=== PATIENT | female | born 1950 | race Caucasian/White ===

== ENCOUNTER 2024-04-21 16:32 | Emergency (ER) | payer MEDICARE, BC, SELFPAY ==
[2024-04-21 16:37] VITALS: BP 122/68; PULSE 78; RESP 16; TEMP 36.8; O2SAT 98
--- NOTE | 2024-04-21 16:50 | W.ED.GENAD ---
Discharge Plan Disposition Patient Disposition: Home Condition: Stable Discharge Details Clinical Impression: Laceration of left lower leg Primary Care Provider: Estrellita,Local ED Provider: Marino Salcido Home Meds and New Rx's Prescriptions: No Action levothyroxine [Euthyrox] 100 mcg tablet 100 mcg PO DAILY losartan 100 mg tablet 100 mg PO DAILY amlodipine 5 mg tablet 5 mg PO DAILY Discharge Instructions Instructions: Laceration Repair With Stitches ED Additional Instructions: You were seen in the emergency department for your significant skin tear of your left lateral calf, this was repaired by sutures after extensive wound cleaning. The sutures will need to be removed in 7 to 10 days, you can have this done at this ER or if you return home you can have it done at any medical facility, keep the wound covered and dressed with a clean dressing, watch for signs of infection. Please return to emergency department for any severe signs of infection including increasing redness, swelling, red streaking up the leg, drainage of pus from the area. Due to the fragile nature of skin tears you may need to follow-up with general surgery in office if this does not heal properly. We did update your tetanus today as you are unsure of when your last tetanus shot was. Discharge Data Discharge Date/Time-TO BE ENTERED AT DEPARTURE: 04/21/24 18:01 HPI General Date/Time Provider Initiated Documentation: 04/21/24 16:44. HPI Narrative: 73 year-old female presents to ED today by POV/ambulating with her with a chief complaint of L lopez skin tear from her bike pedal hitting her leg with onset about an hour prior to arrival. Quality described as a deep gash in the lateral lopez/calf, no radiation to active spurting of blood, numbness/tingling, gross contamination, inability to ambulate. Severity is described as mild. Palliating factors include simple bandage with relief of active bleeding. Provoking factors include nothing specific. Events leading up to the incident/Associated Symptoms: Patient is unsure of exact Tdap date, but prefers to check with PCP. Patient not anticoagulated. Related Data Home Medications ?Medication ?Instructions ?Recorded ?Confirmed amlodipine 5 mg tablet 5 mg PO DAILY 04/21/24 04/21/24 levothyroxine 100 mcg tablet 100 mcg PO DAILY 04/21/24 04/21/24 (Euthyrox) losartan 100 mg tablet 100 mg PO DAILY 04/21/24 04/21/24 Allergies Allergy/AdvReac Type Severity Reaction Status Date / Time No Known Allergies Allergy Unverified 04/21/24 16:41 General Stated Complaint: Laceration CHRISTA: 4 Review of Systems All systems reviewed & are unremarkable except as noted in HPI and below Exam Narrative Exam Narrative: GENERAL APPEARANCE: Well-nourished, non-toxic, awake and alert, atraumatic, no acute distress. SKIN: Warm, pink, dry, intact, without rashes/lesions/ulcerations, large V-shaped laceration/skin tear about 8cm on L lateral lopez/calf, into subcutaneous tissue, visualized fascia without defect to anterior tib compartment, no active bleeding, NV intact distally HEAD: Normocephalic, atraumatic, normal hair distribution for gender/age. EYES: Normal conjunctiva, no exudates on lids/lashes. ENT: Nares patent, no circumoral cyanosis, no facial swelling NECK: Supple, trachea midline, painless cervical ROM. LUNGS/CHEST: Non-labored respirations, normal A/P diameter, symmetrical expansion, no chest wall deformity HEART (CV/PV): No peripheral edema, no JVD. ABDOMEN: Soft, non-distended, no guarding. MSK: Normal ROM, no swelling/deformity to bilateral UEs or LEs, moving all extremities without weakness, no cyanosis, spine midline without tenderness, normal curvature. NEURO: Mental Status AAOx4 - alert to person, place, time, events No facial droop, no forehead involvement. Motor: No focal weakness - strength 5/5 in bilateral UEs and LEs, proximal and distal, symmetric. Sensory: sensation intact to light touch globally. Gait normal: patient ambulated without ataxia into ED room. PSYCH: euthymic, cooperative, pleasant, appropriate speech Course Vital Signs Vital signs: Vital Signs Temperature 36.8 C 04/21/24 16:37 Pulse 78 04/21/24 16:37 Respiratory Rate 16 04/21/24 16:37 Blood Pressure 122/68 04/21/24 16:37 Pulse Oximetry 98 04/21/24 16:37 Temperature 36.8 C 04/21/24 16:37 Pulse 78 04/21/24 16:37 Respiratory Rate 16 04/21/24 16:37 Respiratory Effort Normal 09/23/24 16:41 Blood Pressure 122/68 04/21/24 16:37 Pulse Oximetry 98 04/21/24 16:37 Pain Level 2 04/21/24 16:37 Procedures Laceration Laceration 1: Site: lower extremity Side (If applicable): left Size (cm): 8 Description: flap and clean Depth: simple, single layer Local anesthetic: Lidocaine 1% Amount of anesthesia used (mL): 10 Pre-repair: wound explored, irrigated extensively and deep structures intact Skin layer closed with: nylon Size (cm): 4-0 Number of sutures: 13 Technique: simple, interrupted Medical Decision Making This dictation utilizes [id number] dictation software and may contain unedited grammatical errors. 73 year-old female presents to ED today by POV/ambulating with her with a chief complaint of L lopez skin tear from her bike pedal hitting her leg with onset about an hour prior to arrival. Quality described as a deep gash in the lateral lopez/calf, no radiation to active spurting of blood, numbness/tingling, gross contamination, inability to ambulate. Severity is described as mild. Palliating factors include simple bandage with relief of active bleeding. Provoking factors include nothing specific. Events leading up to the incident/Associated Symptoms: Patient is unsure of exact Tdap date, but prefers to check with PCP. Patients' medical history: noncontributory. Family and social history: noncontributory, patient and visiting from [place]. Pertinent exam findings / vital signs include large V-shaped laceration/skin tear about 8cm on L lateral lopez/calf, into subcutaneous tissue, visualized fascia without defect to anterior tib compartment, no active bleeding, NV intact distally. Differential / pathologies of concern include laceration, avulsion. Diagnostic studies of: -none. Interventions of: -#13 sutures of 4-0 ethilon and two small steri-strips. ED Course/Assessment/Plan: 73-year-old female suffered an avulsion skin tear that is quite deep to her left lateral calf about 8 cm in length total, I repaired this with combination of Steri-Strips and sutures, the patient's will be in [place] in 7 to 10 days when this needs to come out I counseled them extensively on suture removal and generalized wound care. 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 I stressed strict return to any ED for increasing signs of infection. Findings not consistent with fascial defect, muscle rupture, aterial bleeding, gross contamination. Disposition of Laceration of Left Lower Leg. Patient verbalized understanding of the plan and return to ED criteria and engaged in shared decision making. Medical Records Medical records reviewed: Yes I reviewed the patient's medical records. Quality:[facility] Health Related Social Needs: No Data to Display [facility] All Active Problems (Updated 04/21/24 @ 16:56 by AMANDO Denise) Laceration of left lower leg (Acute) Social History Smoking/Tobacco Use Status: Never Smoking risk assessment performed?: Yes Alcohol Intake: never Drug use: Never Housing: house Do you feel safe at home: Yes Do you feel safe in your relationship?: Yes
--- OUTSIDE RECORDS SUMMARY | 2024-04-21 18:20 | XMS_ITS | Encounter Summary ---
Author Organization [facility] Address [address] [place] [address], [address] [place] [address] Care Team Providers Care Machine Setter Automatic Name Role Phone Assigned, Pcp Not Primary Care Provider [phone] Encounter Details Date Type Department Care Team (Late st Contact Info) Description 02/11/2019 [facility] Conversion [facility] [address] [place] [address] [place] [id number] [address] Social History Tobacco Use Types Packs/Day Years Used Date Smoking Tobacco: Never Assessed Sex and Gender Information Value Date Recorded Sex Assigned at Not on file Gender Identity Not on file Sexual Orientation Not on file documented as of this encounter Plan of Treatment Not on file documented as of this encounter Visit Diagnoses Diagnosis Unilateral primary osteoarthritis, right hip Abnormal coagulation profile documented in this encounter Additional Health Concerns Infection Onset Date Last Indicated Resolved Time 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
--- OUTSIDE RECORDS SUMMARY | 2024-04-21 18:20 | XMS_ITS | Encounter Summary ---
Author Organization [facility] Address [address] [place] [address], [address] [place] [address] Care Team Providers Care Assembler Type Bar And Segment Name Role Phone Assigned, Pcp Not Primary Care Provider [phone] Encounter Details Date Type Department Care Team (Late st Contact Info) Description 10/14/2018 [facility] Conversion [facility] [place] [address] [place] [phone] Miranda Herrera, RN Social History Tobacco Use Types Packs/Day Years Used Date Smoking Tobacco: Never Assessed Sex and Gender Information Value Date Recorded Sex Assigned at Not on file Gender Identity Not on file Sexual Orientation Not on file documented as of this encounter Plan of Treatment Not on file documented as of this encounter Visit Diagnoses Not on filedocumented in this encounter Additional Health Concerns Infection Onset Date Last Indicated Resolved Time MRSA Comment:+ 09/30/18 Clau 10/02/2018 10/02/2018 documented as of this encounter Care Teams Assembler Type Bar And Segment Relationship Specialty Start Date End Date Assigned, [place] [address] PCP - General 08/04/20 03/02/23 documented as of this encounter
--- OUTSIDE RECORDS SUMMARY | 2024-04-21 18:20 | XMS_ITS | Encounter Summary ---
Author Organization [facility] Address [address] [place] [address], [address] [place] [address] Care Team Providers Care Correctional Therapy Director Name Role Phone Assigned, Pcp Not Primary Care Provider [phone] Encounter Details Date Type Department Care Team (Late st Contact Info) Description 11/20/2018 [facility] Conversion [facility] [address] [facility] [address] [place] [id number] Eula Alcantar MD [address] [facility] [address] [place] [address] Social History Tobacco Use Types Packs/Day Years Used Date Smoking Tobacco: Never Assessed Sex and Gender Information Value Date Recorded Sex Assigned at Not on file Gender Identity Not on file Sexual Orientation Not on file documented as of this encounter Plan of Treatment Not on file documented as of this encounter Visit Diagnoses Diagnosis No diagnosis documented in this encounter Additional Health Concerns Infection Onset Date Last Indicated Resolved Time MRSA Comment:+ 09/30/18 Clau 10/02/2018 10/02/2018 documented as of this encounter Care Teams Correctional Therapy Director Relationship Specialty Start Date End Date Assigned, Pcp Not One [facility] [place] [address] PCP - General 08/04/20 03/02/23 documented as of this encounter
--- OUTSIDE RECORDS SUMMARY | 2024-04-21 18:20 | XMS_ITS | Encounter Summary ---
Author Organization [facility] Address [address] [place] [address], [address] [place] [address] Care Team Providers Care Chief Of Production Name Role Phone Assigned, Pcp Not Primary Care Provider [phone] Encounter Details Date Type Department Care Team (Late st Contact Info) Description 03/13/2019 [facility] Conversion [facility] [place] [facility] [address] [place] [phone] [place] [address] [facility] [address] [place] [address] Social History Tobacco Use Types Packs/Day [...] documented as of this encounter Care Teams Chief Of Production Relationship Specialty Start Date End Date Assigned, Pcp [place] [address] PCP - General 08/04/20 03/02/23 documented as of this encounter
--- OUTSIDE RECORDS SUMMARY | 2024-04-21 18:20 | XMS_ITS | Encounter Summary ---
Author Organization [facility] Address [address] [place] [address], [address] [place] [address] Care Team Providers Care Speech Professor Name Role Phone Unavailable Primary Care Provider Unavailabl e Encounter Details Date Type Department Care Team (Latest Contact Info) Description 11/20/2018 1:53 PM PDT - 11/20/2018 11:59 PM PDT Hospital Encounter [facility] [address] [facility] [address] [place] [address] No diagnosis Discharge Disposition: Home or Self Care Social History Tobacco Use Types Packs/Day Years Used Date Smoking Tobacco: Never Assessed Sex and Gender Information Value Date Recorded Sex Assigned at Not on file Gender Identity Not on file Sexual Orientation Not on file documented as of this encounter Plan of Treatment Not on file documented as of this encounter Procedures Procedure Name Priority Date/Time Associated Diagnosis Comments CT CHEST ABDOMEN PELVIS W CONTRAST Routine 11/20/2018 2:21 PM PDT No diagnosis documented in this encounter Results * CT CHEST ABDOMEN PELVIS W CONTRAST (11/20/2018 2:21 PM PDT) Anatomical Region Laterality Modality Body, Chest Computed Tomogra phy Impressions 11/20/2018 2:38 PM PDT 1. Unremarkable CT of the chest. 2. Mild heterogeneous enhancement of the left kidney may represent foci of scarring. ??However, acute or chronic pyelonephritis cannot be excluded. ??Please correlate clinically. 3. ??Constipation. 4. ??Mild age indeterminant compression deformities at T9 and T12. LANA REDD was notified of the results via secure [employer] on 11/20/2018 2:[address] Roberto Arnett. Electronically signed by Roberto Arnett 11/20/2018 2:38 PM Narrative 11/20/2018 2:[address] CHEST, ABDOMEN, AND PELVIS WITH CONTRAST CLINICAL HISTORY: History of anemia. COMPARISON: None. TECHNIQUE: Using a multidetector helical CT scanner, thin slice acquisition was performed through the chest, abdomen, and pelvis following the uncomplicated administration of intravenous contrast. Multiplanar reformations were obtained. The supervising radiologist approved the post-processing of 3D MIP reformatted images to improve anatomic detail and detection of pulmonary nodules. CT scan done according to ALARA. CONTRAST ADMINISTERED: IOVERSOL 74 % IJ SOLN ?? 95 mL DOSE INFORMATION: CTDIvol (mGy) Series 2 - Spiral - 7.96 (mGy) ? Total DLP (mGy-cm): 517.53 mGy.cm. (Note: The above reported CTDIvol and DLP values are CT scanner radiation output related dose indices, and, as such, they do NOT represent actual patient dose estimates. A medical logistics specialist should be consulted for specific questions regarding the radiation dose for this exam). CHEST FINDINGS: Lungs and Airways: Very mild bibasilar atelectasis is present. ??No pulmonary mass or suspicious nodule. Pleura: No pleural effusion or thickening. Heart and Pericardium: Heart size is normal. No pericardial effusion. Coronary Artery Calcification: Absent. Vessels: Unremarkable. Mediastinum and Celina: No enlarged mediastinal, hilar, or axillary lymph nodes. Chest Wall and Lower Neck: Unremarkable. Bones: Mild age indeterminate compression deformities are present at T9 and T12. ABDOMEN AND PELVIS FINDINGS: Liver: Unremarkable. Gallbladder and Biliary Tree: Gallbladder is not well seen. No intra or extrahepatic biliary ductal dilatation. Pancreas: Unremarkable. Spleen: Unremarkable. Adrenals: Unremarkable. Kidneys and Ureters: Right kidney is unremarkable. ??Mild heterogeneous enhancement of the left kidney is seen. Bladder: Unremarkable. Reproductive Organs: Unremarkable. Bowel: There is stool retention in the colon. Lymph Nodes: No enlarged lymph nodes. Peritoneum: No ascites or free air. No focal fluid collection. Vessels: Unremarkable. Abdominal Wall: Unremarkable. Bones: Unremarkable. Procedure Note Roberto Arnett MD - 01/29/2023 CT CHEST, ABDOMEN, AND PELVIS WITH CONTRAST CLINICAL HISTORY: History of anemia. COMPARISON: None. TECHNIQUE: Using a multidetector helical CT scanner, thin sliceacquisition was performed through the chest, abdomen, and pelvis followingthe uncomplicated administration of intravenous contrast. Multiplanarreformations were obtained. The supervising radiologist approved the post-processing of 3D MIP reformatted images toimprove anatomic detail and detection of pulmonary nodules. CT scan doneaccording to JONNY. CONTRAST ADMINISTERED: IOVERSOL 74 % IJ SOLN 95 mL DOSE INFORMATION: CTDIvol (mGy) Series 2 - Spiral - 7.96 (mGy) Total DLP (mGy-cm): 517.53 mGy.cm. (Note: The above reported CTDIvol and DLP values are CT scanner radiationoutput related dose indices, and, as such, they do NOT represent actualpatient dose estimates. A medical logistics specialist should be consulted forspecific questions regarding the radiation dose for this exam). CHEST FINDINGS: Lungs and Airways: Very mild bibasilar atelectasis is present. Nopulmonary mass or suspicious nodule. Pleura: No pleural effusion or thickening. Heart and Pericardium: Heart size is normal. No pericardial effusion. Coronary Artery Calcification: Absent. Vessels: Unremarkable. Mediastinum and Celina: No enlarged mediastinal, hilar, or axillary lymphnodes. Chest Wall and Lower Neck: Unremarkable. Bones: Mild age indeterminate compression deformities are present at T9and T12. ABDOMEN AND PELVIS FINDINGS: Liver: Unremarkable. Gallbladder and Biliary Tree: Gallbladder is not well seen. No intra orextrahepatic biliary ductal dilatation. Pancreas: Unremarkable. Spleen: Unremarkable. Adrenals: Unremarkable. Kidneys and Ureters: Right kidney is unremarkable. Mild heterogeneousenhancement of the left kidney is seen. Bladder: Unremarkable. Reproductive Organs: Unremarkable. Bowel: There is stool retention in the colon. Lymph Nodes: No enlarged lymph nodes. Peritoneum: No ascites or free air. No focal fluid collection. Vessels: Unremarkable. Abdominal Wall: Unremarkable. Bones: Unremarkable. IMPRESSION: 1. Unremarkable CT of the chest. 2. Mild heterogeneous enhancement of the left kidney may represent foci ofscarring. However, acute or chronic pyelonephritis cannot be excluded.Please correlate clinically. 3. Constipation. 4. Mild age indeterminant compression deformities at T9 and T12. LANA REDD was notified of the results via [employer] 11/20/2018 2:[address] Roberto Arnett. Electronically signed by Roberto Arnett 11/20/2018 2:[address] PROCEDURES documented in this encounter Visit Diagnoses Diagnosis No diagnosis documented in this encounter Additional Health Concerns Infection Onset Date Last Indicated Resolved Time MRSA Comment:+ 09/30/18 Nares 10/02/2018 10/02/2018 documented as of this encounter
--- OUTSIDE RECORDS SUMMARY | 2024-04-21 18:20 | XMS_ITS | Encounter Summary ---
Author Organization [facility] Address [address] [place] [address], [address] [place] [address] Care Team Providers Care Pharmacist In Charge Name Role Phone Assigned, Pcp Not Primary Care Provider [phone] Jes Arriaga MD Primary Care Provider + Encounter Details Date Type Department Care Team (Late st Contact Info) Description 02/24/2021 [facility] Conversion [facility] CONVERSION DEPARTMENT Provider, [facility] Conversion Social History Tobacco Use Types Packs/Day Years [...] documented as of this encounter Care Teams Pharmacist In Charge Relationship Specialty Start Date End Date Assigned, [place] [address] PCP - General 08/04/20 03/02/23 [place] [address] [facility], [address] [place] [address] PCP - General Internal Medicine 03/03/23 documented as of this encounter
--- OUTSIDE RECORDS SUMMARY | 2024-04-21 18:20 | XMS_ITS | Encounter Summary ---
Author Organization [facility] Address [address] [place] [address], [address] [place] [address] Care Team Providers Care Mri Specialist Name Role Phone Assigned, Pcp Not Primary Care Provider [phone] Encounter Details Date Type Department Care Team (Late st Contact Info) Description 10/10/2018 [facility] Conversion [facility] [address] [address] Provider, [facility] Ip Conversion Social History Tobacco Use Types Packs/Day [...] documented as of this encounter Care Teams Mri Specialist Relationship Specialty Start Date End Date Assigned, Pcp Not One [facility] [place] [address] PCP - General 08/04/20 03/02/23 documented as of this encounter
--- OUTSIDE RECORDS SUMMARY | 2024-04-21 18:20 | XMS_ITS | Encounter Summary ---
Author Organization [facility] Address [address] [place] [address], [address] [place] [address] Care Team Providers Care Gear Tester Name Role Phone Assigned, Pcp Not Primary Care Provider [phone] Encounter Details Date Type Department Care Team ([facility] st Contact Info) Description 09/30/2018 [facility] Conversion [facility] [address] [place] [address] [place] [address] [place], [place] [id number] Social History Tobacco Use Types Packs/Day Years Used Date Smoking Tobacco: Never Assessed Sex and Gender Information Value Date Recorded Sex Assigned at Not on file Gender Identity Not on file Sexual Orientation Not on file documented as of this encounter Miscellaneous Notes * Miscellaneous - [facility] I[facility] Conversion - 09/30/2018 2:31 PM PST Other by Shayy Cloud at 09/30/181430 Author: Shayy Cloud Service: -- Author Type: -- Filed: 09/30/181430 Encounter Date: 09/30/2018 Status: Signed Principal System Software Engineer: Shayy Cloud Electronically signed by Onel [facility] Manager [employer] Conversion 30 at 01/29/2023 6:50 AM PDT documented in this encounter Plan of Treatment Not on file documented as of this encounter Visit Diagnoses Diagnosis Unilateral primary osteoarthritis, right hip documented in this encounter Additional Health Concerns Infection Onset Date Last Indicated Resolved Time MRSA Comment:+ 09/30/18 Clau 10/02/2018 10/02/2018 documented as of this encounter Care Teams Gear Tester Relationship Specialty Start Date End Date Assigned, [place] [address] PCP - General 08/04/20 03/02/23 documented as of this encounter
--- OUTSIDE RECORDS SUMMARY | 2024-04-21 18:20 | XMS_ITS | Encounter Summary ---
Author Organization [facility] Address [address] [place] [address], [address] [place] [address] Care Team Providers Care Nutrition Manager Name Role Phone Assigned, Pcp Not Primary Care Provider [phone] Encounter Details Date Type Department Care Team (Late st Contact Info) Description 02/11/2019 [facility] Conversion [facility] [address] [place] [address] [place] [address] [address] Social History Tobacco Use Types [...] documented as of this encounter Care Teams Nutrition Manager Relationship Specialty Start Date End Date Assigned, [place] [address] PCP - General 08/04/20 03/02/23 documented as of this encounter
--- OUTSIDE RECORDS SUMMARY | 2024-04-21 18:20 | XMS_ITS | Encounter Summary ---
Author Organization [facility] Address [address] [place] [address], [address] [place] [address] Care Team Providers Care Baseball Club Manager Name Role Phone Assigned, Pcp Not Primary Care Provider [phone] Encounter Details Date Type Department Care Team (Late st Contact Info) Description 09/25/[address] [facility] [address] [place] [address] [place] [address] [address] Social History Tobacco Use Types [...] documented as of this encounter Care Teams Baseball Club Manager Relationship Specialty Start Date End Date Assigned, [place] [address] PCP - General 08/04/20 03/02/23 documented as of this encounter
--- OUTSIDE RECORDS SUMMARY | 2024-04-21 18:20 | XMS_ITS | Encounter Summary ---
Author Organization [facility] Address [address] [place] [address], [address] [place] [address] Care Team Providers Care Linux Admin Name Role Phone Assigned, Pcp Not Primary Care Provider [phone] Encounter Details Date Type Department Care Team (Late st Contact Info) Description 02/11/2019 [facility] Conversion [facility] Laboratory 1 [place] [address] [place] [address] [address] Social History Tobacco Use Types [...] documented as of this encounter Care Teams Linux Admin Relationship Specialty Start Date End Date Assigned, [place] [address] PCP - General 08/04/20 03/02/23 documented as of this encounter
--- OUTSIDE RECORDS SUMMARY | 2024-04-21 18:20 | XMS_ITS | Encounter Summary ---
Author Organization [facility] Address [address] [place] [address], [address] [place] [address] Care Team Providers Care Communications Professor Name Role Phone Assigned, Pcp Not Primary Care Provider [phone] Encounter Details Date Type Department Care Team ([facility] st Contact Info) Description 02/14/2019 [facility] Conversion [facility] [address] [address] [facility] [address] [place] [address] Provider, [facility] Ip Conversion Social History Tobacco Use Types Packs/Day Years Used Date Smoking Tobacco: Never Assessed Sex and Gender Information Value Date Recorded Sex Assigned at Not on file Gender Identity Not on file Sexual Orientation Not on file documented as of this encounter Plan of Treatment Not on file documented as of this encounter Procedures Procedure Name Priority Date/Time Associated Diagnosis Comments URINALYSIS, REFLEX MICROSCOPIC AND/OR CULTURE Routine 02/14/2019 12:10 PM PDT TYPE AND SCREEN STAT 02/14/2019 12:10 PM PDT CULTURE, MRSA Routine 02/14/2019 12:10 PM PDT CULTURE, MRSA Routine 02/14/2019 12:10 PM PDT CULTURE, MRSA Routine 02/14/2019 12:10 PM PDT APTT Routine 02/14/2019 12:10 PM PDT PROTIME-INR Routine 02/14/2019 12:10 PM PDT CBC AND DIFFERENTIAL - WAM AND NON-WAM Routine 02/14/2019 12:10 PM PDT COMPREHENSIVE METABOLIC PANEL Routine 02/14/2019 12:10 PM PDT documented in this encounter Results * (ABNORMAL) Culture, MRSA (02/14/2019 12:10 PM PDT) Culture STAPHYLOCOCCUS AUREUS, METHICILLIN RESISTANT (MRSA)(A) 02/15/2019 4:41 PM PDT [facility] (CLIA [id number]) Comment:Heavy Staphylococcus aureus,Methicillin resistant (MRSA) Tissue Both anterior nares / Unknown 02/14/2019 12:10 PM PDT 02/14/2019 2:17 PM PDT Ammon Reyes MD LAB MICROBIOLOGY - G ENERAL ORDERABLES [facility] (CLIA [id number]) [place] [address], [facility] (CLIA [id number]) [place] [address] * Culture, MRSA (02/14/2019 12:10 PM PDT) Culture No Methicillin-Resist ant Staphylococcus aureus isolated. 02/15/2019 4:38 PM PDT [facility] (CLIA [id number]) Tissue Axillary region structure / Unknown 02/14/2019 12:10 PM PDT 02/14/2019 2:17 PM PDT Ammon Reyes MD LAB MICROBIOLOGY - G ENERAL ORDERABLES [facility] (CLIA [id number]) [place] [address], [facility] (CLIA [id number]) [place] [address] * (ABNORMAL) Culture, MRSA (02/14/2019 12:10 PM PDT) Culture STAPHYLOCOCCUS AUREUS, METHICILLIN RESISTANT (MRSA)(A) 02/15/2019 4:40 PM PDT [facility] (CLIA [id number]) Comment:Light Staphylococcus aureus,Methicillin resistant (MRSA) Tissue Bilateral inguinal canals / Unknown 02/14/2019 12:10 PM PDT 02/14/2019 2:17 PM PDT Ammon Reyes MD LAB MICROBIOLOGY - G ENERAL ORDERABLES [facility] (CLIA [id number]) [place] [address], [facility] (CLIA [id number]) [place] [address] * (ABNORMAL) Urinalysis, Reflex Microscopic and/or Culture (02/14/2019 12:10 PM PDT) Color, Urine Colorless(A) Yellow 02/14/2019 2:34 PM PDT [facility] (CLIA [id number]) Clarity, UA Clear Clear 02/14/2019 2:34 PM PDT [facility] (CLIA [id number]) pH, Urine 7.0 5.0 - 8.0 02/14/2019 2:34 PM PDT [facility] (CLIA [id number]) Specific [place], UA 1.003(L) 1.005 - 1.030 02/14/2019 2:34 PM PDT [facility] (CLIA [id number]) Protein, Urine Negative Negative 02/14/2019 2:34 PM PDT [facility] (CLIA [id number]) Blood, Urine Negative Negative 02/14/2019 2:34 PM PDT [facility] (CLIA [id number]) Glucose, Urine Negative Negative 02/14/2019 2:34 PM PDT [facility] (CLIA [id number]) Ketones, Urine Negative Negative 02/14/2019 2:34 PM PDT [facility] (CLIA [id number]) Bilirubin, Urine Negative Negative 02/14/2019 2:34 PM PDT [facility] (CLIA [id number]) Nitrite, Urine Negative Negative 02/14/2019 2:34 PM PDT [facility] (CLIA [id number]) Leukocyte Esterase, UA Negative Negative 02/14/2019 2:34 PM PDT [facility] (CLIA [id number]) Urobilinogen, UA <2.0 mg/dL <2.0 mg/dL 02/14/2019 2:34 PM PDT [facility] (CLIA [id number]) Ascorbic acid, Urine Negative Negative 02/14/2019 2:34 PM PDT [facility] (CLIA [id number]) Urine 02/14/2019 12:1 0 PM PDT 02/14/2019 2:24 PM PDT Narrative [facility] (CLIA [id number]) - 02/14/2019 2:34 PM PDT Outreach Order ID: [id number] Ammon Reyes MD LAB URINE ORDERABLES [facility] (CLIA [id number]) [place] [address], [facility] (CLIA [id number]) [place] [address] * (ABNORMAL) Comprehensive metabolic panel (02/14/2019 12:10 PM PDT) Sodium (Na) 136 135 - 145 mmol/L 02/14/2019 6:32 PM PDT [facility] (CLIA [id number]) Potassium (K) 5.1 3.5 - 5.2 mmol/L 02/14/2019 6:32 PM PDT [facility] (CLIA [id number]) Chloride (Cl) 98(L) 100 - 110 mmol/L 02/14/2019 6:32 PM PDT [facility] (CLIA [id number]) Carbon dioxide (CO2) 26 24 - 32 mmol/L 02/14/2019 6:32 PM PDT [facility] (CLIA [id number]) Anion Gap 12 6 - 14 mmol/L 02/14/2019 6:32 PM PDT [facility] (CLIA [id number]) Glucose 92 65 - 99 mg/dL 02/14/2019 6:32 PM [facility] (CLIA [id number]) BUN (Blood Urea Nitrogen) 10 7 - 17 mg/dL 02/14/2019 6:32 PM [facility] (CLIA [id number]) Creatinine 0.80 0.40 - 1.50 mg/dL 02/14/2019 6:32 PM [facility] (CLIA [id number]) eGFR Non-Afr. Congolese >60 >=60 mL/min/1. 73m2 02/14/2019 6:32 PM [facility] (CLIA [id number]) Comment: The estimated GFR is calculated by the MDRD equation. The result is normalized to average adult surface area (SA) of 1.73m2, and should be multiplied by (SA/1.73) for patients at extremes of body size. For Americans, multiply the calculated GFR by 1.21. The eGFR has not been validated in other non- races, women, or less than 18 years of age. An eGFR <60 suggests possible chronic kidney disease. ??An eGFR <15 indicates renal failure. Calcium (Ca) 9.6 8.4 - 10.2 mg/dL 02/14/2019 6:32 PM [facility] (CLIA [id number]) Albumin 4.0 3.9 - 5.0 g/dL 02/14/2019 6:32 PM [facility] (CLIA [id number]) Bilirubin Total 0.4 0.2 - 1.3 mg/dL 02/14/2019 6:32 PM PDT [facility] (CLIA [id number]) Total Protein (TP) 6.7 6.3 - 8.2 g/dL 02/14/2019 6:32 PM PDT [facility] (CLIA [id number]) Aspartate aminotransferase (AST) (SGOT) 26 14 - 36 U/L 02/14/2019 6:32 PM PDT [facility] (CLIA [id number]) Alanine Aminotransferase (ALT) (SGPT) 25 9 - 52 U/L 02/14/2019 6:32 PM PDT [facility] (CLIA [id number]) Alkaline phosphatase (ALP) 92 38 - 126 U/L 02/14/2019 6:32 PM PDT [facility] (CLIA [id number]) Globulin 2.7 2.0 - 4.0 g/dL 02/14/2019 6:32 PM PDT [facility] (CLIA [id number]) Albumin/Globulin Ratio 1.5 1.2 - 2.0 02/14/2019 6:32 PM PDT [facility] (CLIA [id number]) Urea nitrogen/Creatinine Ratio 12.5 02/14/2019 6:32 PM PDT [facility] (CLIA [id number]) Blood 02/14/2019 12:1 0 PM PDT 02/14/2019 6:13 PM PDT Narrative [facility] (CLIA [id number]) - 02/14/2019 6:32 PM PDT Outreach Order ID: [id number] Ammon Reyes MD LAB BLOOD ORDERABLES [facility] (CLIA [id number]) [place] [address], [facility] (CLIA [id number]) [place] [address] * Protime-INR (02/14/2019 12:10 PM PDT) Prothrombin Time (PT), QN 11.2 9.4 - 12.5 seconds 02/14/2019 1:19 PM PDT [facility] (CLIA [id number]) International Normalized Ratio??(Inr) 1.0 0.8 - 1.1 02/14/2019 1:19 PM PDT [facility] (CLIA [id number]) Blood 02/14/2019 12:1 0 PM PDT 02/14/2019 1:02 PM PDT [facility] - 02/14/2019 1:19 PM PDT Outreach Order ID: [id number] Ammon Reyes MD LAB BLOOD ORDERABLES Performing Organization Address [facility] Co de Phone Number [facility] [address] [place] [address], [facility] (CLIA [id number]) [address] [place] [address] * APTT (02/14/2019 12:10 PM PDT) activated partial thromboplastin time (aPTT) 34 25 - 37 seconds 02/14/2019 1:19 PM PDT [facility] (CLIA [id number]) Blood 02/14/2019 12:1 0 PM PDT 02/14/2019 1:02 PM PDT [facility] - 02/14/2019 1:19 PM PDT Outreach Order ID: [id number] Ammon Reyes MD LAB BLOOD ORDERABLES Performing Organization Address City/[facility]/ZIP Co de Phone Number [facility] [address] [place] [address], [facility] (CLIA [id number]) [address] [place] [address] * (ABNORMAL) CBC with Differential (02/14/2019 12:10 PM PDT) White Blood Cell Count (WBC) 7.7 4.8 - 11.0 K/uL 02/14/2019 2:32 PM PDT [facility] (CLIA [id number]) Red Blood Cell Count (RBC) 3.64(L) 4.20 - 6.20 M/uL 02/14/2019 2:32 PM PDT [facility] (CLIA [id number]) Hemoglobin (Hgb) 10.6(L) 12.0 - 18.0 g/dL 02/14/2019 2:32 PM PDT [facility] (CLIA [id number]) Hematocrit (HCT) 32.4(L) 37.0 - 52.0 % 02/14/2019 2:32 PM PDT [facility] (CLIA [id number]) Mean corpuscular volume (MCV) 89.0 80.0 - 100.0 fL 02/14/2019 2:32 PM PDT [facility] (CLIA [id number]) Mean Corpuscular Hemoglobin (MCH) 29.1 27.0 - 31.0 pg 02/14/2019 2:32 PM PDT [facility] (CLIA [id number]) Mean Corpuscular Hemoglobin Concentration (MCHC) 32.7 32.0 - 37.0 g/dL 02/14/2019 2:32 PM PDT [facility] (CLIA [id number]) Red Cell Distribution Width (RDW) 14.3 11.5 - 14.5 % 02/14/2019 2:32 PM PDT [facility] (CLIA [id number]) RDW-SD 46.5 36.0 - 55.0 fL 02/14/2019 2:32 PM PDT [facility] (CLIA [id number]) Platelet Count (PLT) 419(H) 150 - 400 K/uL 02/14/2019 2:32 PM PDT [facility] (CLIA [id number]) Mean Platelet Volume (MPV) 9.2 9.0 - 13.0 fL 02/14/2019 2:32 PM PDT [facility] (CLIA [id number]) % Neutrophils 61.6 36.0 - 75.0 % 02/14/2019 2:32 PM PDT [facility] (CLIA [id number]) Lymphocytes 21.1 13.0 - 50.0 % 02/14/2019 2:32 PM PDT [facility] (CLIA [id number]) Monocytes 10.1(H) 2.0 - 10.0 % 02/14/2019 2:32 PM PDT [facility] (CLIA [id number]) EOSINOPHILS 5.6 0.1-6.0 % % 02/14/2019 2:32 PM PDT [facility] (CLIA [id number]) Basophils 1.3 0.0 - 2.0 % 02/14/2019 2:32 PM PDT [facility] (CLIA [id number]) % Immature Granulocytes 0.3 0.0 - 0.8 % 02/14/2019 2:32 PM PDT [facility] (CLIA [id number]) Absolute Neutrophils 4.75 1.00 - 7.00 K/uL 02/14/2019 2:32 PM PDT [facility] (CLIA [id number]) Absolute Lymphocytes 1.63 1.50 - 4.00 K/uL 02/14/2019 2:32 PM PDT [facility] (CLIA [id number]) Absolute Monocytes 0.78 0.20 - 0.90 K/uL 02/14/2019 2:32 PM PDT [facility] (CLIA [id number]) Absolute Eosinophils 0.43 0.00 - 0.70 K/uL 02/14/2019 2:32 PM PDT [facility] (CLIA [id number]) Absolute Basophils 0.10 0.00 - 0.20 K/uL 02/14/2019 2:32 PM PDT [facility] (CLIA [id number]) Absolute Immature Granulocytes 0.02 0.00 - 0.10 K/uL 02/14/2019 2:32 PM PDT [facility] (CLIA [id number]) Nucleated RBC (NRBC) 0 <1 per 100 WBCs 02/14/2019 2:32 PM PDT [facility] (CLIA [id number]) Blood 02/14/2019 12:1 0 PM PDT 02/14/2019 2:23 PM PDT Narrative [facility] (CLIA [id number]) - 02/14/2019 2:32 PM PDT Outreach Order ID: [id number] Ammon Reyes MD LAB BLOOD ORDERABLES [facility] (CLIA [id number]) [place] [address], [facility] (CLIA [id number]) [place] [address] * TYPE AND SCREEN (02/14/2019 12:10 PM PDT) ABO Grouping O 02/14/2019 12:10 PM PDT [facility] Rh Type Positive 02/14/2019 12:10 PM PDT [facility] Antibody Screen Negative 02/14/2019 12:10 PM PDT [facility] Blood 02/14/2019 12:1 0 PM PDT 02/14/2019 1:02 PM PDT Narrative [facility] CONVERSION LAB - 02/14/2019 12:10 PM PDT Pre op: yes Surgery Location: [facility] Has the patient been transfused in the last 3 months?->No Has the patient been in the last 3 months?->No Has the patient received RhoGAM or WinRho?->No Anticipated date of surgery/procedure->03/13/19 Ammon Reyes MD LAB BLOOD BANK TEST ORDERABLES [facility] CONVERSION LAB [facility] [address] [place] [address] documented in this encounter Visit Diagnoses Diagnosis Unilateral primary osteoarthritis, right hip Abnormal coagulation profile documented in this encounter Additional Health Concerns Infection Onset Date Last Indicated Resolved Time MRSA Comment:+ 09/30/18 [place] 10/02/2018 10/02/2018 documented as of this encounter Care Teams Communications Professor Relationship Specialty Start Date End Date Assigned, [place] [address] PCP - General 08/04/20 03/02/23 documented as of this encounter
--- OUTSIDE RECORDS SUMMARY | 2024-04-21 18:20 | XMS_ITS | Encounter Summary ---
Author Organization [facility] Address [address] [place] [address], [address] [place] [address] Care Team Providers Care Senior Nurse Manager Name Role Phone Assigned, Pcp Not Primary Care Provider [phone] Encounter Details Date Type Department Care Team (Late st Contact Info) Description 09/25/2018 [facility] Conversion [facility] [address] [place] [address] [place] [address] [address] Social History Tobacco Use Types [...] documented as of this encounter Care Teams Senior Nurse Manager Relationship Specialty Start Date End Date Assigned, [place] [address] PCP - General 08/04/20 03/02/23 documented as of this encounter
--- OUTSIDE RECORDS SUMMARY | 2024-04-21 18:20 | XMS_ITS | Encounter Summary ---
Author Organization [facility] Address [address] [place] [address], [address] [place] [address] Care Team Providers Care Line Installer Name Role Phone Assigned, Pcp Not Primary Care Provider [phone] Encounter Details Date Type Department Care Team (Late st Contact Info) Description 03/14/2019 [facility] Conversion [facility] [place] [place] [address] [address] [facility] [place] [address] [place] [address] [address] [place] [address] Social History Tobacco Use Types Packs/Day [...] documented as of this encounter Care Teams Line Installer Relationship Specialty Start Date End Date Assigned, Pcp Not One [facility] [place] [address] PCP - General 08/04/20 03/02/23 documented as of this encounter
--- OUTSIDE RECORDS SUMMARY | 2024-04-21 18:20 | XMS_ITS | Encounter Summary ---
Author Organization [facility] Address [address] [place] [address], [address] [place] [address] Care Team Providers Care Floodplain Manager Name Role Phone Assigned, Pcp Not Primary Care Provider [phone] Encounter Details Date Type Department Care Team (Late st Contact Info) Description 11/13/2018 [facility] Conversion [facility] [address] [place] [address] [address] [place] [id number] Yrn Alcantar MD [address] [facility] [address] [address] Social History Tobacco Use Types Packs/Day Years [...] documented as of this encounter Care Teams Floodplain Manager Relationship Specialty Start Date End Date Assigned, Pcp Not One [facility] [place] [address] PCP - General 08/04/20 03/02/23 documented as of this encounter
--- OUTSIDE RECORDS SUMMARY | 2024-04-21 18:20 | XMS_ITS | Encounter Summary ---
Author Organization [facility] Address [address] [place] [address], [address] [place] [address] Care Team Providers Care Staff Therapist Name Role Phone Assigned, Pcp Not Primary Care Provider [phone] Encounter Details Date Type Department Care Team ([facility] st Contact Info) Description 10/10/2018 [facility] Conversion [facility] [address] [place] [address] [place] [address] [place] [address] Social History Tobacco Use Types Packs/Day Years Used Date Smoking Tobacco: Never Assessed Sex and Gender Information Value Date Recorded Sex Assigned at Not on file Gender Identity Not on file Sexual Orientation Not on file documented as of this encounter Miscellaneous Notes * Miscellaneous - Provider[facility]oses[facility] Ip Conversion - 10/10/2018 12:36 PM PDT Other by Rosa Vogel at 10/10/18 1236 Author: Rosa Vogel Service: -- Author Type: -- Filed: 10/10/18 1236 Encounter Date: 10/10/2018 Status: Signed Mold Mover: Rosa Vogel Electronically signed by [facility], [facility] Net Web Developer Conversion 30 at 01/29/2023 8:54 AM PDT documented in this encounter Plan of Treatment Not on file documented as of this encounter Visit Diagnoses Diagnosis Unilateral primary osteoarthritis, right hip documented in this encounter Additional Health Concerns Infection Onset Date Last Indicated Resolved Time MRSA Comment:+ 09/30/18 Clau 10/02/2018 10/02/2018 documented as of this encounter Care Teams Staff Therapist Relationship Specialty Start Date End Date Assigned, [place] [address] PCP - General 08/04/20 03/02/23 documented as of this encounter
--- OUTSIDE RECORDS SUMMARY | 2024-04-21 18:20 | XMS_ITS | Encounter Summary ---
Author Organization [facility] Address [address] [place] [address], [address] [place] [address] Care Team Providers Care Molding Supervisor Name Role Phone Assigned, Pcp Not Primary Care Provider [phone] Encounter Details Date Type Department Care Team ([facility] st Contact Info) Description 11/25/2018 [facility] Conversion [facility] [id number] [facility] [address] [id number] Provider, [facility] Ip Conversion Social History Tobacco Use Types Packs/Day Years Used Date Smoking Tobacco: Never Assessed Sex and Gender Information Value Date Recorded Sex Assigned at Not on file Gender Identity Not on file Sexual Orientation Not on file documented as of this encounter Plan of Treatment Not on file documented as of this encounter Procedures Procedure Name Priority Date/Time Associated Diagnosis Comments URINALYSIS WITH REFLEX MICROSCOPIC Routine 11/25/2018 12:56 PM PDT URINE CULTURE Routine 11/25/2018 12:56 PM PDT documented in this encounter Results * Urine culture (11/25/2018 12:56 PM PDT) Culture MIXED ORTIZ (MULTIPLE MORPHOLOGIES PRESENT) 11/27/2018 9:37 AM PDT [facility] (CLIA [id number]) Comment:<10,000 CFU/ml Mixed ortiz (multiple morphologies present) Urine Urine specimen obtained by clean catch procedure / Unknown 11/25/2018 12:56 PM PDT 11/25/2018 6:43 PM PDT Eula Alcantar MD LAB MICROBIOLOGY - GENERAL ORDERABLES [facility] (CLIA [id number]) [facility] [place] [address], [facility] (CLIA [id number]) [facility] [address] * (ABNORMAL) Urinalysis With Reflex Microscopic (11/25/2018 12:56 PM PDT) Color, Urine Straw(A) Yellow 11/25/2018 7:11 PM PDT [facility] (CLIA [id number]) Clarity, UA Clear Clear 11/25/2018 7:11 PM PDT [facility] (CLIA [id number]) pH, Urine 7.0 5.0 - 8.0 11/25/2018 7:11 PM PDT [facility] (CLIA [id number]) Specific [place], UA 1.009 1.005 - 1.030 11/25/2018 7:11 PM PDT [facility] (CLIA [id number]) Protein, Urine Negative Negative 11/25/2018 7:11 PM PDT [facility] (CLIA [id number]) Blood, Urine Negative Negative 11/25/2018 7:11 PM PDT [facility] (CLIA [id number]) Glucose, Urine Negative Negative 11/25/2018 7:11 PM PDT [facility] (CLIA [id number]) Ketones, Urine Negative Negative 11/25/2018 7:11 PM PDT [facility] (CLIA [id number]) Bilirubin, Urine Negative Negative 11/25/2018 7:11 PM PDT [facility] (CLIA [id number]) Nitrite, Urine Negative Negative 11/25/2018 7:11 PM PDT [facility] (CLIA [id number]) Leukocyte Esterase, UA Negative Negative 11/25/2018 7:11 PM PDT [facility] (CLIA [id number]) Urobilinogen, UA <2.0 mg/dL <2.0 mg/dL 11/25/2018 7:11 PM PDT [facility] (CLIA [id number]) Ascorbic acid, Urine Negative Negative 11/25/2018 7:11 PM PDT [facility] (CLIA [id number]) White Blood Cell Count (WBC), UA None Seen <3 /HPF 11/25/2018 7:11 PM PDT [facility] (CLIA [id number]) Red Blood Cell Count (RBC), UA None Seen <3 /HPF 11/25/2018 7:11 PM PDT [facility] (CLIA [id number]) Squamous Epithelial Cells, UA 11-20(A) <11 /LPF 11/25/2018 7:11 PM PDT [facility] (CLIA [id number]) Bacteria UA Negative Negative, Few /HPF 11/25/2018 7:11 PM PDT [facility] (CLIA [id number]) Mucus UA Few Few /LPF 11/25/2018 7:11 PM PDT [facility] (CLIA [id number]) Urine 11/25/2018 12:5 6 PM PDT 11/25/2018 6:43 PM PDT Eula Alcantar MD LAB URINE ORDERAB LES [facility] (CLIA [id number]) [place] [address], [facility] (CLIA [id number]) [place] [address] documented in this encounter Visit Diagnoses Diagnosis Other disorders of kidney 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
--- OUTSIDE RECORDS SUMMARY | 2024-04-21 18:20 | XMS_ITS | Encounter Summary ---
Author Organization [facility] Address [address] [place] [address], [address] [place] [address] Care Team Providers Care Food And Nutrition Services Supervisor Name Role Phone Unavailable Primary Care Provider Unavailabl e Encounter Details Date Type Department Care Team (Latest Contact Info) Description 03/13/2019 7:10 AM PDT - 03/14/2019 5:20 PM PDT Hospital Encounter [facility] [address] [place] [phone] [place] [address] [facility] [address] [place] [address] Unilateral primary osteoarthritis, right hip; Presence of right artificial hip joint Discharge Disposition: DISCHARGED/TRANSFERR ED TO HOME UNDER CARE OF AN ORGANIZED HOME HEALTH SERVICE ORGANIZATION IN ANTICIPATION OF COVERED SKILLED CARE Social History Tobacco Use Types Packs/Day Years Used Date Smoking Tobacco: Never Assessed Sex and Gender Information Value Date Recorded Sex Assigned at Not on file Gender Identity Not on file Sexual Orientation Not on file documented as of this encounter Last Filed Vital Signs Vital Sign Reading Time Taken Comments Blood Pressure - - Pulse 60 03/13/2019 12:45 PM PDT Temperature - - Respiratory Rate - - Oxygen Saturation - - Inhaled Oxygen Concentration - - Weight - - Height - - Body Mass Index - - documented in this encounter Discharge Summaries * Prieto Watters NP - 03/14/2019 4:23 PM PDT DISCHARGE SUMMARY [facility] Pt. Name/Age/: Quinkrysten Dias 68 y.o. 1950 Med. Record Number: [id number] PCP: DUC ESPINOSA Date of Admission: 03/13/2019 Date of Discharge: 03/14/2019 Primary Discharge Dx: Primary osteoarthritis of right hip Secondary Discharge Dx(s): Active Hospital Problems Diagnosis ??? Primary osteoarthritis of right hip ??? Anemia ??? Depression ??? HTN (hypertension) ??? Hypothyroid ??? Osteoarthritis ??? Osteopenia Resolved Hospital Problems No resolved problems to display. Procedure(s): RIGHT TOTAL HIP ARTHROPLASTY Reason for Admission (Brief): Hip surgery Hospital Course, including Complications: The patient was admitted for the above-noted procedure asplanned on the day of the procedure. Postoperative course was uneventful. Drains were removed on postoperative day 1. Anticoagulation, pain management, and antibiotic prophylaxis was initiated as perprotocol. Surgical dressing remained clean and intact during hospitalization. Mobilization with physical therapy began on the operative day. Laboratory values were as noted in the chart. Bowel program was initiated on postoperative day 1. As per preoperative planning, discharge orders were coordinated through the operations manager/coordinator for discharge planning. Condition on Discharge: Stable Discharge Medications: Discharge Medications New Medications Details acetaminophen 500 mg tablet Take 2 tablets by mouth every 8 hours. Do not exceed more than 3000 mg of Tylenol per day from all sources aka: TYLENOL aspirin 325 MG EC tablet Take 1 tablet by mouth Daily. For 6 weeks, take with food for blood clot prevention. Start: 03/15/2019 docusate-senna 50-8.6 mg per tablet Take 2 tablets by mouth 2 times daily. While taking narcotic pain meds, hold for loose stools aka: SENOKOT-S famotidine 20 mg tablet Take 1 tablet by mouth 2 times daily. aka: PEPCID meloxicam 15 mg tablet Take 1 tablet by mouth Daily. Take with food and avoid taking other over the counter NSAIDs like Ibuprofen or Aleve. aka: MOBIC Start: 03/15/2019 methocarbamol 500 mg tablet Take 1 tablet by mouth every 8 hours as needed for Muscle spasms. aka: ROBAXIN traMADol 50 mg tablet Take 1-2 tablets by mouth EVERY 4 TO 6 HOURS NEEDED for Pain. aka: ULTRAM Unchanged Medications Details amLODIPine 5 mg tablet Take 5 mg by mouth Daily. aka: NORVASC FLUoxetine 20 mg capsule Take 20 mg by mouth Daily. aka: PROzac levothyroxine 88 mcg tablet Take 88 mcg by mouth every morning (before breakfast). aka: SYNTHROID losartan 100 MG tablet Take 100 mg by mouth Daily. aka: TANG Disposition: Home with Home Health Follow-Up Plans: Follow-up with: As per D/C instructions Diet: Return to preop Diet Activity: As per D/C Instruction If a brace has been ordered for this patient: The brace is needed to reduce pain and improve mobility. This product will compliment Physical Therapy and help the patient return to work/activities of daily living. Prieto Watters NP, 03/14/2019, 16:24 documented in this encounter Discharge Instructions * Discharge Instructions* Prieto Watters NP - 03/14/2019 12:03 PM PDT Please hold all blood pressure meds for SBP (top number) less than 130 or if feeling dizzy or lightheaded Discharge Instructions: Discharge To: Home with Home Health Diet: Resume Previous Diet Discharge Wound / Skin Care: Removal Surgical Dressing: call surgeon if dressing becomes saturated, remove dressing in 1 week and leave open to air Shower Instructions: May Shower with dressing Discharge Weight Bearing Status: weight bearing as tolerate Discharge Restrictions/Precautions: anterior hip precautions:no hyperextension with external rotation Apply ice packs as tolerated to surgical site Elevate lower extremity: surgical leg Discharge Pain Medication: For pain medication refills please call your surgeon's office DIRECT ANTERIOR HIP REPLACEMENT DISCHARGE INSTRUCTIONS MD Damian Hurtado MD Jay Patel, MD Travis Scudday, MD 1. When you go home you should get plenty of REST and elevate your legs. There is a tendency for patients to overdo it and over tire themselves once at home. Try to balance your activity and rest periods. The home health physical therapist will help you with this. 2. Your waterproof dressing will stay on for 1 week. After 1 week, you can remove the dressing and leave the incision open to air and you can shower with nothing covering the incision. In general, keep the incision clean and dry. DO NOT TAKE A BATH OR SIT IN A JACUZZI UNTIL THE INCISION IS HEALED AND THERE ARE NO SCABS, OPEN AREAS, OR DRAINAGE. 3. Re-read the hip replacement manual you received from the office and the book you received from the hospital. 4. Maintain all of your hip precautions as instructed by the physical therapists. These precautionsare to help you prevent dislocating your new hip. The hip precautions for direct anterior approach include no excessive hyperextension of the hip WITH no excessive external rotation of the leg. The ysical therapists will instruct you on this. If your physical therapist is unclear of these precautions please have them call our office. 5. Use a regular bed pillow between your legs while sleeping on your side. It is ok to sleep on either side with this approach; however, the operative side may be too uncomfortable for several weeks. 6. Do your exercise program daily for 3 months. This will be set up by your physical therapist at home. They will come to your house 3 times a week for 2-3 weeks only. There is not a lot of physical therapy in the first 6 weeks after a hip replacement. 7. Avoid sitting in low, deep, or soft chairs or sofas. Use a firm chair or firm pillow if needed. 8. You should continue the weight bearing status as instructed by your physical therapist in the hospital. This is given on an individual basis. Please make sure you know your weight bearing status before you leave the hospital. This status will be continued until your first post-operative visit tothe office. 9. You should already have an appointment for your first post-operative visit at the office. If not, please call the doctor???s Lofter for an appointment. 10. For adequate wound healing it is important to eat well, take a multi- vitamin, Vitamin C, and aniron tablet every day for 2 weeks. A list was provided to you on your pre-operative appointment. Please do not try to diet for 6 weeks and eat well-balanced meals. 11. Do not drive for approximately 2 weeks. When driving, maintain all hip precautions. Do not drive while using narcotic pain medication. 12. Start taking your blood thinning medication for 4 weeks to help with the prevention of blood clots forming in your legs or lungs. You will be instructed on the drug, the strength and how often you should take it prior to your discharge home. 13. It is best to wait until 3 months after your surgery to have any dental appointments or cleanings except for emergencies. If you have any dental work done, please call your dentist or our office and get a prescription for prophylactic antibiotics to take prior to your dental appointment. 14. If you have any questions or problems regarding equipment or home health physical therapy when discharged from the hospital, please call the neighborhood planner or correctional counselor/case manager at the hospital. 15. If you have any questions, call the office at: Dr. Giron: ??? Janeen Borjas, Lofter [phone] ??? Hilario Duque, Sign Artist [phone] ??? Rosa Isela Muse, Nurse Practitioner [phone] ??? Dr. Fiore: ??? Ivette Cedeno, Lofter [phone] ??? Gail Pelletier, Sign Artist [phone] ??? Paul Fernando, Physician Asbestos Textile Supervisor [phone] ??? Dr. James: ??? Lisa Palacios, Lofter [phone] ??? yanira Villagomez, Sign Artist [phone] Dr. Morrison: Administr[employer] Asbestos Textile Supervisor [phone] documented in this encounter Progress Notes * Carina Vicente RN - 03/14/2019 5:20 PM PDT [facility] Nursing Discharge Note Vital Signs: Vitals are within normal range for patient, taken within 2h Vitals: 03/14/19 1612 BP: 116/62 Pulse: 71 Resp: 14 Temp: 36.3 ??C (97.3 ??F) Instructions: The patient/patient's treasury representative received verbal and written discharge instructions and verbalized understanding of the information. If applicable, prescriptions were provided at the time of discharge. Patient's Actual Discharge Time: ___1720 Level of Consciousness [] Alert [] confused [] Delirious [] Lethargic/ Somnolent [] Obtunded [] Sedated [] Semi-comatose [] Unresponsive [] Other Status [] Home [x] Home with home health [] Home with home health and iv therapy [] board and care [] SNF [] Intermediate care [] Acute rehab [] Left AMA [] Home with Hospice [] Post mortem care done [] [] Other Method of Discharge [] Ambulatory [x] Wheelchair [] Gurney [] Stretcher [] Cart (to joseph) [] Other Accompanied by: [x] Family [] Self [] Transport team [] Other Minor Patients: See Discharge Instructions form for authorized signature [] Released to parents [] Released to legal guardian(s) [] Other Electronically signed by: Carina Vicente, 03/14/2019, 17:22 * Prieto Watters NP - 03/14/2019 4:19 PM PDT Pt. Name/Age/: Quin Dais 68 y.o. 1950 Med. Record Number: [id number] Subjective: Post-Operative Day: 1 Day Post-Op Procedure: Procedure(s): RIGHT TOTAL HIP ARTHROPLASTY Systemic or Specific Complaints: seen earlier this morning. Pt is in contact isolation for MRSA colonization. No prophylactic antibiotic needed per surgeon. Pt was up in chair and was anxious to go home. Drain was popped out while she was trying to get dressed her self. at bedside. Revieweddischarge home pain meds and anticoagulation therapy. Educated on incisional care as well. No othercomplaints. Denies F/C/N/V/CP/SOB. Objective: Temp: 36.4 ??C (97.5 ??F) BP: 100/59 Pulse: 60 Resp: 16 SpO2: 94 % on room air Min/Max Temp past 24 hours:Temp Av.6 ??C (97.8 ??F) Min: 36.4 ??C (97.5 ??F) Max: 36.9 ??C (98.4 ??F) Intake/Output Summary (Last 24 hours) at 03/14/2019 1619 Last data filed at 03/14/2019 1512 Gross per 24 hour Intake 4920 ml Output 1590 ml Net 3330 ml Wt. Admission: Weight: 48.4 kg (106 lb 11.2 oz) Wt. Current: Weight: 48.4 kg (106 lb 11.2 oz) General: alert, appears stated age and cooperative Pain: 2 = Mild DVT Exam: No evidence of DVT seen on physical exam. Negative Abelardo's sign. No cords or calf tenderness. Dressing: clean, dry, no drainage, drain was disconnected by the pt, tip intact, quad intact NVS: Neuro : intact. Circulation: warm, well perfused Strength: normal strength, tone, and muscle mass Data Review Recent Results (from the past 24 hour(s)) Basic Metabolic Panel Result Value Ref Range Na 132 (L) 135 - 145 mmol/L K 4.0 3.5 - 5.2 mmol/L Cl 104 100 - 110 mmol/L CO2 23 (L) 24 - 32 mmol/L Anion Gap 5 (L) 6 - 14 mmol/L Glucose 86 65 - 99 mg/dL BUN 8 7 - 17 mg/dL Creatinine 0.70 0.40 - 1.50 mg/dL eGFR if not >60 >=60 mL/min/1.73m2 Ca 8.3 (L) 8.4 - 10.2 mg/dL BUN/Creatinine Ratio 11.4 CBC no Differential Result Value Ref Range WBC 10.6 4.8 - 11.0 K/uL RBC 2.78 (L) 4.20 - 6.20 M/uL Hemoglobin 7.9 (L) 12.0 - 18.0 g/dL Hematocrit 25.2 (L) 37.0 - 52.0 % MCV 90.6 80.0 - 100.0 fL MCH 28.4 27.0 - 31.0 pg MCHC 31.3 (L) 32.0 - 37.0 g/dL RDW-CV 16.2 (H) 11.5 - 14.5 % Platelet Count 238 150 - 400 K/uL MPV 10.0 9.0 - 13.0 fL % nRBC 0 <1 per 100 WBCs Retic Count Result Value Ref Range % Reticulocyte Count 1.4 0.9 - 1.9 % Absolute Reticulocyte Count 0.0395 M/uL Immature Reticulocyte Fraction 11.8 3.0 - 15.9 % Reticulocyte Hemoglobin Content 32.5 29.0 - 37.0 pg Assessment: Status Post Procedure(s): RIGHT TOTAL HIP ARTHROPLASTY Acute blood loss anemia Plan: 1. Cont PT per protocol with anterior hip precaution and WBAT. Encourage IS & cough/deep breathing. 2. DVT PPX: ASA daily per surgeon's VTE PPX protocol, SCDs, mechanical exercises, mobilize w/ PT and nsg. 3. Pain mgmt, continue current multimodal pain mgmt regimen, has RX for pain at home, cold therapy ATC 4. Bowel Regimen, Senokot-S BID, miralax, dulcolax supp prn 5. Acute Post Op Anemia, clinically stable, no indications for transfusion, monitor for symptoms 6. Discharge plan: Discharge home w/ HHPT today if pain controlled and if cleared by PT and medically stable, continue outpt dvt ppx with ASA 325 daily for 6 wks with GI ppx, follow up w/ Dr. James in 6 wks. 7. Plan of care discussed w/ patient and surgeon, both agree. Prieto Watters NP * Aydee Agosto - 03/14/2019 12:30 PM PDT [facility] DCP: Sunday home with . [facility] [[phone]; f [phone]] to follow. Fww from [facility] [phone], fax [phone] (Contact Vitaly [phone]) Pt requesting to speak to ARLENE. SW met with patient at bedside; patient does not remember meeting with correctional counselor/case manager yesterday. SW confirmed discharge plan; patient to discharge with home health, fww has not yet been delivered.Pt reports no preference, list offered. Referral sent to Lissy with [employer] [phone], fax [phone] who will arrange for home health services and order fww through [facility]; [facility] to deliver to bedside. CELIA Parr - [employer]contractor DYLON * Kenny Trinh MD - 03/14/2019 7:21 AM PDT Hospitalist Progress Note Patient Name: Quin Dias Age:68 y.o. :1950 Admitting Physician: Ammon James MD Hospital Day: 2 Assessment/Plan: Quin Dias is a 68 y.o. year old female admitted with Primary osteoarthritis of right hip ??Active Hospital Problems Primary osteoarthritis of right hip POD#1 s/p right total hip arthroplasty postop surgical care including pain control, per ortho MD/ortho team SCDs for dvt-p, defer pharmacologic DVT-p to ortho MD/ortho team IS q1 hour while awake to prevent post-op pulmonary complications trend Hgb daily to ensure stability stool softeners/laxatives as needed ?? Acute Blood Loss Anemia Monitor CBC post-op blood pressure low Continue to monitor ?? HTN (hypertension) Resume BP meds with holding parameters. ?? Hypothyroid Continue synthroid ?? Endogenous Depression Continue prozac ?? MRSA colonization Contact isolation Plan of care as outlined above was reviewed with and agreed upon by the patient. Anticipated discharge date: cleared for discharge from my perspective as a clinical operations consultant CODE: Full Code Subjective: Pain controlled no complaints Vital Signs: Vitals Current 24 Hour Min / Max Temp 36.9 ??C (98.4 ??F) Temp Min: 36 ??C (96.8 ??F) Max: 36.9 ??C (98.4 ??F) BP 92/58 BP Min: 92/58 Max: 147/82 HR 63 Pulse Min: 52 Max: 63 RR 16 Resp Min: 9 Max: 17 Sats 98 % SpO2 Min: 78 % Max: 100 % Weight 48.4 kg (106 lb 11.2 oz) Body mass index is 17.76 kg/m??. Admit: 48.4 kg (106 lb 11.2 oz) Intake/Output Summary (Last 24 hours) at 03/14/2019 0721 Last data filed at 03/14/2019 0600 Gross per 24 hour Intake 4670 ml Output 1750 ml Net 2920 ml Physical Exam: Gen: NAD. HEENT: NC/AT, PERRL, anicteric sclerae. Neck: supple, No JVD. Lungs: CTA b/l. No wheezes, rales, rhonchi. CV: RRR, S1S2. Abdomen: +normoactive BS, soft, NT/ND. Extremities: No edema b/l. No palpable calf TTP. Neuro: CN II-XII grossly intact. Motor 5/5 b/l UE and b/l LE. Skin: no rashes. Psych: A+O x 3. Lab results: Recent Results (from the past 24 hour(s)) CBC no Differential Result Value Ref Range WBC 5.7 4.8 - 11.0 K/uL RBC 3.49 (L) 4.20 - 6.20 M/uL Hemoglobin 10.0 (L) 12.0 - 18.0 g/dL Hematocrit 30.8 (L) 37.0 - 52.0 % MCV 88.3 80.0 - 100.0 fL MCH 28.7 27.0 - 31.0 pg MCHC 32.5 32.0 - 37.0 g/dL RDW-CV 16.1 (H) 11.5 - 14.5 % Platelet Count 360 150 - 400 K/uL MPV 8.8 (L) 9.0 - 13.0 fL % nRBC 0 <1 per 100 WBCs Protime INR Result Value Ref Range Prothrombin Time 10.8 9.4 - 12.5 seconds INR 0.9 0.8 - 1.1 PTT Result Value Ref Range aPTT 35 25 - 37 seconds Basic Metabolic Panel Result Value Ref Range Na 132 (L) 135 - 145 mmol/L K 4.0 3.5 - 5.2 mmol/L Cl 104 100 - 110 mmol/L CO2 23 (L) 24 - 32 mmol/L Anion Gap 5 (L) 6 - 14 mmol/L Glucose 86 65 - 99 mg/dL BUN 8 7 - 17 mg/dL Creatinine 0.70 0.40 - 1.50 mg/dL eGFR if not >60 >=60 mL/min/1.73m2 Ca 8.3 (L) 8.4 - 10.2 mg/dL BUN/Creatinine Ratio 11.4 CBC no Differential Result Value Ref Range WBC 10.6 4.8 - 11.0 K/uL RBC 2.78 (L) 4.20 - 6.20 M/uL Hemoglobin 7.9 (L) 12.0 - 18.0 g/dL Hematocrit 25.2 (L) 37.0 - 52.0 % MCV 90.6 80.0 - 100.0 fL MCH 28.4 27.0 - 31.0 pg MCHC 31.3 (L) 32.0 - 37.0 g/dL RDW-CV 16.2 (H) 11.5 - 14.5 % Platelet Count 238 150 - 400 K/uL MPV 10.0 9.0 - 13.0 fL % nRBC 0 <1 per 100 WBCs Retic Count Result Value Ref Range % Reticulocyte Count 1.4 0.9 - 1.9 % Absolute Reticulocyte Count 0.0395 M/uL Immature Reticulocyte Fraction 11.8 3.0 - 15.9 % Reticulocyte Hemoglobin Content 32.5 29.0 - 37.0 pg Recent Labs 03/13/19 0755 INR 0.9 PROTIME 10.8 PTT 35 Microbiology Results (72 hrs) No results found for the last 72 hours. Imaging studies: Available data and images were reviewed personally. Significant results and findings are addressed here or in the Assessment and Plan. Medications: Scheduled Meds: ??? acetaminophen 1,000 mg Oral 3 times per day ??? amLODIPine 5 mg Oral Daily ??? aspirin 325 mg Oral Daily ??? docusate-senna 2 tablet Oral BID ??? famotidine 20 mg Oral BID ??? FLUoxetine 20 mg Oral Daily ??? levothyroxine 88 mcg Oral QAM AC ??? losartan 100 mg Oral Daily ??? meloxicam 15 mg Oral Daily ??? polyethylene glycol 17 g Oral Daily Continuous Infusions: ??? lactated ringers 30 mL/hr at 03/13/19 0909 ??? sodium chloride 0.9% 125 mL/hr at 03/14/19 0524 PRN Meds:.aluminum & magnesium hydroxide-simethicone, bisacodyl, diphenhydrAMINE OR diphenhydrAMINE OR diphenhydrAMINE, HYDROmorphone, magnesium hydroxide, menthol throat lozenges, methocarbamol, naloxone, ondansetron, prochlorperazine, sodium chloride 0.9%, traMADol Greater than 35 Minutes spent seeing and examining this patient, medical charting, completion of orders, discussion with RN, CM, Assistant Media Planner regarding this patient's plan of care and dc plan when indicated, and updating the patient's designated family member of choice. Electronically signed by: Kenny Trinh MD, 03/14/2019 at 7:21 * Sharon Tong - 03/13/2019 8:08 AM PDT PHQ and home medications list reviewed with patient , information updated in patients EHR. * Kaitlin Moses - 03/05/2019 10:14 AM PDT PHQ and home medications list reviewed with patient over phone , information updated in patients EHR, Hx MRSA-positive cultures-Vanco during surgery-place in Isolation,Hx anemia-stable now, No previous surgical history, No allergies. documented in this encounter H&P Notes * Ammon James - 03/13/2019 10:37 AM PDT SURGICAL INTERIM HISTORY AND PHYSICAL UPDATE Pt. Name/Age/: Quin Dias 68 y.o. 1950 Date of procedure: 03/13/2019 The current H&P was reviewed. The patient was reexamined. Re-evaluation of the patient confirmsthe necessity for the scheduled procedure. No change has occurred in the patient's condition since the H&P was completed less than 30 days ago. PHYSICIAN'S VERIFICATION OF INFORMED CONSENT The patient was counseled regarding the procedure, its indications, risks, potential complications and alternatives and any questions were answered. Consent was obtained. PLANNED PROCEDURE(S) Procedure(s): RIGHT TOTAL HIP ARTHROPLASTY (Right) PHYSICIAN'S VERIFICATION OF INFORMED CONSENT FOR BLOOD TRANSFUSION There is not a reasonable possibility that blood transfusion will be necessary as a result of the patient's procedure. Ammon James 03/13/2019 10:37 * Ammon James - 03/07/2019 9:17 AM PDT H&P by Ammon James MD at 03/07/19916 Author: Ammon James MD Service: Orthopedics Author Type: Physician Filed: 03/07/19916 Date of Service: 03/07/19916 Creation Time: 03/07/19916 Status: Signed Supervisor Pumping: Teresita Hameed documented in this encounter Consult Notes * Kenny Trinh MD - 03/13/2019 12:52 PM PDT Images from the original note were not included. Consults by Kenny Trinh MD at 03/13/191251 Author: Kenny Trinh MD Service: Internal Medicine Author Type: Physician Filed: 03/13/19 1354 Date of Service: 03/13/191251 Creation Time: 03/13/191251 Status: Signed Supervisor Pumping: Kenny Trinh MD (Physician) Hospitalist Consultation Patient Name: Quin Dias Age:68 y.o. :1950 Date of Admission: 03/13/2019 Referring Physician: Ammon James MD Chief Complaint/Reason for Consultation: medication reconciliation History of Present Illness: This is a very pleasant 68 y/o patient presenting to [facility] [place] for elective surgerywith Dr. James consisting of right total hip arthroplasty. The patient is now POD#0 and presently being monitored in the PACU. This surgery is indicated for the patient having end stage degenerative joint disease causing severe symptoms unresponsive to conservative treatments and or interventions. M edical clearance was obtained through the patient's ppap coordinator. I was kindly asked to see the the patient by the attending orthopedic surgeon for medication reconciliation and for co-management of the patient's chronic medical problems. No complaints in PACU. Denies pain, nausea. Past Medical History: Past Medical History: Diagnosis Date ? Anemia ? Depression ? HTN (hypertension) ? Hypothyroid ? Iron deficiency anemia ? MRSA (methicillin resistant staph aureus) culture positive 2019 [facility]rier ? Osteoarthritis ? Osteopenia Past Surgical History: Past Surgical History: Procedure Laterality Date ? ELECTROCARDIOGRAM 01/2019 [place] Allergies: No Known Allergies Medications: Scheduled Meds: Continuous Infusions: ? lactated ringers 30 mL/hr at 03/13/19 0909 PRN Meds:.bupivacaine 0.25% 50 mL + ketorolac 30 mg injection MIXTURE, fentaNYL (PF), HYDROmorphone, meperidine, metoclopramide, ondansetron, povidone-iodine (BETADINE) 10 % 60 mL in NS 500 mL topical MIXTURE, sodium chloride for irrigation Medications Prior to Admission Medication Sig Dispense Refill ? amLODIPine (NORVASC) 5 mg tablet Take 5 mg by mouth Daily. ? FLUoxetine (PROZAC) 20 mg capsule Take 20 mg by mouth Daily. ? levothyroxine (SYNTHROID) 88 mcg tablet Take 88 mcg by mouth every morning (before breakfast). ? losartan (COZAAR) 100 MG tablet Take 100 mg by mouth Daily. Family History: Family History Problem Relation Age of Onset ? Heart disease Father Social History: The patient reports that she has never smoked. She has never used smokeless tobacco. She reports that she does not drink alcohol or use drugs. Review of Systems: A complete 14 organ review of systems was performed and is negative unless otherwise stated above under HPI. OBJECTIVE: BP 132/75 Pulse 59 Temp 36.1 ??C (97 ??F) Resp 16 Wt 48.4 kg (106 lb 11.2 oz) SpO2 97% BMI 17.76 kg/m?? Physical Examination: General: alert, cooperative, no distress Head: normocephalic, without obvious abnormality, atraumatic Eyes: conjunctivae/corneas clear, EOM's intact Neck: supple, symmetrical, trachea midline, and no JVD Lungs: clear to auscultation bilaterally Heart: normal rate and regular rhythm Abdomen: soft, non-tender, non-distended, bowel sounds normal Extremities: no cyanosis or edema Pulses: 2+ and symmetric Skin: no rashes or lesions Neurologic: motor grossly normal, sensation intact, no focal deficits Labs: Recent Results (from the past 24 hour(s)) CBC no Differential Result Value Ref Range WBC 5.7 4.8 - 11.0 K/uL RBC 3.49 (L) 4.20 - 6.20 M/uL Hemoglobin 10.0 (L) 12.0 - 18.0 g/dL Hematocrit 30.8 (L) 37.0 - 52.0 % MCV 88.3 80.0 - 100.0 fL MCH 28.7 27.0 - 31.0 pg MCHC 32.5 32.0 - 37.0 g/dL RDW-CV 16.1 (H) 11.5 - 14.5 % Platelet Count 360 150 - 400 K/uL MPV 8.8 (L) 9.0 - 13.0 fL % nRBC 0 <1 per 100 WBCs Protime INR Result Value Ref Range Prothrombin Time 10.8 9.4 - 12.5 seconds INR 0.9 0.8 - 1.1 PTT Result Value Ref Range aPTT 35 25 - 37 seconds Recent Labs 03/13/19 0755 INR 0.9 PROTIME 10.8 PTT 35 Microbiology Results (Last 14 Days by Collected Date with Culture/Sensitivity) Procedure Component Value Units Date/Time Culture, MRSA [[id number]] (Abnormal) Collected: 03/03/191406 Order Status: Completed Lab Status: Final result Updated: 03/04/192006 Specimen: Tissue from Nares Culture Light Staphylococcus aureus,Methicillin resistant (MRSA) Culture, MRSA [[id number]] (Normal) Collected: 03/03/191406 Order Status: Completed Lab Status: Final result Updated: 03/04/192005 Specimen: Tissue from Inguinal, Bilateral Culture No Methicillin-Resistant Staphylococcus aureus isolated. Culture, MRSA [[id number]] (Normal) Collected: 03/03/191406 Order Status: Completed Lab Status: Final result Updated: 03/04/192005 Specimen: Tissue from Axilla, Bilateral Culture No Methicillin-Resistant Staphylococcus aureus isolated. Diagnostic Studies: All available labs, EKGs, and images were personally reviewed. ASSESSMENT AND PLAN: Quin Dias is a 68 y.o. year old female admitted with Primary osteoarthritis of right hip Active Hospital Problems Primary osteoarthritis of right hip POD#0 s/p right total hip arthroplasty postop surgical care including pain control, per ortho MD/ortho team SCDs for dvt-p, defer pharmacologic DVT-p to ortho MD/ortho team IS q1 hour while awake to prevent post-op pulmonary complications trend Hgb daily to ensure stability stool softeners/laxatives as needed Anemia Monitor CBC post-op HTN (hypertension) Resume BP meds with holding parameters. Hypothyroid Continue synthroid Endogenous Depression Continue prozac MRSA colonization Contact isolation Thank you very much for this consultation. I will be happy to follow as clinically indicated while your patient is in the hospital. Plan of care including medications, labs, diagnostic imaging studies were discussed with the patient/patient's family and attending MD, who were all in agreement. All questions were answered to theirsatisfaction. Electronically signed by: Kenny Trinh MD, 03/13/2019 at 12:52 Portions of this chart may have been created with [facility] voice recognition software. Occasional wrong-word or sound-alike substitutions may have occurred due to the inherent limitations of voice recognition software. Please read the chart carefully and recognize, using context, where these substitutions have occurred. documented in this encounter Nursing Notes * Radha Yao RN - 03/13/2019 1:34 PM PDT PACU Nursing Note: -- PHQ and sleep apnea screening reviewed in Epic * Ja Ornelas RN - 03/13/2019 10:38 AM PDT PHQ and home medications list reviewed with patient documented in this encounter OR Notes * Anesthesia Postprocedure Evaluation - Kayode Esquivel MD - 03/13/2019 1:04 PM PDT ANESTHESIA POSTANESTHESIA EVALUATION Quin Qureshi Tiffanymonie 68 y.o. female 1950 [id number] Procedure(s) RIGHT TOTAL HIP ARTHROPLASTY (Right Hip) Cooperates? Yes Mental Status Performs simple tasks. Respiratory Satisfactory - Airway patent (self maintained). Cardiovascular Satisfactory - Blood pressure and heart rate acceptable Temperature Satisfactory Pain Satisfactory N/V Control Satisfactory Hydration Satisfactory - No signs of dehydration Vitals Value Taken Time Temp 36 ??C (96.8 ??F) 03/13/2019 12:51 Pulse 64 03/13/2019 13:04 Resp 13 03/13/2019 13:04 BP 103/77 03/13/2019 13:02 Arterial Line BP Arterial Line BP 2 SpO2 100 % 03/13/2019 13:04 Vitals shown include unvalidated device data. Electronically signed by Kayode Esquivel MD 03/13/2019 13:04 [facility] * Anesthesia Procedure Notes - Kayode Esquivel MD - 03/13/2019 11:27 AM PDT Anesthesia Airway Placement 03/13/2019 11:01 Preprocedure check: patient identified, oxygen, airway assessed, patient reassessment prior to induction, airway equipment checked and suction Mask ventilation: easy Attempts: 1 Airway type: laryngeal mask Size: 4 LDA Airway Cuffed: minimum pressure required to achieve seal. Tube secured with: adhesive tape Trauma: none Tube placement verification: bilateral chest rise, equal bilateral breath sounds and carbon dioxidedetection Please see intraoperative grid for any additional medication documentation. * Anesthesia Procedure Notes - Kayode Esquivel MD - 03/13/2019 11:21 AM PDT Neuraxial Procedure Note 03/13/2019 10:52 Procedure: single-shot spinal anesthesia Indication: postoperative analgesia Preprocedure check: patient identified, procedure and rescue equipment checked, preevaluation including airway assessment complete, risks/benefits discussed, consent obtained, timeout performed, reassessment prior to procedure and monitors applied Patient position: sitting Preparation: chlorhexidine/isopropyl alcohol, 1% lidocaine infiltration, Procedure level: L3-4 Approach: midline Needle: pencil-point Needle size: 25 g (24) Needle length: 4 in Medication administered through: needle Negative findings: no blood aspirated, no air aspirated and no paresthesia Positive findings: CSF aspirated Attempts: 1 Ease of procedure: easy Dressing: band-aid Comments: PARQ: including benefits of reduced pain, reduced pain medication usage and associated side effects; risks of incomplete block, nerve injury, bleeding, nausea, post dural puncture headache,and infection; and alternatives of using opiates and adjunct pain medications all discussed. The patient fully understands and would like to proceed with the spinal. Please see anesthesia record or flowsheet for vital sign documentation and see anesthesia record orMAR for additional medication documentation. * Anesthesia Preprocedure Evaluation - Kayode Esquivel MD - 03/13/2019 9:43 AM PDT ANESTHESIA PREANESTHESIA EVALUATION Quin Dias 68 y.o. female 1950 [id number] Procedure(s): RIGHT TOTAL HIP ARTHROPLASTY (Right ) Medical,anesthesia, drug, allergy histories reviewed, NPO status verified. ECG reviewed. Labs reviewed. . Review of Systems / Med History Cardiovascular , Exercise tolerance >4 METS(+) hypertension, . Endocrine (+) hypothyroidism. Psychology (+) psychiatric history of depression. Physical Exam Airway MP I, Anesthesia Plan ASA 3 Type: General, spinal. Induction: Inhalational and intravenous. Potential problems: None anticipated. Monitors: Standard ASA monitors. Consent statement:Anesthetic plan, alternatives, risks and benefits discussed with patient. . Consenting person understands and agrees to proceed . Electronically Signed by: Kayode Esquivel MD ESig date/time: 03/13/2019 9:43 documented in this encounter Miscellaneous Notes * Care Plan - Carina Vicente RN - 03/14/2019 4:44 PM PDT s/p R total hip; POD# 1. A/Ox4. CSM intact. Denies N/T. VSS. Tramadol effective for pain. Hip dressing CDI. Denies N/V. Pt voiding independently. No BM. Tolerating regular diet. Up with PT/assist. Ice to hip in place. No acute signs of distress. No further changes from previous assessment, pt dc'd home with . Iv dc'd catheter intact. All belongings sent with pt. Instructed to follow up with dr james in 6 weeks. Also instructed to follow up with dr james ID for MRSA treatment. Pt has fww.dc'd via wheelchair. Carina Vicente * Care Plan - Nati Street, PT - 03/14/2019 4:13 PM PDT Physical Therapy Plan of Care Treatment, Discharge Note Patient Name: Quin Dias Date of Onset Illness/Injury/Surgery: 03/13/19 Rehab Diagnosis: Pt. presents with pain, gait, strength, ROM, and functional mobility deficits Medical Diagnosis: The primary encounter diagnosis was Status post total hip replacement, right. A diagnosis of Primary osteoarthritis of right hip was also pertinent to this visit. Past Medical History and Personal Factors that Impact Plan of Care: Pt is 68 y/o female with R anterior HARLEY WBAT POD#0. PMH: HTN, depression, osteopenia, iron deficiency, MRSA (current) and OA. PSH: Electrocardiogram Visit Summary: Pt is low complexity evaluation treatment and discharge and pt. presents with pain, gait, strength, ROM, and functional mobility deficits secondary to R anterior HARLEY WBAT 03/13/2019. Ptcleared by RN for PT. Treatment consisted of education on anterior hip precs, fall precautions, safety, review of bed thera ex, transfer, and gait training. With bed mobility and functional transferspt requires VCs for proper sequencing. During gait X 150 ft with FWW WBAT pt demonstrated good 2-point contact. Vitals were measured and WNL.With stair training pt demonstrated proper sequence and technique and vitals WNL after stair training. Pt has met all functional requirements and is discharged to [facility] with [facility] score 23/24. RN notified. Planned Interventions: bed mobility training, gait training, home exercise program, patient/family education, stair training, transfer training Recommended Frequency: 2 times/day Rehab potential: good, to achieve stated therapy goals Prior Functional Level: IND Lives With: spouse Living Arrangement: independent living facility Stairs to Enter Home: 12 Stairs in home: 0 Additional home comments: Physical Therapy Discharge Recommendations: Recommended discharge disposition: home, home with assist Post discharge physical therapy recommendation: home health Equipment Recommendations: none Patient Status/Goals: Reflects last filed data of patient status; may be from multiple contributors Precautions: WBAT- anterior hip precautions falls, right anterior hip precautions Weight Bearing Status: Left Lower Extremity Weight-Bearing: weight-bearing as tolerated Right Lower Extremity Weight-Bearing: weight-bearing as tolerated Cognition Coordination: Visual Assessment Balance Standing in FWW Sitting Balance: Static: good balance Sitting Balance: Dynamic: good balance Standing Balance: Static: good balance Standing Balance: Dynamic: good balance Vestibular Assessment ROM Strength Sensation Bed Mobility (.) Supine to Sit, Level of [place]: independent Sit to Supine, Level of [place]: independent Transfers Sit-Stand, Level of [place]: modified independent Stand-Sit, Level of [place]: modified independent [id number], Assistive Device: 2 wheeled walker (FWW) Toilet, Level of [place]: not tested Toilet, Assistive Device: none Car, Level of [place]: modified independent(reviewed) Car, Assistive Device: 2 wheeled walker (FWW) Gait asymptomatic with gait Level of [place]: modified independent Assistive Device: 2 wheeled walker (FWW) Distance (feet): X150 Gait Pattern Analysis: 2-point gait Gait Deviations: weight-shifting ability decreased Stairs Asymptomatic with stairs Number of Stairs: X5 Handrail Location: left side (ascending) Level of [place]: contact guard assist Assistive Device: 1 rail, cane (straight, single point) Technique Used: step to step (descending), step to step (ascending) Functional Endurance Therapeutic Exercise Bed exercises: bilateral, ankle pumps Repetitions: 10 Seated exercises: bilateral, ankle pumps Repetitions: 10 [id number] Goal Most Recent Value STG Status met at 03/14/2019 1613 STG [place] Level independent at 03/13/2019 1618 STG Assistive Device HOB elevated at 03/13/2019 1618 [id number] Goal Most Recent Value STG Status met at 03/14/2019 1613 STG [place] Level modified independent at 03/13/2019 1618 STG Assistive Device 2 wheeled walker (FWW) at 03/13/2019 1618 Gait Goal Most Recent Value STG Status met at 03/14/2019 1613 STG [place] Level modified independent at 03/13/2019 1618 STG Assistive Device 2 wheeled walker (FWW) at 03/13/2019 1618 STG Distance (feet) 2 X150 at 03/13/2019 1618 Stair Goal Most Recent Value STG Status met at 03/14/2019 161 STG [place] Level supervised at 03/13/20191617 STG Assistive Device 1 rail, cane (straight, single point) at 03/13/2019 161 STG Number of Stairs X10 at 03/13/2019 1618 Ther Exercise Goal Most Recent Value STG Status met at 03/14/2019 161 STG VCs with HEP at 03/13/2019 1618 Additional Goal #1 PT Most Recent Value STG Status continued at 03/14/2019 161 STG AMPAC= 24 at 03/13/2019 161 PT G-Codes Functional Assessment Tool Used: AMPAC Score: 22 Electronically signed by: Nati Taveras, PT, 03/14/2019 17:18 * Care Plan - Nati Street, PT - 03/14/2019 1:12 PM PDT Physical Therapy Plan of Care (P) Treatment Note Patient Name: Quin Dias Date of Onset Illness/Injury/Surgery: 03/13/19 Rehab Diagnosis: Pt. presents with pain, gait, strength, ROM, and functional mobility deficits Medical Diagnosis: The primary encounter diagnosis was Status post total hip replacement, right. A diagnosis of Primary osteoarthritis of right hip was also pertinent to this visit. Past Medical History and Personal Factors that Impact Plan of Care: Pt is 68 y/o female with R anterior HARLEY WBAT POD#0. PMH: HTN, depression, osteopenia, iron deficiency, MRSA (current) and OA. PSH: Electrocardiogram Visit Summary: (P) Pt is low complexity evaluation treatment and pt. presents with pain, gait, strength, ROM, and functional mobility deficits secondary to R anterior HARLEY WBAT 03/13/2019. Pt cleared by RN for PT. Treatment consisted of education on anterior hip precs, fall precautions, safety, review of bed thera ex, transfer, and gait training. With bed mobility and functional transfers pt requires VCs for proper sequencing. During gait X 150 ft with FWW WBAT pt reported feeling light headed and BP was measured at 82/51 and 68bpm. Once light headedness resolved pt completed stair training butpresented as confused and Bp was taken and measured at 65/43 and 62bpm. Pt was placed supine and recovered to 105/62 and 61bpm. Pt has X9 stairs to ambulate to enter her home. Recommend additional skilled therapy for stair training prior to discharge home. RN notified. Planned Interventions: bed mobility training, gait training, home exercise program, patient/family education, stair training, transfer training Recommended Frequency: 2 times/day Rehab potential: good, to achieve stated therapy goals Prior Functional Level: IND Lives With: spouse Living Arrangement: independent living facility Stairs to Enter Home: 12 Stairs in home: 0 Additional home comments: Physical Therapy Discharge Recommendations: Recommended discharge disposition: (P) home, home with assist Post discharge physical therapy recommendation: (P) home health Equipment Recommendations: (P) none Patient Status/Goals: Reflects last filed data of patient status; may be from multiple contributors Precautions: WBAT- anterior hip precautions falls, right anterior hip precautions Weight Bearing Status: Left Lower Extremity Weight-Bearing: weight-bearing as tolerated Right Lower Extremity Weight-Bearing: weight-bearing as tolerated Cognition Coordination: Visual Assessment Balance (P) Standing in FWW Sitting Balance: Static: good balance Sitting Balance: Dynamic: good balance Standing Balance: Static: good balance Standing Balance: Dynamic: good balance Vestibular Assessment ROM Limited by anterior hip precautions L LE ROM: WFL R LE ROM: limited Strength L LE Strength: WFL R LE Strength: WFL Sensation Sensation Comments: L3-S1 Additional Documentation: light touch LLE Light Touch: WNL RLE Light Touch: WNL Bed Mobility (.) Assistive Device: HOB elevated Supine to Sit, Level of [place]: (P) not tested Sit to Supine, Level of [place]: (P) stand by assist, verbal cues required Transfers Sit-Stand, Level of [place]: (P) modified independent Stand-Sit, Level of [place]: (P) modified independent [id number], Assistive Device: (P) 2 wheeled walker (FWW) Toilet, Level of [place]: (P) not tested Toilet, Assistive Device: (P) none Car, Level of [place]: (P) modified independent(reviewed) Car, Assistive Device: (P) 2 wheeled walker (FWW) Gait (P) X150 had to be wheeled back to room due to low BP Level of [place]: (P) supervised Assistive Device: (P) 2 wheeled walker (FWW) Distance (feet): (P) X150 Gait Pattern Analysis: (P) 2-point gait Gait Deviations: (P) weight-shifting ability decreased Stairs (P) X5 stairs BP low after Number of Stairs: (P) X5 Handrail Location: (P) left side (ascending) Level of [place]: (P) contact guard assist Assistive Device: (P) 1 rail, cane (straight, single point) Technique Used: (P) step to step (descending), step to step (ascending) Functional Endurance Therapeutic Exercise Bed exercises: (P) bilateral, ankle pumps Repetitions: 10 Seated exercises: bilateral, ankle pumps Repetitions: 10 [id number] Goal Most Recent Value STG Status progressing (Pended) at 03/14/2019 1312 STG [place] Level independent at 03/13/2019 1618 STG Assistive Device HOB elevated at 03/13/2019 1618 [id number] Goal Most Recent Value STG Status met (Pended) at 03/14/2019 1312 STG [place] Level modified independent at 03/13/2019 1618 STG Assistive Device 2 wheeled walker (FWW) at 03/13/2019 1618 Gait Goal Most Recent Value STG Status progressing (Pended) at 03/14/2019 1312 STG [place] Level modified independent at 03/13/2019 1618 STG Assistive Device 2 wheeled walker (FWW) at 03/13/2019 1618 STG Distance (feet) 2 X150 at 03/13/2019 1618 Stair Goal Most Recent Value STG Status progressing (Pended) at 03/14/2019 1312 STG [place] Level supervised at 03/13/2019 1618 STG Assistive Device 1 rail, cane (straight, single point) at 03/13/2019 1618 STG Number of Stairs X10 at 03/13/2019 1618 Ther Exercise Goal Most Recent Value STG Status progressing (Pended) at 03/14/2019 1312 STG VCs with HEP at 03/13/2019 1618 Additional Goal #1 PT Most Recent Value STG Status progressing (Pended) at 03/14/2019 1312 STG AMPAC= 24 at 03/13/2019 1618 PT G-Codes Functional Assessment Tool Used: [facility] Score: 22 Electronically signed by: Nati Taveras, PT, 03/14/2019 15:40 * Care Plan - Kelli Bowser, RD - 03/14/2019 10:57 AM PDT Acuity: Moderate Nutrition Initial assessment Nutrition Recommendations: Continue diet. Discussed adequate intake for healing (calories, protein,micronutrients). Declined oral nutritional supplements/snacks. Nutrition Diagnosis: Increased nutrient needs (calories, protein) related to increased demand for healing as evidence by s/p surgery Nutrition Goals/Outcome: will meet at least 75% of estimated calorie/protein needs by next RD follow up Education: Discussed Healthy Eating for Your Bones, handout provided. Discussed evidenced based research regarding consumption of Prunes for bone health and research summary handout provided. Verbalized understanding. Nutrition Assessment: - Current information: 68 y.o. female s/p R HARLEY POD #1 (03/13) - PMH: HTN, hypothyroid, depression, iron deficiency anemia, osteopenia, MRSA colonization - Nutrition history (03/14 ): NKFA, no food intolerances, lactovegetarian, takes MVI, Calcium and Vitamin D supplements. States she refuses to take the medication Fosomax. Practices Yoga and participates in resistance exercise daily. Stable weight my entire life and reports being small framed. - Meds: pepcid, decadron, synthroid, bowel regimen, pain medications - Labs: Na 132, low h/h - GI: last BM (03/12), ( -) nausea/vomiting - Skin:Melvin/Nutrition (16/10) not at risk for skin breakdown, surgical incision - Edema:not documented - I&Os: +2920 mL/LOS drain output: -150 ml /24 hours - Nutrition-Focused Physical Exam (): Subcutaneous Fat Loss: Orbital (TING), Upper Arm (TING), Thoracic/Lumbar (TING) Muscle Loss: Temporal (TING), Clavicle Region (TING), Deltoid (TING), Scapula Region (TING), Interosseous (TING ), Patellar Region (TING ), Anterior Thigh Muscle (TING), Calf Muscles (TING) Anthropometrics: Ht: 5'5 confirmed Admit Wt (lbs): 106 (standing scale) BMI: 17.76 Current Wt (lbs): no current weights UBW (lbs): s06 stated (100 %) IBW (lbs): 125 (85 %) Comments: stable weight prior to admission Estimated Needs: using 48 kg admit ; Geriatric/Total Joint MNT 4148-9322 Kcals (30-35 kcal/kg) low BMI 48-58 gm Protein (1.0-1.2 gm/kg) Fluids (mL): 1440 (30 ml/kg) age Current Nutrition Orders: Diet general; Effective Now - Intake: Insufficient data available at this time to determine adequacy. Reports good appetite. * Care Plan - Nati Street, PT - 03/14/2019 9:02 AM PDT Physical Therapy Plan of Care Treatment Note Patient Name: Quin Dias Date of Onset Illness/Injury/Surgery: 03/13/19 Rehab Diagnosis: Pt. presents with pain, gait, strength, ROM, and functional mobility deficits Medical Diagnosis: The primary encounter diagnosis was Status post total hip replacement, right. A diagnosis of Primary osteoarthritis of right hip was also pertinent to this visit. Past Medical History and Personal Factors that Impact Plan of Care: Pt is 68 y/o female with R anterior HARLEY WBAT POD#0. PMH: HTN, depression, osteopenia, iron deficiency, MRSA (current) and OA. PSH: Electrocardiogram Visit Summary: Pt is low complexity evaluation treatment and pt. presents with pain, gait, strength, ROM, and functional mobility deficits secondary to R anterior HARLEY WBAT 03/13/2019. Pt cleared by RNfor PT. Treatment consisted of education on anterior hip precs, fall precautions, safety, review ofbed thera ex, transfer, and gait training. With bed mobility and functional transfers pt requires VCs for proper sequencing. During gait 2 X 150 ft with FWW WBAT pt able to progress to 2-point due toVCs demonstrating good management of FWW. Patient vitals were measured throughout the session but patient was asymptomatic. Recommend additional skilled therapy for stair training prior to discharge home. RN notified. Planned Interventions: bed mobility training, gait training, home exercise program, patient/family education, stair training, transfer training Recommended Frequency: 2 times/day Rehab potential: good, to achieve stated therapy goals Prior Functional Level: IND Lives With: spouse Living Arrangement: independent living facility Stairs to Enter Home: 12 Stairs in home: 0 Additional home comments: Physical Therapy Discharge Recommendations: Recommended discharge disposition: home, home with assist Post discharge physical therapy recommendation: home health Equipment Recommendations: cane (straight, single point) Patient Status/Goals: Reflects last filed data of patient status; may be from multiple contributors Precautions: WBAT- anterior hip precautions falls, right anterior hip precautions Weight Bearing Status: Left Lower Extremity Weight-Bearing: weight-bearing as tolerated Right Lower Extremity Weight-Bearing: weight-bearing as tolerated Cognition Coordination: Visual Assessment Balance Standing in FWW Sitting Balance: Static: good balance Sitting Balance: Dynamic: good balance Standing Balance: Static: good balance Standing Balance: Dynamic: good balance Vestibular Assessment ROM Limited by anterior hip precautions L LE ROM: WFL R LE ROM: limited Strength L LE Strength: WFL R LE Strength: WFL Sensation Sensation Comments: L3-S1 Additional Documentation: light touch LLE Light Touch: WNL RLE Light Touch: WNL Bed Mobility (.) Assistive Device: HOB elevated Supine to Sit, Level of [place]: not tested Sit to Supine, Level of [place]: not tested Transfers Sit-Stand, Level of [place]: modified independent Stand-Sit, Level of [place]: modified independent Eht-Kyfab-Zrc, Assistive Device: 2 wheeled walker (FWW) Toilet, Level of [place]: modified independent Toilet, Assistive Device: 2 wheeled walker (FWW) Car, Level of [place]: stand by assist, verbal cues required Car, Assistive Device: 2 wheeled walker (FWW) Gait Level of [place]: supervised Assistive Device: 2 wheeled walker (FWW) Distance (feet): 2 X150 Gait Pattern Analysis: 2-point gait Gait Deviations: weight-shifting ability decreased Stairs Curb X1 and stair training with HR Number of Stairs: X5 Handrail Location: right side (ascending) Level of [place]: contact guard assist, verbal cues required Assistive Device: 1 rail, cane (straight, single point) Technique Used: step to step (descending), step to step (ascending) Functional Endurance Therapeutic Exercise Bed exercises: bilateral, ankle pumps Repetitions: 10 Seated exercises: bilateral, ankle pumps Repetitions: 10 Budmtc-Lzh-Wsbhaf Goal Most Recent Value STG Status progressing at 03/14/2019 0902 STG [place] Level independent at 03/13/2019 1618 STG Assistive Device HOB elevated at 03/13/2019 1618 Dym-Bplzy-Zzp Goal Most Recent Value STG Status met at 03/14/2019 0902 STG [place] Level modified independent at 03/13/2019 1618 STG Assistive Device 2 wheeled walker (FWW) at 03/13/2019 1618 Gait Goal Most Recent Value STG Status progressing at 03/14/2019 0902 STG [place] Level modified independent at 03/13/2019 1618 STG Assistive Device 2 wheeled walker (FWW) at 03/13/2019 1618 STG Distance (feet) 2 X150 at 03/13/2019 1618 Stair Goal Most Recent Value STG Status progressing at 03/14/2019 0902 STG [place] Level supervised at 03/13/2019 1618 STG Assistive Device 1 rail, cane (straight, single point) at 03/13/2019 1618 STG Number of Stairs X10 at 03/13/2019 1618 Ther Exercise Goal Most Recent Value STG Status progressing at 03/14/2019 0902 STG VCs with HEP at 03/13/2019 1618 Additional Goal #1 PT Most Recent Value STG Status progressing at 03/14/2019 0902 STG AMPAC= 24 at 03/13/2019 1618 PT G-Codes Functional Assessment Tool Used: AMPAC Score: 22 Electronically signed by: Nati Taveras, PT, 03/14/2019 12:26 * Care Plan - Nikki Cheema RN - 03/14/2019 4:19 AM PDT Pt. Nikki Live HARLEY, anterior, POD 1. Alert and oriented x4. +CSM. Tolerates Regulardiet, denies nausea or vomiting. Assisted to commode tonight, tolerates well, denies dizziness or lightheadedness. Pain controlled w/ scheduled Tylenol and Tramadol PRN. Voids adequate amounts of urine. Original post-op dressing C/D/I. Observed Contact precautions. Afebrile. VSS. Anticipates discharge to home today. * Care Plan - Pau Sanders RN - 03/13/2019 7:40 PM PDT S/P Rt HARLEY. A/O x 4, CSM intact, Dressing CDI with cold therapy on. HV suction draining. Pain control with Tramadol and Tylenol PO . Pt passed out in the bathroom after ambulate 300 ft with PT . BP WNL after back to bed. Tolerate regular diet. Bladder scan 482 ml @ 1740. Due to void. Encourage ankle pumps and IS . Call light within reach and bed alarm on. Contact isolation maintained. * Care Plan - Nati Street, PT - 03/13/2019 4:18 PM PDT Physical Therapy Plan of Care Initial Evaluation, Treatment Note Patient Name: Quin Dias Date of Onset Illness/Injury/Surgery: 03/13/19 Rehab Diagnosis: Pt. presents with pain, gait, strength, ROM, and functional mobility deficits Medical Diagnosis: The encounter diagnosis was Primary osteoarthritis of right hip. Past Medical History and Personal Factors that Impact Plan of Care: Pt is 68 y/o female with R anterior HARLEY WBAT POD#0. PMH: HTN, depression, osteopenia, iron deficiency, MRSA (current) and OA. PSH: Electrocardiogram Visit Summary: Pt is low complexity evaluation and treatment and pt. presents with pain, gait, strength, ROM, and functional mobility deficits secondary to R anterior HARLEY WBAT 03/13/2019. Pt cleared by RN for PT. Treatment consisted of education on anterior hip precs, fall precautions, safety, review of bed thera ex, transfer, and gait training. With bed mobility and functional transfers pt requires VCs for proper sequencing. During gait 2 X 150 ft with FWW WBAT pt able to progress to 2-point due to VCs demonstrating good management of FWW. After gait training, pt needed to use the bathroom. After trying to go to the bathroom, pt was unable to void and was ready to stand. Pt stood up and fell into PT and was unresponsive. PT caught pt and lowered her to the commode in which pt was still unresponsive. Help was called and pt arose to smelling salts from [employer]SULT[employer], pt was able to stand, but when trying to walk to the bed pt became unresponsive. X3 RN and X2 [employer] in room to help get pt BTB. PT MAX A pt to bed and pt. was placed in trendelenburg and became responsive. Anticipate pt. will DC homewith HHPT. Recommend additional skilled therapy prior to discharge. Pt care was left with RN. Planned Interventions: bed mobility training, gait training, home exercise program, patient/family education, stair training, transfer training Recommended Frequency: 2 times/day Rehab potential: good, to achieve stated therapy goals Prior Functional Level: IND Lives With: spouse Living Arrangement: independent living facility Stairs to Enter Home: 12 Stairs in home: 0 Additional home comments: Physical Therapy Discharge Recommendations: Recommended discharge disposition: home, home with assist Post discharge physical therapy recommendation: home health Equipment Recommendations: 2 wheeled walker (FWW), cane (straight, single point) Patient Status/Goals: Reflects last filed data of patient status; may be from multiple contributors Precautions: WBAT- anterior hip precautions falls, right anterior hip precautions Weight Bearing Status: Left Lower Extremity Weight-Bearing: weight-bearing as tolerated Right Lower Extremity Weight-Bearing: weight-bearing as tolerated Cognition Mood/Behavior: behavior appropriate to situation Orientation: oriented x 4 Coordination: Visual Assessment Balance Standing in FWW Sitting Balance: Static: good balance Sitting Balance: Dynamic: good balance Standing Balance: Static: good balance Standing Balance: Dynamic: good balance Vestibular Assessment ROM Limited by anterior hip precautions L LE ROM: WFL R LE ROM: limited Strength L LE Strength: WFL R LE Strength: WFL Sensation Sensation Comments: L3-S1 Additional Documentation: light touch LLE Light Touch: WNL RLE Light Touch: WNL Bed Mobility HOB elevated to 30 OOB Assistive Device: HOB elevated Supine to Sit, Level of [place]: supervised Sit to Supine, Level of [place]: maximal assist (25% patient effort)(Pt unreposonvie and returned to bed.) Transfers Sit-Stand, Level of [place]: supervised Stand-Sit, Level of [place]: supervised Rmk-Dqxaa-Rgv, Assistive Device: 2 wheeled walker (FWW) Toilet, Level of [place]: supervised, verbal cues required(Pt became unreponsive after sittingon the toilet attempting) Toilet, Assistive Device: 2 wheeled walker (FWW), commode (3 in 1) Gait Level of [place]: supervised Assistive Device: 2 wheeled walker (FWW) Distance (feet): 2 X150 Gait Pattern Analysis: 2-point gait Gait Deviations: weight-shifting ability decreased Stairs Curb training X2 Number of Stairs: X2 Handrail Location: none Level of [place]: contact guard assist Assistive Device: 2 wheeled walker (FWW) Technique Used: step to step (descending), step to step (ascending) Functional Endurance Therapeutic Exercise Bed exercises: bilateral, ankle pumps Repetitions: 10 Seated exercises: bilateral, long arc quads Repetitions: 10 Gdphbn-Dee-Oulbkj Goal Most Recent Value STG Status new at 03/13/2019 1618 STG [place] Level independent at 03/13/2019 1618 STG Assistive Device HOB elevated at 03/13/2019 1618 Wcm-Xfipf-Ofw Goal Most Recent Value STG Status new at 03/13/2019 1618 STG [place] Level modified independent at 03/13/2019 1618 STG Assistive Device 2 wheeled walker (FWW) at 03/13/2019 1618 Gait Goal Most Recent Value STG Status new at 03/13/2019 1618 STG [place] Level modified independent at 03/13/2019 1618 STG Assistive Device 2 wheeled walker (FWW) at 03/13/2019 1618 STG Distance (feet) 2 X150 at 03/13/2019 1618 Stair Goal Most Recent Value STG Status new at 03/13/2019 1618 STG [place] Level supervised at 03/13/2019 1618 STG Assistive Device 1 rail, cane (straight, single point) at 03/13/2019 1618 STG Number of Stairs X10 at 03/13/2019 1618 Ther Exercise Goal Most Recent Value STG Status new at 03/13/2019 1618 STG VCs with HEP at 03/13/2019 1618 Additional Goal #1 PT Most Recent Value STG Status new at 03/13/2019 1618 STG AMPAC= 24 at 03/13/2019 1618 PT G-Codes Functional Assessment Tool Used: AMPAC Score: 22 Electronically signed by: Nati Taveras PT, 03/13/2019 18:23 * Care Plan - Stefanie Soto - 03/13/2019 4:09 PM PDT [facility] DCP: FRI home with + FWW from [employer]([facility])BRAIN Chart reviewed; patient is a 68 y.o. female presents with RIGHT HIP DEGENERATIVE JOINT DISEASE M16.11 status post Procedure(s): RIGHT TOTAL HIP ARTHROPLASTY by Ammon James MD, Day of Surgery. RN VINAY met with patient at bedside to introduce self and role. Patient confirms address/phone/emergency contact. Patient currently living with spouse Murray ([phone]) in [address] [place] [address]. Patient is independent with ADL's; denies recen t use of DME/HH/SNF. Patient states that she does not have a walker; order placed via [employer] with [employer]: [employer] [phone] / direct fax [phone]; company fax [phone]. Patient denies preference for [employer] if needed. Anticipated discharge Sunday and patient confirms that spouse is able and willing to assist with needs and transport upon discharge. Reviewed [facility] potential financial responsibility form with patient; patient signed and completed form. Patient did not indicate any other needs at this time. Patient is aware of MSN availability and ongoing support. RN VINAY will remain available as needed. Stefanie Soto MSN, RN Clinical Nurse Valve Assembler [phone] * Care Plan - Radha Yao RN - 03/13/2019 1:33 PM PDT Sleepy easily arousable to voice, no acute distress noted. * Anesthesia Post-op Handoff - Kayode Esquivel MD - 03/13/2019 1:04 PM PDT ANESTHESIA HANDOFF NOTE Quin Dias 68 y.o. female 1950 [id number] The following were completed during the transfer of care: 1. Identification of patient 2. Identification of responsible practitioner (primary service) 3. Discussion of pertinent medical history 4. Discussion of the surgical/procedure course (procedure, reason for surgery, procedure performed) 5. Intraoperative anesthetic management and issues/concerns 6. Expectations/plans for the early post-procedure period 7. Opportunity for questions and acknowledgement of understanding of report from receiving team RIGHT TOTAL HIP ARTHROPLASTY (Right Hip) The significant anesthesia concerns and VS in Epic were reviewed with the receiving team. Kayode Esquivel MD 03/13/2019 13:04 [facility] * Op Note - Ammon James - 03/13/2019 12:26 PM PDT OPERATIVE NOTE Pt. Name/Age/: Quin Dias 68 y.o. 1950 Med. Record Number: [id number] Date of admission: 03/13/2019 Date of Operation/Procedure: 03/13/2019 Preoperative Diagnosis: RIGHT HIP DEGENERATIVE JOINT DISEASE M16.11 Postoperative Diagnosis: Same Surgeon: Ammon James MD Medical Device Assembler: Richard Aranda NP Anesthesia Provider(s): Anesthesiologist: Kayode Esquivel MD Anesthesia Type: General, Spinal Block Procedure: Procedure(s): RIGHT TOTAL HIP ARTHROPLASTY Procedure(s) start time: Event Time Time Out First Incision/Proc Start 1128 Operative Indications: Quin Dias is a 68 y.o. year old female who presents with severe degenerative changes secondary to RIGHT HIP DEGENERATIVE JOINT DISEASE M16.11 after failing conservative measures. Risks and benefits of surgery were discussed to include, but not be limited to infection, bleeding, damage to neurovascular structures, fracture, dislocation, limb length discrepancy, sciatic nerve injury, need for further surgeries, continued pain, and the risk of cardiac or pulmonary complications. The patient and/or guardian was counseled and consented to proceed. Operative Findings: Severe osteoarthritis hip Operation: This procedure was done using the direct anterior technique and the [place] table. The patient was brought to the Operating Room and placed supine on the Dundas table, and anesthesia was administered. A Barnard catheter was placed, and both feet were well padded and placed in traction boots. A sequential compression stocking was placed on each leg and activated throughout the procedure. A perineal post was placed, and then the operative hip was prepped and draped in the usual sterile fashion. The patient received IV antibiotics in a timely fashion prior to beginning the procedure, and surgical pause did verify the correct surgical sit, antibiotic dosing and equipment needs. AP fluoroscop ic views were obtained of both hips for later comparison after implantation. An incision was made anteriorly, approximately 1-2 fingerbreadths lateral to the anterior superior iliac spine coursing distally and laterally parallel to the tensor muscle, and dissection was carried down sharply through skin and sub- cutaneous tissue. Coagulation was carefully completed throughoutthe exposure. The tensor fascia muscle was identified and the fascia was split overlying the mid-portion of the muscle belly. Attempts were made, as best as possible, to minimize damage to branches of the lateral femoral cutaneous nerve by keeping the fascial incision as lateral as feasible for exposure. Blunt dissection was utilized to dissect the tensor muscle off the undersurface of its fascia anteriorly, and a bent Hohmann retractor was placed on the superior aspect of the femoral neck for exposure of the anterior hip capsule. Perforators from the lateral circumflex artery were electrocauterized thoroughly at this point. The rectus femoris was bluntly dissected off the anterior hip capsule, and then a capsular incisionwas made longitudinally from the superior dome extending down the neck and then coursing distally to create a large anterior capsular flap. A narrow bent Hohmann retractor was placed over the anterior rim of the acetabulum. Hemostasis was achieved with electrocautery. Two cobra retractors were placed inside the hip capsule to visualize the femoral neck. A suture was placed in the inferior leaf ofthe capsule for traction. Mild traction was placed across the hip joint. The capsule and surrounding soft tissues were protected and a femoral neck resection was made based on preoperative templating. The corkscrew was used to withdrawal the femoral head from the acetabulum. The inferior capsule was then released on the femoral neck down to the lesser trochanter. The leg was externally rotated to about 70 degrees and light traction was placed on the extremity. The acetabulum was exposed with three bent Hohmann retractors, one over the anterior rim being careful to stay within the extent of the capsule, one over the posterior rim, and one in the region of the obturator foramen around the teardrop. The labrum was excised, as well as the ligamentum remnant, and then sequential reaming of the socket was undertaken until a hemisphere was created with adequate bleeding bone. Care was taken to preserve the anterior and posterior wall of the acetabulum by notover-reaming. The acetabular shell was inserted after trialing for press fixation. Anteversion and lateral opening were gauged from anatomic landmarks as well as fluoroscopically. Full implant seating was confirmed fluoroscopically. Attention was then directed to the femur. The trochanteric hook was placed deep to the tensor, superficial to the vastus lateralis, and proximal to the lesser trochanter. Traction was released from the extremity and the limb was extended, externally rotated carefully, and adducted. The femoral hookwas placed in the elevating span to assist in exposure, and a greater trochanteric retractor was placed over the greater trochanter deep to the abductors. The femoral hook was only elevated to the degree that manual traction could be applied to avoid trochanteric fracture. A bent Hohmann was placedaround the lesser trochanter for exposure of the calcar. Further soft tissue release of the postero-superior capsule, conjoint tendon, and piriformis tendon was undertaken only as needed to mobilize the proximal femur. Once exposure was adequate, a box osteotome was used to enter the femoral canal.A curette was used to sound the femur and find the proximal femoral canal, and then sequential broaching was undertaken with the offset broach handles. Once adequate press fit fixation of the broach was accomplished for stability, trial reduction was performed. The traction hook was removed, the hip was reduced with flexion to neutral, and gradual gross traction was applied with internal rotation. A repeat fluoroscopic view was obtained of the operative hip to compare to the preoperative film. Fluoroscopic images were also taken of the opposite hip for comparison purposes. Once leg lengths and femoral offset were deemed acceptable, the hip was taken through range of motion and found to be stable. The hip was dislocated anteriorly with traction, extension, external rotation, and adduction. The trial broach was extracted. Irrigation of the femoral canal was performed and a second dose of IV antibiotics was given. The final femoral component was placed, followed by the appropriate femoral head. The hip was again reduced, and a final fluoroscopic image confirmed thatno intra-operative fracture occurred. The wound was copiously irrigated with dilute Betadine solution for 3-5 minutes followed by 2 liters of high pressure pulsatile lavage. The anterior capsule was repaired where feasible. Local anesthetic was injected and a drain was placed. Closure was completed using #1 Vicryl interrupted and running #0 Quill suture for the thin fascia over the tensor muscle. The subcutaneous tissue was closed with 3-0 Vicryl. The skin was re-approximated with 3- 0 Monocryl suture, cleaned with alcohol, and Dermabond was applied. A sterile dressing was applied. The patient was taken to the Recovery Room in stable condition. Estimated Blood Loss: 250 mL Transfused: no Drains: hemovac Specimen (s): * No specimens in log * Implant: Implant Name Type Inv. Item Serial No. Dockworker Lot No. LRB No. Used SHELL ACTB 52MM HIP SECT PRCT - [id number] SHELL ACTB 52MM HIP SECT PRCT HMHP JJ DEPUY JOINTS - JJ - DEPJ [id number] Right 1 LINER ACTB PNCL NTRL 52MM 32MM - [id number] LINER ACTB PNCL NTRL 52MM 32MM HMHP JJ DEPUY JOINTS - JJ - DEPJ [id number] Right 1 STEM FEM 105MM COLR ACTIS 5 HI - [id number] STEM FEM 105MM COLR ACTIS 5 HI HMHP JJ DEPUY JOINTS - JJ - DEPJ [id number] Right 1 HEAD FEM +1MM 12/14 STD 32MM - [id number] HEAD FEM +1MM 12/14 STD 32MM HMHP JJ DEPUY JOINTS - JJ - DEPJ [id number] Right 1 Complications: none Disposition/condition: PACU, hemodynamically stable Ammon James MD 03/13/2019 12:26 * Miscellaneous - Ammon James - 02/21/2019 11:54 AM PDT Other by Ammon James MD at 02/21/19 1154 Author: Ammon James MD Service: Orthopedics Author Type: Physician Filed: 02/21/19 1154 Date of Service: 02/21/19 1154 Creation Time: 02/21/191153 Status: Signed Supervisor Pumping: Teresita Hameed * Miscellaneous - Ammon James - 02/13/2019 3:42 PM PDT Other by Ammon James MD at 02/13/191541 Author: Ammon James MD Service: Orthopedics Author Type: Physician Filed: 02/13/191541 Date of Service: 02/13/191541 Creation Time: 02/13/191541 Status: Signed Supervisor Pumping: Teresita Hameed documented in this encounter Plan of Treatment Not on file documented as of this encounter Procedures Procedure Name Priority Date/Time Associated Diagnosis Comments RETICULOCYTES Routine 03/14/2019 4:30 AM PDT CBC WITHOUT DIFFERENTIAL Routine 03/14/2019 4:30 AM PDT BASIC METABOLIC PANEL Routine 03/14/2019 4:30 AM PDT XR PELVIS 1-2 VIEWS Routine 03/13/2019 3 :59 PM PDT FL C ARM Routine 03/13/2019 1:16 PM PDT XR HIP 1 VW RIGHT Routine 03/13/2019 1:1 5 PM PDT APTT STAT 03/13/2019 7:55 AM PDT PROTIME-INR STAT 03/13/2019 7:55 AM PDT CBC WITHOUT DIFFERENTIAL STAT 03/13/2019 7:55 AM PDT documented in this encounter Results * (ABNORMAL) Basic Metabolic Panel (03/14/2019 4:30 AM PDT) Sodium (Na) 132(L) 135 - 145 mmol/L 03/14/2019 6:21 AM PDT [facility] (CLIA [id number]) Potassium (K) 4.0 3.5 - 5.2 mmol/L 03/14/2019 6:21 AM [facility] (CLIA [id number]) Chloride (Cl) 104 100 - 110 mmol/L 03/14/2019 6:21 AM [facility] (CLIA [id number]) Carbon dioxide (CO2) 23(L) 24 - 32 mmol/L 03/14/2019 6:21 AM [facility] (CLIA [id number]) Anion Gap 5(L) 6 - 14 mmol/L 03/14/2019 6:21 AM [facility] (CLIA [id number]) Glucose 86 65 - 99 mg/dL 03/14/2019 6:21 AM [facility] (CLIA [id number]) BUN (Blood Urea Nitrogen) 8 7 - 17 mg/dL 03/14/2019 6:21 AM [facility] (CLIA [id number]) Creatinine 0.70 0.40 - 1.50 mg/dL 03/14/2019 6:21 AM [facility] (CLIA [id number]) eGFR Non-Afr. [place]i >60 >=60 mL/min/1.7 3m2 03/14/2019 6:21 AM [facility] (CLIA [id number]) Comment: The estimated GFR is calculated by [...] eGFR <15 indicates renal failure. Calcium (Ca) 8.3(L) 8.4 - 10.2 mg/dL 03/14/2019 6:21 AM [facility] (CLIA [id number]) Urea nitrogen/Creati nine Ratio 11.4 03/14/2019 6:21 AM [facility] (CLIA [id number]) Blood 03/14/2019 4:30 AM PDT 03/14/2019 5:41 AM PDT Richard Aranda THREAD MARKER LAB BLOOD ORDERABLES Performing Organization Address [facility] de Phone Number [facility] [address] [place] [address], [facility] (CLIA [id number]) [address] [place] [address] * Reticulocytes (03/14/2019 4:30 AM PDT) % Reticulocyte Count 1.4 0.9 - 1.9 % 03/14/2019 6:01 AM PDT [facility] (CLIA [id number]) Absolute Reticulocyte Count 0.0395 M/uL 03/14/2019 6:01 AM PDT [facility] (CLIA [id number]) Immature Reticulocyte Fraction 11.8 3.0 - 15.9 % 03/14/2019 6:01 AM PDT [facility] (CLIA [id number]) Reticulocyte Hemoglobin Content 32.5 29.0 - 37.0 pg 03/14/2019 6:01 AM PDT [facility] (CLIA [id number]) Comment: Ret-He is a sensitive and early indicator of iron deficiency by assessing the amount of iron available to make ??hemoglobin and support erythropoiesis. Low Ret-He indicates actual or functional iron deficiency and provides information as reliable as iron profiles. Blood 03/14/2019 4:30 AM PDT 03/14/2019 5:41 AM PDT Richard Aranda THREAD MARKER LAB BLOOD ORDERABLES Performing Organization Address [facility] Co de Phone Number [facility] [address] [place] [address], [facility] (CLIA [id number]) [address] [place] [address] * (ABNORMAL) CBC without Differential (03/14/2019 4:30 AM PDT) White Blood Cell Count (WBC) 10.6 4.8 - 11.0 K/uL 03/14/2019 6:01 AM [facility] (CLIA [id number]) Red Blood Cell Count (RBC) 2.78(L) 4.20 - 6.20 M/uL 03/14/2019 6:01 AM [facility] (CLIA [id number]) Hemoglobin (Hgb) 7.9(L) 12.0 - 18.0 g/dL 03/14/2019 6:01 AM PDT [facility] (CLIA [id number]) Hematocrit (HCT) 25.2(L) 37.0 - 52.0 % 03/14/2019 6:01 AM [facility] (CLIA [id number]) Mean corpuscular volume (MCV) 90.6 80.0 - 100.0 fL 03/14/2019 6:01 AM [facility] (CLIA [id number]) Mean Corpuscular Hemoglobin (MCH) 28.4 27.0 - 31.0 pg 03/14/2019 6:01 AM [facility] (CLIA [id number]) Mean Corpuscular Hemoglobin Concentration (MCHC) 31.3(L) 32.0 - 37.0 g/dL 03/14/2019 6:01 AM [facility] (CLIA [id number]) Red Cell Distribution Width (RDW) 16.2(H) 11.5 - 14.5 % 03/14/2019 6:01 AM [facility] (CLIA [id number]) Platelet Count (PLT) 238 150 - 400 K/uL 03/14/2019 6:01 AM [facility] (CLIA [id number]) Mean Platelet Volume (MPV) 10.0 9.0 - 13.0 fL 03/14/2019 6:01 AM [facility] (CLIA [id number]) Nucleated RBC (NRBC) 0 <1 per 100 WBCs 03/14/2019 6:01 AM [facility] (CLIA [id number]) Blood 03/14/2019 4:30 AM PDT 03/14/2019 5:41 AM PDT Richard Aranda NP LAB BLOOD ORDERABLES [facility] [address] [place] [address], [facility] (CLIA [id number]) [address] [place] [address] * XR pelvis 1 or 2 views (03/13/2019 3:59 PM PDT) Anatomical Region Laterality Modality Body, Pelvis Digital Radiogra phy Impressions 03/13/2019 4:19 PM PDT 1. ??Status post total right hip arthroplasty. ??Prosthesis anatomically aligned. Electronically signed by Pablito Soliman 03/13/2019 4:19 PM Narrative 03/13/2019 4:19 PM PDT PELVIS, 1 view CLINICAL HISTORY: check placement of prosthesis in PACU, low AP to include entire prosthesis. wet reading kesha. COMPARISON: Intraoperative x-ray of the right hip same day FINDINGS: Stable appearance of prosthetic right hip. ??No fractures. ??The hip joint appears anatomically aligned. ??Left hip is unremarkable. There is a surgical drain seen in the soft tissues adjacent to the right hip. Procedure Note Pablito Soliman MD - 01/25/2023 PELVIS, 1 view CLINICAL HISTORY: check placement of prosthesis in PACU, low AP to includeentire prosthesis. wet reading kesha. COMPARISON: Intraoperative x-ray of the right hip same day FINDINGS: Stable appearance of prosthetic right hip. No fractures. The hip jointappears anatomically aligned. Left hip is unremarkable. There is a surgical drain seen in the soft tissues adjacent to the righthip. IMPRESSION: 1. Status post total right hip arthroplasty. Prosthesis anatomicallyaligned. Electronically signed by Pablito Soliman 03/13/2019 4:19 PM Richard Aranda NP IMG XR PROCEDURES * FL C ARM (03/13/2019 1:16 PM PDT) Anatomical Region Laterality Modality Abdomen Radiographic Sofia ging Narrative 03/17/2019 12:42 PM PDT FLUOROSCOPIC IMAGING 0.4 minutes CONCLUSION: ?? Fluoroscopic imaging utilized intraoperatively by Dr. Ammon James during performance of total right hip. No images are presented for interpretation. ??This report is generated for the purpose of documentation of the surgeon fluoroscopic time. Electronically signed by Enrrique Reynoso 03/17/2019 12:42 PM Procedure Note Enrrique Reynoso MD - 01/29/2023 FLUOROSCOPIC IMAGING 0.4 minutes CONCLUSION: Fluoroscopic imaging utilized intraoperatively by Dr. Ammon James duringperformance of total right hip. No images are presented forinterpretation. This report is generated for the purpose of documentationof the surgeon fluoroscopic time. Electronically signed by Enrrique Reynoso 03/17/2019 12:42 PM Ammon GRIDERG [place] PROCEDURES * XR hip right 1 view (03/13/2019 1:15 PM PDT) Anatomical Region Laterality Modality Lower Extremities, Hip Right Digital R adiography Impressions 03/13/2019 1:17 PM PDT 1. Status post right hip arthroplasty with normal alignment of components. 2. ??Intraoperative fluoroscopy. 3. These films were made available for interpretation following completion of surgical procedure. Electronically signed by Enrrique Reynoso 03/13/2019 1:17 PM Narrative 03/13/2019 1:17 PM PDT Single intraoperative spot film of right hip with fluoroscopy CLINICAL HISTORY: Status post arthroplasty COMPARISON: None. FINDINGS: The patient is status post arthroplasty. There is normal alignment of components. No acute fractures are seen. 0.4 minutes of fluoroscopy was used. Procedure Note Enrrique Reynoso MD - 01/29/2023 Single intraoperative spot film of right hip with fluoroscopy CLINICAL HISTORY: Status post arthroplasty COMPARISON: None. FINDINGS: The patient is status post arthroplasty. There is normal alignment ofcomponents. No acute fractures are seen. 0.4 minutes of fluoroscopy was used. IMPRESSION: 1. Status post right hip arthroplasty with normal alignment of components. 2. Intraoperative fluoroscopy. 3. These films were made available for interpretation following completionof surgical procedure. Electronically signed by Enrrique Reynoso 03/13/2019 1:17 PM Ammon James MD IMG XR PROCEDURES * APTT (03/13/2019 7:55 AM PDT) activated partial thromboplastin time (aPTT) 35 25 - 37 seconds 03/13/2019 8:34 AM PDT [facility] (CLIA [id number]) Blood 03/13/2019 7:55 AM PDT 03/13/2019 8:07 AM PDT Kayode Esquivel MD LAB BLOOD ORDERABLES Performing Organization Address [facility] de Phone Number [facility] [id number] [place] [address], [facility] (CLIA [id number]) [address] [place] [address] * Protime-INR (03/13/2019 7:55 AM PDT) Prothrombin Time (PT), QN 10.8 9.4 - 12.5 seconds 03/13/2019 8:32 AM PDT [facility] (CLIA [id number]) International Normalized Ratio??(Inr) 0.9 0.8 - 1.1 03/13/2019 8:32 AM PDT [facility] (CLIA [id number]) Blood 03/13/2019 7:55 AM PDT 03/13/2019 8:07 AM PDT Kayode Esquivel MD LAB BLOOD ORDERABLES Performing Organization Address [facility] de Phone Number [facility] [id number] [place] [address], [facility] (CLIA [id number]) [address] [place] [address] * (ABNORMAL) CBC without Differential (03/13/2019 7:55 AM PDT) White Blood Cell Count (WBC) 5.7 4.8 - 11.0 K/uL 03/13/2019 8:10 AM PDT [facility] (CLIA [id number]) Red Blood Cell Count (RBC) 3.49(L) 4.20 - 6.20 M/uL 03/13/2019 8:10 AM PDT [facility] (CLIA [id number]) Hemoglobin (Hgb) 10.0(L) 12.0 - 18.0 g/dL 03/13/2019 8:10 AM PDT [facility] (CLIA [id number]) Hematocrit (HCT) 30.8(L) 37.0 - 52.0 % 03/13/2019 8:10 AM PDT [facility] (CLIA [id number]) Mean corpuscular volume (MCV) 88.3 80.0 - 100.0 fL 03/13/2019 8:10 AM PDT [facility] (CLIA [id number]) Mean Corpuscular Hemoglobin (MCH) 28.7 27.0 - 31.0 pg 03/13/2019 8:10 AM PDT [facility] (CLIA [id number]) Mean Corpuscular Hemoglobin Concentration (MCHC) 32.5 32.0 - 37.0 g/dL 03/13/2019 8:10 AM PDT [facility] (CLIA [id number]) Red Cell Distribution Width (RDW) 16.1(H) 11.5 - 14.5 % 03/13/2019 8:10 AM PDT [facility] (CLIA [id number]) Platelet Count (PLT) 360 150 - 400 K/uL 03/13/2019 8:10 AM PDT [facility] (CLIA [id number]) Mean Platelet Volume (MPV) 8.8(L) 9.0 - 13.0 fL 03/13/2019 8:10 AM PDT [facility] (CLIA [id number]) Nucleated RBC (NRBC) 0 <1 per 100 WBCs 03/13/2019 8:10 AM PDT [facility] (CLIA [id number]) Blood 03/13/2019 7:55 AM PDT 03/13/2019 8:07 AM PDT Kayode Esquivel MD LAB BLOOD ORDERABLES [facility] [address] [place] [address], [facility] (CLIA [id number]) [address] [place] [address] documented in this encounter Visit Diagnoses Diagnosis Unilateral primary osteoarthritis, right hip Presence of right artificial hip joint documented in this encounter Additional Health Concerns Infection Onset Date Last Indicated Resolved Time MRSA Comment:+ 09/30/18 Clau 10/02/2018 10/02/2018 documented as of this encounter
--- OUTSIDE RECORDS SUMMARY | 2024-04-21 18:20 | XMS_ITS | Encounter Summary ---
Author Organization [facility] Address [address] [place] [address], [address] [place] [address] Care Team Providers Care Treasurer [employer] Name Role Phone Assigned, Pcp Not Primary Care Provider [phone] Encounter Details Date Type Department Care Team (Late st Contact Info) Description 03/13/2019 [facility] Conversion [facility] [place] [address] [place] [phone] Sharon Tong Social History Tobacco Use Types Packs/Day Years [...] documented as of this encounter Care Teams Treasurer Savings [employer] Relationship Specialty Start Date End Date Assigned, [place] [address] PCP - General 08/04/20 03/02/23 documented as of this encounter
--- OUTSIDE RECORDS SUMMARY | 2024-04-21 18:20 | XMS_ITS | Encounter Summary ---
Author Organization [facility] Address [address] [place] [address], [address] [place] [address] Care Team Providers Care Chief Technician X Ray Name Role Phone Jes Arriaga MD Primary Care Provider + Encounter Details Date Type Department Care Team ([facility] st Contact Info) Description 06/04/2023 [facility] Conversion [facility] [place] [address] [place] [address] Provider, [facility] Ip Conversion Social History Tobacco Use Types Packs/Day Years Used Date Smoking Tobacco: Never Smokeless Tobacco: Never Alcohol Use Standard Drinks/Week Comments No 0 (1 standard drink = 0.6 oz pur e alcohol) Sex and Gender Information Value Date Recorded [...] as of this encounter Care Teams Chief Technician X Ray Relationship Specialty [place] [address] [facility], [address] [place] [address] PCP - General Internal Medicine 03/03/23 documented as of this encounter
--- OUTSIDE RECORDS SUMMARY | 2024-04-21 18:20 | XMS_ITS | Encounter Summary ---
Author Organization [facility] Address [address] [place] [address], [address] [place] [address] Care Team Providers Care Metal Caster Name Role Phone Assigned, Pcp Not Primary Care Provider [phone] Encounter Details Date Type Department Care Team (Late st Contact Info) Description 02/11/2019 [facility] Conversion [facility] [address] [place] [address] [place] [address] [address] Social History Tobacco Use Types [...] documented as of this encounter Care Teams Metal Caster Relationship Specialty Start Date End Date Assigned, [place] [address] PCP - General 08/04/20 03/02/23 documented as of this encounter
--- OUTSIDE RECORDS SUMMARY | 2024-04-21 18:20 | XMS_ITS | Encounter Summary ---
Author Organization [facility] Address [address] [place] [address], [address] [place] [address] Care Team Providers Care Spanish Translator Name Role Phone Assigned, Pcp Not Primary Care Provider [phone] Encounter Details Date Type Department Care Team (Late st Contact Info) Description 03/12/2019 [facility] Conversion [facility] [place] [address] [place] [phone] Kayode Esquivel MD [address] [place] [address] Social History Tobacco Use Types Packs/Day Years [...] documented as of this encounter Care Teams Spanish Translator Relationship Specialty Start Date End Date Assigned, [place] [address] PCP - General 08/04/20 03/02/23 documented as of this encounter
--- OUTSIDE RECORDS SUMMARY | 2024-04-21 18:20 | XMS_ITS | Encounter Summary ---
Author Organization [facility] Address [address] [place] [address], [address] [place] [address] Care Team Providers Care Engineering Group Leader Name Role Phone Unavailable Primary Care Provider Unavailabl e Encounter Details Date Type Department Care Team (Late st Contact Info) Description 12/16/2018 1:45 PM PDT - 12/16/2018 11:59 PM PDT Hospital Encounter [facility] [address] [place] [address] Provider, [facility] Ip Conversion Discharge Disposition: Home or Self Care Social [...] Procedure Name Priority Date/Time Associated Diagnosis Comments AEROBIC CULTURE, WITH GRAM STAIN Routine 12/16/2018 3:27 PM PDT documented in this encounter Results * (ABNORMAL) Aerobic Culture w/Gram Stain (12/16/2018 3:27 PM PDT) Culture STAPHYLOCOCCUS AUREUS, METHICILLIN RESISTANT (MRSA)(A) 12/19/2018 6:[address] [facility] (CLIA [id number]) Comment:Heavy Staphylococcus aureus,Methicillin resistant (MRSA) Gram Stain Result No white blood cells (PMNs) seen 12/19/2018 6:[address] [facility] (CLIA [id number]) Gram Stain Result 1+ Gram positive cocci in clusters 12/19/2018 6:[address] [facility] (CLIA [id number]) Tissue Entire calf of leg / Unknown 12/16/2018 3:27 PM PDT 12/17/2018 5:25 PM PDT Narrative Organism Antibiotic Method Susceptibility Staphylococcus aureus, Methicillin Resistant (MRSA) Clindamycin AEROBIC CULTURE, WITH GRAM STAIN <=0.25: Susceptible Staphylococcus aureus, Methicillin Resistant (MRSA) Erythromycin AEROBIC CULTURE, WITH GRAM STAIN <=0.25: Susceptible Staphylococcus aureus, Methicillin Resistant (MRSA) Oxacillin AEROBIC CULTURE, WITH GRAM STAIN >=4: Resistant Staphylococcus aureus, Methicillin Resistant (MRSA) Rifampin AEROBIC CULTURE, WITH GRAM STAIN <=0.5: Susceptible Comment:Rifampin romy uld not be used alone for chemotherapy. Staphylococcus aureus, Methicillin Resistant (MRSA) Tetracycline AEROBIC CULTURE, WITH GRAM STAIN <=1: Susceptible Staphylococcus aureus, Methicillin Resistant (MRSA) Trimethoprim + Sulfamethoxazole AEROBIC CULTURE, WITH GRAM STAIN <=10: Susceptible Staphylococcus aureus, Methicillin Resistant (MRSA) Vancomycin AEROBIC CULTURE, WITH GRAM STAIN <=0.5: Susceptible Cain Davidson MD LAB MICROBIOLOGY - [facility] ORDERABLES [facility] (CLIA [id number]) [place] [address], [facility] (CLIA [id number]) [place] [address] documented in this encounter Visit Diagnoses Not on filedocumented in this encounter Additional Health Concerns Infection Onset Date Last Indicated Resolved Time MRSA Comment:+ 09/30/18 Nares 10/02/2018 10/02/2018 documented as of this encounter
--- OUTSIDE RECORDS SUMMARY | 2024-04-21 18:20 | XMS_ITS | Encounter Summary ---
Author Organization [facility] Address [address] [place] [address], [address] [place] [address] Care Team Providers Care Farm Demonstrator Name Role Phone Assigned, Pcp Not Primary Care Provider [phone] Encounter Details Date Type Department Care Team ([facility] st Contact Info) Description 02/14/2019 [facility] Conversion [facility] XRAY [address] [place] [address] [place] [address] [place], [place] [id number] Social History Tobacco Use Types Packs/Day Years Used Date Smoking Tobacco: Never Assessed Sex and Gender Information Value Date Recorded Sex Assigned at Not on file Gender Identity Not on file Sexual Orientation Not on file documented as of this encounter Miscellaneous Notes * Miscellaneous - [facility] Ip Conversion - 02/14/2019 11:33 AM PDT Other by Maine Lal at 02/14/19 113 Author: Maine Lal Service: -- Author Type: -- Filed: 02/14/19 1133 Encounter Date: 02/14/2019 Status: Signed Animal Control Licensing Worker: Maine Lal Electronically signed by Onel, [facility] Distribution Operation Supervisor Conversion 30 at 01/28/2023 10:49 AM PDT documented in this encounter Plan of Treatment Not on file documented as of this encounter Visit Diagnoses Diagnosis Unilateral primary osteoarthritis, right hip documented in this encounter Additional Health Concerns Infection Onset Date Last Indicated Resolved Time MRSA Comment:+ 09/30/18 Nares 10/02/2018 10/02/2018 documented as of this encounter Care Teams Farm Demonstrator Relationship Specialty Start Date End Date Assigned, [place] [address] PCP - General 08/04/20 03/02/23 documented as of this encounter
--- OUTSIDE RECORDS SUMMARY | 2024-04-21 18:20 | XMS_ITS | Encounter Summary ---
Author Organization [facility] Address [address] [place] [address], [address] [place] [id number] Care Team Providers Care Research Program Assistant Name Role Phone Unavailable Primary Care Provider Unavailabl e Encounter Details Date Type Department Care Team (Latest Contact Info) Description 10/10/2018 12:38 PM PDT - 10/10/2018 11:59 PM PDT Hospital Encounter [facility] [address] [facility] [address] [place] [address] Unilateral primary osteoarthritis, right hip Discharge Disposition: Home or Self Care Social [...]
--- OUTSIDE RECORDS SUMMARY | 2024-04-21 18:20 | XMS_ITS | Referral Summary ---
Author Organization [facility] Address [address] [place] [address], [address] [place] [id number] Care Team Providers Care Infrastructure Solutions Architect Name Role Phone Jes Arriaga MD Primary Care Provider + Social History Tobacco Use Types Packs/Day Years Used Date Smoking Tobacco: Never Smokeless Tobacco: Never Alcohol Use Standard Drinks/Week Comments No 0 (1 standard drink = 0.6 oz pur e alcohol) Sex and Gender Information Value Date Recorded Sex Assigned at Not on file Gender Identity Not on file Sexual Orientation Not on file Last Filed Vital Signs Vital Sign Reading Time Taken Comments Blood Pressure 129/79 03/11/2018 6:05 PM PDT Pulse 60 03/13/2019 12:45 PM PDT Temperature 36.5 ??C (97.7 ??F) 03/11/2018 6:05 PM PD T Respiratory Rate 12 03/11/2018 6:05 PM PDT Oxygen Saturation 100% 03/11/2018 6:05 PM PDT Inhaled Oxygen Concentration - - Weight 47.6 kg (105 lb) 03/11/2018 2:59 PM PDT Height 165.1 cm (5' 5) 09/16/2017 1:43 PM PST Body Mass Index 17.47 09/16/2017 1:43 PM PST Plan of Treatment Not on file Medical Devices Implanted Type Area Diesel Locomotive Engineer Device Identifier Shelf Expiration Date Model / Serial / Lot Shell Actb 52mm Hip Sect Prct - [id number] Implanted:Qty : 1 on 03/13/2019 by Ammon Reyes MD Right: Hip [facility] JJ DEPUY JOINTS - JJ - DEPJ [id number] 01/26/2029 [id number] / / [id number] Liner Actb Pncl Ntrl 52mm 32mm - [id number] Implanted:Qty : 1 on 03/13/2019 by Ammon Reyes MD Right: Hip [facility] JJ DEPUY JOINTS - JJ - DEPJ [id number] 11/27/2023 [id number] / / [id number] Stem Fem 105mm Colr Actis 5 Hi - [id number] Implanted:Qty : 1 on 03/13/2019 by Ammon Reyes MD Right: Hip [facility] JJ DEPUY JOINTS - JJ - DEPJ [id number] 02/26/2029 [id number] / / [id number] Head Fem +1mm 07/12 Std 32mm - [id number] Implanted:Qty : 1 on 03/13/2019 by Ammon Reyes MD Right: Hip [facility] JJ DEPUY JOINTS - JJ - DEPJ [id number] 05/29/2023 [id number] / / [id number] Hip Mtl On Poly 22-48mm - [id number] Implanted:Qty : 1 on 03/13/2019 by Ammon Reyes MD Right: Hip [facility] JJ DEPUY JOINTS - JJ - DEPJ [id number] / / Additional Health Concerns Infection Onset Date Last Indicated MRSA Comment:+ 09/30/18 Nares 10/02/2018 10/02/2018 Care Teams Infrastructure Solutions Architect Relationship Specialty [place] [address] [facility], [address] [place], [place] [address] PCP - General Internal Medicine 03/03/23
--- OUTSIDE RECORDS SUMMARY | 2024-04-21 18:20 | XMS_ITS | Encounter Summary ---
Author Organization [facility] Address [address] [place] [address], [address] [place] [address] Care Team Providers Care Shovel Logger Name Role Phone Assigned, Pcp Not Primary Care Provider [phone] Encounter Details Date Type Department Care Team ([facility] st Contact Info) Description 10/10/2018 [facility] Conversion [facility] [address] [address] [facility] [address] [place] [address] Provider, [facility] Ip Conversion Social History Tobacco Use Types Packs/Day Years Used Date Smoking Tobacco: Never Assessed Sex and Gender Information Value Date Recorded Sex Assigned at Not on file Gender Identity Not on file Sexual Orientation Not on file documented as of this encounter Plan of Treatment Not on file documented as of this encounter Procedures Procedure Name Priority Date/Time Associated Diagnosis Comments CULTURE, MRSA Routine 10/10/2018 12:47 PM PDT CULTURE, MRSA Routine 10/10/2018 12:47 PM PDT CULTURE, MRSA Routine 10/10/2018 12:47 PM PDT documented in this encounter Results * Culture, MRSA (10/10/2018 12:47 PM PDT) Culture No Methicillin-Resist ant Staphylococcus aureus isolated. 10/11/2018 8:57 PM PDT [facility] (CLIA [id number]) Tissue Axillary region structure / Unknown 10/10/2018 12:47 PM PDT 10/10/2018 7:24 PM PDT Ammon Reyes MD LAB MICROBIOLOGY - G ENERAL ORDERABLES [facility] (CLIA [id number]) [place] [address], [facility] (CLIA [id number]) [place] [address] * Culture, MRSA (10/10/2018 12:47 PM PDT) Culture No Methicillin-Resist ant Staphylococcus aureus isolated. 10/11/2018 8:57 PM PDT [facility] (CLIA [id number]) Tissue Bilateral inguinal canals / Unknown 10/10/2018 12:47 PM PDT 10/10/2018 7:24 PM PDT Ammon Reyes MD LAB MICROBIOLOGY - G ENERAL ORDERABLES Performing Organization Address City/[facility]/ZIP Co de Phone Number [facility] (CLIA [id number]) [place] [address], [place] [phone] [facility] (CLIA [id number]) [place] [address] * (ABNORMAL) Culture, MRSA (10/10/2018 12:47 PM PDT) Culture STAPHYLOCOCCUS AUREUS, METHICILLIN RESISTANT (MRSA)(A) 10/11/2018 9:32 PM PDT [facility] (CLIA [id number]) Comment:Light Staphylococcus aureus,Methicillin resistant (MRSA) Tissue Both anterior nares / Unknown 10/10/2018 12:47 PM PDT 10/10/2018 7:24 PM PDT Ammon Reyes MD LAB MICROBIOLOGY - G ENERAL ORDERABLES [facility] (CLIA [id number]) [place] [address], [place] [phone] [facility] (CLIA [id number]) [place] [address] documented in this encounter Visit Diagnoses Diagnosis Unilateral primary osteoarthritis, right hip documented in this encounter Additional Health Concerns Infection Onset Date Last Indicated Resolved Time MRSA Comment:+ 09/30/18 Clau 10/02/2018 10/02/2018 documented as of this encounter Care Teams Shovel Logger Relationship Specialty Start Date End Date Assigned, [place] [address] PCP - General 08/04/20 03/02/23 documented as of this encounter
--- OUTSIDE RECORDS SUMMARY | 2024-04-21 18:20 | XMS_ITS | Encounter Summary ---
Author Organization [facility] Address [address] [place] [address], [address] [place] [address] Care Team Providers Care Carbide Grinder Name Role Phone Assigned, Pcp Not Primary Care Provider [phone] Encounter Details Date Type Department Care Team (Late st Contact Info) Description 03/13/2019 [facility] Conversion [facility] [address] [place] [phone] [place] [address] [facility] [address] [place] [address] Social History Tobacco Use Types [...] documented as of this encounter Care Teams Carbide Grinder Relationship Specialty Start Date End Date Assigned, Pcp Not One [place] [place] [address] PCP - General 08/04/20 03/02/23 documented as of this encounter
--- OUTSIDE RECORDS SUMMARY | 2024-04-21 18:20 | XMS_ITS | Encounter Summary ---
Author Organization [facility] Address [address] [place] [address], [address] [place] [address] Care Team Providers Care Roller Repairer Name Role Phone Assigned, Pcp Not Primary Care Provider [phone] Encounter Details Date Type Department Care Team (Late st Contact Info) Description 11/12/2018 [facility] Conversion [facility] XRAY 1 [facility] [place] [address] 8220, Not Required Social History Tobacco Use Types Packs/Day Years [...] documented as of this encounter Care Teams Roller Repairer Relationship Specialty Start Date End Date Assigned, Pcp Not One [place] [address] PCP - General 08/04/20 03/02/23 documented as of this encounter
--- OUTSIDE RECORDS SUMMARY | 2024-04-21 18:20 | XMS_ITS | Encounter Summary ---
Author Organization [facility] Address [address] [place] [address], [address] [place] [address] Care Team Providers Care Billiard Table Mechanic Name Role Phone Assigned, Pcp Not Primary Care Provider [phone] Encounter Details Date Type Department Care Team (Late st Contact Info) Description 01/07/2019 [facility] Conversion [facility] [address] [place] [phone] Provider, [facility] Ip Conversion Social History Tobacco Use [...] documented as of this encounter Care Teams Billiard Table Mechanic Relationship Specialty Start Date End Date Assigned, [place] [address] PCP - General 08/04/20 03/02/23 documented as of this encounter
--- OUTSIDE RECORDS SUMMARY | 2024-04-21 18:20 | XMS_ITS | Encounter Summary ---
Author Organization [facility] Address [address] [place] [address], [address] [place] [address] Care Team Providers Care Tool Machine Setup Operator Name Role Phone Assigned, Pcp Not Primary Care Provider Encounter Details Date Type Department Care Team (Late st Contact Info) Description 03/13/2019 [facility] Conversion [facility] [place] X[place] [address] [place] [phone] [place] [address] [facility] [address] [place] [address] Social History Tobacco Use Types [...] documented as of this encounter Care Teams Tool Machine Setup Operator Relationship Specialty Start Date End Date Assigned, Pcp Not One [facility] [place] [address] PCP - General 08/04/20 03/02/23 documented as of this encounter
--- OUTSIDE RECORDS SUMMARY | 2024-04-21 18:20 | XMS_ITS | Encounter Summary ---
Author Organization [facility] Address [address] [place] [address], [address] [place] [address] Care Team Providers Care Clinical Services Manager Name Role Phone Assigned, Pcp Not Primary Care Provider Encounter Details Date Type Department Care Team (Late st Contact Info) Description 03/13/2019 [facility] Conversion [facility] [place] [place] [address] [place] [phone] Kayode Esquivel MD 1 [place] [address] Social History Tobacco Use Types [...] documented as of this encounter Care Teams Clinical Services Manager Relationship Specialty Start Date End Date Assigned, [place] [address] PCP - General 08/04/20 03/02/23 documented as of this encounter
--- OUTSIDE RECORDS SUMMARY | 2024-04-21 18:20 | XMS_ITS | Encounter Summary ---
Author Organization [facility] Address [address] [place] [address], [address] [place] [address] Care Team Providers Care Review Manager Name Role Phone Assigned, Pcp Not Primary Care Provider [phone] Encounter Details Date Type Department Care Team (Late st Contact Info) Description 03/05/2019 [facility] Conversion [facility] [place] [address] [place] [phone] Kaitlin Moses Social History Tobacco Use Types Packs/Day Years [...] documented as of this encounter Care Teams Review Manager Relationship Specialty Start Date End Date Assigned, [place] [address] PCP - General 08/04/20 03/02/23 documented as of this encounter
--- OUTSIDE RECORDS SUMMARY | 2024-04-21 18:20 | XMS_ITS | Encounter Summary ---
Author Organization [facility] Address [address] [place] [address], [address] [place] [address] Care Team Providers Care Bus Starter Name Role Phone Unavailable Primary Care Provider Unavailabl e Encounter Details Date Type Department Care Team (Latest Contact Info) Description 02/14/2019 11:34 AM PDT - 02/14/2019 11:59 PM PDT Hospital Encounter [facility] [address] [facility] [address] [place] [address] Unilateral primary osteoarthritis, right hip [...] Procedure Name Priority Date/Time Associated Diagnosis Comments ECG 12 LEAD Routine 02/14/2019 11:59 PM PDT documented in this encounter Results * ECG 12 Lead (02/14/2019 11:59 PM PDT) VENTRICULAR RATE EKG 61 bpm 02/14/2019 4:16 PM PDT [facility] ATRIAL RATE 61 bpm 02/14/2019 4:16 PM PDT [facility] P-R INTERVAL 160 ms 02/14/2019 4:16 PM PDT [facility] P WAVE AXIS 70 deg 02/14/2019 4:16 PM PDT [facility] QRS DURATION 83 ms 02/14/2019 4:16 PM PDT [facility] Q-T INTERVAL 427 ms 02/14/2019 4:16 PM PDT [facility] Q-T INTERVAL (CORRECTED) 430 ms 02/14/2019 4:16 PM PDT [facility] QRS AXIS -6 deg 02/14/2019 4:16 PM PDT [facility] T AXIS 47 deg 02/14/2019 4:16 PM PDT [facility] INTERPRETATION TEXT - OTHERWISE NORMAL ECG - Sinus rhythm Low voltage, extremity leads When compared with ECG of 30-Sep-2018 14:42:38, No significant change Electronically signed by: Merlene He 14-Feb-2019 16:16:31 02/14/2019 4:16 PM PDT [facility] 02/14/2019 11:5 7 AM PDT Ammon Reyes MD ECG ORDERABLES [facility] CONVERSION IMAGING [place] [facility]G documented in this encounter Visit Diagnoses Diagnosis Unilateral primary osteoarthritis, right hip documented in this encounter Additional Health Concerns Infection Onset Date Last Indicated Resolved Time MRSA Comment:+ 09/30/18 Clau 10/02/2018 10/02/2018 documented as of this encounter
--- OUTSIDE RECORDS SUMMARY | 2024-04-21 18:20 | XMS_ITS | Encounter Summary ---
Author Organization [facility] Address [address] [place] [address], [address] [place] [address] Care Team Providers Care Hides Soaker Name Role Phone Assigned, Pcp Not Primary Care Provider [phone] Jes Arriaga MD Primary Care Provider + Encounter Details Date Type Department Care Team (Late st Contact Info) Description 03/13/2019 [facility] Conversion [facility] CONVERSION DEPARTMENT Provider, [facility] Conversion Social History Tobacco Use Types Packs/Day [...] documented as of this encounter Care Teams Hides Soaker Relationship Specialty Start Date End Date Assigned, [place] [address] PCP - General 08/04/20 03/02/23 [place] [address] [facility], [address] [place] [address] PCP - General Internal Medicine 03/03/23 documented as of this encounter
--- OUTSIDE RECORDS SUMMARY | 2024-04-21 18:20 | XMS_ITS | Clinical Summary ---
Author Organization [facility] Address [address] [place] [address], [address] [place] [address] Care Team Providers Care Rat Trapper Name Role Phone Jes Arriaga MD Primary Care Provider + Family History Medical History Relation Name Comments Heart disease Father Relation Name Status Comments Father Social History Tobacco Use Types Packs/Day Years [...] 09/16/2017 1:43 PM PST Plan of Treatment Health Maintenance Due Date Last Done Comments Bone Density Scan 1951 CT Colonography 1950 Colonoscopy 1950 Colorectal Cancer Screening 1950 FIT-DNA 1950 FOBT 1950 Hepatitis B Screening 1950 Sigmoidoscopy 1950 DTaP/Tdap/Td Vaccines (1 - Tdap) 1970 RSV Immunization 60+ years o r (1 - 1-dose 60+ series) 2011 Pneumococcal Vaccine: 65+ Years (2 of 2 - PCV) 07/30/2019 07/30/2018, 03/11/2018 COVID-19 Vaccine (1 - 2022-2 4 season) 2024 Influenza Vaccine (#1) 2024 0, 05/26/2019 Zoster Vaccines Completed 06/29/2020, 04/26/2020 HIB Vaccines Aged Out No longer eligi ble based on patient's age to complete this topic HPV Vaccines Aged Out No longer eligi ble based on patient's age to complete this topic Hepatitis A Vaccines Aged Out No long er eligible based on patient's age to complete this topic Hepatitis B Vaccines Aged Out No long er eligible based on patient's age to complete this topic IPV Vaccines Aged Out No longer eligi ble based on patient's age to complete this topic Meningococcal Vaccine Aged Out No annie virgen eligible based on patient's age to complete this topic Rotavirus Vaccines Aged Out No longer eligible based on patient's age to complete this topic Medical Devices Implanted Type Area Greens Cutter Device Identifier Shelf Expiration Date Model / Serial / Lot Shell Actb 52mm Hip Sect Prct - [id number] Implanted:Qty : 1 on 03/13/2019 by Ammon Reyes MD Right: Hip [facility] JJ DEPUY JOINTS - JJ - DEPJ [id number] 01/26/2029 [id number] / / [id number] Liner Actb Pncl Ntrl 52mm 32mm - [id number] Implanted:Qty : 1 on 03/13/2019 by Ammon Reyes MD Right: Hip [facility] JJ DEPUY JOINTS - JJ - DEPJ [id number] 11/27/2023 [id number] / / [id number] Stem Fem 105mm Colr Actis 5 Hi - [id number] Implanted:Qty : 1 on 03/13/2019 by Ammon Reyes MD Right: Hip [facility] JJ DEPUY JOINTS - JJ - DEPJ [id number] 02/26/2029 [id number] / / [id number] Head Fem +1mm 07/12 Std 32mm - [id number] Implanted:Qty : 1 on 03/13/2019 by Ammon Reyes MD Right: Hip [facility] JJ DEPUY JOINTS - JJ - DEPJ [id number] 05/29/2023 [id number] / / [id number] Hip Mtl On Poly 22-48mm - [id number] Implanted:Qty : 1 on 03/13/2019 by Ammon Reyes MD Right: Hip [facility] JJ DEPUY JOINTS - JJ - DEPJ [id number] / / Additional Health Concerns Infection Onset Date Last Indicated MRSA Comment:+ 09/30/18 Nares 10/02/2018 10/02/2018 Care Teams Rat Trapper Relationship Specialty [place] [address] [address] PCP - General Internal Medicine 03/03/23
--- OUTSIDE RECORDS SUMMARY | 2024-04-21 18:20 | XMS_ITS | Encounter Summary ---
Author Organization [facility] Address [address] [place] [address], [address] [place] [address] Care Team Providers Care Fur Mixer Operator Name Role Phone Assigned, Pcp Not Primary Care Provider [phone] Jes Arriaga MD Primary Care Provider + Encounter Details Date Type Department Care Team (Late st Contact Info) Description 02/24/2021 [facility] Conversion [facility] CONVERSION DEPARTMENT Provider, [facility] [...] documented as of this encounter Care Teams Fur Mixer Operator Relationship Specialty Start Date End Date Assigned, [place] [address] PCP - General 08/04/20 03/02/23 [place] [address] [facility], [address] [place] [address] PCP - General Internal Medicine 03/03/23 documented as of this encounter
--- OUTSIDE RECORDS SUMMARY | 2024-04-21 18:20 | XMS_ITS | Encounter Summary ---
Author Organization [facility] Address [address] [place] [address], [address] [place] [address] Care Team Providers Care Dairy Husbandry Teacher Name Role Phone Assigned, Pcp Not Primary Care Provider [phone] Encounter Details Date Type Department Care Team (Late st Contact Info) Description 02/11/2019 [facility] Conversion [facility] Laboratory 1 [place] [address] [place] [address] [address] Social History Tobacco Use Types [...] documented as of this encounter Care Teams Dairy Husbandry Teacher Relationship Specialty Start Date End Date Assigned, [place] [address] PCP - General 08/04/20 03/02/23 documented as of this encounter
--- OUTSIDE RECORDS SUMMARY | 2024-04-21 18:20 | XMS_ITS | Encounter Summary ---
Author Organization [facility] Address [address] [place] [address], [address] [place] [address] Care Team Providers Care Hvac Services Professional Name Role Phone Assigned, Pcp Not Primary Care Provider Encounter Details Date Type Department Care Team (Late st Contact Info) Description 03/03/2019 [facility] Conversion [facility] [address] [address] [facility] [address] [place] [address] Provider, [facility] Ip Conversion Social History Tobacco [...] Date/Time Associated Diagnosis Comments CULTURE, MRSA Routine 03/03/2019 2:07 PM PDT CULTURE, MRSA Routine 03/03/2019 2:07 PM PDT CULTURE, MRSA Routine 03/03/2019 2:07 PM PDT documented in this encounter Results * Culture, MRSA (03/03/2019 2:07 PM PDT) Culture No Methicillin-Resist ant Staphylococcus aureus isolated. 03/04/2019 8:06 PM PDT [facility] (CLIA [id number]) Tissue Axillary region structure / Unknown 03/03/2019 2:07 PM PDT 03/03/2019 6:28 PM PDT Ammon Reyes MD LAB MICROBIOLOGY - G ENERAL ORDERABLES [facility] (CLIA [id number]) [place] [address], [facility] (CLIA [id number]) [place] [address] * Culture, MRSA (03/03/2019 2:07 PM PDT) Culture No Methicillin-Resist ant Staphylococcus aureus isolated. 03/04/2019 8:06 PM PDT [facility] (CLIA [id number]) Tissue Bilateral inguinal canals / Unknown 03/03/2019 2:07 PM PDT 03/03/2019 6:29 PM PDT Ammon Reyes MD LAB MICROBIOLOGY - G ENERAL ORDERABLES Performing Organization Address City/[place] [facility]/ZIP Co de Phone Number [facility] (CLIA [id number]) [place] [address], [place] [phone] [facility] (CLIA [id number]) [place] [address] * (ABNORMAL) Culture, MRSA (03/03/2019 2:07 PM PDT) Culture STAPHYLOCOCCUS AUREUS, METHICILLIN RESISTANT (MRSA)(A) 03/04/2019 8:07 PM PDT [facility] (CLIA [id number]) Comment:Light Staphylococcus aureus,Methicillin resistant (MRSA) Tissue Both anterior nares / Unknown 03/03/2019 2:07 PM PDT 03/03/2019 6:28 PM PDT Ammon Reyes MD LAB MICROBIOLOGY - G ENERAL ORDERABLES [facility] (CLIA [id number]) [place] [address], [place] [phone] [facility] (CLIA [id number]) [place] [address] documented in this encounter Visit Diagnoses Diagnosis Unilateral primary osteoarthritis, right hip Abnormal coagulation profile documented in this encounter Additional Health Concerns Infection Onset Date Last Indicated Resolved Time MRSA Comment:+ 09/30/18 Clau 10/02/2018 10/02/2018 documented as of this encounter Care Teams Hvac Services Professional Relationship Specialty Start Date End Date Assigned, [place] [address] PCP - General 08/04/20 03/02/23 documented as of this encounter
--- OUTSIDE RECORDS SUMMARY | 2024-04-21 18:20 | XMS_ITS | Encounter Summary ---
Author Organization [facility] Address [address] [place] [address], [address] [place] [address] Care Team Providers Care Hospital Attendant Name Role Phone Assigned, Pcp Not Primary Care Provider [phone] Encounter Details Date Type Department Care Team (Late st Contact Info) Description 09/25/2018 [facility] Conversion [facility] Laboratory 1 [place] [address] [place] [address] [address] Social History Tobacco Use Types [...] documented as of this encounter Care Teams Hospital Attendant Relationship Specialty Start Date End Date Assigned, [place] [address] PCP - General 08/04/20 03/02/23 documented as of this encounter
--- OUTSIDE RECORDS SUMMARY | 2024-04-21 18:20 | XMS_ITS | Encounter Summary ---
Author Organization [facility] Address [address] [place] [address], [address] [place] [address] Care Team Providers Care Housekeeper Cleaning Cooking Name Role Phone Assigned, Pcp Not Primary Care Provider [phone] Encounter Details Date Type Department Care Team (Late st Contact Info) Description 03/24/2019 [facility] Conversion [facility] [place] [address] [address] [address] [place] [address] Meli Hdez RN Social History Tobacco Use Types Packs/Day Years Used Date Smoking Tobacco: Never Assessed Sex and Gender Information Value Date Recorded Sex Assigned at Not on file Gender Identity Not on file Sexual Orientation Not on file documented as of this encounter Miscellaneous Notes * Telephone Encounter - Meli Hdez RN - 03/24/2019 2:15 PM PDT Is your pain being managed & how well? Yes What are you taking to manage your pain?; How often? She's taking Tylenol ES as needed Are you taking your anticoagulants (ASA, Lovenox, Coumadin, Xarelto, Eliquis, Plavix)?; Do you knowwhen to stop your anticoagulant? Taking ASA 325mg daily X6 weeks Do you have any questions about the medications or side effects? No Any problems with eating, drinking or constipation? Has no issues with constipation & has stopped taking Senna-S How does your bandage/incision look? Has it been removed/changed? The dressing was removed on 03/21 & the incision is C/D Have you had abnormal swelling, redness, drainage, bleeding or oozing at the incision site? Has some swelling. Suggested to use cold therapy & elevating the surgical extremity. Are you using cold therapy? Yes Do you have any neurological changes such as numbness or tingling sensations? No Has the Home Health Agency contacted you & which one? Yes, [facility] How many PT sessions have you had? 3 sessions We ALWAYS want to make sure we are providing the best care and service. Did we meet your expectations? Yes Are you satisfied with the care you received? Yes Do you have any recommendations on how to improve your care? No Informed the patient to contact the surgeon's office first with issues/concerns regarding surgical site, pain, fever, redness & excessive swelling. If unable to reach the surgeon or PA, call the nurse's station at the hospital. documented in this encounter Plan of Treatment Not on file documented as of this encounter Visit Diagnoses Not on filedocumented in this encounter Additional Health Concerns Infection Onset Date Last Indicated Resolved Time MRSA Comment:+ 09/30/18 Clau 10/02/2018 10/02/2018 documented as of this encounter Care Teams Housekeeper Cleaning Cooking Relationship Specialty Start Date End Date Assigned, [place] [address] PCP - General 08/04/20 03/02/23 documented as of this encounter
--- OUTSIDE RECORDS SUMMARY | 2024-04-21 18:20 | XMS_ITS | Encounter Summary ---
Author Organization [facility] Address [address] [place] [address], [address] [place] [address] Care Team Providers Care Coring Machine Operator Name Role Phone Assigned, Pcp Not Primary Care Provider [phone] Encounter Details Date Type Department Care Team (Late st Contact Info) Description 09/25/2018 [facility] Conversion [facility] 1 [place] [address] [place] [address] [address] Social History Tobacco Use Types [...] documented as of this encounter Care Teams Coring Machine Operator Relationship Specialty Start Date End Date Assigned, [place] [address] PCP - General 08/04/20 03/02/23 documented as of this encounter
--- OUTSIDE RECORDS SUMMARY | 2024-04-21 18:20 | XMS_ITS | Encounter Summary ---
Author Organization [facility] Address [address] [place] [address], [address] [place] [address] Care Team Providers Care Cap Maker Name Role Phone Unavailable Primary Care Provider Unavailabl e Encounter Details Date Type Department Care Team (Latest Contact Info) Description 09/30/2018 2:30 PM PST - 09/30/2018 11:59 PM PST Hospital Encounter [facility] [address] [facility] [address] [place] [address] Unilateral primary osteoarthritis, right hip [...] Associated Diagnosis Comments ECG 12 LEAD Routine 09/30/2018 11:59 PM PST documented in this encounter Results * ECG 12 Lead (09/30/2018 11:59 PM PST) VENTRICULAR RATE EKG 63 bpm 10/01/2018 9:41 AM PST [facility] I[facility] ATRIAL RATE 63 bpm 10/01/2018 9:41 AM PST [facility] P-R INTERVAL 151 ms 10/01/2018 9:41 AM PST [facility] P WAVE AXIS 73 deg 10/01/2018 9:41 AM PST [facility] QRS DURATION 81 ms 10/01/2018 9:41 AM PST [facility] Q-T INTERVAL 418 ms 10/01/2018 9:41 AM PST [facility] Q-T INTERVAL (CORRECTED) 428 ms 10/01/2018 9:41 AM PST [facility] QRS AXIS 31 deg 10/01/2018 9:41 AM PST [facility] T AXIS 51 deg 10/01/2018 9:41 AM PST [facility] INTERPRETATION TEXT - OTHERWISE NORMAL ECG - Sinus rhythm Low voltage, extremity leads No previous ECG available for comparison Electronicall y signed by: Denys Nova 01-Oct-2018 09:41:49 10/01/2018 9:41 AM PST [facility] 09/30/2018 2:42 PM PST Ammon Reyes MD ECG ORDERABLES [facility] CONVERSION IMAGING [place] [facility] documented in this encounter Visit Diagnoses Diagnosis Unilateral primary osteoarthritis, right hip documented in this encounter
--- OUTSIDE RECORDS SUMMARY | 2024-04-21 18:20 | XMS_ITS | Encounter Summary ---
Author Organization [facility] Address [address] [place] [address], [address] [place] [address] Care Team Providers Care Riding Silks Custodian Name Role Phone Assigned, Pcp Not Primary Care Provider [phone] Encounter Details Date Type Department Care Team (Late st Contact Info) Description 02/11/2019 [facility] Conversion [facility] Laboratory 1 [place] [address] [place] [address] [address] Social History Tobacco Use Types [...] documented as of this encounter Care Teams Riding Silks Custodian Relationship Specialty Start Date End Date Assigned, [place] [address] PCP - General 08/04/20 03/02/23 documented as of this encounter
--- OUTSIDE RECORDS SUMMARY | 2024-04-21 18:20 | XMS_ITS | Encounter Summary ---
Author Organization [facility] Address [address] [place] [address], [address] [place] [address] Care Team Providers Care Salesperson Furs Name Role Phone Assigned, Pcp Not Primary Care Provider [phone] Encounter Details Date Type Department Care Team (Late st Contact Info) Description 02/11/2019 [facility] Conversion [facility] Laboratory 1 [place] [address] [place] [address] [address] Social History Tobacco Use Types [...] documented as of this encounter Care Teams Salesperson Furs Relationship Specialty Start Date End Date Assigned, [place] [address] PCP - General 08/04/20 03/02/23 documented as of this encounter
--- OUTSIDE RECORDS SUMMARY | 2024-04-21 18:20 | XMS_ITS | Encounter Summary ---
Author Organization [facility] Address [address] [place] [address], [address] [place] [address] Care Team Providers Care [employer] Hcm Developer Name Role Phone Assigned, Pcp Not Primary Care Provider [phone] Encounter Details Date Type Department Care Team (Late st Contact Info) Description 09/30/2018 [facility] Conversion [facility] [address] [address] [facility] [address] [place] [address] Provider, [facility] Ip Conversion Social History Tobacco Use [...] Comments URINALYSIS, REFLEX MICROSCOPIC AND/OR CULTURE Routine 09/30/2018 3:00 PM PST TYPE AND SCREEN STAT 09/30/2018 3:00 PM PST CULTURE, MRSA Routine 09/30/2018 3:00 PM PST CULTURE, MRSA Routine 09/30/2018 3:00 PM PST CULTURE, MRSA Routine 09/30/2018 3:00 PM PST APTT Routine 09/30/2018 3:00 PM PST PROTIME-INR Routine 09/30/2018 3:00 PM PST CBC AND DIFFERENTIAL - WAM AND NON-WAM Routine 09/30/2018 3:00 PM PST COMPREHENSIVE METABOLIC PANEL Routine 09/30/2018 3:00 PM PST documented in this encounter Results * Culture, MRSA (09/30/2018 3:00 PM PST) Culture No Methicillin-Resist ant Staphylococcus aureus isolated. 10/01/2018 8:10 PM PST [facility] (CLIA [id number]) Tissue Bilateral inguinal canals / Unknown 09/30/2018 3:00 PM PST 09/30/2018 6:50 PM PST Ammon Reyes MD LAB MICROBIOLOGY - G ENERAL ORDERABLES [facility] (CLIA [id number]) [place] [address], [facility] (CLIA [id number]) [place] [address] * Culture, MRSA (09/30/2018 3:00 PM PST) Culture No Methicillin-Resist ant Staphylococcus aureus isolated. 10/01/2018 8:10 PM PST [facility] (CLIA [id number]) Tissue Axillary region structure / Unknown 09/30/2018 3:00 PM PST 09/30/2018 6:50 PM PST Ammon Reyes MD LAB MICROBIOLOGY - G ENERAL ORDERABLES [facility] (CLIA [id number]) [place] [address], [facility] (CLIA [id number]) [place] [address] * (ABNORMAL) Culture, MRSA (09/30/2018 3:00 PM PST) Culture STAPHYLOCOCCUS AUREUS, METHICILLIN RESISTANT (MRSA)(A) 10/01/2018 9:00 PM [facility] (CLIA [id number]) Comment:Moderate Staphylococ cus aureus,Methicillin resistant (MRSA) Tissue Both anterior nares / Unknown 09/30/2018 3:00 PM PST 09/30/2018 6:50 PM PST Ammon Reyes MD LAB MICROBIOLOGY - G ENERAL ORDERABLES [facility] (CLIA [id number]) [place] [address], [facility] (CLIA [id number]) [place] [address] * Protime-INR (09/30/2018 3:00 PM [facility]) Prothrombin Time (PT), QN 10.7 9.7 - 11.8 seconds 09/30/2018 5:39 PM [facility] (CLIA [id number]) Comment:PROTIME: International Normalized Ratio??(Inr) 1.0 0.9 - 1.2 09/30/2018 5:39 PM [facility] (CLIA [id number]) Comment:INR: Blood 09/30/2018 3:00 PM PST 09/30/2018 5:13 PM PST Narrative [facility] - 09/30/2018 5:39 PM PST Outreach Order ID: [id number] Ammon Reyes MD LAB BLOOD ORDERABLES [facility] [address] [place] [address], [facility] (CLIA [id number]) [address] [place] [address] * (ABNORMAL) Comprehensive metabolic panel (09/30/2018 3:00 PM PST) Sodium (Na) 132(L) 135 - 145 mmol/L 09/30/2018 6:56 PM [facility] (CLIA [id number]) Potassium (K) 5.1 3.5 - 5.2 mmol/L 09/30/2018 6:56 PM [facility] (CLIA [id number]) Chloride (Cl) 97(L) 100 - 110 mmol/L 09/30/2018 6:56 PM [facility] (CLIA [id number]) Carbon dioxide (CO2) 27 24 - 32 mmol/L 09/30/2018 6:56 PM [facility] (CLIA [id number]) Anion Gap 8 6 - 14 mmol/L 09/30/2018 6:56 PM [facility] (CLIA [id number]) Glucose 85 65 - 99 mg/dL 09/30/2018 6:56 PM [facility] (CLIA [id number]) BUN (Blood Urea Nitrogen) 10 7 - 17 mg/dL 09/30/2018 6:56 PM [facility] (CLIA [id number]) Creatinine 0.80 0.40 - 1.50 mg/dL 09/30/2018 6:56 PM [facility] (CLIA [id number]) eGFR Non-Afr. [place] >60 >=60 mL/min/1. 73m2 09/30/2018 6:56 PM [facility] (CLIA [id number]) Comment: The estimated GFR is calculated by [...] eGFR <15 indicates renal failure. Calcium (Ca) 9.1 8.4 - 10.2 mg/dL 09/30/2018 6:56 PM [facility] (CLIA [id number]) Albumin 3.7(L) 3.9 - 5.0 g/dL 09/30/2018 6:56 PM [facility] (CLIA [id number]) Bilirubin Total 0.2 0.2 - 1.3 mg/dL 09/30/2018 6:56 PM [facility] (CLIA [id number]) Total Protein (TP) 6.4 6.3 - 8.2 g/dL 09/30/2018 6:56 PM [facility] (CLIA [id number]) Aspartate aminotransferase (AST) (SGOT) 28 14 - 36 U/L 09/30/2018 6:56 PM [facility] (CLIA [id number]) Alanine Aminotransferase (ALT) (SGPT) 28 9 - 52 U/L 09/30/2018 6:56 PM [facility] (CLIA [id number]) Alkaline phosphatase (ALP) 79 38 - 126 U/L 09/30/2018 6:56 PM [facility] (CLIA [id number]) Globulin 2.7 2.0 - 4.0 g/dL 09/30/2018 6:56 PM [facility] (CLIA [id number]) Albumin/Globulin Ratio 1.4 1.2 - 2.0 09/30/2018 6:56 PM [facility] (CLIA [id number]) Urea nitrogen/Creatinine Ratio 12.5 09/30/2018 6:56 PM [facility] (CLIA [id number]) Blood 09/30/2018 3:00 PM PST 09/30/2018 6:33 PM [facility] (CLIA [id number]) - 09/30/2018 6:56 PM [facility] Outreach Order ID: [id number] Ammon Reyes MD LAB BLOOD ORDERABLES [facility] (CLIA [id number]) [address] [facility] [address], [place] [phone] [facility] (CLIA [id number]) [place] [address] * (ABNORMAL) Urinalysis, Reflex Microscopic and/or Culture (09/30/2018 3:00 PM [facility]) Color, Urine Straw(A) Yellow 09/30/2018 6:58 PM [facility] (CLIA [id number]) Clarity, UA Clear Clear 09/30/2018 6:58 PM [facility] (CLIA [id number]) pH, Urine 7.0 5.0 - 8.0 09/30/2018 6:58 PM [facility] (CLIA [id number]) Specific Rowdy, UA 1.005 1.005 - 1.030 09/30/2018 6:58 PM [facility] (CLIA [id number]) Protein, Urine Negative Negative 09/30/2018 6:58 PM [facility] (CLIA [id number]) Blood, Urine Negative Negative 09/30/2018 6:58 PM [facility] (CLIA [id number]) Glucose, Urine Negative Negative 09/30/2018 6:58 PM [facility] (CLIA [id number]) Ketones, Urine Negative Negative 09/30/2018 6:58 PM [facility] (CLIA [id number]) Bilirubin, Urine Negative Negative 09/30/2018 6:58 PM [facility] (CLIA [id number]) Nitrite, Urine Positive(A) Negative 09/30/2018 6:58 PM [facility] (CLIA [id number]) Leukocyte Esterase, UA 1+(A) Negative 09/30/2018 6:58 PM [facility] (CLIA [id number]) Urobilinogen, UA <2.0 mg/dL <2.0 mg/dL 09/30/2018 6:58 PM [facility] (CLIA [id number]) Ascorbic acid, Urine Negative Negative 09/30/2018 6:58 PM [facility] (CLIA [id number]) White Blood Cell Count (WBC), UA 6-10(A) <3 /HPF 09/30/2018 6:58 PM [facility] (CLIA [id number]) Red Blood Cell Count (RBC), UA None Seen <3 /HPF 09/30/2018 6:58 PM [facility] (CLIA [id number]) Bacteria UA Few Negative, Few /HPF 09/30/2018 6:58 PM [facility] (CLIA [id number]) Urine 09/30/2018 3:00 PM PST 09/30/2018 6:33 PM PST Narrative [facility] (CLIA [id number]) - 09/30/2018 6:58 PM [facility] Culture not indicated Ammon Reyes MD LAB URINE ORDERABLES [facility] (CLIA [id number]) [place] [address], [facility] (CLIA [id number]) [place] [address] * (ABNORMAL) CBC with Differential (09/30/2018 3:00 PM [facility]) White Blood Cell Count (WBC) 9.0 4.8 - 11.0 K/uL 09/30/2018 6:44 PM [facility] (CLIA [id number]) Red Blood Cell Count (RBC) 3.06(L) 4.20 - 6.20 M/uL 09/30/2018 6:44 PM [facility] (CLIA [id number]) Hemoglobin (Hgb) 9.4(L) 12.0 - 18.0 g/dL 09/30/2018 6:44 PM [facility] (CLIA [id number]) Hematocrit (HCT) 28.8(L) 37.0 - 52.0 % 09/30/2018 6:44 PM [facility] (CLIA [id number]) Mean corpuscular volume (MCV) 94.1 80.0 - 100.0 fL 09/30/2018 6:44 PM [facility] (CLIA [id number]) Mean Corpuscular Hemoglobin (MCH) 30.7 27.0 - 31.0 pg 09/30/2018 6:44 PM [facility] (CLIA [id number]) Mean Corpuscular Hemoglobin Concentration (MCHC) 32.6 32.0 - 37.0 g/dL 09/30/2018 6:44 PM [facility] (CLIA [id number]) Red Cell Distribution Width (RDW) 15.3(H) 11.5 - 14.5 % 09/30/2018 6:44 PM [facility] (CLIA [id number]) RDW-SD 53.2 36.0 - 55.0 fL 09/30/2018 6:44 PM [facility] (CLIA [id number]) Platelet Count (PLT) 347 150 - 400 K/uL 09/30/2018 6:44 PM [facility] (CLIA [id number]) Mean Platelet Volume (MPV) 9.2 9.0 - 13.0 fL 09/30/2018 6:44 PM [facility] (CLIA [id number]) % Neutrophils 55.2 36.0 - 75.0 % 09/30/2018 6:44 PM [facility] (CLIA [id number]) Lymphocytes 21.3 13.0 - 50.0 % 09/30/2018 6:44 PM [facility] (CLIA [id number]) Monocytes 8.5 2.0 - 10.0 % 09/30/2018 6:44 PM [facility] (CLIA [id number]) EOSINOPHILS 13.2(H) 0.1-6.0 % % 09/30/2018 6:44 PM [facility] (CLIA [id number]) Basophils 1.1 0.0 - 2.0 % 09/30/2018 6:44 PM [facility] (CLIA [id number]) % Immature Granulocytes 0.7 0.0 - 0.8 % 09/30/2018 6:44 PM [facility] (CLIA [id number]) Absolute Neutrophils 4.99 1.00 - 7.00 K/uL 09/30/2018 6:44 PM [facility] (CLIA [id number]) Absolute Lymphocytes 1.92 1.50 - 4.00 K/uL 09/30/2018 6:44 PM [facility] (CLIA [id number]) Absolute Monocytes 0.77 0.20 - 0.90 K/uL 09/30/2018 6:44 PM [facility] (CLIA [id number]) Absolute Eosinophils 1.19(H) 0.00 - 0.70 K/uL 09/30/2018 6:44 PM [facility] (CLIA [id number]) Absolute Basophils 0.10 0.00 - 0.20 K/uL 09/30/2018 6:44 PM [facility] (CLIA [id number]) Absolute Immature Granulocytes 0.06 0.00 - 0.10 K/uL 09/30/2018 6:44 PM [facility] (CLIA [id number]) Nucleated RBC (NRBC) 0 <1 per 100 WBC's 09/30/2018 6:44 PM [facility] (CLIA [id number]) Blood 09/30/2018 3:00 PM PST 09/30/2018 6:34 PM PST Narrative [facility] (CLIA [id number]) - 09/30/2018 6:44 PM PST Outreach Order ID: [id number] Ammon Reyes MD LAB BLOOD ORDERABLES Performing Organization Address [facility]/ZIP Co de Phone Number [facility] (CLIA [id number]) [place] [address], [facility] (CLIA [id number]) [place] [address] * APTT (09/30/2018 3:00 PM PST) activated partial thromboplastin time (aPTT) 27 23 - 32 seconds 09/30/2018 5:39 PM PST [facility] (CLIA [id number]) Comment:PTT: Blood 09/30/2018 3:00 PM PST 09/30/2018 5:13 PM PST Narrative [facility] - 09/30/2018 5:39 PM PST Outreach Order ID: [id number] Ammon Reyes MD LAB BLOOD ORDERABLES Performing Organization Address City/[facility]/ZIP Co de Phone Number [facility] [id number] [place] [address], [facility] (CLIA [id number]) [address] [place] [address] * TYPE AND SCREEN (09/30/2018 3:00 PM PST) ABO Grouping O 09/30/2018 3:00 PM PST [facility] Rh Type Positive 09/30/2018 3:00 PM PST [facility] Antibody Screen Negative 09/30/2018 3:00 PM PST [facility] Blood 09/30/2018 3:00 PM PST 09/30/2018 5:13 PM PST Narrative [facility] CONVERSION LAB - 09/30/2018 3:00 PM PST Preop Yes Surgery; Alviso Has the patient been transfused in the last 3 months?->No Has the patient been in the last 3 months?->No Has the patient received RhoGAM or WinRho?->No Anticipated date of surgery/procedure->10/17/18 Ammon Reyes MD LAB BLOOD BANK TEST ORDERABLES [facility] CONVERSION LAB [facility] [address] [place] [address] documented in this encounter Visit Diagnoses Diagnosis Unilateral primary osteoarthritis, right hip Abnormal coagulation profile documented in this encounter Additional Health Concerns Infection Onset Date Last Indicated Resolved Time MRSA Comment:+ 09/30/18 [place] 10/02/2018 10/02/2018 documented as of this encounter Care Teams [employer] Hcm Developer Relationship Specialty Start Date End Date Assigned, Pcp Not [facility] [employer] [address] PCP - General 08/04/20 03/02/23 documented as of this encounter
--- OUTSIDE RECORDS SUMMARY | 2024-04-21 18:20 | XMS_ITS | Encounter Summary ---
Author Organization [facility] Address [address] [place] [address], [address] [place] [address] Care Team Providers Care Team Leader Name Role Phone Assigned, Pcp Not Primary Care Provider [phone] Encounter Details Date Type Department Care Team (Late st Contact Info) Description 11/20/2018 [facility] Conversion [facility] [address] [facility] [address] [place] [id number] Eula Alcantar MD [address] [facility] [address] [place] [address] Social History Tobacco Use Types Packs/Day Years [...] documented as of this encounter Care Teams Team Leader Relationship Specialty Start Date End Date Assigned, Pcp Not [address] [place] [address] PCP - General 08/04/20 03/02/23 documented as of this encounter
--- OUTSIDE RECORDS SUMMARY | 2024-04-21 18:21 | XMS_ITS | Clinical Summary ---
Author Organization [facility] Address [address] [place] [address] Care Team Providers Care Community Service Officer Name Role Phone Jes Arriaga MD Primary Care Provider + Allergies No known active allergies Medications Medication Sig Dispensed Refills Start Date End Date Status losartan (COZAAR) 100 mg Tablet Take 100 mg by mouth every day. Active FLUoxetine (PROzac, SARAFEM) 10 mg Capsule Take 10 mg by mouth once a day. Active amLODIPine (NORVASC) 10 mg tabletIndications:Be nign essential HTN Take 1 tablet by mouth once a day. 90 tablet 3 03/13/2022 Active Synthroid 100 mcg tablet Take 1 tablet by mouth daily before breakfast. 90 tablet 3 06/15/2023 Active estradiol (VAGIFEM) 10 mcg TabletIndications:Va ginal dryness, menopausal INSERT 1 TABLET VAGINALLY 2 TIMES A WEEK 24 tablet 3 01/08/2024 Active Active Problems Problem Noted Date Diagnosed Date Age related osteoporosis 10/30/2018 Overview: 10/15 DEXA - osteoporosis MyChart message sent/ recommended Fosamax MRSA (methicillin resistant staph aureus) cultur e positive 10/09/2018 Overview: Treated Repeat culture planned 10/10/18 Anemia of chronic disease 01/08/2018 Protein-calorie malnutrition, unspecified severi ty 01/08/2018 Hyponatremia 03/02/2017 Major depressive disorder, recurrent episode, mi ld 12/14/2014 Hypothyroidism, unspecified 12/14/2014 Essential hypertension 12/14/2014 Resolved Problems Problem Noted Date Diagnosed Date Resolved Date Pneumonia of left lower lobe due to infectious organism 01/31/2017 09/02/2018 Encounters Date Type Department Care Team Description 04/15/2024 2:15 PM PDT - 04/15/2024 11:59 PM PDT Hospital Encounter [facility] at [address] [place], [place] [id number] Dx: Visit for screening mammogram Discharge Disposition: Home from Last 3 Months Immunizations Name Administration Dates Next Due ([id number]) Moderna Covid-19 vaccine (12YO+ SERIES) 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 09/18/2020,08/22/2020 Influenza Quadrivalent Adjuvanted 04/18/2021 Influenza Quadrivalent High Dose 04/22/2023 Influenza Quadrivalent Preservative-Free IM 03/31 Influenza Trivalent High Dose 05/26/2019 Meningococcal Polysaccharide MPSV4 05/11/1998 OPV polio (ORIMUNE) vaccine 05/11/1998 Pneumococcal Conjugate PCV13 05/30/2019 Pneumococcal Polysaccharide PPSV23 03/11/2018 Pneumococcal, Unspecified 07/30/2018 Td 05/11/1998 Tdap 08/30/2018 Yellow Fever 05/11/1998 Zoster Recombinant 06/29/2020,04/26/2020 Family History Medical History Relation Comments Heart Father Hemophilia Father Renal Mother kidney failure Relation Status Comments Father Mother Social History Tobacco Use Types Packs/Day Years Used Date Smoking Tobacco: Never Smokeless Tobacco: Never Alcohol Use Standard Drinks/Week Comments No 0 (1 standard drink = 0.6 oz pur e alcohol) PHQ-9 Answer Date Recorded PHQ-9 Score 0 06/25/2023 Sex and Gender Information Value Date Recorded Sex Assigned at Female 01/16/2023 3:01 PM PDT Gender Identity Female 04/15/2024 2:25 PM PDT Sexual Orientation Not on file Job Start Date Occupation Industry Not on file Not on file Not on file Last Filed Vital Signs Vital Sign Reading Time Taken Comments Blood Pressure 130/78 06/25/2023 3:02 PM PST Pulse 63 06/25/2023 3:02 PM PST Temperature 36.5 ??C (97.7 ??F) 06/25/2023 3:39 PM PS T Respiratory Rate 16 06/25/2023 3:02 PM PST Oxygen Saturation 100% 06/25/2023 3:02 PM PST Inhaled Oxygen Concentration - - Weight 47.5 kg (104 lb 12.8 oz) 06/25/2023 3:02 PM PST Height 165.1 cm (5' 5) 06/25/2023 3:02 PM PST Body Mass Index 17.44 06/25/2023 3:02 PM PST Plan of Treatment Health Maintenance Due Date Last Done Comments FIT 1950 Fecal Mt-sDNA/Cologuard 1950 MEDICARE ANNUAL WELLNESS VIS IT (AWV) 1950 ANNUAL WOMEN PREVENTIVE CARE EXAM 01/31/2017 016, 12/14/2014 Advance Care Planning 07/30/2023 Depression Screening (Billin g for this is optional) 07/30/2023 06/25/2023 Social Determinants of Healt h (SDoH) 07/30/2023 Influenza Vaccine (#1) 2024 , 04/18/2021, 04/26/2020, Additional history exists Mammogram 04/15/2025 04/15/2024, 12/29, 06/28/2021, Additional history exists Colonoscopy 03/29/2028 03/29/2018 Colorectal Cancer Screening 03/29/2028 DTaP, Tdap, and Td Vaccines (2 - Td or Tdap) 08/30/2028 08/30/2018, 05/11/1998 OSTEOPOROSIS SCREENING 06/28/2036 , 10/10/2018, 01/07/2015 Hepatitis C Screening Completed 01/31/2017 Pneumococcal Vaccines (65+ years) Completed 05/30/2019, 07/30/2018, 03/11/2018 Zoster Vaccines Completed 06/29/2020, 04/26/2020 COVID-19 Vaccine Completed 10/21/2023, , 10/20/2021, Additional history exists Procedures Procedure Name Priority Date/Time Associated Diagnosis Comments SCREENING MAMMO BILAT W/CAD W/CHRIS Routine 04/15/2024 4:04 PM PDT Visit for screening mammogram BONE DENSITY AXIAL Routine 06/28/2021 1: 33 PM PST Postmenopausal status Age related osteoporosis, unspecified pathological fracture presence HEPATITIS C AB (HCV) Routine 01/31/2017 11:17 AM PDT Need for hepatitis C screening test from Last 3 Months or Most Recently Relevant to Health Maintenance Results * BC MAMMO BILATERAL 3D SCREENING (04/15/2024 4:04 PM PDT) Anatomical Region Laterality Modality BREAST Mammography Impressions 04/16/2024 9:50 AM PDT There is no mammographic evidence of malignancy. Recommend a screening mammogram in 1 year. ACR BI-RADS Category 1 - ??Negative. A result letter was sent to the patient by breast center staff. Report Electronically Signed. Dictated by: SHANT HATFIELD M.D. At: 04/16/2024 09:45:38 Division Operations Manager: RISHABH ROSALES, [facility] BREAST [place] AT [facility] Narrative 04/16/2024 9:50 AM PDT BILATERAL SCREENING 3D TOMOSYNTHESIS AND 2D C-VIEW MAMMOGRAM DATE OF SERVICE: 04/15/2024 CLINICAL HISTORY: Patient is a 73 year old female who is seen for screening. The patient's lifetime risk for developing breast cancer is estimated using the Tyrer-Cuzick v8 risk assessment model as 2.7%. A risk score of 12% or lower is considered normal risk. COMPARISON: The present examination has been compared to prior imaging studies performed at [facility] Breast [facility] on 01/16/2023, at [facility] at [facility] on 10/14/2018, and at [facility] on 06/28/2021. TECHNIQUE: Digital mammographic images were obtained using a XING mammographic system. Views obtained: bilateral craniocaudal with tomosynthesis and mediolateral oblique with tomosynthesis. This study consists of 3D tomosynthesis images along with synthetic 'C-View 2D' or 'Intelligent 2D' images. The exam was interpreted on a specialized workstation with an integrated computer-aided detection (CAD) algorithm applied. MAMMOGRAM FINDINGS: The breasts are heterogeneously dense, which may obscure small masses. There are no suspicious masses, malignant type microcalcifications nor areas of unexplained architectural distortion. There has been no significant interval change. Procedure Note Shant Hatfield MD - 04/16/2024 BILATERAL SCREENING 3D TOMOSYNTHESIS AND 2D C-VIEW MAMMOGRAM DATE OF SERVICE: 04/15/2024 CLINICAL HISTORY: Patient is a 73 year old female who is seen for screening. The patient's lifetime risk for developing breast cancer is estimatedusing the Tyrer-Cuzick v8 risk assessment model as 2.7%. A risk score of12% or lower is considered normal risk. COMPARISON: The present examination has been compared to prior imaging studiesperformed at [facility] Breast [facility] on01/16/2023, at [facility] on 10/14/2018, andat [facility] on 06/28/2021. TECHNIQUE: Digital mammographic images were obtained using a [employer]ographic system. Views obtained: bilateral craniocaudal withtomosynthesis and mediolateral oblique with tomosynthesis. This studyconsists of 3D tomosynthesis images along with synthetic 'C-View 2D' or'Intelligent 2D' images. The exam was interpreted on a specialized workstation with an integratedcomputer-aided detection (CAD) algorithm applied. MAMMOGRAM FINDINGS: The breasts are heterogeneously dense, which may obscure small masses. There are no suspicious masses, malignant type microcalcifications norareas of unexplained architectural distortion. There has been nosignificant interval change. IMPRESSION: There is no mammographic evidence of malignancy. Recommend a screening mammogram in 1 year. ACR BI-RADS Category 1 - Negative. A result letter was sent to the patient by breast center staff. Report Electronically Signed. Dictated by: SHANT HATFIELD M.D. At: 04/16/2024 09:45:38 Division Operations Manager: RISHABH ROSALES, [facility] Jes Arriaga MD MG IMG MAMMO PRO CEDURE * BC DEXA BONE DENSITY AXIAL (06/28/2021 1:33 PM [facility]) Anatomical Region Laterality Modality Mammography Jes BUCKLEY IMG BONE DENS ITY * (ABNORMAL) HEPATITIS C AB (HCV) (01/31/2017 11:17 AM PDT) Hepatitis C Ab REACTIVE(A) NON-REAC TIVE [facility] ([facility]) Signal to Cut-off 3.44(H) <1.00 [facility] ([facility]) Comment: Following CDC recommendations (MMWR No. 62, 2013), this patient's HCV Antibody Reactive sample will be tested for the presence of HCV RNA by a Nucleic Acid Amplification Test (NAAT) to determine if the patient has an active HCV infection. HCV RNA, QNT RT-PCR (IU/ML) <15 NOT DETECTED <15 IU/mL [facility] ([facility]) HCV RNA, QNT RT-PCR (LOG IU/ML) <1.18 NOT DETECTED <1.18 Log IU/mL [facility] ([facility]) Comment: Please note: There are several scenarios that may cause this combination of results. 1)Patient is not currently actively infected with HCV either because the patient has a resolved HCV infection or the patient has a false positive Ab test and was never infected with HCV. 2)A few patients with circulating anti-HCV antibodies that do not have detectable HCV RNA, may not have completely resolved the infection. These infrequently encountered patients could be carriers of the virus and should be managed according to the current Treatment Guidelines (J Hepatol, 2868-4995, ). Please correlate these findings with the patient's clinical history and any other diagnostic findings, including any evidence of liver dysfunction. [facility] Comment: [employer] (E) Comment: The analytical performance characteristics of this assay have been determined by [employer]. The modifications have not been cleared or approved by the FDA. This assay has been validated pursuant to the CLIA regulations and is used for clinical purposes. ?? This test was performed using the EFLIX(R)AmpliPrep/ FELIX(R)TaqMan(R)HCV Test,v2.0. For more information on this test, go to: http://education.First Wave/faq/PFC17n6 (This link is being provided for informational/ educational purposes only.) Blood (BLOOD) 01/31/2017 11: 17 AM PDT 01/31/2017 9:56 PM PDT Narrative Resulting Agency Comment Performing Organization Information: ? EN ? [facility] ? [address] [place] [address] ? Jameson Ortiz MD Jes Arriaga MD LAB BLOOD [facility] ([facility]) from Last 3 Months or Most Recently Relevant to Health Maintenance Care Teams Community Service Officer Relationship Specialty [place] [id number] [facility], [address] [place] [address] PCP - General Internal Medicine 12/02/14
--- OUTSIDE RECORDS SUMMARY | 2024-04-21 18:21 | XMS_ITS | Encounter Summary ---
Author Organization [facility] Address [address] [place] [address], [address] [place] [address] Care Team Providers Care Basket Turner Name Role Phone Unavailable Primary Care Provider Unavailabl e Encounter Details Date Type Department Care Team (Late st Contact Info) Description 06/22/1998 6:30 AM PST - 06/22/1998 9:40 AM [facility] Hospital Encounter [facility] IN[facility] OP [address] [facility] [place] [phone] Anup Gibbons MD [address] [place] [address] Discharge Disposition: Home or Self Care Social [...]
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
--- OUTSIDE RECORDS SUMMARY | 2024-04-21 18:21 | XMS_ITS | Encounter Summary ---
Author Organization [facility] Address [address] [place] [address], [address] [place] [address] Care Team Providers Care Dock Superintendent Name Role Phone Assigned, Pcp Not Primary Care Provider [phone] Encounter Details Date Type Department Care Team (Late st Contact Info) Description 03/11/2018 [facility] Conversion [facility] [address] [place] [id number] Social History Tobacco Use Types Packs/Day Years [...] documented as of this encounter Care Teams Dock Superintendent Relationship Specialty Start Date End Date Assigned, [place] [address] PCP - General 08/04/20 03/02/23 documented as of this encounter
--- OUTSIDE RECORDS SUMMARY | 2024-04-21 18:21 | XMS_ITS | Clinical Summary ---
Author Organization [facility] Address [address] [place] [address] Care Team Providers Care Bi Architect Name Role Phone Unavailable Primary Care Provider Unavailabl e Source Comments NOTE: The information displayed by Care Everywhere is extracted from the complete medical record and may not identify all current or past patient conditions.[facility] Immunizations Name Administration Dates Next Due MENps (MENOMUNE) (Meningococcal polysaccharide) 05/11/1998 IDALMIS-OPV (Polio, live virus) 05/11/1998 TD pres free (Tetanus, Diphtheria) (TdVax), adso rbed 05/11/1998 YF (Yellow fever) 05/11/1998 Social History Tobacco Use Types Packs/Day Years Used Date Smoking Tobacco: Never Assessed Sex and Gender Information Value Date Recorded Sex Assigned at Not on file Gender Identity Not on file Sexual Orientation Not on file Plan of Treatment Health Maintenance Due Date Last Done Comments MAMMOGRAM SCREENING 1991 IMM ZOSTER (19 YRS AND OLDER) (1 of 2) 2001 IMM DTAP,TDAP,TD (42 DAYS-120 YRS) (2 - Td or Tdap) 05/11/1998 IMM PNEUMOCOCCAL (65 YRS AND OLDER) (1 of 1 - PCV) 10/2015 IMM INFLUENZA (6 MO AND OLDER) (#1) 2024
--- OUTSIDE RECORDS SUMMARY | 2024-04-21 18:21 | XMS_ITS | Encounter Summary ---
Author Organization [facility] Address [address] [place] [address], [address] [place] [address] Care Team Providers Care Bindery Chief Name Role Phone Assigned, Pcp Not Primary Care Provider [phone] Encounter Details Date Type Department Care Team (Late st Contact Info) Description 08/03/2017 [facility] Conversion [facility] MAMMOGRAPHY [address] [facility] [address] [place] [id number] Cain Dias MD 360 [facility] [address] [place] [address] Social History Tobacco Use Types Packs/Day Years Used Date Smoking Tobacco: Never Assessed Sex and Gender Information Value Date Recorded Sex Assigned at Not on file Gender Identity Not on file Sexual Orientation Not on file documented as of this encounter Plan of Treatment Not on file documented as of this encounter Procedures Procedure Name Priority Date/Time Associated Diagnosis Comments GLEN DIGITAL SCREENING BILATERAL Routine 08/03/2017 11:19 AM PST documented in this encounter Results * GLEN Digital Screening Bilateral (08/03/2017 11:19 AM PST) Anatomical Region Laterality Modality Breast Bilateral Mammography Narrative 08/07/2017 10:52 AM PST BILATERAL DIGITAL SCREENING MAMMOGRAM WITH CAD CLINICAL HISTORY: Patient is 67 years old and is seen for screening. The patient has no family history of breast cancer. The patient has no family history of ovarian cancer. COMPARISON: The present examination has been compared to prior imaging studies performed at [facility] on 06/11/2007, 04/17/2012 and 01/01/2014. TECHNIQUE: Digital mammographic images were obtained using a Edilia mammographic system. Views obtained: bilateral craniocaudal and mediolateral oblique. MAMMOGRAM FINDINGS: The patient's digital mammographic images were analyzed using computer-aided detection technology. The results of that analysis were utilized in the final interpretation of the exam. The breasts are heterogeneously dense, which may obscure small masses. There are no suspicious masses, malignant type microcalcifications or areas of unexplained architectural distortion. CONCLUSION: There is no mammographic evidence of malignancy. Suggest this patient return for her routine annual screening mammogram in 1 year. ACR BI-RADS Category 1 - Negative. Life-time breast cancer risk (Modified Tyrer-Cuzick): 6.3% (>20% is considered elevated) [*Note that the modified NATAN risk estimate may be higher or lower than a formal NATAN estimate, depending upon the patient's history.] Read by: PARAMJIT GUILLEN M.D. Procedure Note Paramjit Guillen MD - 01/29/2023 BILATERAL DIGITAL SCREENING MAMMOGRAM WITH CAD CLINICAL HISTORY: Patient is 67 years old and is seen for screening. The patient has nofamily history of breast cancer. The patient has no family history ofovarian cancer. COMPARISON: The present examination has been compared to prior imaging studiesperformed at [facility] on 06/11/2007, 04/17/2012 and01/01/2014. TECHNIQUE: Digital mammographic images were obtained using a Edilia mammographicsystem. Views obtained: bilateral craniocaudal and mediolateral oblique. MAMMOGRAM FINDINGS: The patient's digital mammographic images were analyzed usingcomputer-aided detection technology. The results of that analysis wereutilized in the final interpretation of the exam. The breasts are heterogeneously dense, which may obscure small masses. There are no suspicious masses, malignant type microcalcifications orareas of unexplained architectural distortion. CONCLUSION: There is no mammographic evidence of malignancy. Suggest this patient return for her routine annual screening mammogram in1 year. ACR BI-RADS Category 1 - Negative. Life-time breast cancer risk (Modified Tyrer-Cuzick): 6.3% (>20% isconsidered elevated) [*Note that the modified NATAN risk estimate may be higher or lower than aformal NATAN estimate, depending upon the patient's history.] Read by: PARAMJIT GUILLEN M.D. Cain Dias MD IMG BI PROCEDURES documented in this encounter Visit Diagnoses Not on filedocumented in this encounter Additional Health Concerns Infection Onset Date Last Indicated Resolved Time MRSA Comment:+ 09/30/18 Nares 10/02/2018 10/02/2018 documented as of this encounter Care Teams Bindery Chief Relationship Specialty Start Date End Date Assigned, [place] [address] PCP - General 08/04/20 03/02/23 documented as of this encounter
--- OUTSIDE RECORDS SUMMARY | 2024-04-21 18:21 | XMS_ITS | Encounter Summary ---
Author Organization [facility] Address [address] [place] [address] Care Team Providers Care Retail Merchandising Coordinator Name Role Phone Jes Arriaga MD Primary Care Provider + Reason for Referral * Radiology (Routine) - New Request Specialty Diagnoses / Procedures Referred By Dinorah garcia Referred To Contact Radiology Diagnoses Visit for screening mammogram Procedures BC MAMMO BILATERAL 3D SCREENING SCREENING DIGITAL BREAST [place] [address] [facility], [address] [place] [address] Referral ID Status Reason Start Date Expiration Date V isits Requested Visits Authorized [id number] New Request 03/28/2024 06/26/2024 5 5 Reason for Visit * (Routine) - Closed Specialty Diagnoses / Procedures Referred By Dinorah garcia Referred To Contact Radiology Procedures BC MAM[place] [address] [facility], [address] [place] [address] [facility] [address] [place] [address] [address] [place] [address] Referral ID Status Reason Start Date Expiration Date Visits Re quested Visits Authorized [id number] Closed 04/15/2024 07/14/2024 1 1 Encounter Details Date Type Department Care Team (Latest Contact Info) Description 04/15/2024 2:15 PM PDT - 04/15/2024 11:59 PM PDT Hospital Encounter [facility] at [address], [address] [place], [place] [id number] Dx: Visit for screening mammogram Discharge Disposition: Home Social History Tobacco Use Types Packs/Day Years [...] file Not on file Not on file documented as of this encounter Medications at Time of Discharge Medication Sig Dispensed Refills Start Date End Date estradiol (VAGIFEM) 10 mcg TabletIndications:Vagin al dryness, menopausal INSERT 1 TABLET VAGINALLY 2 TIMES A WEEK 24 tablet 3 01/08/2024 Synthroid 100 mcg tablet Take 1 tablet by mouth daily before breakfast. 90 tablet 3 06/15/2023 amLODIPine (NORVASC) 10 mg tabletIndications:Benig n essential HTN Take 1 tablet by mouth once a day. 90 tablet 3 03/13/2022 FLUoxetine (PROzac, SARAFEM) 10 mg Capsule Take 10 mg by mouth once a day. losartan (COZAAR) 100 mg Tablet Take 100 mg by mouth every day. documented as of this encounter Plan of Treatment Not on file documented as of this encounter Procedures Procedure Name Priority Date/Time Associated Diagnosis Comments SCREENING MAMMO BILAT W/CAD W/CHRIS Routine 04/15/2024 4:04 PM PDT Visit for screening mammogram documented in this encounter Results * BC MAMMO BILATERAL 3D SCREENING [...] by: SHANT HATFIELD M.D. At: 04/16/2024 09:45:38 Child And Family Counselor: RISHABH ROSALES, [facility] [place] [facility] Narrative 04/16/2024 9:50 AM PDT BILATERAL SCREENING [...] compared to prior imaging studies performed at [facility] Breast [facility] on 01/16/2023, at [facility] Breast [place] [facility] on 10/14/2018, and at [facility] [place] [facility] [place] on 06/28/2021. TECHNIQUE: Digital mammographic images were obtained using a Reglare mammographic system. Views obtained: bilateral craniocaudal with [...] been compared to prior imaging studiesperformed at [facility] Breast [place] at [facility] on01/16/2023, at [facility] Breast [place] at [facility] on 10/14/2018, andat [facility] Breast [place] [facility] [place] on 06/28/2021. TECHNIQUE: Digital mammographic images were obtained using a Tour Enginemmographic system. Views obtained: bilateral craniocaudal withtomosynthesis and [...] by: SHANT HATFIELD M.D. At: 04/16/2024 09:45:38 Child And Family Counselor: RISHABH ROSALES, [facility] Jes Arriaga MD IMG MAMMO PRO CEDURE documented in this encounter Visit Diagnoses Diagnosis Visit for screening mammogram Other screening mammogram documented in this encounter Care Teams Retail Merchandising Coordinator Relationship Specialty [place] [address] [facility] [address] [place] [address] PCP - General Internal Medicine 12/02/14 documented as of this encounter
--- OUTSIDE RECORDS SUMMARY | 2024-04-21 18:21 | XMS_ITS | Encounter Summary ---
Author Organization [facility] Address [address] [place] [address] Care Team Providers Care Ranch Manager Name Role Phone Jes Arriaga MD Primary Care Provider + Reason for Visit * Reason Comments Medication Refill Encounter Details Date Type Department Care Team (Late st Contact Info) Description 01/08/2024 Refill [facility] [place] [address] [facility] [address] [address] Aysha Palacios CNM [address] [address] Medication Refill Social History Tobacco Use Types Packs/Day Years [...] as of this encounter Visit Diagnoses Diagnosis Vaginal dryness, menopausal- Primary Symptomatic menopausal or female climacteric states documented in this encounter Care Teams Ranch Manager Relationship Specialty [place] [address] [facility], [address] [place] [address] PCP - General Internal Medicine 12/02/14 documented as of this encounter
--- OUTSIDE RECORDS SUMMARY | 2024-04-21 18:21 | XMS_ITS | Referral Summary ---
Author Organization [facility] Address [address] [place] [address] Care Team Providers Care Salesperson Women'S Hats Name Role Phone Jes Arriaga MD Primary Care Provider + Encounters Date Type Department Care Team Description 04/15/2024 2:15 PM PDT - 04/15/2024 11:59 PM PDT Hospital Encounter [facility] at [address] [place] [address] Dx: Visit for screening mammogram Discharge Disposition: Home from Last 3 Months Allergies No known active allergies Medications Medication [...] lobe due to infectious organism 01/31/2017 09/02/2018 Immunizations Name Administration Dates Next Due ([id number]) Moderna Covid-19 vaccine (12YO+ SERIES) INDUSTRIAL TECH INSTRUCTOR 09/18/2020,08/22/2020 Influenza Quadrivalent Adjuvanted 04/18/2021 Influenza Quadrivalent High Dose 04/22/2023 Influenza Quadrivalent Preservative-Free IM 03/31 Influenza Trivalent High Dose 05/26/2019 Meningococcal Polysaccharide MPSV4 05/11/1998 OPV polio (ORIMUNE) vaccine 05/11/1998 Pneumococcal Conjugate PCV13 05/30/2019 Pneumococcal Polysaccharide PPSV23 03/11/2018 Pneumococcal, Unspecified 07/30/2018 Td 05/11/1998 Tdap 08/30/2018 Yellow Fever 05/11/1998 Zoster Recombinant 06/29/2020,04/26/2020 Social History Tobacco Use Types Packs/Day Years [...] 06/25/2023 3:02 PM PST Plan of Treatment Not on file Procedures Procedure Name Priority Date/Time Associated Diagnosis [...] by: SHANT HATFIELD M.D. At: 04/16/2024 09:45:38 Nursing Home Admissions Director: RISHABH ROSALES, [facility] BREAST [facility] Narrative 04/16/2024 9:50 AM PDT BILATERAL SCREENING [...] compared to prior imaging studies performed at [facility] on 01/16/2023, at [facility] on 10/14/2018, and at [facility] [place] [facility] [place] on 06/28/2021. TECHNIQUE: Digital mammographic images were obtained using a Holodat[employer] Dimensions mammographic system. Views obtained: bilateral craniocaudal with [...] been compared to prior imaging studiesperformed at [facility] on01/16/2023, at [facility] Breast [facility] on 10/14/2018, andat [facility] [place] on 06/28/2021. TECHNIQUE: Digital mammographic images were obtained using a TrewCap Dimensionsmammographic system. Views obtained: bilateral craniocaudal withtomosynthesis and [...] by: SHANT HATFIELD M.D. At: 04/16/2024 09:45:38 Nursing Home Admissions Director: RISHABH ROSALES, [facility] Jes Arriaga MD MG IMG MAMMO PRO CEDURE * BC DEXA BONE DENSITY AXIAL (06/28/2021 1:33 PM PST) Anatomical Region Laterality Modality Mammography Jes Arriaga MD BD IMG BONE DENS ITY * (ABNORMAL) HEPATITIS [...] to the current Treatment Guidelines (J Hepatol, 6929-9336, ). Please correlate these findings with the patient's clinical history and any other diagnostic findings, including any evidence of liver dysfunction. [facility] Comment: [employer] [facility] (E) Comment: The analytical performance characteristics of this assay have been determined by [facility]. The modifications have not been cleared or approved by the FDA. This assay has been validated pursuant to the CLIA regulations and is used for clinical purposes. ?? This test was performed using the FELIX(R)AmpliPrep/ FELIX(R)TaqMan(R)HCV Test,v2.0. For more information on this test, go to: http://education.Comtica/faq/JCS14v7 (This link is being provided for informational/ educational purposes only.) Blood (BLOOD) 01/31/2017 11: 17 AM PDT 01/31/2017 9:56 PM PDT Narrative Resulting Agency Comment Performing Organization Information: ? EN ? [facility] ? [address] [place] [address] ? Tab MD Diana Jes Arriaga MD LAB BLOOD [employer] ([facility]) from Last 3 Months or Most Recently Relevant to Health Maintenance Care Teams Salesperson Women'S Hats Relationship Specialty Start [place] [address] [facility], [address] [place] [address] PCP - General Internal Medicine 12/02/14
--- OUTSIDE RECORDS SUMMARY | 2024-04-21 18:21 | XMS_ITS | Encounter Summary ---
Author Organization [facility] Address [address] [place] [address], [address] [place] [address] Care Team Providers Care Military Lawyer Name Role Phone Unavailable Primary Care Provider Unavailabl e Encounter Details Date Type Department Care Team (Late st Contact Info) Description 02/14/1995 10:59 PM PDT - 02/14/1995 11:36 PM PDT Emergency [facility] [address] [place] [id number] Vipul Espinoza MD [address] [place] [phone] Discharge Disposition: Home or Self Care Social [...]
--- OUTSIDE RECORDS SUMMARY | 2024-04-21 18:21 | XMS_ITS | Encounter Summary ---
Author Organization [facility] Address [address] [place] [address], [address] [place] [address] Care Team Providers Care Button Inspector Name Role Phone Assigned, Pcp Not Primary Care Provider [phone] Encounter Details Date Type Department Care Team (Late st Contact Info) Description 09/25/2018 [facility] Conversion [facility] [address] [place] [address] [place] [address] [address] Social History Tobacco Use Types [...] documented as of this encounter Care Teams Button Inspector Relationship Specialty Start Date End Date Assigned, [place] [address] PCP - General 08/04/20 03/02/23 documented as of this encounter
--- OUTSIDE RECORDS SUMMARY | 2024-04-21 18:21 | XMS_ITS | Encounter Summary ---
Author Organization [facility] Address [address] [place] [address], [address] [place] [address] Care Team Providers Care Photographic Engineer Name Role Phone Assigned, Pcp Not Primary Care Provider [phone] Encounter Details Date Type Department Care Team (Late st Contact Info) Description 09/25/2018 [facility] Conversion [facility] [address] [place] [address] [place] [address] [address] Social History Tobacco Use Types [...] documented as of this encounter Care Teams Photographic Engineer Relationship Specialty Start Date End Date Assigned, [place] [address] PCP - General 08/04/20 03/02/23 documented as of this encounter
--- OUTSIDE RECORDS SUMMARY | 2024-04-21 18:21 | XMS_ITS | Encounter Summary ---
Author Organization [facility] Address [address] [place] [address], [address] [place] [id number] Care Team Providers Care Acid Patroller Name Role Phone Unavailable Primary Care Provider Unavailabl e Encounter Details Date Type Department Care Team (Late st Contact Info) Description 09/12/1988 - 09/12/1988 11:59 PM PST Hospital Encounter [facility] [address] [place] [address] ProviderMarii Ip Conversion Discharge Disposition: Home or Self [...]
--- OUTSIDE RECORDS SUMMARY | 2024-04-21 18:21 | XMS_ITS | Continuity of Care Document ---
Author Organization [facility] Address [address] [facility] [place] [address] Phone Support Name Relationship Address Phone Cain Dias spouse [address] [place] [address] [phone] Cain Dias Caregiver Unknown Unavailable Allergies, Adverse Reactions, Alerts Substance Reaction Status No Known Allergies Active Medications Medication Instructions Dosage Effective Dates (start - stop) Status Comments LOSARTAN POTASSIUM (unknown strength) take 1 tablet by oral route every day Not Available - Active amlodipine 10 mg tablet take 1 tablet by oral route every day 10 MG - Active Prozac 40 mg capsule take 1 capsule by oral route every day in the morning 40 MG - Active Synthroid 100 mcg tablet take 1 tablet by oral route every day 100 MCG - Active Problems Condition Effective Dates (sta rt - stop) Clinical Status Comments Pain in right hip - Unilateral primary osteoarthritis, right hip - Unilateral primary osteoarthritis, right hip - Pain in right hip - Pain in right hip - Unilateral primary osteoarthritis, right hip - Unilateral primary osteoarthritis, right hip - Pain in right hip - Stiffness of right hip, not elsewhere classified - Oth tear of medial meniscus, current injury, r knee, init - Arthritis, hip Unilateral primary osteoarthritis, right hip Right hip pain Right hip pain Stiffness of right hip joint Primary osteoarthritis of ri ght hip Oth tear of medial meniscus, current injury, r knee, init - Posterior right knee pain Other tear of medial meniscu s, current injury, right knee, initial encounter Hip stiff - Active Osteoarthritis of hip - Active Hip pain - Active Knee pain - Active Tear of medial meniscus of knee - Active Advance Directives Directive Yes / No Effective Date File Name No information Encounters Encounter Description Practice Location Reason(s) For Visit Diagnoses Date Provider Providers Copied on Encounter [facility], [address] [place] [address], [id number], tel:[phone] [facility], [address] [place] [address], [id number], tel:[phone] SHRUTHI Extremity Arthritis, hipPain in right hipUnilateral primary osteoarthritis, right hip 8 Montse Anurag. [address] [place] [address], [id number], [place]. tel:[phone] Referring Provider: Cain Dias, [address], [address]. tel:[phone] [facility], [address] [place] [address], [id number], [place] tel:[phone] SHRUTHI Extremity Unilateral primary osteoarthritis, right hipPain in right hip 8 Montse Anurag. [address] [place] [address], [id number], [place]. tel:[phone] Referring Provider: Reynaldo [place] [address], [place], [address]. tel:[phone] [facility], [address] [place] [address], [id number], [place] tel:[phone] SHRUTHI Extremity Unilateral primary osteoarthritis, right hip 8 Montse Anurag. [address] [place] [address], [id number], [place]. tel:[phone] Referring Provider: Reynaldo Underwood [address], [address]. tel:[phone] [facility], [address] [place] [address], [id number], [place] tel:[phone] SHRUTHI Extremity Right hip pain Dec- 8 Montse Anurag. [address] [place] [address], [id number], [place]. tel:[phone] Referring Provider: Anurag Rodríguez, [address] [place] [address], [id number]. tel:[phone] [facility], [address] [place] [address], [id number], [place] tel:[phone] SHRUTHI Extremity Pain in right hipUnilateral primary osteoarthritis, right hip Dec- 7 Montse Anurag. [address] [place] [address], [id number], [place]. tel:[phone] Referring Provider: Cain Dias, [address] [place] [address], [id number]. tel:[phone] [facility], [address] [place] [address], [id number], [place] tel:[phone] SHRUTHI Extremity Unilateral primary osteoarthritis, right hipPain in right hipStiffness of right hip, not elsewhere classified 7 Montse Anurag. [address] [place] [address], [id number], [place]. tel:[phone] Referring Provider: Cain Dias, [address] [place] [address], [place], [address]. tel:[phone] [facility], [address] [place] [address], [id number], [place] tel:[phone] SHRUTHI Extremity Right hip painStiffness of right hip jointPrimary osteoarthritis of right hip Oct- 7 Montse Anurag. [address] [place] [address], [id number], [place]. tel:[phone] Referring Provider: Anurag Rodríguez, [address] [place] [address], [id number]. tel:[phone] [facility], [address] [place] [address], [id number], [place] tel:[phone] SHRUTHI Sports Medicine Oth tear of medial meniscus, current injury, r knee, init 6 Balta Montgomery. [address] [place] [address], [id number], [place]. tel:[phone] Referring Provider: Cain Dias, 360 [facility] [address], [place], [address]. tel:[phone] [facility], [address] [place] [address], [id number], [place] tel:[phone] SHRUTHI MRI Oth tear of medial meniscus, current injury, r knee, init 6 Balta Montgomery. [address] [place], [place], [id number], [place]. tel:[phone] Referring Provider: Ulises Smith, [address] [place] [address], [id number]. tel:[phone] [facility], [address] [place] [address], [id number], [place] tel:[phone] SHRUTHI Sports Medicine Posterior right knee painOther tear of medial meniscus, current injury, right knee, initial encounter 6 Balta Montgomery. [address] [place] [address], [id number], [place]. tel:[phone] Referring Provider: Cain Dias, 360 [facility] [address], [place], [address]. tel:[phone] Family History Family Member Diagnosis Age At Onset Father Hypertension Payers Payer name Insurance type Covered republican ID Authoriza tinabeel(s) Medicare MB [id number] [facility] [id number] Social History Type Description Quantity Date Captured Comments Sex Female Chief Complaint And Reason For Visit No information Reason For Referral Reason For Referral No information Plan Of Treatment Date Type Action Status Goal Tobacco cessation counseling completed Goal Tobacco cessation counseling completed Goal Tobacco cessation counseling completed Goal Tobacco cessation counseling completed Referral Ordered: Xray Hip Unilateral 1v Right ordered Referral Ordered: Xray Pelvis 1 or 2v ordered Referral Ordered: Xray Hip Bilateral 2v Right ordered Referral Ordered: Xray Knee 3v Right ordered Referral Ordered: MRI Joint Lower Extremity without dye Right knee ordered History Of Present Illness Encounter Date Complaint History Of Prese nt Illness No information Functional Status Date Functional Assessmen t No information Instructions Date Instruction Additional Infor mation No information Assessments Type Assessment Date No information
--- OUTSIDE RECORDS SUMMARY | 2024-04-21 18:21 | XMS_ITS | Encounter Summary ---
Author Organization [facility] Address [address] [place] [address], [address] [place] [address] Care Team Providers Care Crocodile Farmer Name Role Phone Assigned, Pcp Not Primary Care Provider [phone] Encounter Details Date Type Department Care Team (Late st Contact Info) Description 03/11/2018 [facility] Conversion [facility] [address] [place] [address] Milady Alfaro Social History Tobacco Use Types Packs/Day Years [...] documented as of this encounter Care Teams Crocodile Farmer Relationship Specialty Start Date End Date Assigned, Pcp Not One [facility] [place] [address] PCP - General 08/04/20 03/02/23 documented as of this encounter
--- OUTSIDE RECORDS SUMMARY | 2024-04-21 18:21 | XMS_ITS | Encounter Summary ---
Author Organization [facility] Address [address] [place] [address], [address] [place] [address] Care Team Providers Care Cardiology Rn Name Role Phone Assigned, Pcp Not Primary Care Provider [phone] Encounter Details Date Type Department Care Team (Late st Contact Info) Description 09/25/[address] [facility] Conversion [facility] 1 [place] [address] [place] [address] [address] Social History Tobacco Use Types [...] documented as of this encounter Care Teams Cardiology Rn Relationship Specialty Start Date End Date Assigned, [place] [address] PCP - General 08/04/20 03/02/23 documented as of this encounter
--- OUTSIDE RECORDS SUMMARY | 2024-04-21 18:21 | XMS_ITS | Encounter Summary ---
Author Organization [facility] Address [address] [place] [address], [address] [place] [address] Care Team Providers Care Precast Molder Name Role Phone Unavailable Primary Care Provider Unavailabl e Encounter Details Date Type Department Care Team (Latest Contact Info) Description 12/18/1994 4:02 PM PDT - 12/18/1994 11:59 PM PDT Hospital Encounter [facility] CONVERSION DEPARTMENT Tonja Gregory MD [address] [place] [id number] Discharge Disposition: Home or Self Care Social [...]
--- OUTSIDE RECORDS SUMMARY | 2024-04-21 18:21 | XMS_ITS | Encounter Summary ---
Author Organization [facility] Address [address] [place] [address], [address] [place] [address] Care Team Providers Care Marketing Business Analyst Name Role Phone Assigned, Pcp Not Primary Care Provider [phone] Jes Arriaga MD Primary Care Provider + Encounter Details Date Type Department Care Team (Late st Contact Info) Description 03/11/2018 [facility] Conversion [facility] CONVERSION DEPARTMENT Provider, [facility] Conversion Social History Tobacco Use Types Packs/Day [...] documented as of this encounter Care Teams Marketing Business Analyst Relationship Specialty Start Date End Date Assigned, Pcp [place] [address] PCP - General 08/04/20 03/02/23 [place] [address] [facility], [address] [place] [address] PCP - General Internal Medicine 03/03/23 documented as of this encounter
--- OUTSIDE RECORDS SUMMARY | 2024-04-21 18:21 | XMS_ITS | Continuity of Care Document ---
Author Organization [facility] Address [address] [facility] [place] [address] Phone Care Team Providers Care Canceling Machine Operator Name Role Phone Ulises Gifford MD Unavailable Unavailable Allergies, Adverse Reactions, Alerts Substance Reaction Status Criticality No Known Allergies Active No Inform ation Medications Medication Instructions Dosage Effective Dates (start - stop) Status Comments LOSARTAN POTASSIUM (unknown strength) take 1 tablet by oral route every day Not Available - Active amlodipine 10 mg tablet take 1 tablet by oral route every day 10 MG - Active Synthroid 100 mcg tablet take 1 tablet by oral route every day 100 MCG - Active Prozac 40 mg capsule take 1 capsule by oral route every day in the morning 40 MG - No Longer Active Problems Condition Type Effective Dates (start - stop) Clinical Status Comments Unilateral primary osteoarthritis, left knee Diagnosis interpretation (observable entity) - Pain in right hip Diagnosis interpretation (observable entity) - Unilateral primary osteoarthritis, right hip Diagnosis interpretation (observable entity) - Unilateral primary osteoarthritis, right hip Diagnosis interpretation (observable entity) - Pain in right hip Diagnosis interpretation (observable entity) - Pain in right hip Diagnosis interpretation (observable entity) - Unilateral primary osteoarthritis, right hip Diagnosis interpretation (observable entity) - Unilateral primary osteoarthritis, right hip Diagnosis interpretation (observable entity) - Pain in right hip Diagnosis interpretation (observable entity) - Stiffness of right hip, not elsewhere classified Diagnosis interpretation (observable entity) - Oth tear of medial meniscus, current injury, r knee, init Diagnosis interpretation (observable entity) - Pain in both knees, unspecified chronicity Diagnosis interpretation (observable entity) Pain in left knee Diagnosis interpretation (observable entity) Arthritis, hip Diagnosis interpretation (observable entity) Unilateral primary osteoarthritis, right hip Diagnosis interpretation (observable entity) Right hip pain Diagnosis interpretation (observable entity) Right hip pain Diagnosis interpretation (observable entity) Stiffness of right hip joint Diagnosis interpretation (observable entity) Primary osteoarthritis of right hip Diagnosis interpretation (observable entity) Oth tear of medial meniscus, current injury, r knee, init Diagnosis interpretation (observable entity) - Posterior right knee pain Diagnosis interpretation (observable entity) Other tear of medial meniscus, current injury, right knee, initial encounter Diagnosis interpretation (observable entity) Hip stiff Problem (finding) - Active Osteoarthritis of hip Problem (finding) - Acti ve Hip pain Problem (finding) - Active Knee pain Problem (finding) - Active Tear of medial meniscus of knee Problem (finding) - Active Procedures Procedure Date Office/outpatient visit, est Drain/inject, joint/bursa W/O Ultrasound Guidance Betamethasone Injection 3mg acet sod goldie sp Xray Knee bilateral standing AP 021 Xray Knee 1 or 2v Office/outpatient visit, est Office/outpatient visit, est Asp/Inj Major Joint/Bursa W/US Guide Jan Injection, Platelet Rich Plasma, Ant Tis robert Office/outpatient visit, est Asp/Inj Major Joint/Bursa W/US Guide Dec Triamcinolone Acet 10 Mg Injection Office/outpatient visit, est Xray hip, unilateral 2-3 Views Office/outpatient visit, est Office/outpatient visit, est Asp/Inj Major Joint/Bursa W/US Guide Oct Triamcinolone Acet 10 Mg Injection Xray hip, unilateral 2-3 Views 17 Office/outpatient visit, est Office/outpatient visit, est MRI Joint Lower Extremity without dye Ju Office/outpatient visit, [facility] Xray Knee 3v Xray Knee bilateral standing AP 016 Advance Directives Directive Yes / No Effective Date File Name No Information Encounters Encounter Description Practice Location Reason(s) For Visit Diagnoses Date Provider Providers Copied on Encounter Office/outpat ient visit, [facility], [address] [place] [address], [id number], [place] tel:[phone] SHRUTHI Sports Medicine left knee pain (chief complaint) Pain in both knees, unspecified chronicityPain in left kneeUnilateral primary osteoarthritis, left knee 1 Balta Montgomery. [address] [place] [address], [id number], [place]. tel:[phone] Referring Provider: Ulises Smith, [address] [place] [address], [id number]. tel:[phone] Office/outpat ient visit, [facility], [address] [place] [address], [id number], [place] tel:[phone] SHRUTHI Extremity right hip pain (chief complaint) Arthritis, hipPain in right hipUnilateral primary osteoarthritis, right hip Sep-0 8 Montse Anurag. [address], [address], [place], [address], [place]. tel:[phone] Referring Provider: Cain Dias, [address] [facility] [address], [place], [address]. tel:[phone] Office/outpat ient visit, [facility], [address] [place] [address], [id number], [place] tel:[phone] SHRUTHI Extremity Unilateral primary osteoarthritis, right hipPain in right hip 8 Montse Anurag. [address], [address], [place], [address], [place]. tel:[phone] Referring Provider: Cain Dias, [address] [facility] [address] [place] [address], [address]. tel:[phone] Office/outpat ient visit, [facility], [address] [place] [address], [id number], [place] tel:[phone] SHRUTHI Extremity right hip pain (chief complaint) Unilateral primary osteoarthritis, right hip Tony-2 8 Mont[address] Anurag. [address], [address], [place], [address], [place]. tel:[phone] Referring Provider: Cain Dias, [address], [address]. tel:[phone] Office/outpat ient visit, [facility], [address] [place] [address], [id number], [place] tel:[phone] SHRUTHI Extremity right hip pain (chief complaint) Right hip pain Tony-1 8 Montse Anurag. [address], [address], [place], [address], [place]. tel:[phone] Referring Provider: Anurag Rodríguez, [address], [place], [address]. tel:[phone] Office/outpat ient visit, [facility], [address] [place] [address], [id number], [place] tel:[phone] SHRUTHI Extremity right hip pain (chief complaint) Pain in right hipUnilateral primary osteoarthritis, right hip Tony-0 7 Mont[address] Anurag. [address], [address], [address], [place]. tel:[phone] Referring Provider: Cain Dias, [address] [facility] [address] [place] [address], [address]. tel:[phone] Office/outpat ient visit, [facility], [address] [place] [address], [id number], [place] tel:[phone] SHRUTHI Extremity right hip pain (chief complaint) Unilateral primary osteoarthritis, right hipPain in right hipStiffness of right hip, not elsewhere classified 7 Montse Osborn. [address], [address], [place], [address], [place]. tel:[phone] Referring Provider: Cain Dias, [address] [facility] [address] [facility], [place], [address]. tel:[phone] Office/outpat ient visit, [facility] [place], [address] [place] [address], [id number], [place] tel:[phone] SHRUTHI Extremity right hip pain (chief complaint) Right hip painStiffness of right hip jointPrimary osteoarthritis of right hip 7 Montseedmundo Osborn. [address], [address], [place], [address], [place]. tel:[phone] Referring Provider: Anurag Rodríguez, [address] [place] [address] [address], [place], [address]. tel:[phone] Office/outpat ient visit, [facility], [address] [place] [address], [id number], [place] tel:[phone] SHRUTHI Sports Medicine right knee pain (chief complaint) Oth tear of medial meniscus, current injury, r knee, init 6 Balta Montgomery. [address] [place] [address], [id number], [place]. tel:[phone] Referring Provider: Cain Dias, [address] [facility] [address] [facility], [place], [address]. tel:[phone] [facility], [address] [place] [address], [id number], [place] tel:[phone] SHRUTHI MRI Oth tear of medial meniscus, current injury, r knee, init 6 Balta Montgomery. [address] [place] [address], [id number], [place]. tel:[phone] Referring Provider: Ulises Smith, [address] [place] [address], [id number]. tel:[phone] Office/outpat ient visit, [facility] [place], [address] [place] [address], [id number], [place] tel:[phone] SHRUTHI Sports Medicine right knee pain (chief complaint) Posterior right knee painOther tear of medial meniscus, current injury, right knee, initial encounter 6 Balta Montgomery. [address] [place] [address], [id number], [place]. tel:[phone] Referring Provider: Cain Dias, [address] [facility] [address], [place], [address]. tel:[phone] Family History Family Member Type Diagnosis Age At Onset Father Problem (finding) Hypertension Payers Payer name Insurance type Covered republican ID Authormelaniea haresh(s) Medicare MB [id number] [facility] [id number] Social History Type Description Quantity Date Captured Comments Alcohol Use Details No Caffeine Use Details No Tobacco Use Status No Information Smoking Status Never smoker Non-Smoking Tobacco Use Details : No Details Available : No Details Available Sex Female Vital Signs Date / Time: Height Weight BMI Pulse Rate Blood Pressure Temperature Respiratory Rate Body Surface Area Head Circumference BMI percentile Pulse Ox Inhaled Ox 9:32 AM 65.00 in 105.00 lbs 17.4 7 kg/m eter (2) Chief Complaint And Reason For Visit From encounter dated '01/20/2021 09:40'. left knee pain (chief complaint). Description: She presents with pain on the left side. Reason For Referral Reason For Referral No Information Plan Of Treatment Date Type Action Status Goal Tobacco cessation counseling completed Goal Tobacco cessation counseling completed Goal Tobacco cessation counseling completed Goal Tobacco cessation counseling completed Goal Tobacco cessation counseling completed Referral Ordered: Xray Knee 1 or 2v ordered Referral Ordered: Xray Knee bilateral standing AP ordered Referral Ordered: Xray Hip Unilateral 1v Right ordered Referral Ordered: Xray Hip Bilateral 2v Right ordered Referral Ordered: Xray Pelvis 1 or 2v ordered Referral Ordered: Xray Knee 3v Right ordered Referral Ordered: MRI Joint Lower Extremity without dye Right knee ordered Appointment Quin Dias BOOKED History Of Present Illness Encounter Date Complaint History Of Prese nt Illness left knee pain She presents wit h pain on the left side. right hip pain She presents wit h pain on the right side. right hip pain She presents wit h pain on the right side. right hip pain She presents wit h pain on the right side. right hip pain She presents wit h pain on the right side. right hip pain She presents wit h pain on the right side. right hip pain She presents wit h pain on the right side. right knee pain She presents wit h pain on the right side. right knee pain She presents wit h pain on the right side. Functional Status Date Functional Assessmen t No Information Instructions Date Instruction Additional Infor mation No Information Assessments Type Assessment Date assessment Pain in both knees, unspecified chronicity assessment Pain in left knee
--- OUTSIDE RECORDS SUMMARY | 2024-04-21 18:21 | XMS_ITS | Encounter Summary ---
Author Organization [facility] Address [address] [place] [address], [address] [place] [address] Care Team Providers Care Public Speaking Professor Name Role Phone Unavailable Primary Care Provider Unavailabl e Encounter Details Date Type Department Care Team (Late st Contact Info) Description 03/11/2018 2:47 PM PDT - 03/11/2018 6:11 PM PDT Emergency [facility] [address] [place] [address] Charity Marino MD [address] [place] [place] [address] Hemarthrosis, unspecified joint Discharge Disposition: Home or Self Care Social [...] 129/79 03/11/2018 6:05 PM PDT Pulse 60 03/11/2018 6:05 PM PDT Temperature 36.5 ??C (97.7 ??F) 03/11/2018 6:05 PM PD T Respiratory Rate 12 03/11/2018 6:05 PM PDT Oxygen Saturation 100% 03/11/2018 6:05 PM PDT Inhaled Oxygen Concentration - - Weight 47.6 kg (105 lb) 03/11/2018 2:59 PM PDT Height - - Body Mass Index 17.47 09/16/2017 1:43 PM PST documented in this encounter ED Notes * Charity Marino MD - 03/11/2018 3:18 PM PDT Images from the original note were not included. ED Provider Notes by Charity Marino MD at 03/11/18 151 Author: Charity Marino MD Service: Emergency Medicine Author Type: Physician Filed: 03/12/18 0719 Date of Service: 03/11/181517 Creation Time: 03/11/181517 Status: Signed Phd Internship: Charity Marino MD (Physician) eMERGENCY dEPARTMENT HISTORY AND PHYSICAL [facility] 03/11/2018 15:18 Patient Name: Quin Dias : 1950 Medical Record: [id number] Room: ED43 PCP: Corina CHIEF COMPLAINT Chief Complaint Patient presents with ? Arm Pain after getting a pneumonia shot HPI Quin Dias is a 67 y.o. female who presents with a chief complaint of left arm pain s/p pneumonia vaccine. The patient states that she received the pneumonia vaccination in her left bicep today and has been experiencing severe pain at the site with radiation to her left shoulder. She notes swelling to the site but denies chest pain or recent illness. REVIEW OF SYSTEMS See HPI for further details. Review of systems otherwise negative. Review of Systems Constitutional: Negative for chills and fever. Respiratory: Negative for cough and shortness of breath. Cardiovascular: Negative for chest pain. Gastrointestinal: Negative for nausea and vomiting. Musculoskeletal: + left arm pain radiating to shoulder PAST MEDICAL HISTORY Past Medical History: Diagnosis Date ? Depression ? HTN (hypertension) ? Hypothyroid ? Iron deficiency anemia ? Osteopenia SURGICAL HISTORY No past surgical history on file. SOCIAL HISTORY Social History Substance Use Topics ? Smoking status: Never Smoker ? Smokeless tobacco: Not on file ? Alcohol use No CURRENT MEDICATIONS Previous Medications No medications on file ALLERGIES No Known Allergies PHYSICAL EXAM VITAL SIGNS: Temp: 36.8 ??C (98.2 ??F) Pulse: 70 Resp: 24 BP: 136/84 SpO2: 100 % General: Awake, moderate to severe distress HEENT: Normocephalic, atraumatic, ENT normal inspection Respiratory: No respiratory distress Abdomen: Soft, non-tender, non-distended. Skin: Warm, dry, intact. No rash Extremities: Tenderness over the left deltoid and clavicle with swelling over the deltoid spreadingmedially, suggestive of hematoma. Neurologic: Alert, normal motor Psychiatric: Normal mood and affect RADIOLOGY US Extremity Nonvascular Complete Left Final Result IMPRESSION: 1. 4.2 x 3.7 x 1.1 cm complex fluid collection in the left shoulder which appears to be within the shoulder joint or adjacent bursa. Hematoma cannot be excluded. If further imaging is clinically indicated, MRI recommended. 2. CHARITY MARINO was notified of the results via secure TigerText at 1705 hours on 03/11/2018. Electronically signed by Rc Fried 03/11/2018 5:05 PM TREATMENT AND ED COURSE Pertinent Labs & Imaging studies reviewed. Medications HYDROmorphone (DILAUDID) injection 1 mg (1 mg Intramuscular Given 03/11/18 1550) ondansetron (ZOFRAN ODT) disintegrating tablet 8 mg (8 mg Oral Given 03/11/18 4807) RE-EVALUATION The patient was re-evaluated at 18:01 Most recent vital signs: Temp: 36.8 ??C (98.2 ??F) Pulse: 66 Resp: 14 BP: 113/62 SpO2: 100 % Patient's pain is improving, updated regarding results. MEDICAL DECISION MAKING Patient with IM injection and progression of pain in the site today. Findings suggest venous injuryand bleed. Will evaluate with ultrasound. After patient left ED spoke with Dr. Dickinson and reviewed case. Agrees with plan to treat symptomatically. CLINICAL IMPRESSION 1. Hemarthrosis DISPOSITION 03/11/2018 18:00 Discussed the historical points, exam findings, and any diagnostic results supporting the presumptive diagnosis. Patient is clinically stable, in no apparent danger of imminent deterioration, and deemed safe for outpatient management. Strict return precautions discussed. Advised to return immediately to the ED if symptoms worsen or persist, or if any concerns arise. All questions answered. Need for appropriate follow up discussed and understood. Disposition: DISCHARGED Condition: Improved Discharged to: Home Follow-up/Referrals: Her PMD Prescriptions: Wilson, zofran ATTESTATION SCRIBE ATTESTATION Information entered by Milady Alfaro acting as scribe for Charity Marino MD MD ATTESTATION The above documentation recorded by the scribe accurately reflects the services I performed and thedecisions made by me. Charity Marino MD 03/12/18 0719 documented in this encounter Plan of Treatment Not on file documented as of this encounter Procedures Procedure Name Priority Date/Time Associated Diagnosis Comments US EXTREMITY NONVASCULAR COMPLETE LEFT STAT 03/11/2018 4:48 PM PDT documented in this encounter Results * US EXTREMITY NONVAS COMPL LT (03/11/2018 4:48 PM PDT) Anatomical Region Laterality Modality Abdomen Ultrasound Impressions 03/11/2018 5:05 PM PDT 1. ??4.2 x 3.7 x 1.1 cm complex fluid collection in the left shoulder which appears to be within the shoulder joint or adjacent bursa. ??Hematoma cannot be excluded. ??If further imaging is clinically indicated, MRI recommended. 2. CHARITY MARINO was notified of the results via secure Fiiilingext at 1705 hours on 03/11/2018. Electronically signed by Rc Fried 03/11/2018 5:05 PM Narrative 03/11/2018 5:05 PM PDT ULTRASOUND OF THE LEFT SHOULDER CLINICAL HISTORY: Left shoulder swelling and redness following pneumonia IM injection today. COMPARISON: None. TECHNIQUE: Multiple high resolution real time images of the left shoulder were performed. FINDINGS: There is a 4.2 x 3.7 x 1.1 cm complex fluid collection in the left shoulder which appears to be within the joint or adjacent bursa. ??Hematoma cannot be excluded. Procedure Note Rc Fried MD - 01/29/2023 ULTRASOUND OF THE LEFT SHOULDER CLINICAL HISTORY: Left shoulder swelling and redness following pneumoniaIM injection today. COMPARISON: None. TECHNIQUE: Multiple high resolution real time images of the left shoulderwere performed. FINDINGS: There is a 4.2 x 3.7 x 1.1 cm complex fluid collection in theleft shoulder which appears to be within the joint or adjacent bursa.Hematoma cannot be excluded. IMPRESSION: 1. 4.2 x 3.7 x 1.1 cm complex fluid collection in the left shoulder whichappears to be within the shoulder joint or adjacent bursa. Hematomacannot be excluded. If further imaging is clinically indicated, MRIrecommended. 2. CHARITY MARINO was notified of the results via secure [employer] [id number] hours on 03/11/2018. Electronically signed by Rc Fried 03/11/2018 5:05 PM Charity Marino MD IMG US PROCEDURES documented in this encounter Visit Diagnoses Diagnosis Hemarthrosis, unspecified joint documented in this encounter
--- OUTSIDE RECORDS SUMMARY | 2024-04-21 18:22 | XMS_ITS | Encounter Summary ---
Author Organization [facility] Address [address] [place] [address] Care Team Providers Care Rheumatology Specialist Name Role Phone Jes Arriaga MD Primary Care Provider + Reason for Visit * Reason Onset Date Comments Results 06/11/2023 Encounter Details Date Type Department Care Team (Late st Contact Info) Description 06/11/2023 Telephone [place] [address] Internal Medicine [address] [facility] [address] [place] [address] [place] [address] [facility] [address] [place] [address] Results Social History Tobacco Use Types Packs/Day Years [...] encounter Miscellaneous Notes * Telephone Encounter - Jes Arriaga MD - 06/13/2023 5:59 PM PST Spoke with patient Feeling better Repeat lab Waiting for Ultrasound Thank you very much * Telephone Encounter - Jes Arriaga MD - 06/12/2023 5:29 PM PST Info sent to patient via [employer] Waiting for culture Please check on culture tomorrow Thank you very much * Telephone Encounter - Payal Campos MA - 06/12/2023 3:43 PM PST Partial urine report scanned in to chart under media. Thank you. * Telephone Encounter - Payal Campos MA - 06/12/2023 2:59 PM PST Patient scheduled for Sunday next week. No available 40min slots open for Wednesdays. I called [facility] and spoke to Latha, the lab is still working on urine culture. She will fax overpartial urine report. * Telephone Encounter - Jes Arriaga MD - 06/11/2023 6:54 PM PST Please book 40 min appt with me on Sun in pm Also arrange for lab and Ultrasound Please call lab and find out results of UA Spoke with patient - she is feeling better Did a dipstick on her own urine - family member prescribed antibiotics for presumed UTI Reviewed abn labs Has elevated WBC, anemia, new renal insuff, abn CA, albumin low Patient does not feel her TSH is accurate She is taking meds but acknowledges not taking it correctly Will follow up with patient Although a workup is planned and initiated, patient understands that if there are recurrent symptoms, medical evaluation should be sought immediately, including evaluation by Emergency Department personnel. * Telephone Encounter - Justina Ferrara - 06/11/2023 3:41 PM PST [facility] calling in regards to critical lab results for patient Na came back with 128 * Telephone Encounter - Diane Orozco MA - 06/11/2023 10:24 AM PST Per Justina she states that its regarding the TSH which 9.660 * Telephone Encounter - Justina Ferrara - 06/11/2023 9:45 AM PST Crystal from [facility] calling with critical lab results CB: [phone] documented in this encounter Plan of Treatment Not on file documented as of this encounter Visit Diagnoses Not on filedocumented in this encounter Care Teams Rheumatology Specialist Relationship Specialty [place] [address] [facility], [address] [place], [place] [address] PCP - General Internal Medicine 12/02/14 documented as of this encounter
--- OUTSIDE RECORDS SUMMARY | 2024-04-21 18:22 | XMS_ITS | Encounter Summary ---
Author Organization [facility] Address [address] [place] [address] Care Team Providers Care Outside Repairer Special Name Role Phone Jes Arriaga MD Primary Care Provider + Reason for Visit * Reason Comments Medication Refill Encounter Details Date Type Department Care Team (Late st Contact Info) Description 11/14/2023 Refill [facility] [place] [address] OBG[place] [address] [address] Aysha Palacios CNM [address] [address] Medication Refill Social History Tobacco [...] states documented in this encounter Care Teams Outside Repairer Special Relationship Specialty [place] [address] [facility], [address] [place] [address] PCP - General Internal Medicine 12/02/14 documented as of this encounter
--- OUTSIDE RECORDS SUMMARY | 2024-04-21 18:22 | XMS_ITS | Encounter Summary ---
Author Organization [facility] Address [id number] [place] [address] Care Team Providers Care Steam Oven Operator Name Role Phone Jes Espinosa MD Primary Care Provider + Encounter Details Date Type Department Care Team (Late st Contact Info) Description 06/09/2023 3:45 PM PST Orders Only [facility] [address] [place] [id number] Social History Tobacco Use Types Packs/Day Years [...] as of this encounter Miscellaneous Notes * Addendum Note - Jes Espinosa MD - 06/13/2023 5:51 PM PSTAddended by: JES ESPINOSA on: 06/13/2023 05:51 PM Modules accepted: Orders documented in this encounter Plan of Treatment Not on file documented as of this encounter Procedures Procedure Name Priority Date/Time Associated Diagnosis Comments REFLEXIVE T4 FREE Routine 06/09/2023 3:5 8 PM PST REFLEXIVE URINE MICROSCOPIC Routine 06/09/2023 3:58 PM PST 25-HYDROXYVITAMIN D LCMS D2+D3 Routine 06/09/2023 3:58 PM PST Vitamin D deficiency REFLEXIVE URINE CULTURE Routine 06/09/2023 3:58 PM PST TSH, 3RD GENERATION W/RFLX TO FT4 Routine 06/09/2023 3:58 PM PST Other fatigue LIPID PANEL WITH REFLEX Routine 06/09/2023 3:58 PM PST Elevated blood sugar URINALYSIS WITH REFLEX MICROSCOPIC & CULTURE, IF INDICATED Routine 06/09/2023 3:58 PM PST Other fatigue HGB A1C+ESTIMATED AVERAGE GLUCOSE Routine 06/09/2023 3:58 PM PST Elevated blood sugar COMPREHENSIVE METABOLIC PANEL Routine 06/09/2023 3:58 PM PST Elevated blood sugar CBC WITH AUTO DIFFERENTIAL, REFLEX MANUAL DIFFERENTIAL IF INDICATED Routine 06/09/2023 3:58 PM PST Other fatigue documented in this encounter Results * (ABNORMAL) TSH, 3RD GENERATION W/RFLX TO FT4 (06/14/2023 1:30 PM PST) TSH 10.400(H) 0.450 - 4.500 uIU/mL [facility] 1 Blood 06/14/2023 1:30 PM PST 06/15/2023 Narrative [facility] - 06/15/2023 10:35 AM PST Performed at: ??01 - [facility] [place] [address] ??[facility] [address], [place], [place] ??[id number] Spinal Surgeon: Bianca Benz MD, Phone: ??[phone] Jes Espinosa MD LAB BLOOD [facility] 1 * (ABNORMAL) REFLEXIVE URINE CULTURE (06/09/2023 3:58 PM PST) Urine Culture, Routine Final report(A) [facility] 1 Result 1 Comment(A) [facility] 1 Comment: Escherichia coli, identified by an automated biochemical system. Greater than 100,000 colony forming units per mL Susceptibility profile is consistent with a probable ESBL. Antimicrobial Susceptibility Comment [facility] 1 Comment: ? S = Susceptible; I = Intermediate; R = Resistant ? P = Positive; N = Negative ?MICS are expressed in micrograms per mL ?? Antibiotic ? RSLT#1 ?RSLT#2 ?RSLT#3 ?RSLT#4 Amoxicillin/Clavulanic Acid ?S Ampicillin ? R Cefazolin ?R Cefepime ? R Ceftriaxone ?R Cefuroxime ? R Ciprofloxacin ?S Ertapenem ?S Gentamicin ? S Imipenem ? S Levofloxacin ? S Meropenem ?S Nitrofurantoin ? S Tetracycline ? S Tobramycin ? S Trimethoprim/Sulfa ? S 06/09/2023 3:58 PM PST 06/10/2023 Narrative [facility] - 06/13/2023 4:07 PM PST Performed at: ??01 - [facility] [place] [address] ??[address], [place], [place] ??[id number] Spinal Surgeon: Bianca Benz MD, Phone: ??[phone] Jes Espinosa MD LAB NON-BLOOD Performing Organization Address [facility] de Phone Number [facility] 1 * (ABNORMAL) REFLEXIVE URINE MICROSCOPIC (06/09/2023 3:58 PM PST) WBC 11-30(A) 0 - 5 /hpf [facility] 1 RBC 0-2 0 - 2 /hpf [facility] 1 Epithelial Cells (Non Renal) 0-10 0 - 10 /hpf [facility] 1 Casts None seen None seen /lpf [facility] 1 Bacteria Many(A) None seen/Few [facility] 1 06/09/2023 3:58 PM PST 06/10/2023 Narrative [facility] - 06/13/2023 4:07 PM PST Performed at: ??01 - [facility] [place] [address] ??[address], [place], [place] ??[id number] Spinal Surgeon: Bianca Benz MD, Phone: ??[phone] Jes Espinosa MD LAB NON-BLOOD Performing Organization Address [facility] de Phone Number [facility] * REFLEXIVE T4 FREE (06/09/2023 3:58 PM PST) T4,Free (Direct) 1.19 0.82 - 1.77 ng/dL [facility] 1 06/09/2023 3:58 PM PST 06/10/2023 Comment:BLOOD Narrative [facility] - 06/11/2023 9:06 PM PST Performed at: ??01 - [facility] [place] [address], [place], [place] ??[id number] Spinal Surgeon: Bianca Benz MD, Phone: ??[phone] Jes Espinosa MD LAB BLOOD [facility] * (ABNORMAL) LIPID PANEL WITH REFLEX (06/09/2023 3:58 PM PST) Cholesterol 108 100 - 199 mg/dL [facility] 1 Triglyceride 141 0 - 149 mg/dL [facility] 1 HDL Cholesterol 31(L) >39 mg/dL [facility] 1 VLDL Calc 25 5 - 40 mg/dL [facility] 1 LDL Chol Calc 52 0 - 99 mg/dL [facility] 1 T. Chol/Hdl Ratio 3.5 0.0 - 4.4 ratio [facility] 1 Comment: ?T. Chol/HDL Ratio ?Men ??Women ?1/2 Avg.Risk ??3.4 ?3.3 ?Avg.Risk ??5.0 ?4.4 ? 2X Avg.Risk ??9.6 ?7.1 ? 3X Avg.Risk 23.4 ?? 11.0 LDL/HDL Ratio 1.7 0.0 - 3.2 ratio [facility] 1 Comment: ?LDL/HDL Ratio ?Men ??Women ?1/2 Avg.Risk ??1.0 ?1.5 ?Avg.Risk ??3.6 ?3.2 ? 2X Avg.Risk ??6.2 ?5.0 ? 3X Avg.Risk ??8.0 ?6.1 Blood (BLOOD) 06/09/2023 3:5 8 PM PST 06/10/2023 Comment:BLOOD Narrative [facility] - 06/11/2023 9:06 PM PST Performed at: ??01 - [facility] [place] [address] [address] ??[place] [address], [place], [place] ??[id number] Spinal Surgeon: Bianca Benz MD, Phone: ??[phone] Specimen Comment: Called/faxed to [facility] FRONT OFFICE on 06/11/2023 at Specimen Comment: 18:42 ET for test(s) Sodium Jes Espinosa MD LAB BLOOD [facility] * (ABNORMAL) URINALYSIS WITH REFLEX MICROSCOPIC & CULTURE, IF INDICATED (06/09/2023 3:58 PM PST) Specific [place] 1.019 1.005 - 1.030 [facility] 1 Ph 5.5 5.0 - 7.5 [facility] 1 Urine-Color Yellow Yellow [facility] 1 Appearance Cloudy(A) Clear [facility] 1 WBC Esterase 2+(A) Negative [facility] 1 Protein 2+(A) Negative/Tra ce [facility] 1 Glucose Negative Negative [facility] 1 Ketones Trace(A) Negative [facility] 1 Occult Blood Trace(A) Negative [facility] 1 Bilirubin Negative Negative [facility] 1 Urobilinogen,Se mi-Qn 0.2 0.2 - 1.0 mg/dL [facility] 1 Nitrite, Urine Negative Negative [facility] 1 Microscopic Examination See below: [facility] 1 Urinalysis Reflex Comment [facility] 1 Comment:This specimen has re flexed to a Urine Culture. Urine, Void 06/09/2023 3:58 PM PST 06/10/2023 Narrative [facility] - 06/13/2023 4:07 PM PST Performed at: ??01 - [facility] [place] [address], [place], [place] ??[id number] Spinal Surgeon: Bianca Benz MD, Phone: ??[phone] Jes Espinosa MD LAB NON-BLOOD [facility] * (ABNORMAL) TSH, 3RD GENERATION W/RFLX TO FT4 (06/09/2023 3:58 PM PST) TSH 9.660(H) 0.450 - 4.500 uIU/mL [facility] 1 Blood 06/09/2023 3:58 PM PST 06/10/2023 Comment:BLOOD Narrative [facility] - 06/11/2023 9:06 PM PST Performed at: ??01 - [facility] [address] ??[address] ??[id number] Spinal Surgeon: Bianca Benz MD, Phone: ??[phone] Jes Espinosa MD LAB BLOOD Performing Organization Address [facility] de Phone Number [facility] 1 * (ABNORMAL) HGB A1C+ESTIMATED AVERAGE GLUCOSE (06/09/2023 3:58 PM PST) Hgb A1C 5.8(H) 4.8 - 5.6 % [facility] 1 Comment: ? Prediabetes: 5.7 - 6.4 ? Diabetes: >6.4 ? Glycemic control for adults with diabetes: <7.0 Estim. Avg Glu (Eag) 120 mg/dL [facility] 1 Blood (BLOOD) 06/09/2023 3:5 8 PM PST 06/10/2023 Comment:BLOOD Narrative [facility] - 06/11/2023 9:06 PM PST Performed at: ??01 - [facility] [address] ??[address] ??[id number] Spinal Surgeon: Bianca Benz MD, Phone: ??[phone] Jes Espinosa MD LAB BLOOD Performing Organization Address [facility] Co de Phone Number [facility] * (ABNORMAL) COMPREHENSIVE METABOLIC PANEL (06/09/2023 3:58 PM PST) Glucose 95 70 - 99 mg/dL [facility] 1 BUN 24 8 - 27 mg/dL [facility] 1 Creatinine 1.33(H) 0.57 - 1.00 mg/dL [facility] 1 eGFR 43(L) >59 mL/min/1.7 3 [facility] 1 BUN/Creatinine Ratio 18 12 - 28 [facility] 1 NA 128(<) 134 - 144 mmol/L [facility] 1 Comment:Client Requested Fla g K 4.8 3.5 - 5.2 mmol/L [facility] 1 CL 92(L) 96 - 106 mmol/L [facility] 1 CO2 24 20 - 29 mmol/L [facility] 1 CA 8.6(L) 8.7 - 10.3 mg/dL [facility] 1 Protein Total 5.5(L) 6.0 - 8.5 g/dL [facility] 1 Albumin 3.3(L) 3.8 - 4.8 g/dL [facility] 1 Globulin 2.2 1.5 - 4.5 g/dL [facility] 1 A/G Ratio 1.5 1.2 - 2.2 [facility] 1 Bilirubin, Total 0.2 0.0 - 1.2 mg/dL [facility] 1 Alk Phos 82 44 - 121 IU/L [facility] 1 AST (SGOT) 14 0 - 40 IU/L [facility] 1 ALT (SGPT) 10 0 - 32 IU/L [facility] 1 Blood (BLOOD) 06/09/2023 3:5 8 PM PST 06/10/2023 Comment:BLOOD Narrative [facility] - 06/11/2023 9:06 PM PST Performed at: ??01 - [address] ??[facility] [address] [place], [place] ??[id number] Spinal Surgeon: Bianca Benz MD, Phone: ??[phone] Jes Espinosa MD LAB BLOOD [facility] * (ABNORMAL) CBC WITH AUTO DIFFERENTIAL, REFLEX MANUAL DIFFERENTIAL IF INDICATED (06/09/2023 3:58 PM PST) WBC 18.4(H) 3.4 - 10.8 x10E3/uL [facility] 1 RBC 3.53(L) 3.77 - 5.28 x10E6/uL [facility] 1 HGB 10.2(L) 11.1 - 15.9 g/dL [facility] 1 HCT 31.4(L) 34.0 - 46.6 % [facility] 1 MCV 89 79 - 97 fL [facility] 1 MCH 28.9 26.6 - 33.0 pg [facility] 1 MCHC 32.5 31.5 - 35.7 g/dL [facility] 1 RDW 13.2 11.7 - 15.4 % [facility] 1 Platelet 382 150 - 450 x10E3/uL [facility] 1 Neutrophils % 87 Not Estab. % [facility] 1 Lymphocyte % 6 Not Estab. % [facility] 1 Monocytes % 6 Not Estab. % [facility] 1 Eosinophil % 0 Not Estab. % [facility] 1 Basophil % 0 Not Estab. % [facility] 1 Neutrophil Abs 15.9(H) 1.4 - 7.0 x10E3/uL [facility] 1 Lymphocyte Abs 1.1 0.7 - 3.1 x10E3/uL [facility] 1 Monocyte Abs 1.1(H) 0.1 - 0.9 x10E3/uL [facility] 1 Eosinophil Abs 0.1 0.0 - 0.4 x10E3/uL [facility] 1 BASO ABS 0.0 0.0 - 0.2 x10E3/uL [facility] 1 Immature Granulocytes 1 Not Estab. % [facility] 1 Immature Grans (Abs) 0.1 0.0 - 0.1 x10E3/uL [facility] 1 Blood (BLOOD) 06/09/2023 3:5 8 PM PST 06/10/2023 Comment:BLOOD Narrative [facility] - 06/11/2023 9:06 PM PST Performed at: ??01 - [facility] [id number] [place] [address] ??[facility] [address] [place], [place] ??[id number] Spinal Surgeon: Bianca Benz MD, Phone: ??[phone] Jes Espinosa MD LAB BLOOD [facility] * 25-HYDROXYVITAMIN D LCMS D2+D3 (06/09/2023 3:58 PM PST) Pathologist [facility] 25-Hydroxy, Vitamin D 44 ng/mL [facility] 1 Comment: Reference Range: All Ages: Target levels 30 - 100 25-Hydroxy, Vitamin D-2 <1.0 ng/mL [facility] 1 Comment: This test was developed and its performance characteristics determined by [facility]. It has not been cleared or approved by the Food and Drug Administration. 25-Hydroxy, Vitamin D-3 44 ng/mL [facility] 1 Comment: This test was developed and its performance characteristics determined by [facility]. It has not been cleared or approved by the Food and Drug Administration. Serum 06/09/2023 3:58 PM PST 06/10/2023 Narrative [facility] - 06/14/2023 3:06 PM PST Performed at: ?? - [employer] [address] [place] [id number] Spinal Surgeon: Augustus Cash MD, Phone: ??[phone] Jes Espinosa MD LAB BLOOD [facility] 1 documented in this encounter Visit Diagnoses Diagnosis Other specified hypothyroidism- Primary Vitamin D deficiency Unspecified vitamin D deficiency Other fatigue Elevated blood sugar Other abnormal glucose Other fatigue Other specified hypothyroidism documented in this encounter Care Teams Steam Oven Operator Relationship Specialty [place] [address] [facility] [address] [place] [address] PCP - General Internal Medicine 12/02/14 documented as of this encounter
--- OUTSIDE RECORDS SUMMARY | 2024-04-21 18:22 | XMS_ITS | Encounter Summary ---
Author Organization [facility] Address [address] [place] [address] Care Team Providers Care Tobacco Baler Name Role Phone Jes Arriaga MD Primary Care Provider + Reason for Visit * Reason Comments Follow-up Labs Encounter Details Date Type Department Care Team ([facility] st Contact Info) Description 06/25/2023 3:00 PM PST Office Visit [facility] [place] [address] Internal Medicine [address] [address] [place] [address] [address] Elevated platelet count (Primary Dx); Chronic anemia; Hyponatremia; Abnormal liver function test; Other specified hypothyroidism Social History Tobacco Use Types Packs/Day Years [...] Mass Index 17.44 06/25/2023 3:02 PM PST documented in this encounter Patient Instructions * Patient Instructions* Jes Arriaga MD - 06/25/2023 3:22 PM PST Please schedule abd Ultrasound Please check results online through [employer] Please contact us if you have any questions or concerns Repeat nonfasting lab - TSH, CMP, CBC in 6-7 week Please check results online through [employer] Please contact us if you have any questions or concerns Eye - plan for eye exam Mammo 01/19 DEXA 06/19 Lab 06/21 Colonoscopy 2018 - follow up in 10 yrs per patient Plan for RSV Follow up annually documented in this encounter Progress Notes * Jes Arriaga MD - 06/25/2023 3:23 PM PST Quin Dias is a 72 year old female who comes to clinic today for Chief Complaint Patient presents with Follow-up Labs Nursing Notes: Diane Orozco MA 06/25/2023 3:03 PM Signed Quin Dias is a 72 year old female here for follow up on labs. Labs completed 06/09/2023. Overall patient is doing well and feeling well. Opthal:2021 Optometry: 2021 Mammogram: 01/16/2023 Dexa: 06/28/2021 Labs: 06/09/23 Pap: 12/14/2014 WNL Colonoscopy: 03/29/2018 PCV13: 05/30/19 PPSV23: 03/11/18 Tdap:08/2018 Shingrix, 04/26/20,06/29/20 Moderna: 08/22/20,09/18/20,05/22/21 PHQ2: 06/25/2023 HPI Dx with UTI / viral illness Found to have abnormal labs Feeling back to normal now Lab test abnormalities notable for : Elevated Plts, chronic anemia, mild low NA, abn LFTs UA +, elevated TSH Patient Active Problem List Diagnosis Major depressive disorder, recurrent episode, mild (HCC) Hypothyroidism, unspecified Essential hypertension Hyponatremia Anemia of chronic disease Protein-calorie malnutrition, unspecified severity (HCC) MRSA (methicillin resistant staph aureus) culture positive Age related osteoporosis Active Non-Hospital Problems Diagnosis Date Noted Age related osteoporosis 10/30/2018 Overview Note: 10/15 DEXA - osteoporosis MyChart message sent/ recommended Fosamax MRSA (methicillin resistant staph aureus) culture positive 10/09/2018 Overview Note: Treated Repeat culture planned 10/10/18 Anemia of chronic disease 01/08/2018 Protein-calorie malnutrition, unspecified severity (HCC) 01/08/2018 Hyponatremia 03/02/2017 Major depressive disorder, recurrent episode, mild (HCC) 12/14/2014 Hypothyroidism, unspecified 12/14/2014 Essential hypertension 12/14/2014 Past Medical History: Diagnosis Date Hypertension HYPOTHYROIDISM Past Surgical History: Procedure Laterality Date NO MAJOR SURGICAL HISTORY Synthroid 100 mcg tablet, Take 1 tablet by mouth daily before breakfast., Disp: 90 tablet, Rfl: 3 estradiol (VAGIFEM) 10 mcg Tablet, Insert 1 tablet into the vagina 2 times a week., Disp: 24 tablet, Rfl: 6 amLODIPine (NORVASC) 10 mg tablet, Take 1 tablet by mouth once a day., Disp: 90 tablet, Rfl: 3 FLUoxetine (PROzac, SARAFEM) 10 mg Capsule, Take 10 mg by mouth once a day., Disp: , Rfl: losartan (COZAAR) 100 mg Tablet, Take 100 mg by mouth every day., Disp: , Rfl: No current facility-administered medications for this visit. The medication list has been reviewed and updated to reflect current medications as of 06/25/2023 No Known Allergies Social History Socioeconomic History Marital status: Tobacco Use Smoking status: Never Smokeless tobacco: Never Substance and Sexual Activity Alcohol use: No Drug use: No Sexual activity: Yes Family History Problem Relation Age of Onset Heart Father Hemophilia Father Renal Mother kidney failure Review of Systems Constitutional: Negative. HENT: Negative. Eyes: Negative. Respiratory: Negative. Cardiovascular: Negative. Gastrointestinal: Negative. Genitourinary: Negative. Musculoskeletal: Negative. Skin: Negative. Neurological: Negative. Endo/Heme/Allergies: Negative. Psychiatric/Behavioral: Negative. PHQ-2 Results Feeling down, depressed, or hopeless?: Not at all PHQ-2 Score: 0 BP: 130/78 Pulse: 63 Temp: 97.7 ??F (36.5 ??C) Resp: 16 Height: 5' 5 (165.1 cm) Weight: 104 lb 12.8 oz (47.5 kg)Body mass index is 17.44 kg/m??. Physical Exam Physical Exam Constitutional: Patient is well-developed, well-nourished, and in no distress. Cardiovascular: Normal rate, regular rhythm, normal heart sounds Pulmonary/Chest: Effort normal and breath sounds normal. No respiratory distress. Patient has no wheezes. Abdominal: Soft. Bowel sounds are normal. She exhibits no distension. There is no tenderness. Musculoskeletal: Patient exhibits no edema. Neurological: Gait normal. Skin: Skin is warm and dry. Assessment & Plan: 1. Elevated platelet count New 2. Chronic anemia stable 3. Hyponatremia Improved 4. Abnormal liver function test New 5. Other specified hypothyroidism Stable New dose Repeat lab Please schedule abd Ultrasound Please check results online through [employer] Please contact us if you have any questions or concerns Repeat nonfasting lab - TSH, CMP, CBC in 6-7 week Please check results online through [employer] Please contact us if you have any questions or concerns Eye - plan for eye exam Mammo 01/19 DEXA 06/19 Lab 06/21 Colonoscopy 2017 - follow up in 10 yrs per patient Plan for RSV Follow up annually The patient Quin Dias indicates understanding of these issues and agreement with the plan. Pt is aware of the importance of close followup. Pt assures me that plans we discussed today will be carried out. Pt aware that if current condition worsens or persists, pt may see myself or any available MD for evaluation. health maintenance: Opthal:2021 Optometry: 2021 Mammogram: 01/16/2023 Dexa: 06/28/2021 Labs: 06/09/23 Pap: 12/14/2014 WNL Colonoscopy: 03/29/2018 PCV13: 05/30/19 PPSV23: 03/11/18 Tdap:08/2018 Shingrix, 04/26/20,06/29/20 Moderna: 08/22/20,09/18/20,05/22/21 PHQ2: 06/25/2023 Summary: . Normal terminal ileum,cecum, ileocecal valve, ascending colon, hepatic flexure,transverse colon, splenic flexure, descending colon, sigmoid colon, rectosigmoid junction, and rectum. Small Internal hemorrhoids found. EGD recommended. EGD: 03/29/2018 Normal EGD, a hiatus hernia was found in the stomach. >normal fundus and body of the stomach . Mild gastritis was found in the antrum. Four bx taken. Normal duodenal bulb 2nd portion of the duodenum . 6 bs taken. Labs: 01/03/2018 Mammo:2017, patient will send copy, 05/2017 Dexa: 01/07/17 BONE DENSITY MEASUREMENTS: IMPRESSION: OSTEOPENIABONE DENSITY MEASUREMENTS: DATE BMD T-SCORE %REF Z-SCORE AGE MATCH BODY PART 01/07/2015 0.691 -1.40 0.0% +0.00 0.0% L femur nec 01/07/2015 0.992 -0.50 0.0% +1.20 0.0% AP L1- IMPRESSION: OSTEOPENIA documented in this encounter Nursing Notes * Diane OrozcoANN - 06/25/2023 3:01 PM PST Quin Dias is a 72 year old female here for follow up on labs. Labs completed 06/09/2023. Overall patient is doing well and feeling well. Opthal:2021 Optometry: 2021 Mammogram: 01/16/2023 Dexa: 06/28/2021 Labs: 06/09/23 Pap: 12/14/2014 WNL Colonoscopy: 03/29/2018 PCV13: 05/30/19 PPSV23: 03/11/18 Tdap:08/2018 Shingrix, 04/26/20,06/29/20 Moderna: 08/22/20,09/18/20,05/22/21 PHQ2: 06/25/2023 documented in this encounter Plan of Treatment Not on file documented as of this encounter Visit Diagnoses Diagnosis Elevated platelet count- Primary Essential thrombocythemia Chronic anemia Anemia, unspecified Hyponatremia Hyposmolality and/or hyponatremia Abnormal liver function test Other abnormal blood chemistry Other specified hypothyroidism documented in this encounter Care Teams Tobacco Baler Relationship Specialty [place] [address] [facility] [place], [address] [place] [address] PCP - General Internal Medicine 12/02/14 documented as of this encounter
--- OUTSIDE RECORDS SUMMARY | 2024-04-21 18:22 | XMS_ITS | Encounter Summary ---
Author Organization [facility] Address [id number] [place] [address] Care Team Providers Care Drawing Checker Name Role Phone Jes Arriaga MD Primary Care Provider + Reason for Visit * Reason Onset Date Comments APPOINTMENT 12/04/2018 Encounter Details Date Type Department Care Team (Late st Contact Info) Description 12/04/2018 Telephone [facility] [address] [place] [address] Rizwana Neal, PhD [address] [place] [address] APPOINTMENT Social History Tobacco Use Types Packs/Day Years [...] encounter Miscellaneous Notes * Telephone Encounter - Christin Mora - 12/04/2018 2:33 PM PDT Called patient to confirm appointment for December 05 @11:00am but patient wants to cancel all future appointments because she changed provider. documented in this encounter Plan of Treatment Not on file documented as of this encounter Visit Diagnoses Not on filedocumented in this encounter Care Teams Drawing Checker Relationship Specialty [place] [address] [facility] [address] [place] [address] PCP - General Internal Medicine 12/02/14 documented as of this encounter
--- OUTSIDE RECORDS SUMMARY | 2024-04-21 18:22 | XMS_ITS | Encounter Summary ---
Author Organization [facility] Address [address] [place] [address] Care Team Providers Care Precipitator Supervisor Name Role Phone Jes Arriaga MD Primary Care Provider + Reason for Referral * Radiology (Routine) - New Request Specialty Diagnoses / Procedures Referred By Dinorah garcia Referred To Contact Radiology Diagnoses Screening mammogram for breast cancer Procedures BC MAMMO BILATERAL 3D SCREENING SCREENING DIGITAL BREAST [place] [address] [facility], [address] [place] [address] Referral ID Status Reason Start Date Expiration Date V isits Requested Visits Authorized [id number] New Request 01/03/2023 04/03/2023 5 5 Reason for Visit * (Routine) - Closed Specialty Diagnoses / Procedures Referred By Dinorah garcia Referred To Contact Radiology Procedures BC MAMMO BILAT SCREENING OS 15 Roderick Ordonez MD [address] [facility] [address] [place] [address] [facility] [address] [facility] [address] [place] [address] Referral ID Status Reason Start Date Expiration Date Visits Re quested Visits Authorized [id number] Closed 01/16/2023 04/16/2023 1 1 Encounter Details Date Type Department Care Team (Latest Contact Info) Description 01/16/2023 2:54 PM PDT - 01/16/2023 11:59 PM PDT Hospital Encounter [facility] [address] [place] [address] Dx: Screening mammogram for breast cancer Discharge Disposition: Home Social History Tobacco Use [...] Sig Dispensed Refills Start Date End Date amLODIPine (NORVASC) 10 mg tabletIndications:Benign essential HTN Take 1 tablet by mouth once a day. 90 tablet 3 03/13/2022 FLUoxetine (PROzac, SARAFEM) 10 mg Capsule Take 10 mg by mouth once a day. losartan (COZAAR) 100 mg Tablet Take 100 mg by mouth every day. estradiol (VAGIFEM) 10 mcg TabletIndications:Vagina l dryness, menopausal Insert 1 tablet into the vagina 2 times a week. 24 tablet 6 05/31/2022 11/14/2023 Synthroid 88 mcg tablet Take 1 tablet by mouth daily before breakfast. 90 tablet 3 03/08/2022 06/15/2023 documented as of this encounter Plan of Treatment Not on file documented as of this encounter Procedures Procedure Name Priority Date/Time Associated Diagnosis Comments SCREENING MAMMO BILAT W/CAD W/CHRIS Routine 01/16/2023 3:20 PM PDT Screening mammogram for breast cancer documented in this encounter Results * BC MAMMO BILATERAL 3D SCREENING (01/16/2023 3:20 PM PDT) Anatomical Region Laterality Modality BREAST Mammography Impressions 01/16/2023 3:56 PM PDT There is no mammographic evidence of malignancy. A routine follow-up mammogram in 1 year is recommended. ACR BI-RADS Category 1 - ??Negative. A result letter was sent to the patient by breast center staff. Report Electronically Signed. Dictated by: VALERIY BETTS M.D. At: 01/16/2023 15:51:27 Rubber Chemist: Ozzie DEL VALLE (Nikki)(Anna), [facility] Narrative 01/16/2023 3:56 PM PDT BILATERAL SCREENING 3D TOMOSYNTHESIS AND 2D C-VIEW MAMMOGRAM DATE OF SERVICE: 01/16/2023 CLINICAL HISTORY: Patient is a 72 year old female who is seen for screening. The patient's lifetime risk for developing breast cancer is estimated using the Tyrer-Cuzick v8 risk assessment model as 2.9%. A risk score of 12% or lower is considered normal risk. COMPARISON: The present examination has been compared to prior imaging studies performed at [facility] on 10/14/2018, at [facility] on 06/28/2021, and at [facility] on 08/03/2017. TECHNIQUE: Digital mammographic images were obtained using a [employer] mammographic system. Views obtained: bilateral craniocaudal with [...] microcalcifications nor areas of unexplained architectural distortion. Procedure Note Valeriy Betts MD - 01/16/2023 BILATERAL SCREENING 3D TOMOSYNTHESIS AND 2D C-VIEW MAMMOGRAM DATE OF SERVICE: 01/16/2023 CLINICAL HISTORY: Patient is a 72 year old female who is seen for screening. The patient's lifetime risk for developing breast cancer is estimatedusing the Tyrer-Cuzick v8 risk assessment model as 2.9%. A risk score of12% or lower is considered normal risk. COMPARISON: The present examination has been compared to prior imaging studiesperformed at [facility] on 10/14/2018, [facility]note 2[facility] [place] on 06/28/2021, and at [facility] on 08/03/2017. TECHNIQUE: Digital mammographic images were obtained using a [employer]ographic system. Views obtained: bilateral craniocaudal withtomosynthesis and [...] type microcalcifications norareas of unexplained architectural distortion. IMPRESSION: There is no mammographic evidence of malignancy. A routine follow-up mammogram in 1 year is recommended. ACR BI-RADS Category 1 - Negative. A result letter was sent to the patient by breast center staff. Report Electronically Signed. Dictated by: VALERIY BETTS M.D. At: 01/16/2023 15:51:27 Rubber Chemist: Ozzie DEL VALLE)(M), [facility] Jes Arriaga MD MG IMG MAMMO PRO CEDURE documented in this encounter Visit Diagnoses Diagnosis Screening mammogram for breast cancer documented in this encounter Care Teams Precipitator Supervisor Relationship Specialty [place] [address] [facility], [address] [place] [address] PCP - General Internal Medicine 12/02/14 documented as of this encounter
--- OUTSIDE RECORDS SUMMARY | 2024-04-21 18:22 | XMS_ITS | Encounter Summary ---
Author Organization [facility] Address [address] [place] [address] Care Team Providers Care Sort Line Name Role Phone Jes Arriaga MD Primary Care Provider + Reason for Visit * Reason Onset Date Comments Other 10/09/2018 Patient Question s Encounter Details Date Type Department Care Team (Late st Contact Info) Description 10/09/2018 Telephone [facility] [place] [id number] [place] [phone] [place] [address] [facility], [address] [place] [phone] Other (Patient Questions) Social History Tobacco Use Types Packs/Day Years [...] encounter Miscellaneous Notes * Telephone Encounter - Milly Stewart - 10/11/2018 3:07 PM PDT I spoke with the patient and made her an appt-[facility] * Telephone Encounter - Tiffany Ferreira - 10/09/2018 1:13 PM PDT Patient called stating that her and her , Dr. Dias, have some questions that they would like to ask and discuss with Dr. Neal. She asked if Dr. Neal can please contact them when she has a chance. [phone] documented in this encounter Plan of Treatment Not on file documented as of this encounter Visit Diagnoses Not on filedocumented in this encounter Care Teams Sort Line Relationship Specialty [place] [address] [facility], [address] [place], [place] [id number] PCP - General Internal Medicine 12/02/14 documented as of this encounter
--- OUTSIDE RECORDS SUMMARY | 2024-04-21 18:22 | XMS_ITS | Encounter Summary ---
Author Organization [facility] Address [address] [place] [address] Care Team Providers Care Water Meter Mechanic Name Role Phone Jes Arriaga MD Primary Care Provider + Encounter Details Date Type Department Care Team (Late st Contact Info) Description 12/17/2023 3:40 PM PDT Orders Only [facility] [address] [facility] [place] [address] Social History Tobacco Use Types Packs/Day Years [...] Associated Diagnosis Comments REFLEXIVE T4 FREE Routine 12/17/2023 3:5 7 PM PDT TSH, 3RD GENERATION W/RFLX TO FT4 Routine 12/17/2023 3:57 PM PDT Other specified hypothyroidism COMPREHENSIVE METABOLIC PANEL Routine 12/17/2023 3:57 PM PDT Hyponatremia Essential hypertension documented in this encounter Results * REFLEXIVE T4 FREE (12/17/2023 3:57 PM PDT) T4,Free (Direct) 1.67 0.82 - 1.77 ng/dL [facility] 1 12/17/2023 3:57 PM PDT 12/18/2023 Comment:BLOOD Narrative [facility] - 12/18/2023 10:35 AM PDT Performed at: ??01 - [facility] [place] [address], [place], [place] ??[id number] Healthcare Management Consultant: Wood Radford Jr MD, Phone: ??[phone] Jes Arriaga MD LAB BLOOD [facility] * (ABNORMAL) COMPREHENSIVE METABOLIC PANEL (12/17/2023 3:57 PM PDT) Glucose 120(H) 70 - 99 mg/dL [facility] 1 BUN 11 8 - 27 mg/dL [facility] 1 Creatinine 0.91 0.57 - 1.00 mg/dL [facility] 1 eGFR 67 >59 mL/min/1.7 3 [facility] 1 BUN/Creatinine Ratio 12 12 - 28 [facility] 1 NA 131(L) 134 - 144 mmol/L [facility] 1 K 4.6 3.5 - 5.2 mmol/L [facility] 1 CL 97 96 - 106 mmol/L [facility] 1 CO2 22 20 - 29 mmol/L [facility] 1 CA 9.0 8.7 - 10.3 mg/dL [facility] 1 Protein Total 6.1 6.0 - 8.5 g/dL [facility] 1 Albumin 3.9 3.8 - 4.8 g/dL [facility] 1 Globulin 2.2 1.5 - 4.5 g/dL [facility] 1 A/G Ratio 1.8 1.2 - 2.2 [facility] 1 Bilirubin, Total <0.2 0.0 - 1.2 mg/dL [facility] 1 Alk Phos 73 44 - 121 IU/L [facility] 1 AST (SGOT) 22 0 - 40 IU/L [facility] 1 ALT (SGPT) 11 0 - 32 IU/L [facility] 1 Blood (BLOOD) 12/17/2023 3:5 7 PM PDT 12/18/2023 Comment:BLOOD Narrative [facility] - 12/18/2023 10:35 AM PDT Performed at: ??01 - [facility] [address] ??[address] ??[id number] Healthcare Management Consultant: Wood Radford Jr MD, Phone: ??[phone] Jes Arriaga MD LAB BLOOD [facility] * (ABNORMAL) TSH, 3RD GENERATION W/RFLX TO FT4 (12/17/2023 3:57 PM PDT) TSH 0.058(L) 0.450 - 4.500 uIU/mL [facility] 1 Blood 12/17/2023 3:57 PM PDT 12/18/2023 Comment:BLOOD Narrative [facility] - 12/18/2023 10:35 AM PDT Performed at: ??01 - [facility] [place] [address] ??[address] ??[id number] Healthcare Management Consultant: Wood Radford Jr MD, Phone: ??[phone] Jes Arriaga MD LAB BLOOD [facility] 1 documented in this encounter Visit Diagnoses Diagnosis Other specified hypothyroidism Hyponatremia Hyposmolality and/or hyponatremia Essential hypertension Unspecified essential hypertension documented in this encounter Care Teams Water Meter Mechanic Relationship Specialty [place] [address] [facility], [address] [place] [address] PCP - General Internal Medicine 12/02/14 documented as of this encounter
--- OUTSIDE RECORDS SUMMARY | 2024-04-21 18:22 | XMS_ITS | Encounter Summary ---
Author Organization [facility] Address [address] [place] [address] Care Team Providers Care Color Dipper Name Role Phone Jes Arriaga MD Primary Care Provider + Encounter Details Date Type Department Care Team ([facility] st Contact Info) Description 02/24/2020 Telephone [facility] [address] [place] [address] [place] [address] [facility], [address] [place] [address] Social History Tobacco Use Types Packs/Day Years [...] encounter Miscellaneous Notes * Telephone Encounter - Leena Miller - 02/24/2020 11:15 AM PDT cv neg screening documented in this encounter Plan of Treatment Not on file documented as of this encounter Visit Diagnoses Not on filedocumented in this encounter Care Teams Color Dipper Relationship Specialty [place] [address] [facility], [address] [place] [id number] PCP - General Internal Medicine 12/02/14 documented as of this encounter
--- OUTSIDE RECORDS SUMMARY | 2024-04-21 18:22 | XMS_ITS | Encounter Summary ---
Author Organization [facility] Address [address] [place] [address] Care Team Providers Care Speech Therapist Technician Name Role Phone Jes Arriaga MD Primary Care Provider + Encounter Details Date Type Department Care Team (Late st Contact Info) Description 10/25/2018 Telephone [facility] [place] [address] [facility] [address] [place] [address] [place] [address] [facility], [address] [place] [address] Social History Tobacco Use Types Packs/Day Years [...] on filedocumented in this encounter Care Teams Speech Therapist Technician Relationship Specialty [place] [address] [facility], [address] [place] [address] PCP - General Internal Medicine 12/02/14 documented as of this encounter
--- OUTSIDE RECORDS SUMMARY | 2024-04-21 18:22 | XMS_ITS | Encounter Summary ---
Author Organization [facility] Address [address] [place] [address] Care Team Providers Care Charter And Tour Bus Driver Name Role Phone Jes Arriaga MD Primary Care Provider + Reason for Referral * Radiology (Routine) - Closed Specialty Diagnoses / Procedures Referred By Contac t Referred To Contact Radiology Diagnoses Postmenopausal status Age related osteoporosis, unspecified pathological fracture presence Procedures BC DEXA BONE DENSITY AXIAL DEXA,BONE DENSITY, 1 + SITE, [place] [address] [facility], [address] [place] [address] [facility] Breast Referral ID Status Reason Start Date Expiration Date Visits Re quested Visits Authorized [id number] Closed 06/27/2021 09/25/2021 2 2 * Radiology (Routine) - Closed Specialty Diagnoses / Procedures Referred By Contac t Referred To Contact Radiology Diagnoses Encounter for screening mammogram for malignant neoplasm of breast Dense breasts Procedures BC MAMMO BILATERAL 3D SCREENING SCREENING DIGITAL BREAST [place] [address] [facility], [address] [place] [address] [facility] Breast Referral ID Status Reason Start Date Expiration Date Visits Re quested Visits Authorized [id number] Closed 06/27/2021 09/25/2021 2 2 Reason for Visit * Reason Comments Follow-up routine check Encounter Details Date Type Department Care Team (Late st Contact Info) Description 06/27/2021 2:00 PM PST [facility] [place] [id number] Internal Medicine [id number] [facility] [address] [place] [address] [place] [address] [facility], [address] [place] [address] Age related osteoporosis, unspecified pathological fracture presence (Primary Dx); Encounter for screening mammogram for malignant neoplasm of breast; Dense breasts; Postmenopausal status; Screening for condition; Anemia of chronic disease; Essential hypertension; Hyponatremia; Other specified hypothyroidism; Major depressive disorder, recurrent episode, mild (HCC); MRSA (methicillin resistant staph aureus) culture positive; Protein-calorie malnutrition, unspecified severity (HCC) Social History Tobacco Use Types Packs/Day Years [...] Sign Reading Time Taken Comments Blood Pressure 104/66 06/27/2021 2:04 PM PST Pulse 69 06/27/2021 2:04 PM PST Temperature 36.5 ??C (97.7 ??F) 06/27/2021 2:04 PM PS T Respiratory Rate 16 06/27/2021 2:04 PM PST Oxygen Saturation 98% 06/27/2021 2:04 PM PST Inhaled Oxygen Concentration - - Weight 48.1 kg (106 lb) 06/27/2021 2:04 PM PST Height 165.1 cm (5' 5) 06/27/2021 2:04 PM PST Body Mass Index 17.64 06/27/2021 2:04 PM PST documented in this encounter Patient Instructions * Patient Instructions* Jes Arriaga MD - 06/27/2021 2:20 PM PST Plan for eye exam - due Please call for mammogram and DEXA Breast [facility] [phone] [address] [facility] [address] [facility] [address] Lab 03/19 reviewed Continue medications Colonoscopy 2017 - follow up in 10 yr See vaccine records Fasting lab in February See me in February documented in this encounter Progress Notes * Jes Arriaga MD - 06/27/2021 2:27 PM PST Quin Dias is a 70 year old female who comes to clinic today for Chief Complaint Patient presents with ??? Follow-up routine check Nursing Notes: Aimrah Ramirez 06/27/2021 2:20 PM Signed Quin Dias is a 70 year old female who presents for follow up routine check Opthal:2019, DUE Optometry: DUE Mammogram: scheduled 10/09/2018, DUE Dexa: 09/30/18 Labs: 03/16/21 Pap: 12/14/2014 WNL Colonoscopy: 03/29/2018 PCV13: 05/30/19 PPSV23: 03/11/18 Tdap:08/2018 Shingrix, 04/26/20,06/29/20 Moderna: 08/22/20,09/18/20,05/22/21 PHQ2: 06/27/21 HPI Here for follow up Patient Active Problem List Diagnosis ??? Major depressive disorder, recurrent episode, mild (HCC) ??? Hypothyroidism, unspecified ??? Essential hypertension ??? Hyponatremia ??? Anemia of chronic disease ??? Protein-calorie malnutrition, unspecified severity (HCC) ??? MRSA (methicillin resistant staph aureus) culture positive ??? Age related osteoporosis Active Non-Hospital Problems Diagnosis Date Noted ??? Age related osteoporosis 10/30/2018 Overview Note: 10/15 DEXA - osteoporosis MyChart message sent/ recommended Fosamax ??? MRSA (methicillin resistant staph aureus) culture positive 10/09/2018 Overview Note: Treated Repeat culture planned 10/10/18 ??? Anemia of chronic disease 01/08/2018 ??? Protein-calorie malnutrition, unspecified severity (HCC) 01/08/2018 ??? Hyponatremia 03/02/2017 ??? Major depressive disorder, recurrent episode, mild (HCC) 12/14/2014 ??? Hypothyroidism, unspecified 12/14/2014 ??? Essential hypertension 12/14/2014 Past Medical History: Diagnosis Date ??? Hypertension ??? HYPOTHYROIDISM Past Surgical History: Procedure Laterality Date ??? NO MAJOR SURGICAL HISTORY FLUoxetine (PROzac, SARAFEM) 10 mg Capsule, Take 10 mg by mouth once a day., Disp: , Rfl: losartan (COZAAR) 100 mg Tablet, Take 100 mg by mouth every day., Disp: , Rfl: amLODIPine (NORVASC) 10 mg tablet, Take 1 Tab (10 mg) by mouth every day., Disp: 90 Tab, Rfl: 3 LEVOTHYROXINE SODIUM (SYNTHROID ORAL), Take 88 mcg by mouth. , Disp: , Rfl: No current facility-administered medications for this visit. The medication list has been reviewed and updated to reflect current medications as of 06/27/2021 No Known Allergies Social History Socioeconomic History ??? Marital status: Spouse name: Not on file ??? Number of children: Not on file ??? Years of education: Not on file ??? Highest education level: Not on file Tobacco Use ??? Smoking status: Never Smoker ??? Smokeless tobacco: Never Used Substance and Sexual Activity ??? Alcohol use: No ??? Drug use: No ??? Sexual activity: Yes Family History Problem Relation Age of Onset ??? Heart Father ??? Hemophilia Father ??? Renal Mother kidney failure Review of Systems Constitutional: Negative. HENT: Negative. Eyes: Negative. Respiratory: Negative. Cardiovascular: Negative. Gastrointestinal: Negative. Genitourinary: Negative. Musculoskeletal: Negative. Skin: Negative. Neurological: Negative. Endo/Heme/Allergies: Negative. Psychiatric/Behavioral: Negative. PHQ-2 Results BP: 104/66 Pulse: 69 Temp: 97.7 ??F (36.5 ??C) Resp: 16 Height: 5' 5 (165.1 cm) Weight: 106 lb (48.1 kg)Body mass index is 17.64 kg/m??. Physical Exam Cardiovascular: Rate and Rhythm: Normal rate and regular rhythm. Heart sounds: Normal heart sounds. Pulmonary: Effort: Pulmonary effort is normal. No respiratory distress. Breath sounds: Normal breath sounds. No wheezing. Abdominal: General: Bowel sounds are normal. There is no distension. Palpations: Abdomen is soft. Tenderness: There is no abdominal tenderness. Musculoskeletal: Cervical back: Normal range of motion and neck supple. Skin: General: Skin is warm and dry. Neurological: Gait: Gait is intact. Assessment & Plan: 1. Age related osteoporosis, unspecified pathological fracture presence Stable Calcium exercise - BC DEXA BONE DENSITY AXIAL; Future 2. Encounter for screening mammogram for malignant neoplasm of breast stable - BC MAMMO BILATERAL 3D SCREENING; Future 3. Dense breasts Stable - BC MAMMO BILATERAL 3D SCREENING; Future 4. Postmenopausal status Stable - BC DEXA BONE DENSITY AXIAL; Future 5. Screening for condition stable - CBC WITH AUTO DIFFERENTIAL, REFLEX MANUAL DIFFERENTIAL IF INDICATED; Future - COMPREHENSIVE METABOLIC PANEL; Future - HEMOGLOBIN A1C W/MPG; Future - LIPID PANEL; Future - TSH, 3RD GENERATION W/RFLX TO FT4; Future - URINALYSIS WITH REFLEX MICROSCOPIC & CULTURE, IF INDICATED; Future - QUESTASSURED 25-HYDROXYVITAMIN D (D2, D3), LC/MS/MS; Future 6. Anemia of chronic disease stable 7. Essential hypertension stable 8. Hyponatremia stable 9. Other specified hypothyroidism stable 10. Major depressive disorder, recurrent episode, mild (HCC) Stable Continue med 11. MRSA (methicillin resistant staph aureus) culture positive stable 12. Protein-calorie malnutrition, unspecified severity (HCC) Stable Nutrition Plan for eye exam - due Please call for mammogram and DEXA Breast [facility] [phone] [address] [facility] [address] [facility] [address] Lab 03/19 reviewed Continue medications Colonoscopy 2018 - follow up in 10 yr See vaccine records Fasting lab in February See me in February All Orders Placed in this Encounter ??? BC MAMMO BILATERAL 3D SCREENING Order Specific Question: If abnormality is found, work-up with additional exams - mammography, ultrasound, aspiration, needle biopsy, ductogram, percutaneous removal of benign lesion? If other add tocomments. Answer: Yes ??? BC DEXA BONE DENSITY AXIAL ??? CBC with Auto Differential, Reflex Manual Differential if Indicated ??? Comprehensive Metabolic Panel ??? Hemoglobin A1C w/MPG ??? Lipid Panel ??? TSH, 3rd Generation w/rflx to FT4 ??? URINALYSIS, COMPLETE W/REFLEX TO CULTURE ??? QuestAssureD 25-Hydroxyvitamin D(D2,D3) The patient Quin Dias indicates understanding of these issues and agreement with the plan. Pt is aware of the importance of close followup. Pt assures me that plans we discussed today will be carried out. Pt aware that if current condition worsens or persists, pt may see myself or any available MD for evaluation. health maintenance: Opthal:2020, DUE Optometry: DUE Mammogram: scheduled 10/09/2018, DUE Dexa: 09/30/18 Labs: 03/16/21 Pap: 12/14/2014 WNL Colonoscopy: 03/29/2018 PCV13: 05/30/19 PPSV23: 03/11/18 Tdap:08/2018 Shingrix, 04/26/20,06/29/20 Moderna: 08/22/20,09/18/20,05/22/21 PHQ2: 06/27/21 Summary: . Normal terminal ileum,cecum, ileocecal valve, [...] documented in this encounter Nursing Notes * Amirah Ramirez - 06/27/2021 2:08 PM PST Quin Dias is a 70 year old female who presents for follow up routine check Opthal:2019, DUE Optometry: DUE Mammogram: scheduled 10/09/2018, DUE Dexa: 09/30/18 Labs: 03/16/21 Pap: 12/14/2014 WNL Colonoscopy: 03/29/2018 PCV13: 05/30/19 PPSV23: 03/11/18 Tdap:08/2018 Shingrix, 04/26/20,06/29/20 Moderna: 08/22/20,09/18/20,05/22/21 PHQ2: 06/27/21 documented in this encounter Plan of Treatment Not on file documented as of this encounter Results * BC MAMMO BILATERAL 3D SCREENING (06/28/2021 1:57 PM PST) Anatomical Region Laterality Modality BREAST Mammography Impressions 06/29/2021 2:37 PM PST There is no mammographic evidence of malignancy. A routine follow-up mammogram in 1 year is recommended. ACR BI-RADS Category 1 - ??Negative. A result letter was sent to the patient by breast center staff. REPORT ELECTRONICALLY SIGNED. Dictated by: DAVE RASMUSSEN M.D. AT: 06/29/2021 14:32:10 C S S REPRESENTATIVE: BASIM FARAH, [facility] Narrative 06/29/2021 2:37 PM PST BILATERAL SCREENING 3D TOMOSYNTHESIS AND 2D C-VIEW MAMMOGRAM DATE OF SERVICE: 06/28/2021 CLINICAL HISTORY: Patient is a 70 year old female who is seen for screening. The patient's lifetime risk for developing breast cancer is estimated using the Tyrer-Cuzick v8 risk assessment model as 3.4%. A risk score of 12% or lower is considered normal risk. COMPARISON: The present examination has been compared to prior imaging studies performed at [facility] on 10/14/2018, and at [facility] [place] on 01/01/2014 and 08/03/2017. TECHNIQUE: Digital mammographic images were obtained using a [employer] mammographic system. Views obtained: bilateral craniocaudal with [...] areas of unexplained architectural distortion. Procedure Note Dave Rasmussen MD - 06/29/2021 BILATERAL SCREENING 3D TOMOSYNTHESIS AND 2D C-VIEW MAMMOGRAM DATE OF SERVICE: 06/28/2021 CLINICAL HISTORY: Patient is a 70 year old female who is seen for screening. The patient's lifetime risk for developing breast cancer is estimatedusing the Tyrer-Cuzick v8 risk assessment model as 3.4%. A risk score of12% or lower is considered normal risk. COMPARISON: The present examination has been compared to prior [facility] on 10/14[facility], andat [facility] [place] on 01/01/2014 and 08/03/2017. TECHNIQUE: Digital mammographic images were obtained using a [employer]mammographic system. Views obtained: bilateral craniocaudal withtomosynthesis [...] to the patient by breast center staff. REPORT ELECTRONICALLY SIGNED. Dictated by: DAVE RASMUSSEN M.D. AT: 06/29/2021 14:32:10 C S S REPRESENTATIVE: BASIM FARAH, [facility] Jes Arriaga MD MG IMG MAMMO PRO CEDURE * BC DEXA BONE DENSITY AXIAL (06/28/2021 1:33 PM [facility]) Anatomical Region Laterality Modality Mammography Jes Arriaga MD BD IMG BONE DENS ITY documented in this encounter Visit Diagnoses Diagnosis Age related osteoporosis, unspecified pathological fracture presence- Primary Encounter for screening mammogram for malignant neoplasm of breast Other screening mammogram Dense breasts Inconclusive mammogram Postmenopausal status Asymptomatic postmenopausal status (age-related) (natural) Screening for condition Screening for unspecified condition Anemia of chronic disease Anemia of other chronic disease Essential hypertension Unspecified essential hypertension Hyponatremia Hyposmolality and/or hyponatremia Other specified hypothyroidism Major depressive disorder, recurrent episode, mild (HCC) Major depressive disorder, recurrent episode, mild MRSA (methicillin resistant staph aureus) culture positive Carrier or suspected carrier of Methicillin resistant Staphylococcus aureus Protein-calorie malnutrition, unspecified severity (HCC) Encounter for screening mammogram for malignant neoplasm of breast Other screening mammogram Dense breasts Inconclusive mammogram documented in this encounter Care Teams Charter And Tour Bus Driver Relationship Specialty [place] [address] [facility], [address] [place] [address] PCP - General Internal Medicine 12/02/14 documented as of this encounter
--- OUTSIDE RECORDS SUMMARY | 2024-04-21 18:22 | XMS_ITS | Encounter Summary ---
Author Organization [facility] Address [address] [place] [address] Care Team Providers Care Assembly Machine Feeder Name Role Phone Jes Arriaga MD Primary Care Provider + Reason for Visit * Reason Onset Date Comments Medication Refill 03/08/2022 Encounter Details Date Type Department Care Team (Late st Contact Info) Description 03/08/2022 Refill [facility] [place] [address] Internal Medicine [address] [address] [place] [address] [address] Medication Refill Social History Tobacco [...] on filedocumented in this encounter Care Teams Assembly Machine Feeder Relationship Specialty [place] [address] [address] PCP - General Internal Medicine 12/02/14 documented as of this encounter
--- OUTSIDE RECORDS SUMMARY | 2024-04-21 18:22 | XMS_ITS | Encounter Summary ---
Author Organization [facility] Address [id number] [place] [address] Care Team Providers Care Day Care Director Name Role Phone Jes Arriaga MD Primary Care Provider + Encounter Details Date Type Department Care Team (Late st Contact Info) Description 03/16/2021 1:30 PM PDT Orders Only [facility] [address] [address] Social History Tobacco Use Types Packs/Day [...] Procedure Name Priority Date/Time Associated Diagnosis Comments HEMOGLOBIN A1C W/MPG Routine 03/16/2021 1:37 PM PDT Routine medical exam TSH, 3RD GENERATION W/RFLX TO FT4 Routine 03/16/2021 1:37 PM PDT Routine medical exam URINALYSIS WITH REFLEX MICROSCOPIC & CULTURE, IF INDICATED Routine 03/16/2021 1:37 PM PDT Routine medical exam LIPID PANEL Routine 03/16/2021 1:37 PM PDT Routine medical exam COMPREHENSIVE METABOLIC PANEL Routine 03/16/2021 1:37 PM PDT Routine medical exam CBC WITH AUTO DIFFERENTIAL, REFLEX MANUAL DIFFERENTIAL IF INDICATED Routine 03/16/2021 1:37 PM PDT Routine medical exam documented in this encounter Results * (ABNORMAL) URINALYSIS WITH REFLEX MICROSCOPIC & CULTURE, IF INDICATED (03/16/2021 1:37 PM PDT) Color YELLOW YELLOW [facility] Appearance CLOUDY(A) CLEAR [facility] Specific [place] Ur 1.005 1.001 - 1.035 [facility] PH Urine 7.0 5.0 - 8.0 [facility] Gluc Qual NEGATIVE NEGATIVE [facility] Bilirubin Indirect NEGATIVE NEGATIVE [facility] Ketones NEGATIVE NEGATIVE [facility] Blood Urine (part of UA) NEGATIVE NEGATIVE [facility] Protein Ur NEGATIVE NEGATIVE [facility] Nitrite POSITIVE(A) NEGATIVE [facility] Leukocyte Jeanne 1+(A) NEGATIVE [facility] WBC Ur 0-5 < OR = 5 /HPF [facility] RBC/HPF NONE SEEN < OR = 2 /HPF [facility] SQ Epithelial/LPF 0-5 < OR = 5 /HPF [facility] Bacteria Ur MANY(A) NONE SEEN /HPF [facility] Hyaline Casts NONE SEEN NONE SEEN /LPF [facility] Reflexive Urine Culture [facility] Comment:CULTURE INDICATED - RESULTS TO FOLLOW Culture, Urine SEE NOTE(A) [facility] Comment: ??CULTURE, URINE, ROUTINE ?Micro Number: ?[id number] ??Test Status: ? Final ??Specimen Source: ?? Urine ??Specimen Quality: ??Adequate ??Result: ?Greater than 100,000 CFU/mL of Escherichia coli ? Additional non-predominating organism(s) isolated. ? These organisms, commonly found on external and ? internal genitalia, are considered colonizers. No ? further testing performed. ?E.coli ?INT ?? HATTIE ?? AMOX/CLAVULANATE ? S ? <=2 ?? AMPICILLIN ? S ? <=2 ?? AMP/SULBACTAM ?S ? <=2 ?? CEFAZOLIN ?NR ?<=4 2 ?? CEFEPIME ? S ? <=1 ?? CEFTRIAXONE ?S ? <=1 ?? CIPROFLOXACIN ?S ? <=0.25 ?? ERTAPENEM ?S ? <=0.5 ?? GENTAMICIN ? S ? <=1 ?? IMIPENEM ? S ? <=0.25 ?? LEVOFLOXACIN ? S ? <=0.12 ?? NITROFURANTOIN ? S ? <=16 ?? PIP/TAZOBACTAM ? S ? <=4 ?? TOBRAMYCIN ? S ? <=1 ?? TRIMETHOPRIM/SULFA ? S ? <=20 S=Susceptible ??I=Intermediate ??R=Resistant ??* = Not Tested NR = Not Reported ??NN = See Therapy Comments THERAPY COMMENTS ?Note 1: ?For infections other than uncomplicated UTI ?caused by E. coli, K. pneumoniae or P. mirabilis: ?Cefazolin is resistant if HATTIE > or = 8 mcg/mL. ?(Distinguishing susceptible versus intermediate ?for isolates with HATTIE < or = 4 mcg/mL requires ?additional testing.) ?Note 2: ?For uncomplicated UTI caused by E. coli, ?K. pneumoniae or P. mirabilis: Cefazolin is ?susceptible if HATTIE <32 mcg/mL and predicts ?susceptible to the oral agents cefaclor, cefdinir, ?cefpodoxime, cefprozil, cefuroxime, cephalexin ?and loracarbef. Blood 03/16/2021 1:37 PM PDT 03/17/2021 3:50 AM PDT Jes Arriaga MD LAB NON-BLOOD Performing Organization Address [facility] de Phone Number [facility] (E) [facility] [address] * TSH, 3RD GENERATION W/RFLX TO FT4 (03/16/2021 1:37 PM PDT) TSH 3rd Gen 2.87 0.40 - 4.50 mIU/L [facility] Blood 03/16/2021 1:37 PM PDT 03/17/2021 3:50 AM PDT Jes Arriaga MD LAB BLOOD Performing Organization Address [facility] de Phone Number [facility] (E) [facility] [place] [address] * LIPID PANEL (03/16/2021 1:37 PM PDT) Cholesterol 123 <200 mg/dL [facility] HDL Cholesterol 60 > OR = 50 mg/dL [facility] Triglyceride 83 <150 mg/dL [facility] LDL Chol Calc 46 mg/dL (calc) [facility] Comment: Reference range: <100 Desirable range <100 mg/dL for primary prevention; ?? <70 mg/dL for patients with CHD or diabetic patients with > or = 2 CHD risk factors. LDL-C is now calculated using the Fabi calculation, which is a validated novel method providing better accuracy than the Friedewald equation in the estimation of LDL-C. Marcelo SS et al. CHETAN. 2013;310(19): 7096-7884 (http://education.Campus Quad/faq/DAF364) CHOL/HDL 2.1 <5.0 (calc) [facility] Non-HDL Chol Calc 63 <130 mg/dL (calc) [facility] Comment: For patients with diabetes plus 1 major ASCVD risk factor, treating to a non-HDL-C goal of <100 mg/dL (LDL-C of <70 mg/dL) is considered a therapeutic option. Blood (BLOOD) 03/16/2021 1:3 7 PM PDT 03/17/2021 3:50 AM PDT Jes Arriaga MD LAB BLOOD [facility] (E) [facility] [address] [place] [address] * (ABNORMAL) HEMOGLOBIN A1C W/MPG (03/16/2021 1:37 PM PDT) Hgb A1C 5.9(H) <5.7 % of total Hgb [facility] Comment: For someone without known diabetes, a hemoglobin A1c value between 5.7% and 6.4% is consistent with prediabetes and should be confirmed with a follow-up test. For someone with known diabetes, a value <7% indicates that their diabetes is well controlled. A1c targets should be individualized based on duration of diabetes, age, comorbid conditions, and other considerations. This assay result is consistent with an increased risk of diabetes. Currently, no consensus exists regarding use of hemoglobin A1c for diagnosis of diabetes for children. Mean Blood Gluc 133 mg/dL (calc) [facility] Blood 03/16/2021 1:37 PM PDT 03/17/2021 3:50 AM PDT Jes Arriaga MD LAB BLOOD [employer] (E) [facility] [address] [place] [address] * (ABNORMAL) COMPREHENSIVE METABOLIC PANEL (03/16/2021 1:37 PM PDT) Glucose 102(H) 65 - 99 mg/dL [facility] Comment: ? Fasting reference interval For someone without known diabetes, a glucose value between 100 and 125 mg/dL is consistent with prediabetes and should be confirmed with a follow-up test. BUN 10 7 - 25 mg/dL [facility] Creatinine 0.71 0.50 - 0.99 mg/dL [facility] Comment: For patients >49 years of age, the reference limit for Creatinine is approximately 13% higher for people identified as -Irish. eGFR 87 > OR = 60 mL/min/1 .73m2 [facility] eGFRAA 101 > OR = 60 mL/min/1 .73m2 [facility] BUN/Creatinine Ratio NOT APPLICABLE 6 - 22 (calc) [facility] NA 132(L) 135 - 146 mmol/L [facility] K 4.4 3.5 - 5.3 mmol/L [facility] CL 98 98 - 110 mmol/L [facility] CO2 26 20 - 32 mmol/L [facility] CA 8.7 8.6 - 10.4 mg/dL [facility] Protein Total 6.0(L) 6.1 - 8.1 g/dL [facility] Albumin 3.6 3.6 - 5.1 g/dL [facility] Globulin 2.4 1.9 - 3.7 g/dL (calc) [facility] A/G Ratio 1.5 1.0 - 2.5 (calc) [facility] Bilirubin, Total 0.3 0.2 - 1.2 mg/dL [facility] Alk Phos 82 37 - 153 U/L [facility] AST (SGOT) 15 10 - 35 U/L [facility] ALT (SGPT) 9 6 - 29 U/L [facility] Blood (BLOOD) 03/16/2021 1:3 7 PM PDT 03/17/2021 3:50 AM PDT Jes Arriaga MD LAB BLOOD [facility] (E) [facility] [address] [place] [address] * (ABNORMAL) CBC WITH AUTO DIFFERENTIAL, REFLEX MANUAL DIFFERENTIAL IF INDICATED (03/16/2021 1:37 PM PDT) WBC 11.2(H) 3.8 - 10.8 Thousand/u L [facility] RBC 3.49(L) 3.80 - 5.10 Million/uL [facility] HGB 10.4(L) 11.7 - 15.5 g/dL [facility] HCT 31.8(L) 35.0 - 45.0 % [facility] MCV 91.1 80.0 - 100.0 fL [facility] MCH 29.8 27.0 - 33.0 pg [facility] MCHC 32.7 32.0 - 36.0 g/dL [facility] RDW 13.0 11.0 - 15.0 % [facility] Platelet 466(H) 140 - 400 Thousand/u L [facility] MPV 9.1 7.5 - 12.5 fL [facility] Neutrophil Abs 8,232(H) 1,500 - 7,800 cells/uL [facility] Lymphocyte Abs 1,635 850 - 3,900 cells/uL [facility] Monocyte Abs 885 200 - 950 cells/uL [facility] Eosinophil Abs 347 15 - 500 cells/uL [facility] BASO ABS 101 0 - 200 cells/uL [facility] Nucleated RBC Abs 0 0 cells/uL [facility] Neutrophils % 73.5 % [facility] Lymphocyte % 14.6 % [facility] Monocytes % 7.9 % [facility] Eosinophil % 3.1 % [facility] Basophil % 0.9 % [facility] Blood (BLOOD) 03/16/2021 1:3 7 PM PDT 03/17/2021 3:50 AM PDT Jes Arriaga MD LAB BLOOD [facility] [employer] (E) [facility] [address] [place] [address] documented in this encounter Visit Diagnoses Diagnosis Routine medical exam- Primary Routine general medical examination at a health care facility documented in this encounter Care Teams Day Care Director Relationship Specialty [place] [address] [facility], [address] [place] [address] PCP - General Internal Medicine 12/02/14 documented as of this encounter
--- OUTSIDE RECORDS SUMMARY | 2024-04-21 18:22 | XMS_ITS | Encounter Summary ---
Author Organization [facility] Address [address] [place] [address] Care Team Providers Care Subject Scientific Research Name Role Phone Jes Arriaga MD Primary Care Provider + Reason for Visit * Reason Onset Date Comments Follow-up 03/01/2020 Encounter Details Date Type Department Care Team (Late st Contact Info) Description 03/01/2020 Telephone [place] [address] Internal Medicine [address] [address] [place] [address] [facility] [address] [place] [address] Follow-up Social History Tobacco Use Types Packs/Day Years [...] Telephone Encounter - Jes Arriaga MD - 03/01/2020 3:29 PM PDT Spoke with patient She missed her Zoom call She is in [place] now on a hike Assures me that she will reschedule She is aware of the importance of follow up and will book another appt documented in this encounter Plan of Treatment Not on file documented as of this encounter Visit Diagnoses Not on filedocumented in this encounter Care Teams Subject Scientific Research Relationship Specialty [place] [address] [facility], [address] [place] [address] PCP - General Internal Medicine 12/02/14 documented as of this encounter
--- OUTSIDE RECORDS SUMMARY | 2024-04-21 18:22 | XMS_ITS | Encounter Summary ---
Author Organization [facility] Address [address] [place] [address] Care Team Providers Care Customer Service Security Officer Name Role Phone Jes Arriaga MD Primary Care Provider + Reason for Visit * Reason Onset Date Comments Medication - Other 03/10/2022 Encounter Details Date Type Department Care Team (Late st Contact Info) Description 03/10/2022 Telephone [facility] [place] [address] Internal Medicine [address] [address] [place] [address] [facility] [address] [place] [address] Medication - Other Social History Tobacco Use Types Packs/Day Years [...] Telephone Encounter - Jes Arriaga MD - 03/13/2022 5:22 PM PDT Noted Thank you very much * Telephone Encounter - Amirah Ramirez - 03/13/2022 11:12 AM PDT Patient called back she is taking Amlodipine 10 mg, she is not taking Atorvastatin * Telephone Encounter - Amirah Ramirez - 03/13/2022 10:34 AM PDT Called patient left detail message, advised patient to call back provided my direct line. * Telephone Encounter - Jes Arriaga MD - 03/10/2022 5:15 PM PDT Please call patient and verify We received a Rx refill for Amlodipine-Atorvastatin combo pill Thank you very much * Telephone Encounter - Cesilia Fish - 03/10/2022 4:37 PM PDT Pharmacy is requesting amlodipine be sent to [facility] Please assist, thank you documented in this encounter Plan of Treatment Not on file documented as of this encounter Visit Diagnoses Diagnosis Benign essential HTN- Primary Essential hypertension, benign documented in this encounter Care Teams Customer Service Security Officer Relationship Specialty [place] [address] [facility], [address] [place] [address] PCP - General Internal Medicine 12/02/14 documented as of this encounter
--- OUTSIDE RECORDS SUMMARY | 2024-04-21 18:22 | XMS_ITS | Encounter Summary ---
Author Organization [facility] Address [address] [place] [address] Care Team Providers Care Boring Inspector Name Role Phone Jes Arriaga MD Primary Care Provider + Encounter Details Date Type Department Care Team (Late st Contact Info) Description 12/21/2021 Orders Only [facility] [address] [place] [phone] [place] [address] [facility], [address] [place] [address] Social History Tobacco Use Types [...] as of this encounter Visit Diagnoses Diagnosis Screening for unspecified condition- Primary documented in this encounter Care Teams Boring Inspector Relationship Specialty [place] [address] [facility], [address] [place] [address] PCP - General Internal Medicine 12/02/14 documented as of this encounter
--- OUTSIDE RECORDS SUMMARY | 2024-04-21 18:22 | XMS_ITS | Encounter Summary ---
Author Organization [facility] Address [address] [place] [address] Care Team Providers Care Driller And Reamer Name Role Phone Jes Arriaga MD Primary Care Provider + Reason for Visit * Reason Comments Pre-op Exam (L) total hep replac ement, 03/13/19, Dano Colvin, Dr. Ammon Reyes Encounter Details Date Type Department Care Team (Late st Contact Info) Description 03/03/2019 11:40 AM PDT Office Visit [place] [address] Internal Medicine [address] [facility] [address] [place] [address] [place] [address] [facility], [address] [place] [address] Preop examination (Primary Dx); Primary osteoarthritis of right hip; MRSA (methicillin resistant staph aureus) culture positive; Anemia of chronic disease Social History Tobacco Use Types Packs/Day Years [...] Sign Reading Time Taken Comments Blood Pressure 114/69 03/03/2019 11:37 AM PDT Pulse 72 03/03/2019 11:37 AM PDT Temperature 36.3 ??C (97.3 ??F) 03/03/2019 11:37 AM P DT Respiratory Rate 16 03/03/2019 11:37 AM PDT Oxygen Saturation 100% 03/03/2019 11:37 AM PDT Inhaled Oxygen Concentration - - Weight 48.3 kg (106 lb 6.4 oz) 03/03/2019 11:37 AM PDT Height 165.1 cm (5' 5) 03/03/2019 11:37 AM PDT Body Mass Index 17.71 03/03/2019 11:37 AM PDT documented in this encounter Progress Notes * Jes Arriaga MD - 03/03/2019 1:25 PM PDT Pre-Operative Consultation 03/03/2019 9:47 AM PATIENT: Quin Nya Dias SURGEON: Ammon Reyes MD SURGERY: RIGHT HIP REPLACEMENT PCP: Jes Arriaga MD DATE OF SURGERY: 03/13/19 ANESTHESIA: General LOCATION OF SURGERY: [place] Surgery specific risk: intermediate High risk: aortic/vascular surgery, anticipated increased blood loss, prolonged surgery >3hrs Intermediate risk: CEA, intrathoracic, head/neck surgery, prostate surgery, intraperitoneal surgery, orthopedic surgery Low risk: Endoscopic, superficial, cataract, breast surgeries METS: Can take care of self, such as eat, dress or use the toilet 1 MET Can walk up a flight of steps or a hill 4 METs Can do heavy work around the house such as scrubbing floors or lifting or moving heavy furniture Between 4 and 10 METs Can participate in strenuous sports such as swimming, singles tennis, football, basketball, and skiing > 10 METs Patient has a good functional capacity, and able to perform 10 METS without symptoms. Medications: Current Outpatient Prescriptions Medication Sig Dispense Refill ??? FLUoxetine (PROzac) 20 mg Tablet tablet Take 1 tablet by mouth once a day. 90 tablet 3 ??? losartan (COZAAR) 100 mg Tablet Take 100 mg by mouth every day. ??? amLODIPine (NORVASC) 10 mg tablet Take 1 Tab (10 mg) by mouth every day. 90 Tab 3 ??? LEVOTHYROXINE SODIUM (SYNTHROID ORAL) Take 88 mcg by mouth. No current facility-administered medications for this visit. Allergies: No Known Allergies PMH: Past Medical History: Diagnosis Date ??? Hypertension ??? HYPOTHYROIDISM Problem List: Patient Active Problem List Diagnosis ??? Major depressive disorder, recurrent episode, mild (HCC) ??? Hypothyroidism, unspecified ??? Essential hypertension ??? Hyponatremia ??? Anemia of chronic disease ??? Protein-calorie malnutrition, unspecified severity (HCC) ??? MRSA (methicillin resistant staph aureus) culture positive ??? Age related osteoporosis Surgical History: Past Surgical History: Procedure Laterality Date ??? NO MAJOR SURGICAL HISTORY SocHX: Social History Social History ??? Marital status: Spouse name: Dr Dias ??? Number of children: N/A ??? Years of education: N/A Occupational History ??? Not on file. Social History Main Topics ??? Smoking status: Never Smoker ??? Smokeless tobacco: Never Used ??? Alcohol use No ??? Drug use: No ??? Sexual activity: Yes Other Topics Concern ??? Not on file Social History Narrative ??? No narrative on file FamHx: Family History Problem Relation Age of Onset ??? Heart Father ??? Hemophilia Father ??? Renal Mother kidney failure Review of Systems: ROS R hip pain Physical exam: Vitals: 03/03/19 1137 BP: 114/69 Pulse: 72 Temp: 97.3 ??F (36.3 ??C) Resp: 16 Height: 5' 5 (1.651 m) Weight: 106 lb 6.4 oz (48.3 kg) SpO2: 100% TempSrc: Oral BP Location: LUE Orthostatic Position: Sitting Cuff Size: Adult arm Exam: Physical Exam RRR S1 S2 CTA B Soft NT ND +BS Dec R hip ROM No edema Labs: See lab results. Repeat MRSA pending (to be done today) Last EKG: Normal sinus rhythm Assessment/Plan: The patient will be undergoing a moderate risk surgical procedure. Patient has mild anemia - she has undergone a full GI work up and hematology work up as well. Follow up per hematology staff - Dr Starkey [phone] (See recommendations from hematology.) She has undergone rx for MRSA and will repeat culture today 03/03/19 If culture is negative patient may proceed with surgery, if the repeat culture is positive, patientmay proceed with surgery with plans per ID (Dr Linda Reyes) Moderate Risk Surgical Procedures (1%-5%) Intrathoracic (nonmajor) Intraperitoneal (splenectomy, cholecystectomy) Carotid (CEA or SAI) Endovascular aneurysm repair (stents/coil) Head and neck surgery Neurology or orthopedic surgery, major (hip and spine surgery) Urology or gynecologic, major Renal transplantation The patient's ASA Class is 2 - Mild systemic disease, no functional limitations. Using the [place] [employer] (ACC)/ [place] Heart [employer] Revised Cardiac Index, the patient is considered a low-risk patient -- Patients whose estimated risk of is less than 1percent are labeled as being low risk and require no additional cardiovascular testing. Nothing by Mouth (NPO) the morning of surgery (ok to hold BP med also) Patient is maximally optimized for surgery. She has undergone rx for MRSA and will repeat culture There are no known contraindications to the proposed surgery. The patient may proceed with the planned surgical procedure. documented in this encounter Nursing Notes * Amirah Ramirez - 03/03/2019 11:34 AM PDT Quin Dias is a 68 year old female who presents for, Preop (L) total hep replacement, 03/13/19, Dano Colvin Dr. Jay patel Opthal:2017 Pap: 12/14/2014 WNL Mammogram: scheduled 10/09/2018 PPSV23: 03/11/18 Shingrix, will get at pharmacy PHQ2: 03/03/19 Colonoscopy: 03/29/2018 documented in this encounter Plan of Treatment Not on file documented as of this encounter Visit Diagnoses Diagnosis Preop examination- Primary Preoperative examination, unspecified Primary osteoarthritis of right hip Primary localized osteoarthrosis, pelvic region and thigh MRSA (methicillin resistant staph aureus) culture positive Carrier or suspected carrier of Methicillin resistant Staphylococcus aureus Anemia of chronic disease Anemia of other chronic disease documented in this encounter Care Teams Driller And Reamer Relationship Specialty [place] [address] [facility], [address] [place], [place] [id number] PCP - General Internal Medicine 12/02/14 documented as of this encounter
--- OUTSIDE RECORDS SUMMARY | 2024-04-21 18:22 | XMS_ITS | Encounter Summary ---
Author Organization [facility] Address [address] [place] [address] Care Team Providers Care Electronic Commerce Specialist Name Role Phone Jes Arriaga MD Primary Care Provider + Reason for Visit * Reason Comments Follow-up review Medications a nd labs Encounter Details Date Type Department Care Team (Late st Contact Info) Description 04/26/2020 3:40 PM PDT Office Visit [facility] [place] [address] Internal Medicine [address] [phone] [place] [address] [address] Hyponatremia (Primary Dx); Need for influenza vaccination; Need for shingles vaccine; Routine medical exam; Anemia of chronic disease; Protein-calorie malnutrition, unspecified severity (HCC); MRSA (methicillin resistant staph aureus) culture positive; Age related osteoporosis, unspecified pathological fracture presence; Major depressive disorder, recurrent episode, mild (HCC); Other specified hypothyroidism; Essential hypertension Social History Tobacco Use Types Packs/Day Years [...] Sign Reading Time Taken Comments Blood Pressure 121/75 04/26/2020 3:47 PM PDT Pulse 63 04/26/2020 3:47 PM PDT Temperature 36.4 ??C (97.5 ??F) 04/26/2020 3:47 PM PD T Respiratory Rate 16 04/26/2020 3:47 PM PDT Oxygen Saturation 98% 04/26/2020 3:47 PM PDT Inhaled Oxygen Concentration - - Weight 48.1 kg (106 lb) 04/26/2020 3:47 PM PDT Height - - Body Mass Index 17.64 03/03/2019 11:37 AM PDT documented in this encounter Patient Instructions * Patient Instructions* Jes Arriaga MD - 04/26/2020 4:30 PM PDT Please book a nurse visit at front desk attendant for your Shingrix vaccine (#2) - 2-6 mo Lab reviewed 01/2020 Please call for mammogram [facility] [phone] [address] [facility] [address] [facility] [address] Eye 2020 - annual follow up DEXA 2019 Colonoscopy 2018 - follow up in 10 yrs Influenza vaccine given 04/26/2020 Shingrix #1 given 04/26/2020 Tdap (tetanus shot) - please obtain at your pharmacy (good for 10 years) Med list to be confirmed at home: FLUoxetine (PROzac, SARAFEM) 10 mg Capsule, Take [...] No current facility-administered medications for this visit. Lab in January (fasting) See me in January documented in this encounter Progress Notes * Jes Arriaga MD - 04/26/2020 4:45 PM PDT Quin Dias is a 69 year old female who comes to clinic today for Chief Complaint Patient presents with ??? Follow-up review Medications and labs Nursing Notes: Amirah Ramirez 04/26/2020 3:47 PM Signed Quin Dias is a 69 year old female who presents for follow up review medications and labs Amirah Ramirez 04/26/2020 4:18 PM Signed Quin Dias is a 69 year old female who presents for follow up review med and labs. Opthal:2019 Pap: 12/14/2014 WNL Mammogram: scheduled 10/09/2018, DUE PPSV23: 03/11/18 Shingrix, 04/26/20 PHQ2: 04/26/20 Colonoscopy: 03/29/2018 PPSV23;03/11/18 Tdap: DUE AWV: DUE HPI Here for lab review and med rec Gets refills from (, kye) Not sure of dosage she is on Doing well H/o chronic anemia Seen by GI (colonoscopy, EGD and capsule done) and Hematology (BMBx) No sig findings Patient is a vegetarian Patient Active Problem List Diagnosis ??? Major [...] updated to reflect current medications as of 04/26/2020 No Known Allergies Social History Socioeconomic History [...] Endo/Heme/Allergies: Negative. Psychiatric/Behavioral: Negative. PHQ-2 Results BP: 121/75 Pulse: 63 Temp: 97.5 ??F (36.4 ??C) Resp: 16 Height: (not recorded) Weight: 106 lb (48.1 kg)Body mass index is 17.64 kg/m??. Physical Exam Constitutional: She is well-developed, well-nourished, and in no distress. Neck: Normal range of motion. Neck supple. Cardiovascular: Normal rate, regular rhythm, normal heart sounds and intact distal pulses. Pulmonary/Chest: Effort normal and breath sounds normal. No respiratory distress. She has no wheezes. Abdominal: Soft. Bowel sounds are normal. She exhibits no distension. There is no abdominal tenderness. Musculoskeletal: General: No edema. Neurological: Gait normal. Skin: Skin is warm and dry. Very thin WF Assessment & Plan: 1. Hyponatremia Mild S/p nephro evaluation 2. Need for influenza vaccination Given - IIV4 VACC PRESRV FREE 0.5 ML DOS FOR IM USE 3. Need for shingles vaccine Given #1 - HZV ZOSTER VACC RECOMBINANT ADJUVANTED IM NJX 4. Routine medical exam Lab ordered for January 2021 - CBC WITH AUTO DIFFERENTIAL, REFLEX MANUAL DIFFERENTIAL IF INDICATED; Future - COMPREHENSIVE METABOLIC PANEL; Future - HEMOGLOBIN A1C W/MPG; Future - LIPID PANEL; Future - TSH, 3RD GENERATION W/RFLX TO FT4; Future - URINALYSIS WITH REFLEX MICROSCOPIC & CULTURE, IF INDICATED; Future 5. Anemia of chronic disease stable 6. Protein-calorie malnutrition, unspecified severity (HCC) Stable Patient states she does eat well Still underweight 7. MRSA (methicillin resistant staph aureus) culture positive No symptoms 8. Age related osteoporosis, unspecified pathological fracture presence stable 9. Major depressive disorder, recurrent episode, mild (HCC) Stable On med 10. Other specified hypothyroidism Stable On med 11. Essential hypertension Controlled on meds Please book a nurse visit at front desk attendant for your Shingrix vaccine (#2) - 2-6 mo Lab reviewed 01/2020 Please call for mammogram [facility] [phone] [address] [facility] [address] [facility] [address] Eye 2019 - annual follow up DEXA 2018 Colonoscopy 2018 - follow up in 10 yrs Influenza vaccine given 04/26/2020 Shingrix #1 given 04/26/2020 Tdap (tetanus shot) - please obtain at your pharmacy (good for 10 years) Med list to be confirmed at home: FLUoxetine (PROzac, SARAFEM) 10 mg Capsule, Take [...] No current facility-administered medications for this visit. Lab in January (fasting) See me in January All Orders Placed in this Encounter ??? CBC with Auto Differential, Reflex Manual Differential if Indicated ??? Comprehensive Metabolic Panel ??? Hemoglobin A1C w/MPG ??? Lipid Panel ??? TSH, 3rd Generation w/rflx to FT4 ??? URINALYSIS, COMPLETE W/REFLEX TO CULTURE ??? Flu vaccine quadrivalent preservative-free (FluLaval, Fluarix) IM ??? Zoster vaccine recombinant (SHINGRIX) IM ??? FLUoxetine (PROzac, SARAFEM) 10 mg Capsule Sig: Take 10 mg by mouth once a day. The patient Quin Dias indicates understanding of these issues and agreement with the plan. Pt is aware of the importance of close followup. Pt assures me that plans we discussed today will be carried out. Pt aware that if current condition worsens or persists, pt may see myself or any available MD for evaluation. health maintenance: Opthal:2020 Pap: 12/14/2014 WNL Mammogram: scheduled 10/09/2018, DUE PPSV23: 03/11/18 Shingrix, 04/26/20 PHQ2: 04/26/20 Colonoscopy: 03/29/2018 PPSV23;03/11/18 Tdap: DUE AWV: DUE Summary: . Normal terminal ileum,cecum, ileocecal valve, [...] duodenum . 6 bs taken. Labs: 01/03/2018 Mammo:2018, patient will send copy, 05/2017 Dexa: 01/07/17 BONE DENSITY MEASUREMENTS: IMPRESSION: OSTEOPENIABONE DENSITY MEASUREMENTS: DATE BMD T-SCORE %REF Z-SCORE AGE MATCH BODY PART 01/07/2015 0.691 -1.40 0.0% +0.00 0.0% L femur nec 01/07/2015 0.992 -0.50 0.0% +1.20 0.0% AP L1- IMPRESSION: OSTEOPENIA documented in this encounter Nursing Notes * Amirah Ramirez - 04/26/2020 3:51 PM PDT Quin Dias is a 69 year old female who presents for follow up review med and labs. Opthal:2019 Pap: 12/14/2014 WNL Mammogram: scheduled 10/09/2018, DUE PPSV23: 03/11/18 Shingrix, 04/26/20 PHQ2: 04/26/20 Colonoscopy: 03/29/2018 PPSV23;03/11/18 Tdap: DUE AWV: DUE * Amirah Ramirez - 04/26/2020 3:46 PM PDT Quin Dias is a 69 year old female who presents for follow up review medications and labs documented in this encounter Plan of Treatment Not on file documented as of this encounter Results * (ABNORMAL) URINALYSIS WITH REFLEX MICROSCOPIC & CULTURE, IF INDICATED (03/16/2021 1:37 PM PDT) Color YELLOW YELLOW [facility] Appearance CLOUDY(A) CLEAR [facility] Specific Evans Ur 1.005 1.001 - 1.035 [facility] PH Urine 7.0 5.0 - 8.0 [facility] Gluc Qual NEGATIVE NEGATIVE [facility] Bilirubin Indirect NEGATIVE NEGATIVE [facility] Ketones NEGATIVE NEGATIVE [facility] Blood Urine (part of UA) NEGATIVE NEGATIVE [facility] [place] Protein Ur NEGATIVE NEGATIVE [facility] Nitrite POSITIVE(A) NEGATIVE [facility] Leukocyte Jeanne 1+(A) NEGATIVE [facility] WBC Ur 0-5 < OR = 5 /HPF [facility] RBC/HPF NONE SEEN < OR = 2 /HPF [facility] SQ Epithelial/LPF 0-5 < OR = 5 /HPF [facility] Bacteria Ur MANY(A) NONE SEEN /HPF [facility] Hyaline Casts NONE SEEN NONE SEEN /LPF [facility] Reflexive Urine Culture [facility] Comment:CULTURE INDICATED - RESULTS TO FOLLOW Culture, Urine SEE NOTE(A) [facility] Comment: ??CULTURE, URINE, ROUTINE ?Micro Number: ?[id number] ??Test Status: ? Final ??Specimen Source: ?? [...] Arriaga MD LAB NON-BLOOD Performing Organization Address [facility]/ZIP Co de Phone Number [facility] (E) [employer] [address] [phone] * TSH, 3RD GENERATION W/RFLX TO FT4 (03/16/2021 1:37 PM PDT) TSH 3rd Gen 2.87 0.40 - 4.50 mIU/L [facility] Blood 03/16/2021 1:37 PM PDT 03/17/2021 3:50 AM PDT Jes Arriaga MD LAB BLOOD Performing Organization Address [facility] Co de Phone Number [facility] (E) [employer] [address] [phone] * LIPID PANEL (03/16/2021 1:37 PM PDT) Cholesterol 123 <200 mg/dL [facility] HDL Cholesterol 60 > OR = 50 mg/dL [facility] Triglyceride 83 <150 mg/dL [facility] LDL Chol Calc 46 mg/dL (calc) [facility] Comment: Reference range: <100 Desirable range <100 mg/dL for primary prevention; ?? <70 mg/dL for patients with CHD or diabetic patients with > or = 2 CHD risk factors. LDL-C is now calculated using the Fabi calculation, which is a validated novel method providing better accuracy than the Friedewald equation in the estimation of LDL-C. Marcelo NAVA et al. CHETAN. 2013;310(19): 4100-3342 (http://education.DemandTec/faq/KBY917) CHOL/HDL 2.1 <5.0 (calc) [facility] Non-HDL Chol Calc 63 <130 mg/dL (calc) [facility] Comment: For patients with diabetes plus 1 major ASCVD risk factor, treating to a non-HDL-C goal of <100 mg/dL (LDL-C of <70 mg/dL) is considered a therapeutic option. Blood (BLOOD) 03/16/2021 1:3 7 PM PDT 03/17/2021 3:50 AM PDT Jes Arriaga MD LAB BLOOD Performing Organization Address [facility]/ZIP Co de Phone Number [employer] [employer] [facility] (E) [facility] [address] [place] [phone] * (ABNORMAL) HEMOGLOBIN A1C W/MPG (03/16/2021 1:37 PM PDT) Hgb A1C 5.9(H) <5.7 % of total Hgb [facility] Comment: For someone without known diabetes, a [...] children. Mean Blood Gluc 133 mg/dL (calc) [facility] Blood 03/16/2021 1:37 PM PDT 03/17/2021 3:50 AM PDT Jes Arriaga MD LAB BLOOD Performing Organization Address [facility]/ZIP Co de Phone Number [facility] (E) [facility] [address] [place] [phone] * (ABNORMAL) COMPREHENSIVE METABOLIC PANEL (03/16/2021 1:37 PM PDT) Glucose 102(H) 65 - 99 mg/dL [facility] Comment: ? Fasting reference interval For someone without known diabetes, a glucose value between 100 and 125 mg/dL is consistent with prediabetes and should be confirmed with a follow-up test. BUN 10 7 - 25 mg/dL [facility] Creatinine 0.71 0.50 - 0.99 mg/dL [facility] Comment: For patients >49 years of age, the reference limit for Creatinine is approximately 13% higher for people identified as -Ukrainian. eGFR 87 > OR = 60 mL/min/1 .73m2 [facility] eGFRAA 101 > OR = 60 mL/min/1 .73m2 [facility] BUN/Creatinine Ratio NOT APPLICABLE 6 - 22 (calc) [facility] NA 132(L) 135 - 146 mmol/L [facility] K 4.4 3.5 - 5.3 mmol/L [facility] CL 98 98 - 110 mmol/L [facility] CO2 26 20 - 32 mmol/L [facility] CA 8.7 8.6 - 10.4 mg/dL [facility] Protein Total 6.0(L) 6.1 - 8.1 g/dL [facility] Albumin 3.6 3.6 - 5.1 g/dL [facility] Globulin 2.4 1.9 - 3.7 g/dL (calc) [facility] A/G Ratio 1.5 1.0 - 2.5 (calc) [facility] Bilirubin, Total 0.3 0.2 - 1.2 mg/dL [facility] Alk Phos 82 37 - 153 U/L [facility] AST (SGOT) 15 10 - 35 U/L [facility] ALT (SGPT) 9 6 - 29 U/L [facility] Blood (BLOOD) 03/16/2021 1:3 7 PM PDT 03/17/2021 3:50 AM PDT Jes Arriaga MD LAB BLOOD [employer] (E) [facility] [address] [place] [address] * (ABNORMAL) CBC WITH AUTO DIFFERENTIAL, REFLEX MANUAL DIFFERENTIAL IF INDICATED (03/16/2021 1:37 PM PDT) WBC 11.2(H) 3.8 - 10.8 Thousand/u L [facility] RBC 3.49(L) 3.80 - 5.10 Million/uL [facility] HGB 10.4(L) 11.7 - 15.5 g/dL [facility] HCT 31.8(L) 35.0 - 45.0 % [facility] MCV 91.1 80.0 - 100.[address] [facility] MCH 29.8 27.0 - 33.[address] [facility] MCHC 32.7 32.0 - 36.0 g/dL [facility] RDW 13.0 11.0 - 15.0 % [facility] Platelet 466(H) 140 - 400 Thousand/u L [facility] MPV 9.1 7.5 - 12.[address] [facility] Neutrophil Abs 8,232(H) 1,500 - 7,800 cells/uL [facility] Lymphocyte Abs 1,635 850 - 3,900 cells/uL [facility] Monocyte Abs 885 200 - 950 cells/uL [facility] Eosinophil Abs 347 15 - 500 cells/uL [facility] BASO ABS 101 0 - 200 cells/uL [facility] Nucleated RBC Abs 0 0 cells/uL [facility] Neutrophils % 73.5 % [facility] Lymphocyte % 14.6 % [facility] Monocytes % 7.9 % [facility] Eosinophil % 3.1 % [facility] Basophil % 0.9 % [facility] Blood (BLOOD) 03/16/2021 1:3 7 PM PDT 03/17/2021 3:50 AM PDT Jes Arriaga MD LAB BLOOD [facility] [employer] (E) [facility] [address] [place] [address] documented in this encounter Visit Diagnoses Diagnosis Hyponatremia- Primary Hyposmolality and/or hyponatremia Need for influenza vaccination Need for prophylactic vaccination and inoculation against influenza Need for shingles vaccine Need for prophylactic vaccination and inoculation against other viral diseases Routine medical exam Routine general medical examination at a health care facility Anemia of chronic disease Anemia of other chronic disease Protein-calorie malnutrition, unspecified severity (HCC) MRSA (methicillin resistant staph aureus) culture positive Carrier or suspected carrier of Methicillin resistant Staphylococcus aureus Age related osteoporosis, unspecified pathological fracture presence Major depressive disorder, recurrent episode, mild (HCC) Major depressive disorder, recurrent episode, mild Other specified hypothyroidism Essential hypertension Unspecified essential hypertension documented in this encounter Care Teams Electronic Commerce Specialist Relationship Specialty [place] [address] [facility], [facility] [address] [place] [address] PCP - General Internal Medicine 12/02/14 documented as of this encounter
--- OUTSIDE RECORDS SUMMARY | 2024-04-21 18:22 | XMS_ITS | Encounter Summary ---
Author Organization [facility] Address [address] [place] [address] Care Team Providers Care Hop Trainer Name Role Phone Jes Arriaga MD Primary Care Provider + Reason for Visit * Reason Onset Date Comments Medication Refill 06/11/2023 Encounter Details Date Type Department Care Team (Late st Contact Info) Description 06/11/2023 Telephone [facility] [address] Medicine [address] [phone] [place] [address] [facility] [address] [place] [address] Medication Refill Social History Tobacco Use [...] Arriaga MD - 06/11/2023 6:54 PM PST See other labs Thank you very much * Telephone Encounter - Radha De Los Santos - 06/11/2023 1:47 PM PST Marlee from [employer] called critical lab report ,, call her at [phone]. Thank You documented in this encounter Plan of Treatment Not on file documented as of this encounter Visit Diagnoses Not on filedocumented in this encounter Care Teams Hop Trainer Relationship Specialty [place] [address] [facility], [address] [place] [address] PCP - General Internal Medicine 12/02/14 documented as of this encounter
--- OUTSIDE RECORDS SUMMARY | 2024-04-21 18:22 | XMS_ITS | Encounter Summary ---
Author Organization [facility] Address [address] [place] [address] Care Team Providers Care Felt Hat Mellowing Machine Operator Name Role Phone Jes Arriaga MD Primary Care Provider + Reason for Referral * Radiology (Routine) - Closed Specialty Diagnoses / Procedures Referred By Contac t Referred To Contact Radiology Diagnoses Disorder of bone Osteopenia, unspecified location Procedures [place] [address] [facility], [address] [place] [address] Referral ID Status Reason Start Date Expiration Date Visits Re quested Visits Authorized [id number] Closed 09/26/2018 12/25/2018 1 1 Reason for Visit * (Routine) - Closed Specialty Diagnoses / Procedures Referred By Contac t Referred To Contact Radiology Procedures [facility] [place] [address] [facility], [address] [place] [address] [facility] Jimmy Matson [address] [place] [address], [address] [place] [id number] Referral ID Status Reason Start Date Expiration Date Visits Re quested Visits Authorized [id number] Closed 10/10/2018 01/08/2019 1 1 Encounter Details Date Type Department Care Team (Late st Contact Info) Description 10/10/2018 1:11 PM PDT - 10/10/2018 11:59 PM PDT Hospital Encounter [facility] [address] [facility], [address] [place] [address] [place] [address] [facility], [address] [place], [place] [address] Dx: Disorder of bone Discharge Disposition: Home Social History Tobacco Use [...] Sig Dispensed Refills Start Date End Date losartan (COZAAR) 100 mg Tablet Take 100 mg by mouth every day. FLUoxetine (PROzac) 20 mg Tablet tabletIndications:Major depressive disorder, recurrent episode, mild (HCC) Take 1 tablet by mouth once a day. 90 tablet 3 03/11/2018 04/26/2020 amLODIPine (NORVASC) 10 mg tabletIndications:Essenti al hypertension, hypertension with unspecified goal Take 1 Tab (10 mg) by mouth every day. 90 Tab 3 02/01/2016 03/13/2022 LEVOTHYROXINE SODIUM (SYNTHROID ORAL) Take 88 mcg by mouth. 03/08/2022 documented as of this encounter Plan of Treatment Not on file documented as of this encounter Procedures Procedure Name Priority Date/Time Associated Diagnosis Comments BONE MINERAL DENSITY Routine 10/10/2018 2:10 PM PDT Disorder of bone Osteopenia, unspecified location documented in this encounter Results * BONE MINERAL DENSITY (10/10/2018 2:10 PM PDT) Anatomical Region Laterality Modality Digital Radiogra phy Jes Arriaga MD DX IMG DIAG/X-RA Y documented in this encounter Visit Diagnoses Diagnosis Disorder of bone Disorder of bone and cartilage, unspecified Osteopenia, unspecified location documented in this encounter Care Teams Felt Hat Mellowing Machine Operator Relationship Specialty Start [place] [address] [facility], [address] [place], [place] [address] PCP - General Internal Medicine 12/02/14 documented as of this encounter
--- OUTSIDE RECORDS SUMMARY | 2024-04-21 18:22 | XMS_ITS | Encounter Summary ---
Author Organization [facility] Address [address] [place] [address] Care Team Providers Care Lubrication Supervisor Name Role Phone Jes Arriaga MD Primary Care Provider + Encounter Details Date Type Department Care Team (Late st Contact Info) Description 12/21/2021 Orders Only [facility] Lab [address] [place] [phone] [place] [address] [facility], [address] [place] [address] Social History Tobacco Use Types [...] Primary documented in this encounter Care Teams Lubrication Supervisor Relationship Specialty [place] [address] [facility], [address] [place] [address] PCP - General Internal Medicine 12/02/14 documented as of this encounter
--- OUTSIDE RECORDS SUMMARY | 2024-04-21 18:22 | XMS_ITS | Encounter Summary ---
Author Organization [facility] Address [address] [place] [address] Care Team Providers Care Tile And Marble Setter Name Role Phone Jes Arriaga MD Primary Care Provider + Reason for Referral * Radiology (Routine) - Closed Specialty Diagnoses / Procedures Referred By Dinorah garcia Referred To Contact Radiology Diagnoses Encounter for screening mammogram for malignant neoplasm of breast Dense breasts Procedures BC MAMMO BILATERAL 3D SCREENING SCREENING DIGITAL BREAST [place] [address] [facility], [address] [place] [address] [facility] Breast Referral ID Status Reason Start Date Expiration Date Visits Re quested Visits Authorized [id number] Closed 06/27/2021 09/25/2021 2 2 Reason for Visit * (Routine) - Closed Specialty Diagnoses / Procedures Referred By Dinorah garcia Referred To Contact Diagnostic Radiology / Radiology Diagnoses SCREEN Procedures OCM [place] [address] [facility], [address] [place] [address] [facility] [address] [facility], [address] [place] [address] Referral ID Status Reason Start Date Expiration Date Visits Re quested Visits Authorized [id number] Closed 06/28/2021 09/26/2021 1 1 Encounter Details Date Type Department Care Team (Late st Contact Info) Description 06/28/2021 12:44 PM PST - 06/28/2021 11:59 PM PST Hospital Encounter [address], [facility] [address] [place] [address] [place] [address] [facility], [address] [place] [address] Dx: Encounter for screening mammogram for malignant neoplasm of breast Discharge Disposition: Home Social History Tobacco Use [...] Sig Dispensed Refills Start Date End Date FLUoxetine (PROzac, SARAFEM) 10 mg Capsule Take 10 mg by mouth once a day. losartan (COZAAR) 100 mg Tablet Take 100 mg by mouth every day. amLODIPine (NORVASC) 10 mg tabletIndications:Essentia l hypertension, hypertension with unspecified goal Take 1 Tab (10 mg) by mouth every day. 90 Tab 3 02/01/2016 03/13/2022 LEVOTHYROXINE SODIUM (SYNTHROID ORAL) Take 88 mcg by mouth. 03/08/2022 documented as of this encounter Plan of Treatment Not on file documented as of this encounter Procedures Procedure Name Priority Date/Time Associated Diagnosis Comments SCREENING MAMMO BILAT W/CAD W/CHRIS Routine 06/28/2021 1:57 PM PST Encounter for screening mammogram for malignant neoplasm of breast Dense breasts documented in this encounter Results * BC [...] by: DAVE RASMUSSEN M.D. AT: 06/29/2021 14:32:[address] MAINTENANCE CREW WORKER: BASIM FARAH, [facility] Narrative 06/29/2021 2:37 PM PST BILATERAL SCREENING [...] compared to prior imaging studies performed at [facility] on 10/14/2018, and at [facility] on 01/01/2014 and 08/03/2017. TECHNIQUE: Digital mammographic images were obtained using a [employer] mammographic system. Views obtained: bilateral craniocaudal with [...] been compared to prior imaging studiesperformed at [facility] on 10/14/2018, andat [facility] on 01/01/2014 and 08/03/2017. TECHNIQUE: Digital mammographic images were obtained using a Digital [employer] Dim[employer]Mobiquitymmographic system. Views obtained: bilateral craniocaudal withtomosynthesis and [...] by: DAVE RASMUSSEN M.D. AT: 06/29/2021 14:32:[address] MAINTENANCE CREW WORKER: BASIM FARAH, [facility] Jes Arriaga MD MG IMG MAMMO PRO CEDURE documented in this encounter Visit Diagnoses Diagnosis Encounter for screening mammogram for malignant neoplasm of breast Other screening mammogram Dense breasts Inconclusive mammogram documented in this encounter Care Teams Tile And Marble Setter Relationship Specialty Start [place] [address] [facility], [address] [place] [address] PCP - General Internal Medicine 12/02/14 documented as of this encounter
--- OUTSIDE RECORDS SUMMARY | 2024-04-21 18:22 | XMS_ITS | Encounter Summary ---
Author Organization [facility] Address [address] [place] [address] Care Team Providers Care Screen Printing Equipment Setter Name Role Phone Jes Arriaga MD Primary Care Provider + Reason for Referral * Radiology (Routine) - Closed Specialty Diagnoses / Procedures Referred By Contac t Referred To Contact Radiology Diagnoses Postmenopausal status Age related osteoporosis, unspecified pathological fracture presence Procedures BC DEXA BONE DENSITY AXIAL DEXA,BONE DENSITY, 1 + SITE, [place] [address] [address], [address] [place] [address] [facility] Breast Referral ID Status Reason Start Date Expiration Date Visits Re quested Visits Authorized [id number] Closed 06/27/2021 09/25/2021 2 2 [facility] Reason for Visit * (Routine) - Closed Specialty Diagnoses / Procedures Referred By Contac t Referred To Contact Diagnostic Radiology / Radiology Diagnoses Asymptomatic menopausal state Age-related osteoporosis without current pathological fracture DEXA Procedures [place] [address] [address] [facility], [address] [place] [address] [facility] [address] [place] [address], [address] [place] [address] Referral ID Status Reason Start Date Expiration Date Visits Re quested Visits Authorized [id number] Closed 06/28/2021 09/26/2021 1 1 Encounter Details Date Type Department Care Team (Late st Contact Info) Description 06/28/2021 12:43 PM PST Hospital Encounter [address], [facility] [address] [place] [address] [place] [address] [address], [address] [place] [address] Dx: Postmenopausal status Discharge Disposition: Home Social History Tobacco Use [...] Name Priority Date/Time Associated Diagnosis Comments BONE DENSITY AXIAL Routine 06/28/2021 1:33 PM PST Postmenopausal status Age related osteoporosis, unspecified pathological fracture presence documented in this encounter Results * BC DEXA BONE DENSITY AXIAL (06/28/2021 1:33 PM PST) Anatomical Region Laterality Modality Mammography Jes Arriaga MD BD IMG BONE DENS ITY documented in this encounter Visit Diagnoses Diagnosis Postmenopausal status Asymptomatic postmenopausal status (age-related) (natural) Age related osteoporosis, unspecified pathological fracture presence documented in this encounter Care Teams Screen Printing Equipment Setter Relationship Specialty Start [place] [address] [address], [address] [place] [address] PCP - General Internal Medicine 12/02/14 documented as of this encounter
--- OUTSIDE RECORDS SUMMARY | 2024-04-21 18:22 | XMS_ITS | Encounter Summary ---
Author Organization [facility] Address [address] [place] [address] Care Team Providers Care Cardiac Monitor Name Role Phone Jes Arriaga MD Primary Care Provider + Reason for Visit * Reason Onset Date Comments Medication Refill 05/31/2022 Encounter Details Date Type Department Care Team (Late st Contact Info) Description 05/31/2022 Refill [facility] [place] [address] [address] [address] Aysha Palacios CNM [address] [address] Medication Refill Social History Tobacco [...] encounter Miscellaneous Notes * Telephone Encounter - Aysha Palacios CNM - 05/31/2022 6:16 PM PDT C/O vaginal dryness post menopausal and requests refill of Vagifem. Done. documented in this encounter Plan of Treatment Not on file documented as of this encounter Visit Diagnoses Diagnosis Recurrent UTI- Primary Urinary tract infection, site not specified Vaginal dryness, menopausal Symptomatic menopausal or female climacteric states documented in this encounter Care Teams Cardiac Monitor Relationship Specialty [place] [address] [facility], [address] [place] [address] PCP - General Internal Medicine 12/02/14 documented as of this encounter
--- OUTSIDE RECORDS SUMMARY | 2024-04-21 18:22 | XMS_ITS | Encounter Summary ---
Author Organization [facility] Address [address] [place] [address] Care Team Providers Care Technical Operations Manager Name Role Phone Jes Arriaga MD Primary Care Provider + Reason for Visit * Reason Onset Date Comments Other 06/07/2023 Encounter Details Date Type Department Care Team (Late st Contact Info) Description 06/07/2023 Telephone [place] [address] Internal Medicine [address] [facility] [address] [place] [address] [place] [address] [facility] [address] [place] [address] Other Social History Tobacco Use Types Packs/Day [...] encounter Miscellaneous Notes * Telephone Encounter - Emily Rodriguez MA - 06/07/2023 11:18 AM PST AWV packet sent to be mailed to patient. * Telephone Encounter - Cristina Andujar - 06/07/2023 10:07 AM PST Pls send out AWV packet to pt. appt on 08-27-2023 Address on file confirmed documented in this encounter Plan of Treatment Not on file documented as of this encounter Visit Diagnoses Not on filedocumented in this encounter Care Teams Technical Operations Manager Relationship Specialty Start [place] [address] [facility], [facility] [address] [place] [phone] PCP - General Internal Medicine 12/02/14 documented as of this encounter
--- OUTSIDE RECORDS SUMMARY | 2024-04-21 18:22 | XMS_ITS | Encounter Summary ---
Author Organization [facility] Address [address] [place] [address] Care Team Providers Care Napper Fixer Name Role Phone Jes Arriaga MD Primary Care Provider + Reason for Visit * Reason Comments Follow-up Encounter Details Date Type Department Care Team ([facility] Contact Info) Description 10/14/2018 3:45 PM PDT Office Visit [facility] [address] [place], [place] [id number] [place] [address] [facility], [address] [place] [address] Iron deficiency anemia, unspecified iron deficiency anemia type (Primary Dx); Anemia, unspecified type; Eosinophilia Social History Tobacco Use Types Packs/Day Years [...] Sign Reading Time Taken Comments Blood Pressure 100/58 10/14/2018 3:08 PM PDT Pulse 60 10/14/2018 3:08 PM PDT Temperature 36.3 ??C (97.4 ??F) 10/14/2018 3:08 PM PD T Respiratory Rate 16 10/14/2018 3:08 PM PDT Oxygen Saturation - - Inhaled Oxygen Concentration - - Weight 51.3 kg (113 lb) 10/14/2018 3:08 PM PDT Height 165.1 cm (5' 5) 10/14/2018 3:08 PM PDT Body Mass Index 18.8 10/14/2018 3:08 PM PDT documented in this encounter Progress Notes * Rizwana Neal MD - 10/14/2018 3:03 PM PDT 10/14/2018 RE: Quin Dias : 1950 REASON FOR CONSULTATION: Anemia HPI: She presents today with her for a follow up visit and to discuss labs. Her most recent labsdemonstrated a drop in Hemoglobin to 9.4, with persistent eosinophilia. She has postponed her hip surgery secondary to labs and MRSA postive cultures. She has seen nephrology. Continues to take Iron,however has mild abdomen discomfort with it. No new symptoms. Brief Initial History: Quin Dias is a 68 year old female with a past medical history of hypothyroid and HTN. She presents today for evaluation of anemia. 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 She was to have hip surgery, and was found to have anemia so the procedure was halted. She reports to have had a full GI workup, which was negative for any bleeding. She has been on Ironpills (2 pills over the last 3 years, increased iron to 3 pills a day since July 2018). 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 Review of Systems - 14 point system reviewed, pertinent positives documented in HPI PHYSICAL EXAMINATION: Vitals: 10/14/18 1508 BP: 100/58 Pulse: 60 Temp: 97.4 ??F (36.3 ??C) Resp: 16 Height: 1.651 m (5' 5) Weight: 51.3 kg (113 lb) GEN: cooperative HEENT: Normal NEURO: Non-Focal Exam LUNGS: clear to auscultation bilaterally HEART: regular rate and rhythm, S1, S2 normal, no murmur, click, rub or gallop ABD: soft, non-tender. Bowel sounds normal. No masses, no organomegaly EXT: extremities normal, atraumatic, no cyanosis or edema LABS: Ref. Range 08/02/2018 12:00 09/18/2018 15:20 WBC Latest Ref Range: 3.8 - 10.8 Thousand/uL 12.7 (H) 10.4 RBC Latest Ref Range: 3.80 - 5.10 Million/uL 3.37 (L) 3.83 HGB Latest Ref Range: 11.7 - 15.5 g/dL 9.9 (L) 11.8 HCT Latest Ref Range: 35.0 - 45.0 % 31.3 (L) 34.7 (L) MCV Latest Ref Range: 80.0 - 100.0 fL 92.9 90.6 MCH Latest Ref Range: 27.0 - 33.0 pg 29.4 30.8 MCHC Latest Ref Range: 32.0 - 36.0 g/dL 31.6 (L) 34.0 RDW Latest Ref Range: 11.0 - 15.0 % 14.5 14.0 Platelet Latest Ref Range: 140 - 400 Thousand/uL 363 378 MPV Latest Ref Range: 7.5 - 12.5 fL 9.4 9.4 BASO ABS Latest Ref Range: 0 - 200 cells/uL 76 177 Neutrophils % Latest Units: % 79.3 49.7 Lymphocyte % Latest Units: % 11.1 26.2 Monocytes % Latest Units: % 7.9 9.2 Eosinophil % Latest Units: % 1.1 13.2 Basophil % Latest Units: % 0.6 1.7 Neutrophil Abs Latest Ref Range: 1,500 - 7,800 cells/uL 10,071 (H) 5,169 Lymphocyte Abs Latest Ref Range: 850 - 3,900 cells/uL 1,410 2,725 Monocyte Abs Latest Ref Range: 200 - 950 cells/uL 1,003 (H) 957 (H) Eosinophil Abs Latest Ref Range: 15 - 500 cells/uL 140 1,373 (H) Slide Review Unknown See Comment Retic Count Latest Units: % 1.3 Retic Abs Latest Ref Range: 20,000 - 80,000 cells/uL 49,790 Nucleated RBC Abs Latest Ref Range: 0 cells/uL 0 APTT Latest Ref Range: 22 - 34 sec 29 PT Latest Ref Range: 9.0 - 11.5 sec 10.3 INR Unknown 1.0 Fibrinogen Activity, Clauss Latest Ref Range: 175 - 425 mg/dL 266 GLUCOSE Latest Ref Range: 65 - 99 mg/dL 86 93 BUN Latest Ref Range: 7 - 25 mg/dL 10 9 Creatinine Latest Ref Range: 0.50 - 0.99 mg/dL 0.76 0.88 eGFR Latest Ref Range: > OR = 60 mL/min/1.73m2 81 68 eGFRAA Latest Ref Range: > OR = 60 mL/min/1.73m2 94 79 NA Latest Ref Range: 135 - 146 mmol/L 130 (L) 131 (L) K Latest Ref Range: 3.5 - 5.3 mmol/L 3.9 4.4 CL Latest Ref Range: 98 - 110 mmol/L 94 (L) 94 (L) CO2 Latest Ref Range: 20 - 32 mmol/L 23 29 CA Latest Ref Range: 8.6 - 10.4 mg/dL 8.6 10.5 (H) Protein Total Latest Ref Range: 6.1 - 8.1 g/dL 6.3 7.7 Globulin Latest Ref Range: 1.9 - 3.7 g/dL (calc) 2.8 2.8 A/G Ratio Latest Ref Range: 1.0 - 2.5 (calc) 1.3 1.8 Bilirubin, Total Latest Ref Range: 0.2 - 1.2 mg/dL 0.3 0.3 ALT (SGPT) Latest Ref Range: 6 - 29 U/L 24 18 AST (SGOT) Latest Ref Range: 10 - 35 U/L 33 25 Alk Phos Latest Ref Range: 33 - 130 U/L 120 96 LDH Latest Ref Range: 120 - 250 U/L 236 Iron Latest Ref Range: 45 - 160 mcg/dL 24 (L) Iron % Sat Latest Ref Range: 11 - 50 % (calc) 9 (L) IBC Latest Ref Range: 250 - 450 mcg/dL (calc) 255 Haptoglobin Latest Ref Range: 43 - 212 mg/dL 130 Copper Latest Ref Range: 70 - 175 mcg/dL 175 Ferritin Latest Ref Range: 20 - 288 ng/mL 110 Folate Latest Units: ng/mL >24.0 Albumin Latest Ref Range: 3.8 - 4.8 g/dL 3.5 (L) 4.9 (H) Alpha 1 Latest Ref Range: 0.2 - 0.3 g/dL 0.3 Alpha 2 Latest Ref Range: 0.5 - 0.9 g/dL 0.8 Gamma Latest Ref Range: 0.8 - 1.7 g/dL 1.1 RODRIGO Interp Serum Unknown Single fraction s... Vitamin B12 Latest Ref Range: 200 - 1,100 pg/mL 1,452 (H) Zinc Latest Ref Range: 60 - 130 mcg/dL 66 Puryear Free LC Latest Ref Range: 3.3 - 19.4 mg/L 25.8 (H) BUN/Creatinine Ratio Latest Ref Range: 6 - 22 (calc) NOT APPLICABLE NOT APPLICABLE Methylmalonic Acid Latest Ref Range: 87 - 318 nmol/L 245 IgA Latest Ref Range: 81 - 463 mg/dL 121 Tissue Transglut Ab, IgA Latest Units: U/mL <1 Beta 1 Globulin Latest Ref Range: 0.4 - 0.6 g/dL 0.4 Beta 2 Globulin Latest Ref Range: 0.2 - 0.5 g/dL 0.3 LABS 09/30/2018: WBC: 9 H.4 Hct: 28.8 MCV: 94.1 RDW 15.3 Platelets: 347 Abs Eos: 1.19 IMPRESSION: Quin Dias is a 68 year old female with a past medical history of hypothyroid and HTN. She ishere for evaluation of anemia. * Anemia - Normocytic, Normochromic - improved after increase of iron pills, Hg 11.8 g/dl but dropped again to 9.4 g/dl - Anemia workup reviewed, no specific cause, appears inflammatory/Chronic in nature, inflammation is suggestive with the slightly elevated Puryear chain, and non specific SPE findings. - On Iron pills, has increased to 3 pills a day since Jul 2018, with Vit C - She has been evaluated for GI bleeding, no evidence of bleed -No evidence of nutritional, myeloma or celiac disease - Discussed trial run of Veno david (1000 mg), she is agreeable to this. If no improvement then will consider bone marrow biospy, and possible addition of EPO for Iron Utilization. * Eosinophilia: - Abs count of 1K. No complaints of diarrhea or worry for strongyloides. No evidence of rash or other allergic component. - Plan to trend closely, if continous increase will follow up with appropriate investigations including mutation testing (PDGFRA, JAK2, Tryptase, Stool for Ova, etc) - Repeat labs in 6 weeks * Hyponatremia: - With no evidence of renal failure - Evaluation per Nephrology PLAN: -Veno david 200 mg x 5 doses. If not improvement plan to perform bone marrow biospy - Repeat CBC/Dif, Iron/Ferritin and Retic in 8 weeks. - Will check mutations if Eos remain elevated Discussed possible bone marrow biopsy if labs need further clarification, she states understanding to above mentioned plan. Sincerely, Rizwana Neal MD Hematology/Oncology Thank you again for allowing me to participate in your patient's care. Please do not hesitate to call if any questions or new issues arise. documented in this encounter Plan of Treatment Not on file documented as of this encounter Visit Diagnoses Diagnosis Iron deficiency anemia, unspecified iron deficiency anemia type- Primary Anemia, unspecified type Eosinophilia documented in this encounter Care Teams Napper Fixer Relationship Specialty [place] [address] [facility], [address] [place], [place] [address] PCP - General Internal Medicine 12/02/14 documented as of this encounter
--- OUTSIDE RECORDS SUMMARY | 2024-04-21 18:22 | XMS_ITS | Encounter Summary ---
Author Organization [facility] Address [address] [place] [address] Care Team Providers Care Pulper Name Role Phone Jes Arriaga MD Primary Care Provider + Encounter Details Date Type Department Care Team (Late st Contact Info) Description 06/14/2023 1:40 PM PST Orders Only [facility] [address] [place] [id number] Social History Tobacco Use Types Packs/Day Years [...] Associated Diagnosis Comments REFLEXIVE T4 FREE Routine 06/14/2023 1:3 0 PM PST SPECIMEN STATUS REPORT Routine 06/14/2023 1:30 PM PST TSH, 3RD GENERATION W/RFLX TO FT4 Routine 06/14/2023 1:30 PM PST Other specified hypothyroidism COMPREHENSIVE METABOLIC PANEL Routine 06/14/2023 1:30 PM PST Other fatigue CBC WITH AUTO DIFFERENTIAL, REFLEX MANUAL DIFFERENTIAL IF INDICATED Routine 06/14/2023 1:30 PM PST Other fatigue documented in this encounter Results * SPECIMEN STATUS REPORT (06/14/2023 1:30 PM PST) [facility] Specimen Status Report Comment [facility] 1 Comment: Please note Please note The date and/or time of collection was not indicated on the requisition as required by state and federal law. ??The date of receipt of the specimen was used as the collection date if not supplied. 06/14/2023 1:30 PM PST 06/15/2023 Narrative [facility] - 06/15/2023 10:35 AM PST Performed at: ??01 - [facility] [place] [address], [place], [place] ??[id number] Community Service Officer: Bianca Benz MD, Phone: ??[phone] Jes Arriaga MD LAB AMB REFERENC E LAB Performing Organization Address [facility]/ZIP Co de Phone Number [facility] * REFLEXIVE T4 FREE (06/14/2023 1:30 PM PST) [facility] T4,Free (Direct) 1.15 0.82 - 1.77 ng/dL [facility] 1 06/14/2023 1:30 PM PST 06/15/2023 Narrative [facility] - 06/15/2023 10:35 AM PST Performed at: ??01 - [facility] [place] [address], [place], [place] ??[id number] Community Service Officer: Bianca Benz MD, Phone: ??[phone] Jes Arriaga MD LAB BLOOD Performing Organization Address [facility]/ZIP Co de Phone Number [facility] * (ABNORMAL) TSH, 3RD GENERATION W/RFLX TO FT4 (06/14/2023 1:30 PM PST) [facility] TSH 10.400(H) 0.450 - 4.500 uIU/mL [facility] 1 Blood 06/14/2023 1:30 PM PST 06/15/2023 Narrative [facility] - 06/15/2023 10:35 AM PST Performed at: ??01 - [facility] [address], [place], [place] ??[id number] Community Service Officer: Bianca Benz MD, Phone: ??[phone] Jes Arriaga MD LAB BLOOD [facility] * (ABNORMAL) COMPREHENSIVE METABOLIC PANEL (06/14/2023 1:30 PM PST) [facility] Glucose 88 70 - 99 mg/dL [facility] 1 BUN 10 8 - 27 mg/dL [facility] 1 Creatinine 0.86 0.57 - 1.00 mg/dL [facility] 1 eGFR 72 >59 mL/min/1.7 3 [facility] 1 BUN/Creatinine Ratio 12 12 - 28 [facility] 1 NA 133(L) 134 - 144 mmol/L [facility] 1 K 5.0 3.5 - 5.2 mmol/L [facility] 1 CL 96 96 - 106 mmol/L [facility] 1 CO2 26 20 - 29 mmol/L [facility] 1 CA 9.1 8.7 - 10.3 mg/dL [facility] 1 Protein Total 6.2 6.0 - 8.5 g/dL [facility] 1 Albumin 3.1(L) 3.8 - 4.8 g/dL [facility] 1 Globulin 3.1 1.5 - 4.5 g/dL [facility] 1 A/G Ratio 1.0(L) 1.2 - 2.2 [facility] 1 Bilirubin, Total 0.3 0.0 - 1.2 mg/dL [facility] 1 Alk Phos 88 44 - 121 IU/L [facility] 1 AST (SGOT) 50(H) 0 - 40 IU/L [facility] 1 ALT (SGPT) 34(H) 0 - 32 IU/L [facility] 1 Blood (BLOOD) 06/14/2023 1:3 0 PM PST 06/15/2023 Narrative [facility] - 06/15/2023 10:35 AM PST Performed at: ??01 - [facility] [facility] [address] [address], [place], [place] ??[id number] Community Service Officer: Bianca Benz MD, Phone: ??[phone] Jes Arriaga MD LAB BLOOD [facility] * (ABNORMAL) CBC WITH AUTO DIFFERENTIAL, REFLEX MANUAL DIFFERENTIAL IF INDICATED (06/14/2023 1:30 PM PST) WBC 8.3 3.4 - 10.8 x10E3/uL [facility] 1 RBC 3.37(L) 3.77 - 5.28 x10E6/uL [facility] 1 HGB 9.7(L) 11.1 - 15.9 g/dL [facility] 1 HCT 30.1(L) 34.0 - 46.6 % [facility] 1 MCV 89 79 - 97 fL [facility] 1 MCH 28.8 26.6 - 33.0 pg [facility] 1 MCHC 32.2 31.5 - 35.7 g/dL [facility] 1 RDW 13.1 11.7 - 15.4 % [facility] 1 Platelet 558(H) 150 - 450 x10E3/uL [facility] 1 Neutrophils % 70 Not Estab. % [facility] 1 Lymphocyte % 19 Not Estab. % [facility] 1 Monocytes % 8 Not Estab. % [facility] 1 Eosinophil % 1 Not Estab. % [facility] 1 Basophil % 1 Not Estab. % [facility] 1 Neutrophil Abs 5.8 1.4 - 7.0 x10E3/uL [facility] 1 Lymphocyte Abs 1.6 0.7 - 3.1 x10E3/uL [facility] 1 Monocyte Abs 0.6 0.1 - 0.9 x10E3/uL [facility] 1 Eosinophil Abs 0.1 0.0 - 0.4 x10E3/uL [facility] 1 BASO ABS 0.1 0.0 - 0.2 x10E3/uL [facility] 1 Immature Granulocytes 1 Not Estab. % [facility] 1 Immature Grans (Abs) 0.1 0.0 - 0.1 x10E3/uL [facility] 1 Blood (BLOOD) 06/14/2023 1:3 0 PM PST 06/15/2023 Narrative [facility] - 06/15/2023 10:35 AM PST Performed at: ??01 - [facility] [place] [address] ??[facility] [address], [place], [place] ??[id number] Community Service Officer: Bianca Benz MD, Phone: ??[phone] Jes Arriaga MD LAB BLOOD [facility] 1 documented in this encounter Visit Diagnoses Diagnosis Other fatigue Other specified hypothyroidism documented in this encounter Care Teams Pulper Relationship Specialty [place] [address] [facility], [address] [place] [address] PCP - General Internal Medicine 12/02/14 documented as of this encounter
--- OUTSIDE RECORDS SUMMARY | 2024-04-21 18:22 | XMS_ITS | Encounter Summary ---
Author Organization Formerly [facility] Address [address] [place] [address] Care Team Providers Care Director Of National Sales Name Role Phone Jes Arriaga MD Primary Care Provider + Encounter Details Date Type Department Care Team (Late st Contact Info) Description 02/24/2020 3:40 PM PDT Orders Only [facility] [address] [place] [phone] Social History Tobacco Use Types Packs/Day Years [...] Procedure Name Priority Date/Time Associated Diagnosis Comments IRON, TOTAL AND TOTAL IRON BINDING CAPACITY Routine 02/24/2020 3:58 PM PDT Anemia of chronic disease TSH, 3RD GENERATION W/RFLX TO FT4 Routine 02/24/2020 3:58 PM PDT Other specified hypothyroidism VITAMIN B12 Routine 02/24/2020 3:58 PM PDT Anemia of chronic disease URINALYSIS WITH REFLEX MICROSCOPIC & CULTURE, IF INDICATED Routine 02/24/2020 3:58 PM PDT Essential hypertension METHYLMALONIC ACID (MMA), SERUM QUANTITATIVE Routine 02/24/2020 3:58 PM PDT Anemia of chronic disease LIPID PANEL Routine 02/24/2020 3:58 PM PDT Other hyperlipidemia FOLATE Routine 02/24/2020 3:58 PM PDT Anemia of chronic disease FERRITIN Routine 02/24/2020 3:58 PM PDT Anemia of chronic disease COMPREHENSIVE METABOLIC PANEL Routine 02/24/2020 3:58 PM PDT Hyponatremia CBC WITH AUTO DIFFERENTIAL, REFLEX MANUAL DIFFERENTIAL IF INDICATED Routine 02/24/2020 3:58 PM PDT Anemia of chronic disease documented in this encounter Results * (ABNORMAL) URINALYSIS WITH REFLEX MICROSCOPIC & CULTURE, IF INDICATED (02/24/2020 3:58 PM PDT) Color YELLOW YELLOW [facility] [facility] [facility] Appearance CLEAR CLEAR [facility] [employer] [facility] Specific [place] Ur 1.006 1.001 - 1.035 [facility] [employer] [facility] PH Urine 8.0 5.0 - 8.0 [facility] Gluc Qual NEGATIVE NEGATIVE [facility] [employer] [facility] Bilirubin Indirect NEGATIVE NEGATIVE [facility] Ketones NEGATIVE NEGATIVE [facility] Blood Urine (part of UA) NEGATIVE NEGATIVE [facility] Protein Ur NEGATIVE NEGATIVE [facility] Nitrite NEGATIVE NEGATIVE [facility] Leukocyte Jeanne 1+(A) NEGATIVE [facility] WBC Ur 0-5 < OR = 5 /HPF [facility] [employer] [facility] RBC/HPF NONE SEEN < OR = 2 /HPF [facility] SQ Epithelial/LPF 0-5 < OR = 5 /HPF [facility] Bacteria Ur FEW(A) NONE SEEN /HPF [facility] Hyaline Casts NONE SEEN NONE SEEN /LPF [facility] Reflexive Urine Culture CULTURE INDICATED - RESULTS TO FOLLOW [facility] Culture, Urine SEE NOTE(A) [facility] [employer] [facility] Comment: ??CULTURE, URINE, ROUTINE ?Micro Number: ?[id number] ??Test Status: ? Final ??Specimen Source: ?? URINE ??Specimen Quality: ??Adequate ??Result: ?Greater than 100,000 CFU/mL of Escherichia coli ?E.coli ?INT ?? HATTIE ?? AMOX/CLAVULANATE ? [...] ?cefpodoxime, cefprozil, cefuroxime, cephalexin ?and loracarbef. Blood 02/24/2020 3:58 PM PDT 02/25/2020 4:14 AM PDT Jes Arriaga MD LAB NON-BLOOD Performing Organization Address [facility] Co de Phone Number [facility] (E) [facility] [address] * VITAMIN B12 (02/24/2020 3:58 PM PDT) [facility] Vitamin B12 681 200 - 1,100 pg/mL [facility] Blood (BLOOD) 02/24/2020 3:5 8 PM PDT 02/25/2020 4:14 AM PDT Jes Arriaga MD LAB BLOOD Performing Organization Address [facility] Co de Phone Number [facility] (E) [facility] [address] * METHYLMALONIC ACID (MMA), SERUM QUANTITATIVE (02/24/2020 3:58 PM PDT) Pathologist [facility] Methylmalonic Acid 242 87 - 318 nmol/L [facility], Comment: This test was developed and its analytical performance characteristics have been determined by [facility]. It has not been cleared or approved by FDA. This assay has been validated pursuant to the CLIA regulations and is used for clinical purposes. Blood (BLOOD) 02/24/2020 3:5 8 PM PDT 02/25/2020 4:14 AM PDT Jes Arriaga MD LAB BLOOD Performing Organization Address [facility] Co de Phone Number [facility] (E) [facility], [address] [place] [address] * IRON, TOTAL AND TOTAL IRON BINDING CAPACITY (02/24/2020 3:58 PM PDT) Pathologist [facility] Iron 61 45 - 160 mcg/dL [facility] [facility] IBC 351 250 - 450 mcg/dL (calc) [facility] Iron % Sat 17 16 - 45 % (calc) [facility] Blood 02/24/2020 3:58 PM PDT 02/25/2020 4:14 AM PDT Jes Arriaga MD LAB BLOOD Performing Organization Address [facility] Co de Phone Number [facility] (E) [facility] [address] [place] [address] * FOLATE (02/24/2020 3:58 PM PDT) Pathologist [facility] Folate >24.0 ng/mL [facility] Comment: ? Reference Range ? Low: ? <3.4 ? Borderline: ?3.4-5.4 ? Normal: ?>5.4 Blood (BLOOD) 02/24/2020 3:5 8 PM PDT 02/25/2020 4:14 AM PDT Jes Arriaga MD LAB BLOOD Performing Organization Address [facility] Co de Phone Number [facility] (E) [facility] [address] * FERRITIN (02/24/2020 3:58 PM PDT) Ferritin 21 16 - 288 ng/mL [facility] Blood (BLOOD) 02/24/2020 3:5 8 PM PDT 02/25/2020 4:14 AM PDT Jes Arriaga MD LAB BLOOD Performing Organization Address [facility] de Phone Number [facility] (E) [facility] [phone] * TSH, 3RD GENERATION W/RFLX TO FT4 (02/24/2020 3:58 PM PDT) TSH 3rd Gen 3.04 0.40 - 4.50 mIU/L [facility] Blood 02/24/2020 3:58 PM PDT 02/25/2020 4:14 AM PDT Jes Arriaga MD LAB BLOOD Performing Organization Address [facility] de Phone Number [facility] (E) [facility] [address] * LIPID PANEL (02/24/2020 3:58 PM PDT) Cholesterol 130 <200 mg/dL [facility] [place] HDL Cholesterol 66 > OR = 50 mg/dL [facility] Triglyceride 76 <150 mg/dL [facility] LDL Chol Calc 48 mg/dL (calc) [facility] Comment: Reference range: <100 Desirable range <100 mg/dL for primary prevention; ?? <70 mg/dL for patients with CHD or diabetic patients with > or = 2 CHD risk factors. LDL-C is now calculated using the Fabi calculation, which is a validated novel method providing better accuracy than the Friedewald equation in the estimation of LDL-C. Marcelo NAVA et al. CHETAN. 2013;310(19): 9697-1264 (http://education.Vestmark/faq/VWR519) CHOL/HDL 2.0 <5.0 (calc) [facility] Non-HDL Chol Calc 64 <130 mg/dL (calc) [facility] Comment: For patients with diabetes plus 1 major ASCVD risk factor, treating to a non-HDL-C goal of <100 mg/dL (LDL-C of <70 mg/dL) is considered a therapeutic option. Blood (BLOOD) 02/24/2020 3:5 8 PM PDT 02/25/2020 4:14 AM PDT Jes Arriaga MD LAB BLOOD [employer] (E) [facility] [address] [place] [address] * (ABNORMAL) COMPREHENSIVE METABOLIC PANEL (02/24/2020 3:58 PM PDT) [facility] Glucose 88 65 - 99 mg/dL [facility] Comment: ? Fasting reference interval BUN 13 7 - 25 mg/dL [facility] Creatinine 0.90 0.50 - 0.99 mg/dL [facility] Comment: For patients >49 years of age, the reference limit for Creatinine is approximately 13% higher for people identified as -[place]. eGFR 66 > OR = 60 mL/min/1 .73m2 [facility] eGFRAA 76 > OR = 60 mL/min/1 .73m2 [facility] BUN/Creatinine Ratio NOT APPLICABLE 6 - 22 (calc) [facility] NA 133(L) 135 - 146 mmol/L [facility] K 4.2 3.5 - 5.3 mmol/L [facility] CL 100 98 - 110 mmol/L [facility] CO2 24 20 - 32 mmol/L [facility] CA 9.6 8.6 - 10.4 mg/dL [facility] Protein Total 6.5 6.1 - 8.1 g/dL [facility] Albumin 4.0 3.6 - 5.1 g/dL [facility] Globulin 2.5 1.9 - 3.7 g/dL (calc) [facility] A/G Ratio 1.6 1.0 - 2.5 (calc) [facility] Bilirubin, Total 0.3 0.2 - 1.2 mg/dL [facility] Alk Phos 88 37 - 153 U/L [facility] AST (SGOT) 19 10 - 35 U/L [facility] ALT (SGPT) 13 6 - 29 U/L [facility] Blood (BLOOD) 02/24/2020 3:5 8 PM PDT 02/25/2020 4:14 AM PDT Jes Arriaga MD LAB BLOOD [facility] [employer] (E) [facility] [address] [place] [address] * (ABNORMAL) CBC WITH AUTO DIFFERENTIAL, REFLEX MANUAL DIFFERENTIAL IF INDICATED (02/24/2020 3:58 PM PDT) WBC 8.6 3.8 - 10.8 Thousand/u L [facility] RBC 3.44(L) 3.80 - 5.10 Million/uL [facility] HGB 10.1(L) 11.7 - 15.5 g/dL [facility] HCT 30.7(L) 35.0 - 45.0 % [facility] MCV 89.2 80.0 - 100.0 fL [facility] MCH 29.4 27.0 - 33.0 pg [facility] MCHC 32.9 32.0 - 36.0 g/dL [facility] RDW 14.0 11.0 - 15.0 % [facility] Platelet 481(H) 140 - 400 Thousand/u L [facility] MPV 9.0 7.5 - 12.5 fL [facility] Neutrophil Abs 5,779 1,500 - 7,800 cells/uL [facility] Lymphocyte Abs 1,565 850 - 3,900 cells/uL [facility] Monocyte Abs 697 200 - 950 cells/uL [facility] Eosinophil Abs 447 15 - 500 cells/uL [facility] BASO ABS 112 0 - 200 cells/uL [facility] Nucleated RBC Abs 0 0 cells/uL [facility] Neutrophils % 67.2 % [facility] Lymphocyte % 18.2 % [facility] Monocytes % 8.1 % [facility] Eosinophil % 5.2 % [facility] Basophil % 1.3 % [facility] Blood (BLOOD) 02/24/2020 3:5 8 PM PDT 02/25/2020 4:14 AM PDT Jes Arriaga MD LAB BLOOD [facility] (E) [facility] [address] [place] [address] documented in this encounter Visit Diagnoses Diagnosis Anemia of chronic disease Anemia of other chronic disease Hyponatremia Hyposmolality and/or hyponatremia Other hyperlipidemia Other specified hypothyroidism Essential hypertension Unspecified essential hypertension documented in this encounter Care Teams Director Of National Sales Relationship Specialty [place] [id number] [facility], [address] [place] [address] PCP - General Internal Medicine 12/02/14 documented as of this encounter
--- OUTSIDE RECORDS SUMMARY | 2024-04-21 18:22 | XMS_ITS | Encounter Summary ---
Author Organization [facility] Address [address] [place] [address] Care Team Providers Care Claims Adjudicator Name Role Phone Jes Espinosa MD Primary Care Provider + Reason for Visit * Reason Comments Fatigue Encounter Details Date Type Department Care Team ([facility] st Contact Info) Description 06/08/2023 3:00 PM PST Telemedicine [place] [address] Internal Medicine [address] [address] [place] [address] [facility] [address] [place] [address] Fatigue Social History Tobacco Use Types Packs/Day Years [...] on file documented as of this encounter Progress Notes * Jes Espinosa MD - 06/10/2023 8:35 PM PST Video Visit Progress Note Chief Complaint: fatigue and chills x 1 wk ( 1950) HPI: Quin Lo is a 72 year old female who is present for a video visit. Patient is at home and provider is in the office. HPI Was well until 1 week ago - Developed chills, fatigue and mild nausea No irritative or obstructive urinary symptoms No diarrhea, vomiting or constipation No abd pain No cough No known sick contacts Problem List: Patient Active Problem List Diagnosis Date Noted Age related osteoporosis 10/30/2018 MRSA (methicillin resistant staph aureus) culture positive 10/09/2018 Anemia of chronic disease 01/08/2018 Protein-calorie malnutrition, unspecified severity (HCC) 01/08/2018 Hyponatremia 03/02/2017 Major depressive disorder, recurrent episode, mild (HCC) 12/14/2014 Hypothyroidism, unspecified 12/14/2014 Essential hypertension 12/14/2014 Medical History: Past Medical History: Diagnosis Date Hypertension HYPOTHYROIDISM Surgical History: Past Surgical History: Procedure Laterality Date NO MAJOR SURGICAL HISTORY Family History: Family History Problem Relation Age of Onset Heart Father Hemophilia Father Renal Mother kidney failure Social History: Social History Socioeconomic History Marital status: Tobacco Use Smoking status: Never Smokeless tobacco: Never Substance and Sexual Activity Alcohol use: No Drug use: No Sexual activity: Yes Allergies: No Known Allergies Current Medications: Current Outpatient Medications Medication Sig Dispense Refill estradiol (VAGIFEM) 10 mcg Tablet Insert 1 tablet into the vagina 2 times a week. 24 tablet 6 amLODIPine (NORVASC) 10 mg tablet Take 1 tablet by mouth once a day. 90 tablet 3 Synthroid 88 mcg tablet Take 1 tablet by mouth daily before breakfast. 90 tablet 3 FLUoxetine (PROzac, SARAFEM) 10 mg Capsule Take 10 mg by mouth once a day. losartan (COZAAR) 100 mg Tablet Take 100 mg by mouth every day. No current facility-administered medications for this visit. Review of Systems: ROS Fatigue Chills Remote Physical Assessment: Physical Exam General: No acute distress. Awake and alert and conversant ENT: Hearing grossly intact. Respiratory: Respirations are non-labored, no wheezing, no respiratory distress Psych: Alert and oriented. Cooperative, pleasant Appropriate mood and affect, normal judgement Assessment & Plan: Quin was seen today for fatigue. Diagnoses and all orders for this visit: Vitamin D deficiency - 25-HYDROXYVITAMIN D LCMS D2+D3; Future Other fatigue - CBC WITH AUTO DIFFERENTIAL, REFLEX MANUAL DIFFERENTIAL IF INDICATED; Future - TSH, 3RD GENERATION W/RFLX TO FT4; Future - URINALYSIS WITH REFLEX MICROSCOPIC & CULTURE, IF INDICATED; Future Elevated blood sugar - COMPREHENSIVE METABOLIC PANEL; Future - HGB A1C+ESTIMATED AVERAGE GLUCOSE; Future - LIPID PANEL WITH REFLEX; Future Fluids Rest Lab Plans pending results Although a workup is planned and initiated, patient understands that if there are recurrent symptoms, medical evaluation should be sought immediately, including evaluation by Emergency Department personnel. Patient agreed to the use of Telehealth services as a treatment mechanism. The potential benefits including greater convenience in service delivery, and the risks of technical difficulties were discussed. The patient was provided the opportunity to ask questions, verbalized that all questions were addressed to their satisfaction. Procedures: All Orders Placed in this Encounter 25-Hydroxyvitamin D LCMS D2+D3 CBC with Auto Differential, Reflex Manual Differential if Indicated Comprehensive Metabolic Panel Hgb A1C+Estimated Average Glucose TSH, 3rd Generation w/rflx to FT4 URINALYSIS, COMPLETE W/REFLEX TO CULTURE LIPID PANEL WITH REFLEX TO DIRECT LDL-QUEST documented in this encounter Miscellaneous Notes * Addendum Note - Jes Espinosa MD - 06/15/2023 4:56 PM PSTAddended by: JES ESPINOSA on: 06/15/2023 04:56 PM Modules accepted: Orders * Addendum Note - Jes Espinosa MD - 06/11/2023 6:49 PM PSTAddended by: JES ESPINOSA on: 06/11/2023 06:49 PM Modules accepted: Orders documented in this encounter Plan of Treatment Scheduled Orders Name Type Priority Associated Diagnoses Orde r Schedule US ABDOMEN COMPLETE Imaging Routine Renal insufficiency Expected: 06/11/2023, Expires: 06/10/2024 documented as of this encounter Results * (ABNORMAL) COMPREHENSIVE METABOLIC PANEL (06/14/2023 1:30 PM PST) Glucose 88 70 - 99 mg/dL [facility] [...] AM PST Performed at: ??01 - [facility] [place] [address] [place] ??[facility] [address], [place] ??[id number] Die Baker: Bianca Benz MD, Phone: ??[phone] Jes Espinosa MD LAB BLOOD [facility] [...] AM PST Performed at: ??01 - [facility] [place] [address], [place], [place] ??[id number] Die Baker: Bianca Benz MD, Phone: ??[phone] Jes Espinosa MD LAB BLOOD [facility] 1 * US RETROPERITONEAL COMPLETE (06/12/2023 3:53 PM PST) Anatomical Region Laterality Modality Abdomen Ultrasound 06/12/2023 3:53 PM PST Impressions 06/18/2023 8:54 AM PST IMPRESSION: 1. ??Unremarkable renal and bladder ultrasound. Dictated by: Meli Chris MD ELECTRONICALLY SIGNED ON: 06/18/2023 Narrative 06/18/2023 8:54 AM PST Patient Name: QUIN LO Date of : 1950 Exam Date: 06/12/2023 Performed at: [facility] [place] [address] [place] [address] ? EXAM: ULTRASOUND RENAL AND BLADDER HISTORY: Renal insufficiency TECHNIQUE: Standard grayscale images were acquired with additional color Doppler imaging when appropriate. COMPARISON: None available. FINDINGS: The urinary bladder demonstrates a prevoid volume of 396 mL and a postvoid residual of 0 mL. Both ureteral jets are present. No bladder calculi or masses are seen. There is no significant bladder wall thickening. The right kidney measures 10.7 cm in length. The left kidney measures 10.6 cm in length. Corticomedullary differentiation and cortical thickness are normal. There is no evidence of hydronephrosis, nephrolithiasis, or suspicious contour deforming renal mass. Visualized portions of the abdominal aorta and the IVC are unremarkable. Procedure Note Meli Chris MD - 06/18/2023 Patient Name: QUIN LO Date of : 1950 Exam Date: 06/12/2023 Performed at: [facility] [place] [address] [place] [address] EXAM: ULTRASOUND RENAL AND BLADDER HISTORY: Renal insufficiency TECHNIQUE: Standard grayscale images were acquired with additional colorDoppler imaging when appropriate. COMPARISON: None available. FINDINGS: The urinary bladder demonstrates a prevoid volume of 396 mL and a postvoidresidual of 0 mL. Both ureteral jets are present. No bladder calculi ormasses are seen. There is no significant bladder wall thickening. The right kidney measures 10.7 cm in length. The left kidney measures 10.6 cm in length. Corticomedullary differentiation and cortical thickness are normal. Thereis no evidence of hydronephrosis, nephrolithiasis, or suspicious contourdeforming renal mass. Visualized portions of the abdominal aorta and the IVC are unremarkable. IMPRESSION: IMPRESSION: 1. Unremarkable renal and bladder ultrasound. Dictated by: Meli Chris MD ELECTRONICALLY SIGNED ON: 06/18/2023 Jes Espinosa MD IMG ULTRASOUN D * (ABNORMAL) LIPID PANEL WITH REFLEX (06/09/2023 [...] PM PST Performed at: ??01 - [facility] [place] [address] [facility] [address], [place], [place] ??[id number] Die Baker: Bianca Benz MD, Phone: ??[phone] Specimen Comment: Called/faxed to LULA Rodríguez FRONT OFFICE on 06/11/2023 at Specimen Comment: 18:42 ET for test(s) Sodium Jes Espinosa MD LAB BLOOD [facility] * (ABNORMAL) URINALYSIS WITH REFLEX MICROSCOPIC & CULTURE, IF INDICATED (06/09/2023 3:58 PM PST) Specific [place] 1.019 1.005 - 1.030 [facility] 1 Ph [...] PM PST Performed at: ??01 - [facility] [place] [address], [place], [place] ??[id number] Die Baker: Bianca Benz MD, Phone: ??[phone] Jes Espinosa MD LAB NON-BLOOD [facility] 1 * (ABNORMAL) TSH, 3RD GENERATION W/RFLX TO FT4 (06/09/2023 3:58 PM PST) [facility] TSH 9.660(H) 0.450 - 4.500 uIU/mL [facility] 1 Blood 06/09/2023 3:58 PM PST 06/10/2023 Comment:BLOOD Narrative [facility] - 06/11/2023 9:06 PM PST Performed at: ??01 - [facility] [place] [address], [place], [place] ??[id number] Die Baker: Bianca Benz MD, Phone: ??[phone] Jes Espinosa MD LAB BLOOD Performing Organization Address [facility]/ZIP Co de Phone Number [facility] * (ABNORMAL) HGB A1C+ESTIMATED AVERAGE GLUCOSE (06/09/2023 3:58 PM PST) Pathologist [facility] Hgb A1C 5.8(H) 4.8 - 5.6 % [facility] 1 Comment: ? Prediabetes: 5.7 - 6.4 ? Diabetes: >6.4 ? Glycemic control for adults with diabetes: <7.0 Estim. Avg Glu (Eag) 120 mg/dL [facility] 1 Blood (BLOOD) 06/09/2023 3:5 8 PM PST 06/10/2023 Comment:BLOOD Narrative [facility] - 06/11/2023 9:06 PM PST Performed at: ??01 - [facility] [address] [address], [place], [place] ??[id number] Die Baker: Bianca Benz MD, Phone: ??[phone] Jes Espinosa MD LAB BLOOD Performing Organization Address [facility]/ZIP Co de Phone Number [facility] 1 * (ABNORMAL) COMPREHENSIVE METABOLIC PANEL (06/09/2023 3:58 PM PST) Pathologist [facility] Glucose 95 70 - 99 mg/dL [facility] [...] 9:06 PM PST Performed at: ??01 - [facility] [address] [place] ??[facility] [address], [place], [place] ??[id number] Die Baker: Bianca Benz MD, Phone: ??[phone] Jes Espinosa MD LAB BLOOD [facility] [...] 9:06 PM PST Performed at: ??01 - [facility] [address] [place] ??[facility] [address], [place], [place] ??[id number] Die Baker: Bianca Benz MD, Phone: ??[phone] Jes Espinosa MD [facility] * 25-HYDROXYVITAMIN D LCMS D2+D3 (06/09/2023 3:58 PM PST) 25-Hydroxy, Vitamin D 44 ng/mL [facility] 1 [...] developed and its performance characteristics determined by [facility]. It has not been cleared or approved by the Food and Drug Administration. Serum 06/09/2023 3:58 PM PST 06/10/2023 Narrative [facility] - 06/14/2023 3:06 PM PST Performed at: ??01 - [facility] [address] [place] [address] ??[id number] Die Baker: Augustus Cash MD, Phone: ??[phone] Jes Espinosa MD LAB BLOOD Performing Organization Address City/State/[facility] Co de Phone Number [facility] 1 documented in this encounter Visit Diagnoses Diagnosis Vitamin D deficiency- Primary Unspecified vitamin D deficiency Other fatigue Elevated blood sugar Other abnormal glucose Renal insufficiency Unspecified disorder of kidney and ureter Other specified hypothyroidism- Primary Vitamin D deficiency Unspecified vitamin D deficiency Other fatigue Elevated blood sugar Other abnormal glucose Other fatigue Other specified hypothyroidism documented in this encounter Care Teams Claims Adjudicator Relationship Specialty [place] [address] [facility] [address] [place] [address] PCP - General Internal Medicine 12/02/14 documented as of this encounter
--- OUTSIDE RECORDS SUMMARY | 2024-04-21 18:22 | XMS_ITS | Encounter Summary ---
Author Organization [facility] Address [address] [place] [address] Care Team Providers Care Meter Calibrator Name Role Phone Jes Arriaga MD Primary Care Provider + Reason for Visit * Reason Comments Immunization/Injection 2nd shingles vacc ine Encounter Details Date Type Department Care Team (Latest Contact Info) Description 06/29/2020 2:00 PM PST Clinical Support [address] [address] Immunization/Injecti on (2nd shingles vaccine) Social History Tobacco Use Types Packs/Day Years [...] on file documented as of this encounter Nursing Notes * Ena Mazariegos RN - 06/29/2020 2:16 PM PST Patient here for 2nd shingrix- patient requested in gluteus. Vaccine administered and patient tolerated well. documented in this encounter Plan of Treatment Not on file documented as of this encounter Visit Diagnoses Diagnosis Need for shingles vaccine- Primary Need for prophylactic vaccination and inoculation against other viral diseases documented in this encounter Care Teams Meter Calibrator Relationship Specialty [place] [address] [facility], [address] [place] [id number] PCP - General Internal Medicine 12/02/14 documented as of this encounter
--- OUTSIDE RECORDS SUMMARY | 2024-04-21 18:22 | XMS_ITS | Encounter Summary ---
Author Organization [facility] Address [address] [place] [address] Care Team Providers Care Cruller Maker Name Role Phone Jes Arriaga MD Primary Care Provider + Reason for Visit * Reason Onset Date Comments Other 10/25/2018 Reschedule infus ion appointment Encounter Details Date Type Department Care Team (Late st Contact Info) Description 10/25/2018 Telephone [facility] [place] [id number] [place] [address] [place] [address] [facility], [address] [place] [address] Other (Reschedule infusion appointment) Social History Tobacco Use Types Packs/Day Years [...] encounter Miscellaneous Notes * Telephone Encounter - Ave Lozano - 10/25/2018 9:57 AM PDT LVM to reschedule infusion appointment documented in this encounter Plan of Treatment Not on file documented as of this encounter Visit Diagnoses Not on filedocumented in this encounter Care Teams Cruller Maker Relationship Specialty [place] [address] [facility], [address] [place] [address] PCP - General Internal Medicine 12/02/14 documented as of this encounter
--- OUTSIDE RECORDS SUMMARY | 2024-04-21 18:22 | XMS_ITS | Encounter Summary ---
Author Organization [facility] Address [address] [place] [address] Care Team Providers Care Binder Sorter Name Role Phone Jes Arriaga MD Primary Care Provider + Reason for Visit * Reason Onset Date Comments APPOINTMENT 08/16/2023 08/27/23 change s tart time Encounter Details Date Type Department Care Team (Late st Contact Info) Description 08/16/2023 Telephone [facility] [address] Pediatrics [address] [facility] [address] [place] [address] [place] [address] [facility], [address] [place] [address] APPOINTMENT (08/27/23 change start time ) Social History Tobacco Use Types Packs/Day Years [...] encounter Miscellaneous Notes * Telephone Encounter - Shamika Oliver MA - 08/16/2023 8:45 AM PST LVM and text to let patient know that the start time for the AWV on 08/27/[address] Arriaga haschanged from 3:40pm to 3:20pm. If patient calls back, please let her know. Thank you! documented in this encounter Plan of Treatment Not on file documented as of this encounter Visit Diagnoses Not on filedocumented in this encounter Care Teams Binder Sorter Relationship Specialty [place] [address] [facility], [address] [place] [address] PCP - General Internal Medicine 12/02/14 documented as of this encounter
--- OUTSIDE RECORDS SUMMARY | 2024-04-21 18:22 | XMS_ITS | Encounter Summary ---
Author Organization [facility] Address [address] [place] [address] Care Team Providers Care Supervisory Cbp Officer Name Role Phone Jes Arriaga MD Primary Care Provider + Reason for Visit * Radiology (Routine) - Closed Specialty Diagnoses / Procedures Referred By Contac t Referred To Contact Radiology Diagnoses Disorder of bone Osteopenia, unspecified location Procedures [place] [address] [facility], [address] [place] [address] Referral ID Status Reason Start Date Expiration Date Visits Re quested Visits Authorized [id number] Closed 09/26/2018 12/25/2018 1 1 Encounter Details Date Type Department Care Team (Latest Contact Info) Description 10/14/2018 1:20 PM PDT - 10/14/2018 11:59 PM PDT Hospital Encounter [facility] at [address] [place] [address] Dx: Visit for screening mammogram Discharge Disposition: [...] Date/Time Associated Diagnosis Comments SCREENING MAMMO BILAT DIGI W/CAD Routine 10/14/2018 1:49 PM PDT Visit for screening mammogram documented in this encounter Results * SCREENING MAMMO BILAT DIGI W/CAD (10/14/2018 1:49 PM PDT) Anatomical Region Laterality Modality BREAST Mammography Impressions 10/21/2018 12:12 PM PDT There is no mammographic evidence of malignancy. A routine follow-up mammogram in 1 year is recommended. ACR BI-RADS Category 1 - ??Negative. A result letter was sent to the patient by breast center staff. Report Electronically Signed. Dictated by: AKIL DE JESUS M.D. At: 10/21/2018 12:07:00 Rod Welder: Josie WHYTE)(M), [facility] AT [facility] 10/21/2018 12:12 PM PDT BILATERAL SCREENING DIGITAL MAMMOGRAM W/CAD DATE OF SERVICE: 10/14/2018 CLINICAL HISTORY: Patient is a 68 year old female who is seen for screening. The patient has no family history of breast or ovarian cancer. The modified NCI risk model yields a five year risk of 1.7% and a lifetime risk of 5.9%. COMPARISON: The present examination has been compared to prior imaging studies performed at [facility] on 04/17/2012, 01/01/2014 and 08/03/2017. TECHNIQUE: Digital mammographic images were obtained using a Edilia mammographic system. Views obtained: bilateral craniocaudal and mediolateral oblique. The exam was interpreted on a specialized workstation with an integrated computer-aided detection (CAD) algorithm applied. MAMMOGRAM FINDINGS: The breasts are heterogeneously dense, which may obscure small masses. There are no suspicious masses, malignant type microcalcifications nor areas of unexplained architectural distortion. Procedure Note Akil De Jesus MD - 10/21/2018 BILATERAL SCREENING DIGITAL MAMMOGRAM W/CAD DATE OF SERVICE: 10/14/2018 CLINICAL HISTORY: Patient is a 68 year old female who is seen for screening. The patient hasno family history of breast or ovarian cancer. The modified NCI risk model yields a five year risk of 1.7% and a lifetimerisk of 5.9%. COMPARISON: The present examination has been compared to prior imaging studiesperformed at [facility] on 04/17/2012, 01/01/2014 and08/03/2017. TECHNIQUE: Digital mammographic images were obtained using a Edilia mammographicsystem. Views obtained: bilateral craniocaudal and mediolateral oblique. The exam was interpreted on a specialized [...] center staff. Report Electronically Signed. Dictated by: AKIL DE JESUS M.D. At: 10/21/2018 12:07:00 Rod Welder: Josie WHYTE)(M), [facility] Jes Arriaga MD IMG MAMMO PRO CEDURE documented in this encounter Visit Diagnoses Diagnosis Visit for screening mammogram Other screening mammogram documented in this encounter Care Teams Supervisory Cbp Officer Relationship Specialty Start Date End Date Jes Arriaga [place] [id number] [place] [address], [address] [place] [address] PCP - General Internal Medicine 12/02/14 documented as of this encounter
--- OUTSIDE RECORDS SUMMARY | 2024-04-21 18:22 | XMS_ITS | Encounter Summary ---
Author Organization [facility] Address [address] [place] [address] Care Team Providers Care Patient Accounts Clerk Name Role Phone Jes Arriaga MD Primary Care Provider + Reason for Visit * Reason Onset Date Comments APPOINTMENT 02/12/2019 Pre-OP Encounter Details Date Type Department Care Team (Late st Contact Info) Description 02/12/2019 Telephone [place] [address] Family Medicine [address] [phone] [place] [address] [facility] [address] [place] [address] APPOINTMENT (Pre-OP) Social History Tobacco Use Types Packs/Day Years [...] encounter Miscellaneous Notes * Telephone Encounter - Jess You - 02/12/2019 9:54 AM PDT Noted order faxed to PCP office, surgery date 03/13/19 As per checklist patient to have ALL TESTING AT [facility] Patient need to be schedule with MD for Med clearance 3-4 days after testing. MD requires to review results prior to clear patient for surgery. * Telephone Encounter - Shamika Contreras - 02/12/2019 9:33 AM PDT Pre-Op Orders were faxed to the office. Quin is Schedule for Arthroplasty on 03.13.2019 at at [facility] [place]. Patient can best be reached at [phone] Thank You ! documented in this encounter Plan of Treatment Not on file documented as of this encounter Visit Diagnoses Not on filedocumented in this encounter Care Teams Patient Accounts Clerk Relationship Specialty [place] [address] [facility], [address] [place] [address] PCP - General Internal Medicine 12/02/14 documented as of this encounter
--- OUTSIDE RECORDS SUMMARY | 2024-04-21 18:22 | XMS_ITS | Encounter Summary ---
Author Organization [facility] Address [address] [place] [address] Care Team Providers Care Supervisor Hide House Name Role Phone Jes Arriaga MD Primary Care Provider + Reason for Visit * Reason Onset Date Comments Other 06/12/2023 Requesting Call Encounter Details Date Type Department Care Team (Late st Contact Info) Description 06/12/2023 Telephone [place] [address] Internal Medicine [address] [address] [place] [address] [facility] [address] [place] [address] Other (Requesting Call) Social History Tobacco Use Types Packs/Day Years [...] encounter Miscellaneous Notes * Telephone Encounter - Payal Campos MA - 06/12/2023 3:05 PM PST Called spoke to patient and documentation was left in previous encounter. * Telephone Encounter - RohanAnthonyon - 06/12/2023 1:20 PM PST Patient calling in requesting a call from Dr. Arriaga's nurse, patient stated she missed call and would like to request another call back, Please Advise, CB: [phone] documented in this encounter Plan of Treatment Not on file documented as of this encounter Visit Diagnoses Not on filedocumented in this encounter Care Teams Supervisor Hide House Relationship Specialty [place] [address] [facility], [address] [place], [place] [address] PCP - General Internal Medicine 12/02/14 documented as of this encounter
--- OUTSIDE RECORDS SUMMARY | 2024-04-21 18:23 | XMS_ITS | Encounter Summary ---
Author Organization [facility] Address [address] [place] [address] Care Team Providers Care Oil And Gas Drafter Name Role Phone Jes Arriaga MD Primary Care Provider + Reason for Visit * Reason Onset Date Comments Orders 01/01/2018 Encounter Details Date Type Department Care Team (Late st Contact Info) Description 01/01/2018 Telephone [place] [id number] Internal Medicine [address] [facility] [address] [place] [address] [place] [address] [facility] [address] [place] [address] Orders Social History Tobacco Use Types Packs/Day Years [...] encounter Miscellaneous Notes * Telephone Encounter - Isela Killian, FRANKIE - 01/01/2018 1:16 PM PDT Called patient and relayed the message below from Dr. Ramires Patient is going to get her labs and Xray done next week She got her Mammogram done in [place] and will bring a copy to her next visit Patient promised she will make follow up appointment with Dr. Ramires We discussed the importance of taking care of herself and following up with Dr. Ramires Let patient know that she could use same day appointment * Telephone Encounter - Jes Arriaga MD - 01/01/2018 12:37 PM PDT ?? Please inform patient that Her labs have been ordered - her last lab was in January of 2017.... ?? She never did the CXR I ordered - she was contacted by phone and [facility] [employer].... (documented) she ought to do the CXR - I reordered it to confirm resolution of the PNEUMONIA she had ?? she did not do her mammo either.... I reordered it for her ?? She needs to book a follow up and read our [employer] messages also.... Looks like she is not.... Please arrange a follow up with me - ok to use a same day slot Thank you very much. * Telephone Encounter - Isela Killian RN - 01/01/2018 9:[address] Ramires Patient requesting to get her quarterly labs done Last labs done 02/2017 and 01/2017 Please advise Thank you * Telephone Encounter - Margoth Jones - 01/01/2018 9:03 AM PDT DIAGNOSTICS REQUEST Caller???s name: Quin Dias Pt wants to have her labs ordered & then called back with the results. These are labs that she does every few months. Pt cant' get an appt w/ PCP until February but wants labs done this week. Type of order: Quarterly labs Radiology/Imaging order: n/a Reason/symptoms for the order: Pt request Are these labs needed for an appointment if yes when lab appt is 6-7-18 at 10:40 am What is the best number where we can reach you today? [phone] (home) documented in this encounter Plan of Treatment Not on file documented as of this encounter Results * VITAMIN B12 (01/03/2018 11:23 AM PDT) Vitamin B12 1,081 200 - 1,100 pg/mL [facility] ([facility]) Blood (BLOOD) 01/03/2018 11: 23 AM PDT 01/04/2018 12:12 AM PDT Narrative Resulting Agency Comment Performing Organization Information: ? EN ? [facility] ? [address] [place] [address] ? Tab Toochinda Jes Arriaga MD LAB BLOOD Performing Organization Address [facility] de Phone Number [facility] ([facility]) * METHYLMALONIC ACID (MMA), SERUM QUANTITATIVE (01/03/2018 11:23 AM PDT) Methylmalonic Acid 213 87 - 318 nmol/L [facility] ([facility]) Comment: This test was developed and its analytical performance characteristics have been determined by [facility]. It has not been cleared or approved by FDA. This assay has been validated pursuant to the CLIA regulations and is used for clinical purposes. Blood (BLOOD) 01/03/2018 11: 23 AM PDT 01/04/2018 12:12 AM PDT Narrative Resulting Agency Comment Performing Organization Information: ? EZ ? [facility], ? [address] [place] [address] ? Anni Perez MD,PhD,EDSON Jes Arriaga MD LAB BLOOD Performing Organization Address [facility] Co de Phone Number [facility] ([facility]) * (ABNORMAL) IRON, TOTAL AND TOTAL IRON BINDING CAPACITY (01/03/2018 11:23 AM PDT) Iron 41(L) 45 - 160 mcg/dL [facility] ([facility]) IBC 284 250 - 450 mcg/dL (calc) [facility] ([facility]) Iron % Sat 14 11 - 50 % (calc) [facility] ([facility]) Blood 01/03/2018 11:2 3 AM PDT 01/04/2018 12:12 AM PDT Narrative Resulting Agency Comment Performing Organization Information: ? EN ? [facility] ? [address] [place] [address] ? Tab Toochinda Jes Arriaga MD LAB BLOOD Performing Organization Address [facility] de Phone Number [facility] ([facility]) * FOLATE (01/03/2018 11:23 AM PDT) Folate 15.4 ng/mL [facility] ([facility]) Comment: ? Reference Range ? Low: ? <3.4 ? Borderline: ?3.4-5.4 ? Normal: ?>5.4 Blood (BLOOD) 01/03/2018 11: 23 AM PDT 01/04/2018 12:12 AM PDT Narrative Resulting Agency Comment Performing Organization Information: ? EN ? [facility] ? [address] [place] [address] ? Tab Toochinda Jes Arriaga MD LAB BLOOD [facility] ([facility]) * FERRITIN (01/03/2018 11:23 AM PDT) Ferritin 66 20 - 288 ng/mL [facility] ([facility]) Blood (BLOOD) 01/03/2018 11: 23 AM PDT 01/04/2018 12:12 AM PDT Narrative Resulting Agency Comment Performing Organization Information: ? EN ? [facility] ? [address] [place] [address] ? Tab Toochinda Jes Arriaga MD LAB BLOOD [facility] ([facility]) * (ABNORMAL) URINALYSIS WITH REFLEX MICROSCOPIC & CULTURE, IF INDICATED (01/03/2018 11:23 AM PDT) Color YELLOW YELLOW [facility] ([facility]) Appearance CLOUDY(A) CLEAR [facility] ([facility]) Specific [place] Ur 1.006 1.001 - 1.035 [facility] ([facility]) PH Urine 7.5 5.0 - 8.0 [facility] ([facility]) Gluc Qual NEGATIVE NEGATIVE [facility]) Bilirubin Indirect NEGATIVE NEGATIVE [facility]) Ketones NEGATIVE NEGATIVE [facility] ([facility]) Blood Urine (part of UA) NEGATIVE NEGATIVE [facility] ([facility]) Protein Ur NEGATIVE NEGATIVE [facility] ([facility]) Nitrite NEGATIVE NEGATIVE [facility] ([facility]) Leukocyte Jeanne 1+(A) NEGATIVE [facility] ([facility]) WBC Ur 0-5 < OR = 5 /HPF [facility] ([facility]) RBC/HPF NONE SEEN < OR = 2 /HPF [facility] ([facility]) SQ Epithelial/LPF 6-10(A) < OR = 5 /HPF [facility] ([facility]) Bacteria Ur MANY(A) NONE SEEN /HPF [facility] ([facility]) Hyaline Casts NONE SEEN NONE SEEN /LPF [facility] ([facility]) Reflexive Urine Culture CULTURE INDICATED - RESULTS TO FOLLOW [facility] ([facility]) Culture, Urine SEE NOTE(A) [facility]) Comment: ??CULTURE, URINE, ROUTINE ?MICRO NUMBER: ?[id number] ??TEST STATUS: ? FINAL ??SPECIMEN SOURCE: ?? URINE ??SPECIMEN QUALITY: ??ADEQUATE ??RESULT: ?Greater than 100,000 CFU/mL of Citrobacter freundii ?C.freundii ?INT ?? HATTIE ?? AMOX/CLAVULANATE ? R ? 8 ?? CEFAZOLIN ?R ? >=64 1 ?? CEFEPIME ? S ? <=1 ?? CEFTRIAXONE ?S ? <=1 ?? CIPROFLOXACIN ?S ? <=0.25 ?? ERTAPENEM ?S ? <=0.5 ?? GENTAMICIN ? S ? <=1 ?? IMIPENEM ? S ? 0.5 ?? LEVOFLOXACIN ? S ? 0.5 ?? NITROFURANTOIN ? S ? <=16 ?? PIP/TAZOBACTAM ? S ? <=4 ?? TOBRAMYCIN ? S ? <=1 ?? TRIMETHOPRIM/SULFA ? S ? <=20 S=Susceptible ??I=Intermediate ??R=Resistant ??* = Not Tested NR = Not Reported ??NN = See Therapy Comments THERAPY COMMENTS ?Note 1: ?For uncomplicated UTI caused by E. coli, ?K. pneumoniae or P. mirabilis: Cefazolin is ?susceptible if HATTIE <32 mcg/mL and predicts ?susceptible to the oral agents cefaclor, cefdinir, ?cefpodoxime, cefprozil, cefuroxime, cephalexin ?and loracarbef. ? Your request to have a duplicate copy faxed has been acknowledged. ?Queued to: ??[id number] Blood 01/03/2018 11:2 3 AM PDT 01/04/2018 12:12 AM PDT Narrative Resulting Agency Comment Performing Organization Information: ? EN ? [facility] ? [address] [place] [address] ? Tab Toochinda Jes Arriaga MD LAB NON-BLOOD Performing Organization Address [facility] de Phone Number [facility] ([facility]) * TSH, 3RD GENERATION W/RFLX TO FT4 (01/03/2018 11:23 AM PDT) Pathologist [facility] TSH 3rd Gen 3.58 0.40 - 4.50 mIU/L [facility] ([facility]) Blood 01/03/2018 11:2 3 AM PDT 01/04/2018 12:12 AM PDT Narrative Resulting Agency Comment Performing Organization Information: ? EN ? [facility] ? [address] [place] [address] ? Tab Toochinda Jes Arriaga MD LAB BLOOD Performing Organization Address [facility] de Phone Number [facility] ([facility]) * LIPID PANEL (01/03/2018 11:23 AM PDT) Cholesterol 142 <200 mg/dL [facility]) HDL Cholesterol 70 >50 mg/dL [facility] ([facility]) Triglyceride 95 <150 mg/dL [facility] ([facility]) LDL Chol Calc 54 mg/dL (calc) [facility] ([facility]) Comment: Reference range: <100 Desirable range <100 mg/dL for primary prevention; ?? <70 mg/dL for patients with CHD or diabetic patients with > or = 2 CHD risk factors. LDL-C is now calculated using the Marcelo-Oliver calculation, which is a validated novel method providing better accuracy than the Friedewald equation in the estimation of LDL-C. Marcelo SS et al. CHETAN. 2013;310(19): 8431-7559 (http://education.[employer]/faq/ZTO553) CHOL/HDL 2.0 <5.0 (calc) [facility] ([facility]) Non-HDL Chol Calc 72 <130 mg/dL (calc) [facility] ([facility]) Comment: For patients with diabetes plus 1 major ASCVD risk factor, treating to a non-HDL-C goal of <100 mg/dL (LDL-C of <70 mg/dL) is considered a therapeutic option. Blood (BLOOD) 01/03/2018 11: 23 AM PDT 01/04/2018 12:12 AM PDT Narrative Resulting Agency Comment Performing Organization Information: ? EN ? [facility] ? [address] [place] [address] ? Tab Toochinda Jes Arriaga MD LAB BLOOD [facility] ([facility]) * (ABNORMAL) COMPREHENSIVE METABOLIC PANEL (01/03/2018 11:23 AM PDT) Glucose 95 65 - 99 mg/dL [facility] ([facility]) Comment: ? Fasting reference interval BUN 7 7 - 25 mg/dL [facility] ([facility]) Creatinine 0.66 0.50 - 0.99 mg/dL [facility] ([facility]) Comment: For patients >49 years of age, the reference limit for Creatinine is approximately 13% higher for people identified as -Russian. eGFR 92 > OR = 60 mL/min/1 .73m2 [facility] ([facility]) eGFRAA 107 > OR = 60 mL/min/1 .73m2 [facility] ([facility]) BUN/Creatinine Ratio NOT APPLICABLE 6 - 22 (calc) [facility] ([facility]) NA 126(L) 135 - 146 mmol/L [facility]) K 4.5 3.5 - 5.3 mmol/L [facility]) CL 93(L) 98 - 110 mmol/L [facility]) CO2 25 20 - 31 mmol/L [facility]) CA 8.9 8.6 - 10.4 mg/dL [facility] ([facility]) Protein Total 6.2 6.1 - 8.1 g/dL [facility] ([facility]) Albumin 4.0 3.6 - 5.1 g/dL [facility] ([facility]) Globulin 2.2 1.9 - 3.7 g/dL (calc) [facility] ([facility]) A/G Ratio 1.8 1.0 - 2.5 (calc) [facility] ([facility]) Bilirubin, Total 0.4 0.2 - 1.2 mg/dL [facility] ([facility]) Alk Phos 93 33 - 130 U/L [facility] ([facility]) AST (SGOT) 23 10 - 35 U/L [facility] ([facility]) ALT (SGPT) 19 6 - 29 U/L [facility] ([facility]) Blood (BLOOD) 01/03/2018 11: 23 AM PDT 01/04/2018 12:12 AM PDT Narrative Resulting Agency Comment Performing Organization Information: ? EN ? [facility] ? [address] [place] [address] ? Tab Toochinda Jes Arriaga MD LAB BLOOD [facility] ([facility]) * (ABNORMAL) CBC WITH MANUAL DIFFERENTIAL (01/03/2018 11:23 AM PDT) WBC 8.2 3.8 - 10.8 Thousand/u L [facility] ([facility]) RBC 3.48(L) 3.80 - 5.10 Million/uL [facility] ([facility]) HGB 10.9(L) 11.7 - 15.5 g/dL [facility] ([facility]) HCT 31.0(L) 35.0 - 45.0 % [facility] ([facility]) MCV 89.1 80.0 - 100.0 fL [facility] ([facility]) MCH 31.3 27.0 - 33.0 pg [facility] ([facility]) MCHC 35.2 32.0 - 36.0 g/dL [facility] ([facility]) RDW 13.0 11.0 - 15.0 % [facility]) Platelet 334 140 - 400 Thousand/u L [facility] ([facility]) MPV 9.8 7.5 - 12.5 fL [facility] ([facility]) Nucleated RBC Abs 0 0 cells/uL [facility] ([facility]) Blood (BLOOD) 01/03/2018 11: 23 AM PDT 01/04/2018 12:12 AM PDT Narrative Resulting Agency Comment Performing Organization Information: ? EN ? [facility] ? [address] [place] [address] ? Tab Toochinda Jes Arriaga MD LAB BLOOD [facility] ([facility]) documented in this encounter Visit Diagnoses Diagnosis Other specified hypothyroidism- Primary Essential hypertension Unspecified essential hypertension Pneumonia of left lower lobe due to infectious organism Hyponatremia Hyposmolality and/or hyponatremia Anemia, unspecified type Screening for condition Screening for unspecified condition Encounter for screening mammogram for malignant neoplasm of breast Other screening mammogram documented in this encounter Care Teams Oil And Gas Drafter Relationship Specialty [place] [address] [facility], [address] [place], [place] [address] PCP - General Internal Medicine 12/02/14 documented as of this encounter
--- OUTSIDE RECORDS SUMMARY | 2024-04-21 18:23 | XMS_ITS | Encounter Summary ---
Author Organization [facility] Address [address] [place] [address] Care Team Providers Care Insurance Agents Supervisor Name Role Phone Jes Arriaga MD Primary Care Provider + Encounter Details Date Type Department Care Team (Late st Contact Info) Description 01/03/2018 10:50 AM PDT Orders Only [facility] [address] [place] [address] Social History Tobacco Use Types Packs/Day Years [...] TOTAL AND TOTAL IRON BINDING CAPACITY Routine 01/03/2018 11:23 AM PDT Anemia, unspecified type TSH, 3RD GENERATION W/RFLX TO FT4 Routine 01/03/2018 11:23 AM PDT Other specified hypothyroidism VITAMIN B12 Routine 01/03/2018 11:23 AM PDT Anemia, unspecified type URINALYSIS WITH REFLEX MICROSCOPIC & CULTURE, IF INDICATED Routine 01/03/2018 11:23 AM PDT Hyponatremia METHYLMALONIC ACID (MMA), SERUM QUANTITATIVE Routine 01/03/2018 11:23 AM PDT Anemia, unspecified type MANUAL DIFFERENTIAL Routine 01/03/2018 1 1:23 AM PDT LIPID PANEL Routine 01/03/2018 11:23 AM PDT Screening for condition FOLATE Routine 01/03/2018 11:23 AM PDT Anemia, unspecified type FERRITIN Routine 01/03/2018 11:23 AM PDT Anemia, unspecified type COMPREHENSIVE METABOLIC PANEL Routine 01/03/2018 11:23 AM PDT Hyponatremia CBC WITH MANUAL DIFFERENTIAL Routine 01/03/2018 11:23 AM PDT Anemia, unspecified type documented in this encounter Results * MANUAL DIFFERENTIAL (01/03/2018 11:23 AM PDT) Neutrophil Abs 6,068 1,500 - 7,800 cells/uL [facility]) Lymphocyte Abs 902 850 - 3,900 cells/uL [facility] Monocyte Abs 820 200 - 950 cells/uL [facility]) Eosinophil Abs 328 15 - 500 cells/uL [facility]) BASO ABS 82 0 - 200 cells/uL [facility]) Neutrophils % 74.0 % [facility]) Lymphocyte % 11.0 % [facility]) Monocytes % 10.0 % [facility]) Eosinophil % 4.0 % [facility]) Basophil % 1.0 % [facility]) CBC Morphology NORMAL [facility] ([facility]) Comment:Poikilocytosis 1 + 01/03/2018 11:2 3 AM PDT 01/04/2018 12:12 AM PDT Narrative Resulting Agency Comment Performing Organization Information: ? EN ? [facility] ? [address] [place] [address] ? Tab Toochinda Jes Arriaga MD LAB BLOOD Performing Organization Address [facility] Co de Phone Number [facility]) * VITAMIN B12 (01/03/2018 11:23 AM PDT) Pathologist [facility] Vitamin B12 1,081 200 - 1,100 pg/mL [facility] ([facility]) Blood (BLOOD) 01/03/2018 11: 23 AM PDT 01/04/2018 12:12 AM PDT Narrative Resulting Agency Comment Performing Organization Information: ? EN ? [facility] ? [address] [place] [address] ? Tab Toochinda Jes Arriaga MD LAB BLOOD Performing Organization Address [facility] de Phone Number [facility]) * METHYLMALONIC ACID (MMA), SERUM QUANTITATIVE (01/03/2018 11:23 AM PDT) [facility] Methylmalonic Acid 213 87 - 318 nmol/L [facility] ([facility]) Comment: This test was developed and its analytical performance characteristics have been determined by [facility]. It has not been cleared or approved by FDA. This assay has been validated pursuant to the CLIA regulations and is used for clinical purposes. Blood (BLOOD) 01/03/2018 11: 23 AM PDT 01/04/2018 12:12 AM PDT Narrative Resulting Agency Comment Performing Organization Information: ? EZ ? [facility], ? [address] [place] [address] ? Anni Perez MD,PhD,EDSON Jes Arriaga MD LAB BLOOD Performing Organization Address [facility] Co de Phone Number [facility] [...] Performing Organization Information: ? EN ? [facility] ? [address] [place] [address] ? Tab Toochinda Jes Arriaga MD LAB BLOOD Performing Organization Address [facility] de Phone Number [facility] * FOLATE (01/03/2018 11:23 AM PDT) Pathologist [facility] Folate 15.4 ng/mL [facility] ([facility]) Comment: ? Reference Range ? Low: ? <3.4 ? Borderline: ?3.4-5.4 ? Normal: ?>5.4 Blood (BLOOD) 01/03/2018 11: 23 AM PDT 01/04/2018 12:12 AM PDT Narrative Resulting Agency Comment Performing Organization Information: ? EN ? [facility] ? [address] [place] [address] ? Tab Toochinda Jes Arriaga MD LAB BLOOD Performing Organization Address [facility] Co de Phone Number [facility] * FERRITIN (01/03/2018 11:23 AM PDT) Ferritin 66 20 - 288 ng/mL [facility] ([facility]) Blood (BLOOD) 01/03/2018 11: 23 AM PDT 01/04/2018 12:12 AM PDT Narrative Resulting Agency Comment Performing Organization Information: ? EN ? [facility] ? [address] [place] [address] ? Tab Toochinda Jes Arriaga MD LAB BLOOD [facility] * (ABNORMAL) URINALYSIS WITH REFLEX MICROSCOPIC & CULTURE, IF INDICATED (01/03/2018 11:23 AM PDT) Color YELLOW YELLOW [facility] ([facility]) Appearance CLOUDY(A) CLEAR [facility] ([facility]) Specific [place] Ur 1.006 1.001 - 1.035 [facility] [...] (E) Comment: ??CULTURE, URINE, ROUTINE ?MICRO NUMBER: ?[id number] ??TEST STATUS: ? FINAL ??SPECIMEN SOURCE: ?? [...] copy faxed has been acknowledged. ?Queued to: ??[id number] Blood 01/03/2018 11:2 3 AM PDT 01/04/2018 12:12 AM PDT Narrative Resulting Agency Comment Performing Organization Information: ? EN ? [facility] ? [address] [place] [address] ? Tab Toochinda Jes Arriaga MD LAB NON-BLOOD Performing Organization Address [facility] de Phone Number [facility] ([facility]) * TSH, 3RD GENERATION W/RFLX TO FT4 (01/03/2018 11:23 AM PDT) TSH 3rd Gen 3.58 0.40 - 4.50 mIU/L [facility] ([facility]) Blood 01/03/2018 11:2 3 AM PDT 01/04/2018 12:12 AM PDT Narrative Resulting Agency Comment Performing Organization Information: ? EN ? [facility] ? [address] [place] [address] ? Tab Toochinda Jes Arriaga MD LAB BLOOD Performing Organization Address [facility] de Phone Number [facility] ([facility]) * [...] of LDL-C. Marcelo SS et al. CHETAN. 2013;310(77): 0176-2325 (http://education.[employer]/faq/QVX565) CHOL/HDL 2.0 <5.0 (calc) [facility] ([facility]) [...] Comment Performing Organization Information: ? EN ? [facility] ? [address] [place] [address] ? Tab Toochinda eJs Arriaga MD LAB BLOOD [facility] ([facility]) [...] approximately 13% higher for people identified as -Faroese. eGFR 92 > OR = 60 mL/min/1 [...] Performing Organization Information: ? EN ? [facility] ? [address] [place] [address] ? Tab Toochinda Jes Arriaga MD LAB [...] Performing Organization Information: ? EN ? [facility] ? [address] [place] [address] ? Tab Toochinda Jes Arriaga MD LAB BLOOD [facility]) documented in this encounter Visit Diagnoses Diagnosis Anemia, unspecified type Hyponatremia Hyposmolality and/or hyponatremia Screening for condition Screening for unspecified condition Other specified hypothyroidism documented in this encounter Care Teams Insurance Agents Supervisor Relationship Specialty [place] [id number] [facility] [address] [place] [address] PCP - General Internal Medicine 12/02/14 documented as of this encounter
--- OUTSIDE RECORDS SUMMARY | 2024-04-21 18:23 | XMS_ITS | Encounter Summary ---
Author Organization [facility] Address [address] [place] [address] Care Team Providers Care Nutritionists Name Role Phone Jes Arriaga MD Primary Care Provider + Reason for Visit * Reason Comments Follow-up Review lab results Encounter Details Date Type Department Care Team (Late st Contact Info) Description 03/11/2018 8:30 AM PDT Office Visit [facility] [address] Internal Medicine [address] [address] [place] [address] [facility], [address] [place] [address] [id number] Hyponatremia (Primary Dx); Iron deficiency anemia, unspecified iron deficiency anemia type; Protein-calorie malnutrition, unspecified severity (HCC); Pneumonia of left lower lobe due to infectious organism (HCC); Essential hypertension; Hypothyroidism, unspecified type; Major depressive disorder, recurrent episode, mild (HCC); Osteopenia, unspecified location; Disorder of bone ; Need for 23-polyvalent pneumococcal polysaccharide vaccine Social History Tobacco Use Types Packs/Day Years [...] Sign Reading Time Taken Comments Blood Pressure 121/73 03/11/2018 8:59 AM PDT Pulse 65 03/11/2018 8:59 AM PDT Temperature 36.3 ??C (97.4 ??F) 03/11/2018 8:59 AM PD T Respiratory Rate 16 03/11/2018 8:59 AM PDT Oxygen Saturation 100% 03/11/2018 8:59 AM PDT Inhaled Oxygen Concentration - - Weight 47.7 kg (105 lb 3.2 oz) 03/11/2018 8:59 A M PDT Height 165.1 cm (5' 5) 03/11/2018 8:59 AM PDT Body Mass Index 17.51 03/11/2018 8:59 AM PDT documented in this encounter Patient Instructions * Patient Instructions* Jes Arriaga MD - 03/11/2018 9:18 AM PDT Pneumonia vaccine 23 - given 03/11/2018 Will check Prevnar vaccine (will be due next year) and Shingrix Increase iron to bid Reduce Fluoxetine to 20mg Increase calories Please call for Bone density test appointment [facility] [phone] [address] [facility] [address] Plan for mammo in May [phone] Please follow up your preferred GI If EGD and colonoscopy are normal you will need to do a capsule If all still is normal, you will need to see a pediatric social worker Please call nephrology for an appt: James Casarez Md?? (Fv) [phone] [facility] [address] [facility] [address] ?? Please bring in meds and copies of labs to appt with specialists See me post work up / sooner If needed documented in this encounter Progress Notes * Jes Arriaga MD - 03/11/2018 7:58 AM PDT Quin Dias is a 67 year old female who comes to clinic today for a follow up BP at goal Had lab done in 2017 Was notable for hyponatremia, IRON DEFICIENCY ANEMIA, hypothyroidism Thyroid now normal Ongoing IRON DEFICIENCY ANEMIA and hyponatremia Has not yet set up endoscopies Had PNEUMONIA Followed by CXR showed clearance Now due for pneumonia vaccine Wishes to reduce fluoxetine Patient is a vegetarian She is underweight States she is always thin Patient Active Problem List Diagnosis Date Noted ??? Iron deficiency anemia, unspecified iron deficiency anemia type 01/08/2018 ??? Protein-calorie malnutrition, unspecified severity (HCC) 01/08/2018 ??? Hyponatremia 03/02/2017 ??? Pneumonia of left lower lobe due to infectious organism (HCC) 01/31/2017 ??? Major depressive disorder, recurrent episode, mild (HCC) 12/14/2014 ??? Hypothyroidism, unspecified 12/14/2014 ??? Essential hypertension 12/14/2014 Current Outpatient Prescriptions: albuterol HFA (PROVENTIL HFA, PROAIR HFA, VENTOLIN HFA) 90 mcg/actuation inhaler Inhale 2 puffs every 4 hours as needed for shortness of breath or wheezing. Disp: 1 Inhaler Rfl: 0 losartan (COZAAR) 100 mg Tablet Take 100 mg by mouth every day. Disp: Rfl: amLODIPine (NORVASC) 10 mg tablet Take 1 Tab (10 mg) by mouth every day. Disp: 90 Tab Rfl: 3 LEVOTHYROXINE SODIUM (SYNTHROID ORAL) Take 88 mcg by mouth. Disp: Rfl: FLUoxetine (PROzac) 20 mg Tablet tablet Take 1 tablet by mouth once a day. Disp: 90 tablet Rfl: 3 No current facility-administered medications for this visit. The medication list has been reviewed and updated to reflect current medications as of 03/11/2018. Allergies: No Known Allergies Social history: Social History Substance Use Topics ??? Smoking status: Never Smoker ??? Smokeless tobacco: Never Used ??? Alcohol use No ROS: No c/o Active No dark or tarry stools PE: Vitals: 03/11/18 0859 BP: 121/73 Pulse: 65 Temp: 97.4 ??F (36.3 ??C) Resp: 16 Height: 5' 5 (1.651 m) Weight: 105 lb 3.2 oz (47.7 kg) SpO2: 100% TempSrc: Oral BP Location: LUE Orthostatic Position: Sitting Cuff Size: Adult arm alert and oriented COR: RRR, s1 s2 no S3 or S4 Lungs: CTA B, no crackles, rare wheezing Abd: soft, not tender, positive bowel sounds. Extremities: No edema. Neurological exam: Alert and oriented x3. ambulatory A/P: 1. Hyponatremia Initiate work up ? Due to meds Will check with nephro 2. Iron deficiency anemia, unspecified iron deficiency anemia type Needs work up Patient to set up 3. Protein-calorie malnutrition, unspecified severity (HCC) Patient is underweight She states she is always thin Increase calories 4. Pneumonia of left lower lobe due to infectious organism (HCC) Clinically and radiographically resolved 5. Essential hypertension Stable Continue med 6. Hypothyroidism, unspecified type Stable monitor 7. Major depressive disorder, recurrent episode, mild (HCC) Stable Reduce med - FLUoxetine (PROzac) 20 mg Tablet tablet; Take 1 tablet by mouth once a day. Dispense: 90 tablet; Refill: 3 8. Osteopenia, unspecified location due - BONE DENSITY AXIAL; Future 9. Disorder of bone Check dexa - BONE DENSITY AXIAL; Future 10. Need for 23-polyvalent pneumococcal polysaccharide vaccine Will give today - PNEUMOCOCCAL VACCINE,23-VALENT,ADULT Pneumonia vaccine 23 03/11/2018 Will check Prevnar vaccine (will be due next year) and Shingrix Increase iron to bid Reduce Fluoxetine to 20mg Increase calories Please call for Bone density test appointment [facility] [phone] [address] [facility] [address] Plan for mammo in May [phone] Please follow up your preferred GI If EGD and colonoscopy are normal you will need to do a capsule If all still is normal, you will need to see a pediatric social worker Please call nephrology for an appt: James Casarez Md?? (Fv) [phone] [facility] [address] [facility] [id number] ?? Please bring in meds and copies of labs to appt See me post work up / sooner If needed The patient Quin Dias indicates understanding of these issues and agreement with the plan. RTC 2 mo Pt is aware of the importance of close followup. Pt assures me that plans we discussed today will be carried out. Pt aware that if current condition worsens or persists, pt may see myself or any available MD for evaluation. documented in this encounter Nursing Notes * Amirah Ramirez - 03/11/2018 8:57 AM PDT Opthal:2017 Pap: 12/14/2014 WNL Colonoscopy: scheduled 03/29/2018 Labs: 01/03/2018 Mammo:2017, patient will send copy, 05/2017 Dexa: 01/07/17 documented in this encounter Plan of Treatment Not on file documented as of this encounter Visit Diagnoses Diagnosis Hyponatremia- Primary Hyposmolality and/or hyponatremia Iron deficiency anemia, unspecified iron deficiency anemia type Protein-calorie malnutrition, unspecified severity (HCC) Pneumonia of left lower lobe due to infectious organism Essential hypertension Unspecified essential hypertension Hypothyroidism, unspecified type Major depressive disorder, recurrent episode, mild (HCC) Major depressive disorder, recurrent episode, mild Osteopenia, unspecified location Disorder of bone Disorder of bone and cartilage, unspecified Need for 23-polyvalent pneumococcal polysaccharide vaccine documented in this encounter Care Teams Nutritionists Relationship Specialty [place] [address] [facility], [address] [place] [address] PCP - General Internal Medicine 12/02/14 documented as of this encounter
--- OUTSIDE RECORDS SUMMARY | 2024-04-21 18:23 | XMS_ITS | Encounter Summary ---
Author Organization [facility] Address [address] [place] [address] Care Team Providers Care Advanced Nursing Professor Name Role Phone Jes Espinosa MD Primary Care Provider + Encounter Details Date Type Department Care Team (Late st Contact Info) Description 01/29/2017 Orders Only [facility] [place] [address] Internal Medicine [address] [facility] [address] [place] [address] [place] [address] [facility], [address] [place] [address] Medications Social History Tobacco Use Types Packs/Day Years Used Date Smoking Tobacco: Never Alcohol Use Standard Drinks/Week Comments [...] Progress Notes * Jes Espinosa MD - 01/31/2017 5:35 PM PDT I sent a message to patient via Taggled but I am requesting that you please call patient to make sure she got the message Please read message to patient Elliot Gutierrez, I tried to call you a couple of times but only got your voicemail. The Chest xray shows evidence of L sided pneumonia. I recommend that we initiate antibiotics. I can order medication for 10 days ??which should clear it up. It is VERY IMPORTANT to do a follow up chest xray to make sure that the PNEUMONIA has cleared. We usually do the follow up CXR 4 wks after treatment. I have ordered the CXR for you. Please initiate antibiotics and do follow up CXR. Please see me in 6 wks. Brooke regards, LK * Jes Espinosa MD - 01/29/2017 11:14 AM PDT From patient on [place] A few questions I've had a persistent cough so other half wanted me to check in with u . Other issue is excessive coldness can I get a CBC and thyroid panel called in. Is it possible to order it [place]. We r temporarily living there are house is being remolded. Thx have a great 4th Sent from my [employer] Response to patient: Elliot Gutierrez, I have ordered a CXR for you. You can do it here at our office. Your annual lab and mammogram are due. The lab should be done fasting and can be done at any [facility] lab. Please call for mammogram [facility] [phone] [address] [facility] [address] [facility] [address] Brooke regards, MALA documented in this encounter Miscellaneous Notes * Addendum Note - Jes Espinosa MD - 01/31/2017 5:34 PM PDTAddended by: JES ESPINOSA on: 01/31/2017 05:34 PM Modules accepted: Orders documented in this encounter Plan of Treatment Not on file documented as of this encounter Procedures Procedure Name Priority Date/Time Associated Diagnosis Comments XR CHEST 2 VIEWS Routine 01/31/2017 11:3 8 AM PDT Cough documented in this encounter Results * XR CHEST 2 VIEWS (01/31/2017 11:38 AM PDT) Anatomical Region Laterality Modality CHEST Radiographic Sofia ging 01/31/2017 11:3 8 AM PDT Narrative 01/31/2017 3:07 PM PDT Date of Exam: ??01-31-2017 Facility: [facility] EXAM: ??XR CHEST 2 VIEWS CLINICAL HISTORY: ?? Cough. COMPARISON: ??None available. TECHNIQUE: ??PA and lateral views of the chest. FINDINGS: The cardiomediastinal silhouette is within normal limits. Left basilar patchy airspace disease is observed. The pulmonary vascularity is normal. No pleural effusion or pneumothorax is identified. Mild thoracic spondylosis is seen. IMPRESSION: Left lower lobe pneumonia. Short-term followup chest radiograph is recommended to document resolution. CHATO/HCC: No DICTATED BY: RIZWANA FONSECA MD : ? Images and the report can be viewed on the [facility] web portal. Thank you for your referral. Procedure Note Rizwana Fonseca MD - 01/31/2017 Date of Exam: 01-31-2017 Facility: [facility] EXAM: XR CHEST 2 VIEWS CLINICAL HISTORY: Cough. COMPARISON: None available. TECHNIQUE: PA and lateral views of the chest. FINDINGS: The cardiomediastinal silhouette is within normal limits. Left basilar patchy airspace disease is observed. The pulmonary vascularity is normal. No pleural effusion or pneumothoraxis identified. Mild thoracic spondylosis is seen. IMPRESSION: Left lower lobe pneumonia. Short-term followup chest radiograph isrecommended to document resolution. CHATO/HCC: No DICTATED BY: RIZWANA FONSECA MD : Images and the report can be viewed on the [facility] web portal. Thank you for your referral. Jes Espinosa MD DX IMG DIAG/X-RA Y * (ABNORMAL) HEPATITIS C AB (HCV) (01/31/2017 [...] to the current Treatment Guidelines (J Hepatol, 3209-3451, ). Please correlate these findings with the patient's clinical history and any other diagnostic findings, including any evidence of liver dysfunction. [facility] Comment: [facility] (E) Comment: The analytical performance characteristics of this assay have been determined by [facility]. The modifications have not been cleared or approved by the FDA. This assay has been validated pursuant to the CLIA regulations and is used for clinical purposes. ?? This test was performed using the FELIX(R)AmpliPrep/ FELIX(R)TaqMan(R)HCV Test,v2.0. For more information on this test, go to: http://education.LogicLadder/faq/DQE78c0 (This link is being provided for informational/ educational purposes only.) Blood (BLOOD) 01/31/2017 11: 17 AM PDT 01/31/2017 9:56 PM PDT Narrative Resulting Agency Comment Performing Organization Information: ? EN ? [facility] ? [address] [place] [address] ? Tab MD Diana Jes Espinosa MD LAB BLOOD [facility] (E) documented in this encounter Visit Diagnoses Diagnosis Cold feeling- Primary Other general symptoms Cough Need for hepatitis C screening test Special screening examination for other specified viral diseases Pneumonia of left lower lobe due to infectious organism documented in this encounter Care Teams Advanced Nursing Professor Relationship Specialty [place] [address] [facility], [address] [place] [address] PCP - General Internal Medicine 12/02/14 documented as of this encounter
--- OUTSIDE RECORDS SUMMARY | 2024-04-21 18:23 | XMS_ITS | Encounter Summary ---
Author Organization [facility] Address [address] [place] [address] Care Team Providers Care Yarn Dumper Name Role Phone Jes Arriaga MD Primary Care Provider + Reason for Visit * Reason Comments Medication Refill Encounter Details Date Type Department Care Team ([facility] st Contact Info) Description 01/29/2017 Refill [facility] [place] [address] Internal Medicine [address] [address] [place] [address] [address] Medication Refill Social History Tobacco [...] on filedocumented in this encounter Care Teams Yarn Dumper Relationship Specialty [place] [address] [address] PCP - General Internal Medicine 12/02/14 documented as of this encounter
--- OUTSIDE RECORDS SUMMARY | 2024-04-21 18:23 | XMS_ITS | Encounter Summary ---
Author Organization [facility] Address [address] [place] [address] Care Team Providers Care Warehouse Examiner Name Role Phone Jes Arriaga MD Primary Care Provider + Reason for Visit * Reason Onset Date Comments Pre-op Exam 10/07/2018 MEDICAL CLEARANC E Encounter Details Date Type Department Care Team (Late st Contact Info) Description 10/07/2018 Telephone [facility] [place] [address] Internal Medicine [address] [facility] [address] [place] [address] [place] [address] [facility] [address] [place] [address] Pre-op Exam (MEDICAL CLEARANCE) Social History Tobacco Use Types Packs/Day Years [...] encounter Miscellaneous Notes * Telephone Encounter - Jasmin Prater - 10/07/2018 9:37 AM PDT Surgery: RIGHT TOTAL HIP ARTHROPLASTY Inpatient Surgeon: LARS VICK Primary Care Physician: Jes Arriaga MD Hospital/Facility: [facility] Surg: Nurse Receiving Orders: Jasmin Prater Date/Time: 10/17/18 Manager [employer]: Dx: M16.11 Fax: Consult Perform on this date: 10/09/18 Status: Routine [] H&P With MD: [x] Medical Clearance With MD: FRANCISCA PRE-OP [facility] PT VERBALLY UNDERSTOOD RESULTS TO BE FAXED BY THE PCP OFFICE NOTE: EKG, MRSA NASAL SWAB & LABS WERE DONE @[facility] RESULTS ATTACHED TO PRE-OP ORDER IN MEDIA documented in this encounter Plan of Treatment Not on file documented as of this encounter Visit Diagnoses Not on filedocumented in this encounter Care Teams Warehouse Examiner Relationship Specialty [place] [address] [facility], [facility] [address] [place] [address] PCP - General Internal Medicine 12/02/14 documented as of this encounter
--- OUTSIDE RECORDS SUMMARY | 2024-04-21 18:23 | XMS_ITS | Encounter Summary ---
Author Organization [facility] Address [address] [place] [address] Care Team Providers Care Slice Cutting Machine Operator Helper Name Role Phone Jes Arriaga MD Primary Care Provider + Reason for Visit * Reason Onset Date Comments Results 03/06/2017 Encounter Details Date Type Department Care Team (Late st Contact Info) Description 03/06/2017 Telephone [place] [address] Internal Medicine [address] [address] [place] [address] [facility] [address] [place] [address] Results Social History Tobacco Use [...] encounter Miscellaneous Notes * Telephone Encounter - Amirah Ramirez - 03/06/2017 8:41 AM PDT Spoke to patient on Sunday documented previously Pt with 4 active issues: 1. Recent PNEUMONIA Plan - repeat CXR 2. Newly found anemia - IRON DEFICIENCY ANEMIA Please call Dr Baudilio Rascon for appt (GI) [address], [address] [facility] [address] 3. Low sodium - etiology unknown - may be due to hypothyroidism - repeat lab (BMP) in 2 weeks - if still low will refer to nephrology 4. Did have low TSH = was taking levothyroxine along with vitamins - plan is to separate thyroid med and repeat lab in 6 wks (TSH and BMP) Has 2 more weeks to go Amirah - please review the 4 points again with patient Please sign her up with MyChart - she states she is having trouble Please print and send patient copies of all labs 01/31 going forward Ok to mail her the letter outlining the plan Please enter her insurance information Please book a follow up appt with me in 3 wks (30 min) documented in this encounter Plan of Treatment Not on file documented as of this encounter Visit Diagnoses Not on filedocumented in this encounter Care Teams Slice Cutting Machine Operator Helper Relationship Specialty [place] [address] [facility], [address] [place] [address] PCP - General Internal Medicine 12/02/14 documented as of this encounter
--- OUTSIDE RECORDS SUMMARY | 2024-04-21 18:23 | XMS_ITS | Encounter Summary ---
Author Organization [facility] Address [address] [place] [address] Care Team Providers Care Electric Gas Appliances Demonstrator Name Role Phone Jes Arriaga MD Primary Care Provider + Reason for Visit * Reason Comments Follow-up review labs Encounter Details Date Type Department Care Team ([facility] st Contact Info) Description 09/26/2018 11:00 AM PST Office Visit [facility] [address] [place], [place] [address] [place] [address] [facility], [address] [place] [address] Anemia, unspecified type (Primary Dx); Eosinophilia Social History Tobacco Use Types Packs/Day [...] Sign Reading Time Taken Comments Blood Pressure 123/79 09/26/2018 11:12 AM PST Pulse 69 09/26/2018 11:12 AM PST Temperature 36.9 ??C (98.5 ??F) 09/26/2018 11:[address] Respiratory Rate - - Oxygen Saturation - - Inhaled Oxygen Concentration - - Weight 51.3 kg (113 lb) 09/26/2018 11:12 AM PST Height 165.1 cm (5' 5) 09/26/2018 11:12 AM PST Body Mass Index 18.8 09/26/2018 11:12 AM PST documented in this encounter Progress Notes * Rizwana Neal MD - 09/26/2018 11:14 AM PST 09/26/2018 RE: Quin Dias : 1950 REASON FOR CONSULTATION: Anemia HPI: She presents today with her for a follow up visit and to discuss labs. She has no new complaints, denies skin rash, abdomen pain, diarrhea. She has seen the dials inspector for workup of chronichyponatremia, and also has her hip surgery scheduled on October 17. Brief Initial History: Quin Dias is a 68 year old female with a past medical history of hypothyroid and HTN. She presents today for evaluation of anemia. 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 She was to have hip surgery, and was found to have anemia so the procedure was halted. She reports to have had a full GI workup, which was negative for any bleeding. She has been on Ironpills (2 pills over the last 3 years, increased iron to 3 pills a day since July 2018). 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 On last her CBC, she did have mild lymphocyte elevation secondary to URI. She was also noted to have hyponatremia, and is undergoing workup for this (nephrology consult pending). She denies back pain or bone pain. Review of Systems - 14 point system reviewed, pertinent positives documented in HPI PHYSICAL EXAMINATION: Vitals: 09/26/18 1112 BP: 123/79 Pulse: 69 Temp: 98.5 ??F (36.9 ??C) Height: 1.651 m (5' 5) Weight: 51.3 [...] Ref Range: 60 - 130 mcg/dL 66 Belton Free LC Latest Ref Range: 3.3 - [...] Ref Range: 0.2 - 0.5 g/dL 0.3 IMPRESSION: Quin Dias is a 68 year old female with a past medical history of hypothyroid and HTN. She ishere for evaluation of anemia. * Anemia - Normocytic, Normochromic - improved after increase of iron pills, recent Hg 11.8 g/dl. - Anemia workup reviewed, no specific cause, appears inflammatory/Chronic in nature, inflammation is suggestive with the slightly elevated Belton chain, and non specific SPE findings. - On Iron pills, has increased to 3 pills a day since Jul 2018, with Vit C - She has been evaluated for GI bleeding, no evidence of bleed -No evidence of nutritional, myeloma or celiac diesease * Eosinophilia: - Abs count of 1K (first read). No complaints of diarrhea or worry for strongyloides. No evidence of rash or other allergic component. - Plan to trend closely, if continous increase will follow up with appropriate investigations including mutation testing (PDGFRA, JAK2, Tryptase, Stool for Ova, etc) * Hyponatremia: - With no evidence of renal failure - Evaluation per Nephrology PLAN: - Repeat CBC/Dif and inflammatory markers in 4-6 weeks. She is cleared to undergo surgery (electivehip surgery). - Nephrology evaluation for hyponatremia and new hypercalcemia. Discussed possible bone marrow biopsy if labs [...] as of this encounter Visit Diagnoses Diagnosis Anemia, unspecified type- Primary Eosinophilia documented in this encounter Care Teams Electric Gas Appliances Demonstrator Relationship Specialty [place] [address] [facility], [address] [place] [address] PCP - General Internal Medicine 12/02/14 documented as of this encounter
--- OUTSIDE RECORDS SUMMARY | 2024-04-21 18:23 | XMS_ITS | Encounter Summary ---
Author Organization [facility] Address [address] [place] [address] Care Team Providers Care Milk Treater Name Role Phone Jes Arriaga MD Primary Care Provider + Reason for Referral * Follow Up (Routine) - Closed Specialty Diagnoses / Procedures Referred By Contac t Referred To Contact Gastroenterology Diagnoses Iron deficiency anemia, unspecified iron deficiency anemia type Procedures OFFICE OUTPATIENT VISIT 15 [place] [address] [facility], [address] [place] [address] [place] [address] [facility], [address] [place] [address] Referral ID Status Reason Start Date Expiration Date Visits Re quested Visits Authorized [id number] Closed 01/08/2018 07/09/2018 1 1 Scheduling Instructions Internal comments for Mosaic [place]: * Consultation (Routine) - Closed Specialty Diagnoses / Procedures Referred By Contac t Referred To Contact Nephrology Diagnoses Hyponatremia Procedures OFFICE OUTPATIENT NEW 45 [place] [address] [facility], [address] [place] [address] [place] [address] [facility], [address] [place] [address] Referral ID Status Reason Start Date Expiration Date Visits Re quested Visits Authorized [id number] Closed 01/08/2018 04/10/2018 1 1 Scheduling Instructions Internal comments for Mosaic Layer: Reason for Visit * Reason Comments Cough x 3 weeks, with ches t pain when taking deep breath Encounter Details Date Type Department Care Team (Late st Contact Info) Description 01/08/2018 11:00 AM PDT Office Visit [place] [address] Internal Medicine [address] [facility] [address] [place] [address] [place] [address] [facility], [address] [place] [address] Pneumonia of left lower lobe due to infectious organism (HCC) (Primary Dx); Essential hypertension; Hypothyroidism, unspecified type; Major depressive disorder, recurrent episode, mild (HCC); Hyponatremia; Iron deficiency anemia, unspecified iron deficiency anemia type; Protein-calorie malnutrition, unspecified severity (HCC) Social History [...] Sign Reading Time Taken Comments Blood Pressure 138/77 01/08/2018 11:24 AM PDT Pulse 77 01/08/2018 11:24 AM PDT Temperature 36.7 ??C (98 ??F) 01/08/2018 11:24 AM PDT Respiratory Rate 16 01/08/2018 11:24 AM PDT Oxygen Saturation 100% 01/08/2018 11:24 AM PDT Inhaled Oxygen Concentration - - Weight 49.2 kg (108 lb 6.4 oz) 01/08/2018 11:24 AM PDT Height 165.1 cm (5' 5) 01/08/2018 11:24 AM PDT Body Mass Index 18.04 01/08/2018 11:24 AM PDT documented in this encounter Patient Instructions * Patient Instructions* Jes Arriaga MD - 01/08/2018 12:11 PM PDT Chest xray today Please check results online through [employer] Please contact us if you have any questions or concerns Antibiotics Dontae LOVING Please call Dr Baudilio Rascon for appt (GI) [address] [place] [id number] If EGD and colonoscopy are normal you will need to do a capsule If all still is normal, you will need to see a division superintendent Please call nephrology for an appt: James Casarez Md?? (Fv) [phone] [facility] [address] ?? Please bring in meds and copies of labs to appt See me in 8 wks / sooner If needed documented in this encounter Progress Notes * Jes Arriaga MD - 01/08/2018 11:52 AM PDT Nursing Notes: Amirah Ramirez 01/08/2018 11:42 AM Signed Opthal:2016 Pap: 12/14/2014 WNL Colonoscopy: Referral placed 11/2014; has not gone to see Dr. Dewitt. 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 Essential hypertension 12/14/2014 Current Outpatient Prescriptions: losartan (COZAAR) 100 mg Tablet Take 100 mg by mouth every day. Disp: Rfl: amLODIPine (NORVASC) 10 mg tablet Take 1 Tab (10 mg) by mouth every day. Disp: 90 Tab Rfl: 3 LEVOTHYROXINE SODIUM (SYNTHROID ORAL) Take 88 mcg by mouth. Disp: Rfl: levoFLOXacin (LEVAQUIN) 500 mg Tablet Take 1 tablet by mouth once a day for 10 days. Disp: 10 tablet Rfl: 0 albuterol HFA (PROVENTIL HFA, PROAIR HFA, VENTOLIN HFA) 90 mcg/actuation inhaler Inhale 2 puffs every 4 hours as needed for shortness of breath or wheezing. Disp: 1 Inhaler Rfl: 0 No current facility-administered medications for this visit. The medication list has been reviewed and updated to reflect current medications as of 01/08/2018. Allergies: No Known Allergies Social history: Social History Substance Use Topics ??? Smoking status: Never Smoker ??? Smokeless tobacco: Never Used ??? Alcohol use No ROS: Cough No fever No SOB No abd pain PE: Vitals: 01/08/18 1124 BP: 138/77 Pulse: 77 Temp: 98 ??F (36.7 ??C) Resp: 16 Height: 5' 5 (1.651 m) Weight: 108 lb 6.4 oz (49.2 kg) SpO2: 100% TempSrc: Oral BP Location: LUE Orthostatic Position: Sitting Cuff Size: Adult arm alert and oriented COR: RRR, s1 s2 no S3 or S4 Lungs: CTA B, no crackles, rare wheezing Abd: soft, not tender, positive bowel sounds. Extremities: No edema. Neurological exam: Alert and oriented x3. ambulatory A/P: 1. Pneumonia of left lower lobe due to infectious organism (HCC) Initiate work up Antibiotics CXR 2. Essential hypertension Stable Monitor 3. Hypothyroidism, unspecified type Now euthyroid 4. Major depressive disorder, recurrent episode, mild (HCC) Stable Continue med 5. Hyponatremia Initiate work up - [facility] Nephrology Juan Casarez - F[facility] 6. Iron deficiency anemia, unspecified iron deficiency anemia type Follow up on scheduling - needs endoscopies - [facility] GI EST PT RFL 7. Protein-calorie malnutrition, unspecified severity (HCC) Chronic Increase calories Chest xray today Please check results online through [employer] Please contact us if you have any questions or concerns Antibiotics Dontae LOVING Please call Dr Baudilio Rascon for appt (GI) [phone] [facility] [address] If EGD and colonoscopy are normal you will need to do a capsule If all still is normal, you will need to see a division superintendent Please call nephrology for an appt: James Casarez Md?? (Fv) [phone] [facility] [address] ?? Please bring in meds and copies of labs to appt See me in 8 wks / sooner If needed The patient Quin [...] encounter Nursing Notes * Amirah Ramirez - 01/08/2018 11:22 AM PDT Opthal:2017 Pap: 12/14/2014 WNL Colonoscopy: Referral placed 11/2014; has not gone to see Dr. Dewitt. Labs: 01/03/2018 Mammo:2018, patient will send copy Dexa: 01/07/17 documented in this encounter Plan of Treatment Scheduled Referrals Name Type Priority Associated Diagnoses Orde r Schedule [facility] NEW PT RFL Referral Routine Hyponatremia Ordered: 01/08/2018 [facility] GI EST PT RFL Referral Routine Iron deficiency anemia, unspecified iron deficiency anemia type Ordered: 01/08/2018 documented as of this encounter Visit Diagnoses Diagnosis Pneumonia of left lower lobe due to infectious organism- Primary Essential hypertension Unspecified essential hypertension Hypothyroidism, unspecified type Major depressive disorder, recurrent episode, mild (HCC) Major depressive disorder, recurrent episode, mild Hyponatremia Hyposmolality and/or hyponatremia Iron deficiency anemia, unspecified iron deficiency anemia type Protein-calorie malnutrition, unspecified severity (HCC) documented in this encounter Care Teams Milk Treater Relationship Specialty [place] [address] [facility], [address] [place] [address] PCP - General Internal Medicine 12/02/14 documented as of this encounter
--- OUTSIDE RECORDS SUMMARY | 2024-04-21 18:23 | XMS_ITS | Encounter Summary ---
Author Organization [facility] Address [address] [place] [address] Care Team Providers Care Health Promoter Name Role Phone Jes Arriaga MD Primary Care Provider + Reason for Visit * Reason Onset Date Comments Other 08/01/2018 Encounter Details Date Type Department Care Team (Late st Contact Info) Description 08/01/2018 Telephone [place] [address] Internal Medicine [address] [facility] [address] [place] [address] [place] [address] [facility] [address] [place] [address] Other Social History Tobacco Use [...] * Telephone Encounter - Amirah Ramirez - 08/01/2018 2:05 PM PST Patient called stating she has had a stomach flu x 1 week i advised patient to be seen on 08/02/2018.Patient will call for same day slot on 08/02/2018 documented in this encounter Plan of Treatment Not on file documented as of this encounter Visit Diagnoses Not on filedocumented in this encounter Care Teams Health Promoter Relationship Specialty [place] [address] [facility], [address] [place] [address] PCP - General Internal Medicine 12/02/14 documented as of this encounter
--- OUTSIDE RECORDS SUMMARY | 2024-04-21 18:23 | XMS_ITS | Encounter Summary ---
Author Organization [facility] Address [address] [place] [address] Care Team Providers Care Accounts Receivable Administrator Name Role Phone Jes Arriaga MD Primary Care Provider + Encounter Details Date Type Department Care Team (Late st Contact Info) Description 03/15/2017 10:25 AM PDT Orders Only [facility] [address] [facility], [address] [place] [address] Social History Tobacco Use Types Packs/Day Years [...] of this encounter Progress Notes * Jes Arriaga MD - 03/21/2017 5:59 PM PDT Patient has upcoming appt with GI re: anemia Is on iron now Will be doing CXR - cough better TSH now normal Low sodium still present Will work up post CXR Consider nephro Patient has upcoming appt with me documented in this encounter Plan of Treatment Not on file documented as of this encounter Procedures Procedure Name Priority Date/Time Associated Diagnosis Comments TSH, 3RD GENERATION W/RFLX TO FT4 Routine 03/15/2017 10:11 AM PDT Hypothyroidism BASIC METABOLIC PANEL Routine 03/15/2017 10:11 AM PDT Hyponatremia documented in this encounter Results * (ABNORMAL) BASIC METABOLIC PANEL (03/15/2017 10:11 AM PDT) Glucose Fasting 90 65 - 99 mg/dL [facility] Comment: ? Fasting reference interval BUN 9 7 - 25 mg/dL [facility] Creatinine 0.88 0.50 - 0.99 mg/dL [facility] Comment: For patients >49 years of age, the reference limit for Creatinine is approximately 13% higher for people identified as -Micronesian. eGFR 69 > OR = 60 mL/min/1 .73m2 [facility] eGFRAA 80 > OR = 60 mL/min/1 .73m2 [facility] BUN/Creatinine Ratio NOT APPLICABLE 6 - 22 (calc) [facility] NA 131(L) 135 - 146 mmol/L [facility] K 4.4 3.5 - 5.3 mmol/L [facility] CL 98 98 - 110 mmol/L [facility] CO2 25 20 - 31 mmol/L [facility] CA 9.6 8.6 - 10.4 mg/dL [facility] Blood (BLOOD) 03/15/2017 10: 11 AM PDT 03/15/2017 10:23 PM PDT Narrative Resulting Agency Comment Performing Organization Information: ? EN ? [facility] ? [address] [place] [address] ? Tab MD Diana Jes Arriaga MD LAB BLOOD [facility] * TSH, 3RD GENERATION W/RFLX TO FT4 (03/15/2017 10:11 AM PDT) TSH 3rd Gen 1.94 0.40 - 4.50 mIU/L [facility] Blood 03/15/2017 10:1 1 AM PDT 03/15/2017 10:23 PM PDT Narrative Resulting Agency Comment Performing Organization Information: ? EN ? [facility] ? [address] [place] [address] ? Tab MD Diana Jes Arriaga MD LAB BLOOD [facility] documented in this encounter Visit Diagnoses Diagnosis HYPOTHYROIDISM Hyponatremia Hyposmolality and/or hyponatremia documented in this encounter Care Teams Accounts Receivable Administrator Relationship Specialty [place] [address] [facility] [address] [place] [address] PCP - General Internal Medicine 12/02/14 documented as of this encounter
--- OUTSIDE RECORDS SUMMARY | 2024-04-21 18:23 | XMS_ITS | Encounter Summary ---
Author Organization [facility] Address [address] [place] [address] Care Team Providers Care Cafeteria Worker Name Role Phone Jes Arriaga MD Primary Care Provider + Reason for Visit * Reason Comments Consultation Encounter Details Date Type Department Care Team ([facility] st Contact Info) Description 04/13/2017 2:15 PM PDT Office Visit [address] [address] Baudilio Rascon MD [address] [place] [address] Iron deficiency anemia (Primary Dx) Social History Tobacco Use Types Packs/Day Years [...] Sign Reading Time Taken Comments Blood Pressure 120/68 04/13/2017 2:16 PM PDT Pulse 76 04/13/2017 2:16 PM PDT Temperature - - Respiratory Rate - - Oxygen Saturation - - Inhaled Oxygen Concentration - - Weight 49.4 kg (109 lb) 04/13/2017 2:16 PM PDT Height 165.1 cm (5' 5) 04/13/2017 2:16 PM PDT Body Mass Index 18.14 04/13/2017 2:16 PM PDT documented in this encounter Patient Instructions * Patient Instructions* Dionna Deutsch - 04/16/2017 4:29 PM PDT Quin Dias is a 66 years old female patient with Iron deficiency anemia that was seen in the office today by DR Baudilio Rascon for consultation. Patient is scheduled for an E[facility] on 05/18/17. documented in this encounter Progress Notes * Baudilio Rascon MD - 04/13/2017 4:18 PM PDT [phone] documented in this encounter Plan of Treatment Not on file documented as of this encounter Visit Diagnoses Diagnosis Iron deficiency anemia- Primary Iron deficiency anemia, unspecified documented in this encounter Care Teams Cafeteria Worker Relationship Specialty [place] [address] [facility], [address] [place] [address] PCP - General Internal Medicine 12/02/14 documented as of this encounter
--- OUTSIDE RECORDS SUMMARY | 2024-04-21 18:23 | XMS_ITS | Encounter Summary ---
Author Organization [facility] Address [address] [place] [address] Care Team Providers Care Swift Tender Name Role Phone Jes Arriaga MD Primary Care Provider + Reason for Visit * Reason Comments Follow-up discuss possible hip surgery Encounter Details Date Type Department Care Team (Late st Contact Info) Description 09/02/2018 11:30 AM PST Office Visit [facility] [place] [address] Internal Medicine [address] [address] [place] [address] [address] Hyponatremia (Primary Dx); Iron deficiency anemia, unspecified iron deficiency anemia type; Hypothyroidism, unspecified type; Essential hypertension; Protein-calorie malnutrition, unspecified severity (HCC) Social History [...] Sign Reading Time Taken Comments Blood Pressure 127/76 09/02/2018 11:44 AM PST Pulse 77 09/02/2018 11:44 AM PST Temperature 36.8 ??C (98.3 ??F) 09/02/2018 11:[address] Respiratory Rate - - Oxygen Saturation - - Inhaled Oxygen Concentration - - Weight 48.6 kg (107 lb 2 oz) 09/02/2018 11:44 AM PST Height 165.1 cm (5' 5) 09/02/2018 11:44 AM PST Body Mass Index 17.83 09/02/2018 11:44 AM PST documented in this encounter Patient Instructions * Patient Instructions* Jes Arriaga MD - 09/02/2018 11:59 AM PST Please call Dr Euceda/ or one of his associates (hematology/ oncology) for an appt [address] [facility] [address] Please send us copies of O & P Please send me a copy of your mammo Plan for DEXA Please call for Bone density test appointment [facility] [phone] [facility] [address] Please call for mammogram [facility] [phone] [facility] [address] Please follow up with nephrology Have them send me their notes All specialists need to make a comment regarding your surgery/ preop Continue iron Please let us know when preop is needed (you can do all preop studies here, then see me for formal Preop) See me once all studies completed / 2-3 Mo documented in this encounter Progress Notes * Jes Arriaga MD - 09/02/2018 11:59 AM PST Quin Dias is a 68 year old female who comes to clinic today for Chief Complaint Patient presents with ??? Follow-up discuss possible hip surgery HPI Patient in the process of work up for IRON DEFICIENCY ANEMIA and hyponatremia Patient Active Problem List Diagnosis ??? Major depressive disorder, recurrent episode, mild (HCC) ??? Hypothyroidism, unspecified ??? Essential hypertension ??? Pneumonia of left lower lobe due to infectious organism (HCC) ??? Hyponatremia ??? Iron deficiency anemia, unspecified iron deficiency anemia type ??? Protein-calorie malnutrition, unspecified severity (HCC) Active Non-Hospital Problems Diagnosis Date Noted ??? Iron deficiency anemia, [...] Laterality Date ??? NO MAJOR SURGICAL HISTORY Current Outpatient Prescriptions: FLUoxetine (PROzac) 20 mg Tablet tablet Take 1 tablet by mouth once a day. Disp: 90 tablet Rfl: 3 losartan (COZAAR) 100 mg Tablet Take 100 mg by mouth every day. Disp: Rfl: amLODIPine (NORVASC) 10 mg tablet Take 1 Tab (10 mg) by mouth every day. Disp: 90 Tab Rfl: 3 LEVOTHYROXINE SODIUM (SYNTHROID ORAL) Take 88 mcg by mouth. Disp: Rfl: No current facility-administered medications for this visit. The medication list has been reviewed and updated to reflect current medications as of 09/02/2018 No Known Allergies Social History Social History ??? Marital status: Spouse name: N/A ??? Number of children: N/A ??? Years of education: N/A Occupational History ??? Not on file. Social History Main Topics ??? Smoking status: Never Smoker ??? Smokeless tobacco: Never Used ??? Alcohol use No ??? Drug use: No ??? Sexual activity: Yes Other Topics Concern ??? Not on file Social History Narrative ??? No narrative on file Family History Problem Relation Age of Onset ??? Heart Father ??? Hemophilia Father ??? Renal Mother kidney failure ROS Hip pain PHQ-2 Results BP: 127/76 Pulse: 77 Temp: 98.3 ??F (36.8 ??C) Resp: (not recorded) Height: 5' 5 (165.1 cm) Weight: 107 lb 2 oz (48.6 kg)Body mass index is 17.83 kg/m??. Physical Exam Constitutional: She is well-developed, well-nourished, and in no distress. Neck: Normal range of motion. Neck supple. Cardiovascular: Normal rate, regular rhythm, normal heart sounds and intact distal pulses. Pulmonary/Chest: Effort normal and breath sounds normal. No respiratory distress. She has no wheezes. Abdominal: Soft. Bowel sounds are normal. She exhibits no distension. There is no tenderness. Musculoskeletal: She exhibits no edema. Neurological: Gait normal. Skin: Skin is warm and dry. Thin WF appears well Assessment & Plan: 1. Hyponatremia Work up in prog Upcoming appt with nephro 2. Iron deficiency anemia, unspecified iron deficiency anemia type Stable No evidence of GI bleeding Had EGD, colonoscopy and capsule Called Dr Rascon today Sep 02, 19 - left message for him to call me back Will ref to hematology Continue iron 3. Hypothyroidism, unspecified type Stable Continue med 4. Essential hypertension Stable On med ?meds source of hyponatremia 5. Protein-calorie malnutrition, unspecified severity (HCC) Ongoing Increase Calorie intake Please call Dr Euceda/ or one of his associates (hematology/ oncology) for an appt [address] [facility] [address] Please send us copies of O & P Please send me a copy of your mammo Plan for DEXA Please call for Bone density test appointment [facility] [phone] [facility] [address] Please call for mammogram [facility] [phone] [facility] [address] Please follow up with nephrology Have them send me their notes All specialists need to make a comment regarding your surgery/ preop Continue iron Please let us know when preop is needed (you can do all preop studies here, then see me for formal Preop) See me once all studies completed / 2-3 Mo The patient Quin Dias indicates understanding of these issues and agreement with the plan. Pt is aware of the importance of close followup. Pt assures me that plans we discussed today will be carried out. Pt aware that if current condition worsens or persists, pt may see myself or any available MD for evaluation. health maintenance: Opthal:2017 Pap: 12/14/2014 WNL Colonoscopy: 03/29/2018 Summary: . Normal terminal ileum,cecum, ileocecal valve, ascending colon, hepatic flexure,transverse colon, splenic flexure, descending colon, sigmoid colon, rectosigmoid junction, and rectum. . Internal hemorrhoids found. EGD recommended. EGD: 03/29/2018 [...] L1- IMPRESSION: OSTEOPENIA documented in this encounter Plan of Treatment Not on file documented as of this encounter Visit Diagnoses Diagnosis Hyponatremia- Primary Hyposmolality and/or hyponatremia Iron deficiency anemia, unspecified iron deficiency anemia type Hypothyroidism, unspecified type Essential hypertension Unspecified essential hypertension Protein-calorie malnutrition, unspecified severity (HCC) documented in this encounter Care Teams Swift Tender Relationship Specialty [place] [address] [facility], [address] [place] [address] PCP - General Internal Medicine 12/02/14 documented as of this encounter
--- OUTSIDE RECORDS SUMMARY | 2024-04-21 18:23 | XMS_ITS | Encounter Summary ---
Author Organization [facility] Address [address] [place] [address] Care Team Providers Care Orthopedic Coder Name Role Phone Jes Arriaga MD Primary Care Provider + Reason for Visit * Reason Onset Date Comments APPOINTMENT 01/20/2016 CPE Encounter Details Date Type Department Care Team ([facility] st Contact Info) Description 01/20/2016 Telephone [place] [address] Internal Medicine [address] [address] [place] [address] [facility] [address] [place] [address] APPOINTMENT (CPE) Social History Tobacco Use Types Packs/Day Years [...] encounter Miscellaneous Notes * Telephone Encounter - Milady Orourke - 01/20/2016 3:51 PM PDT Spoke with patient and assisted in finding an appointment for CPE on 01/31 * Telephone Encounter - Palmira Diggs - 01/20/2016 3:11 PM PDT APPOINTMENT REQUEST Caller: Quin Which provider would you like to see?: Dr Arriaga Which location (if provider travels):? What do you need to be seen for/symptoms?: CPE with [employer] Was patient triaged?no What date and time does the patient need an appointment? Patient had to cancel her [employer] and CPE, shewould like to reschedule with in the next 2 weeks Was an alternate date/time offered? What is the best number where we can reach you today? [phone] documented in this encounter Plan of Treatment Not on file documented as of this encounter Visit Diagnoses Not on filedocumented in this encounter Care Teams Orthopedic Coder Relationship Specialty [place] [address] [employer], [address] [place] [address] PCP - General Internal Medicine 12/02/14 documented as of this encounter
--- OUTSIDE RECORDS SUMMARY | 2024-04-21 18:23 | XMS_ITS | Encounter Summary ---
Author Organization [facility] Address [address] [place] [address] Care Team Providers Care Audio Production Engineer Name Role Phone Jes Arriaga MD Primary Care Provider + Reason for Visit * Reason Comments Other Fever, chill vomitti g x 3 days now pt is feeling Lethargic Encounter Details Date Type Department Care Team (Late st Contact Info) Description 08/02/2018 10:45 AM PST Office Visit [place] [id number] Internal Medicine [id number] [facility] [address] [place] [address] [place] [id number] [facility], [address] [place] [address] Nausea and vomiting, intractability of vomiting not specified, unspecified vomiting type (Primary Dx); Iron deficiency anemia, unspecified iron deficiency anemia type; Hyponatremia Social History Tobacco Use Types Packs/Day Years [...] Sign Reading Time Taken Comments Blood Pressure 120/75 08/02/2018 11:05 AM PST Pulse 71 08/02/2018 11:05 AM PST Temperature 36.4 ??C (97.5 ??F) 08/02/2018 11:[address] Respiratory Rate 16 08/02/2018 11:05 AM PST Oxygen Saturation 100% 08/02/2018 11:05 AM PST Inhaled Oxygen Concentration - - Weight 48.8 kg (107 lb 9.6 oz) 08/02/2018 11:05 AM PST Height 165.1 cm (5' 5) 08/02/2018 11:05 AM PST Body Mass Index 17.91 08/02/2018 11:05 AM PST documented in this encounter Patient Instructions * Patient Instructions* Jes Arriaga MD - 08/02/2018 11:36 AM PST Fluids Rest Lab today Please check results online through [employer] Please contact us if you have any questions or concerns Please send me a copy of your mammo Please follow up with Dr Baudilio Rascon Please call Search Engine Optimization Analyst Dr Baudilio Rascon for an appt [phone] [facility] [address] [facility] [id number] Plan for DEXA Please call for Bone density test appointment [facility] [phone] [address] [facility] [address] [facility] [address] Nutrition Follow up with me in December (full lab due then) Please let us know if preop is needed (you can do all preop studies here, then see me for formal Preop) documented in this encounter Progress Notes * Jes Arriaga MD - 08/02/2018 12:22 PM PST Quin Dias is a 68 year old female who comes to clinic today for Chief Complaint Patient presents with ??? Other Fever, chill vomittig x 3 days now pt is feeling Lethargic HPI Grandkids had GI issues Few days later had N/V and fever / chills Now symptoms have resolved but still with fatigue Was undergoing work up for IRON DEFICIENCY ANEMIA On iron now Had EGD and colonoscopy Was rec to have capsule enteroscopy - has not follow up on this yet Had mammo at [facility] Due for DEXA Planning on getting hip replacement Patient Active Problem List Diagnosis ??? Major [...] a day. Disp: 90 tablet Rfl: 3 albuterol HFA (PROVENTIL HFA, PROAIR HFA, VENTOLIN [...] updated to reflect current medications as of 08/02/2018 No Known Allergies Social History Social History [...] Father ??? Renal Mother kidney failure ROS Fatigue PHQ-2 Results BP: 120/75 Pulse: 71 Temp: 97.5 ??F (36.4 ??C) Resp: 16 Height: 5' 5 (165.1 cm) Weight: 107 lb 9.6 oz (48.8 kg)Body mass index is 17.91 kg/m??. Physical Exam Constitutional: She is well-developed, [...] Skin: Skin is warm and dry. Thin patient Assessment & Plan: 1. Nausea and vomiting, intractability of vomiting not specified, unspecified vomiting type Improving Fluids/ rest monitor 2. Iron deficiency anemia, unspecified iron deficiency anemia type Need to complete work up - CBC WITH AUTO DIFFERENTIAL, REFLEX MANUAL DIFFERENTIAL IF INDICATED; Future - FERRITIN; Future - FOLATE; Future - IRON, TOTAL AND TOTAL IRON BINDING CAPACITY; Future - METHYLMALONIC ACID (MMA), SERUM QUANTITATIVE; Future - VITAMIN B12; Future 3. Hyponatremia Repeat lab - COMPREHENSIVE METABOLIC PANEL; Future Fluids Rest Lab today Please check results online through [employer] Please contact us if you have any questions or concerns Please send me a copy of your mammo Please follow up with Dr Baudilio Rascon Please call Search Engine Optimization Analyst Dr Baudilio Rascon for an appt [phone] [facility] [address] [facility] [address] Plan for DEXA Please call for Bone density test appointment [facility] [phone] [address] [facility] [address] [facility] [address] Nutrition Follow up with me in December (full lab due then) Please let us know if preop is needed (you can do all preop studies here, then see me for formal Preop) All Orders Placed in this Encounter ??? CBC with Auto Differential, Reflex Manual Differential if Indicated ??? Comprehensive Metabolic Panel ??? Ferritin ??? Folate ??? Iron, Total and Total Iron Binding Capacity ??? METHYLMALONIC ACID ??? Vitamin B12 The patient Quin Dias indicates understanding of [...] as of this encounter Results * (ABNORMAL) VITAMIN B12 (08/02/2018 12:00 PM PST) Vitamin B12 1,452(H) 200 - 1,100 pg/mL [facility] ([facility]) Blood (BLOOD) 08/02/2018 12: 00 PM PST 08/02/2018 10:56 PM PST Narrative Resulting Agency Comment Performing Organization Information: ? EN ? [facility] ? [address] [place] [address] ? Tab Nylada Jes Arriaga MD LAB BLOOD Performing Organization Address [facility] de Phone Number [facility] ([facility]) * METHYLMALONIC ACID (MMA), SERUM QUANTITATIVE (08/02/2018 12:00 PM PST) Methylmalonic Acid 245 87 - 318 nmol/L [facility] ([facility]) Comment: This test was developed and its analytical performance characteristics have been determined by [facility]. It has not been cleared or approved by FDA. This assay has been validated pursuant to the CLIA regulations and is used for clinical purposes. Blood (BLOOD) 08/02/2018 12: 00 PM PST 08/02/2018 10:56 PM PST Narrative Resulting Agency Comment Performing Organization Information: ? EZ ? [facility], ? [address] [place] [address] ? Anni Perez MD,PhD,EDSON Jes Arriaga MD LAB BLOOD Performing Organization Address [facility] de Phone Number [facility] ([facility]) * (ABNORMAL) IRON, TOTAL AND TOTAL IRON BINDING CAPACITY (08/02/2018 12:00 PM PST) Iron 24(L) 45 - 160 mcg/dL [facility] ([facility]) IBC 255 250 - 450 mcg/dL (calc) [facility] ([facility]) Iron % Sat 9(L) 11 - 50 % (calc) [facility] ([facility]) Blood 08/02/2018 12:0 0 PM PST 08/02/2018 10:56 PM PST Narrative Resulting Agency Comment Performing Organization Information: ? EN ? [facility] ? [address] [place] [address] ? Tab Toochinda Jes Arriaga MD LAB BLOOD Performing Organization Address [facility] de Phone Number [facility] ([facility]) * FOLATE (08/02/2018 12:00 PM PST) Folate >24.0 ng/mL [facility] ([facility]) Comment: ? Reference Range ? Low: ? <3.4 ? Borderline: ?3.4-5.4 ? Normal: ?>5.4 Blood (BLOOD) 08/02/2018 12: 00 PM PST 08/02/2018 10:56 PM PST Narrative Resulting Agency Comment Performing Organization Information: ? EN ? [facility] ? [address] [place] [address] ? Tab Toochinda Jes Arriaga MD LAB BLOOD Performing Organization Address [facility] de Phone Number [facility] ([facility]) * FERRITIN (08/02/2018 12:00 PM PST) Ferritin 110 20 - 288 ng/mL [facility] ([facility]) Blood (BLOOD) 08/02/2018 12: 00 PM PST 08/02/2018 10:56 PM PST Narrative Resulting Agency Comment Performing Organization Information: ? EN ? [facility] ? [address] [place] [address] ? Tab Toochinda Jes Arriaga MD LAB BLOOD [facility] ([facility]) * (ABNORMAL) COMPREHENSIVE METABOLIC PANEL (08/02/2018 12:00 PM PST) Glucose 86 65 - 99 mg/dL [facility] ([facility]) Comment: ? Fasting reference interval BUN 10 7 - 25 mg/dL [facility] ([facility]) Creatinine 0.76 0.50 - 0.99 mg/dL [facility] ([facility]) Comment: For patients >49 years of age, the reference limit for Creatinine is approximately 13% higher for people identified as -[place]. eGFR 81 > OR = 60 mL/min/1 .73m2 [facility] ([facility]) eGFRAA 94 > OR = 60 mL/min/1 .73m2 [facility] ([facility]) BUN/Creatinine Ratio NOT APPLICABLE 6 - 22 (calc) [facility] ([facility]) NA 130(L) 135 - 146 mmol/L [facility] ([facility]) K 3.9 3.5 - 5.3 mmol/L [facility]) CL 94(L) 98 - 110 mmol/L [facility] ([facility]) CO2 23 20 - 32 mmol/L [facility] ([facility]) CA 8.6 8.6 - 10.4 mg/dL [facility] ([facility]) Protein Total 6.3 6.1 - 8.1 g/dL [facility] ([facility]) Albumin 3.5(L) 3.6 - 5.1 g/dL [facility] ([facility]) Globulin 2.8 1.9 - 3.7 g/dL (calc) [facility] ([facility]) A/G Ratio 1.3 1.0 - 2.5 (calc) [facility] ([facility]) Bilirubin, Total 0.3 0.2 - 1.2 mg/dL [facility] ([facility]) Alk Phos 120 33 - 130 U/L [facility] ([facility]) AST (SGOT) 33 10 - 35 U/L [facility] ([facility]) ALT (SGPT) 24 6 - 29 U/L [facility] ([facility]) Blood (BLOOD) 08/02/2018 12: 00 PM PST 08/02/2018 10:56 PM PST Narrative Resulting Agency Comment Performing Organization Information: ? EN ? [facility] ? [address] [place] [address] ? Tab Toochinda Jes Arriaga MD LAB BLOOD [facility] ([facility]) * (ABNORMAL) CBC WITH AUTO DIFFERENTIAL, REFLEX MANUAL DIFFERENTIAL IF INDICATED (08/02/2018 12:00 PMPST) WBC 12.7(H) 3.8 - 10.8 Thousand/ uL [facility] ([facility]) RBC 3.37(L) 3.80 - 5.10 Million/u L [facility] ([facility]) HGB 9.9(L) 11.7 - 15.5 g/dL [facility] ([facility]) HCT 31.3(L) 35.0 - 45.0 % [facility] ([facility]) MCV 92.9 80.0 - 100.0 fL [facility] ([facility]) MCH 29.4 27.0 - 33.0 pg [facility] ([facility]) MCHC 31.6(L) 32.0 - 36.0 g/dL [facility] ([facility]) RDW 14.5 11.0 - 15.0 % [facility] ([facility]) Platelet 363 140 - 400 Thousand/ uL [facility] ([facility]) MPV 9.4 7.5 - 12.5 fL [facility] ([facility]) Neutrophil Abs 10,071(H) 1,500 - 7,800 cells/uL [facility] ([facility]) Lymphocyte Abs 1,410 850 - 3,900 cells/uL [facility] ([facility]) Monocyte Abs 1,003(H) 200 - 950 cells/uL [facility] ([facility]) Eosinophil Abs 140 15 - 500 cells/uL [facility] ([facility]) BASO ABS 76 0 - 200 cells/uL [facility] ([facility]) Nucleated RBC Abs 0 0 cells/uL [facility]) Neutrophils % 79.3 % [facility] ([facility]) Lymphocyte % 11.1 % [facility] ([facility]) Monocytes % 7.9 % [facility] ([facility]) Eosinophil % 1.1 % [facility] ([facility]) Basophil % 0.6 % [facility] ([facility]) Slide Review [facility] ([facility]) Comment: Review of peripheral smear confirms automated results. Blood (BLOOD) 08/02/2018 12: 00 PM PST 08/02/2018 10:56 PM PST Narrative Resulting Agency Comment Performing Organization Information: ? EN ? [facility] ? [address] [place] [address] ? Tab Toochinda Jes Arriaga MD LAB BLOOD [facility] ([facility]) documented in this encounter Visit Diagnoses Diagnosis Nausea and vomiting, intractability of vomiting not specified, unspecified vomiting type- Primary Iron deficiency anemia, unspecified iron deficiency anemia type Hyponatremia Hyposmolality and/or hyponatremia documented in this encounter Care Teams Audio Production Engineer Relationship Specialty [place] [id number] [facility], [address] [place] [address] PCP - General Internal Medicine 12/02/14 documented as of this encounter
--- OUTSIDE RECORDS SUMMARY | 2024-04-21 18:23 | XMS_ITS | Encounter Summary ---
Author Organization [facility] Address [id number] [place] [address] Care Team Providers Care Lens Mounter Name Role Phone Jes Arriaga MD Primary Care Provider + Encounter Details Date Type Department Care Team (Late st Contact Info) Description 09/27/2018 1:30 PM PST Orders Only [facility] [address] [facility] [address] [place] [address] Social History Tobacco Use Types [...] as of this encounter Plan of Treatment Scheduled Orders Name Type Priority Associated Diagnoses Orde r Schedule CREATININE, URINE RANDOM Lab Routine Other specified hypothyroidism Hyponatremia Essential hypertension Recurrent major depressive episodes, mild (HCC) Iron deficiency anemia, unspecified 1 Occurrences starting 09/27/2018 until 10/27/2018 documented as of this encounter Procedures Procedure Name Priority Date/Time Associated Diagnosis Comments TSH, 3RD GENERATION W/RFLX TO FT4 Routine 09/27/2018 1:45 PM PST Other specified hypothyroidism Hyponatremia Essential hypertension Recurrent major depressive episodes, mild (HCC) Iron deficiency anemia, unspecified PARATHYROID HORMONE INTACT WITHOUT CA Routine 09/27/2018 1:45 PM PST Other specified hypothyroidism Hyponatremia Essential hypertension Recurrent major depressive episodes, mild (HCC) Iron deficiency anemia, unspecified CALCIUM, IONIZED SERUM Routine 9 1:45 PM PST Other specified hypothyroidism Hyponatremia Essential hypertension Recurrent major depressive episodes, mild (HCC) Iron deficiency anemia, unspecified VITAMIN D, 25-HYDROXY Routine 09/27/2018 1:45 PM PST Other specified hypothyroidism Hyponatremia Essential hypertension Recurrent major depressive episodes, mild (HCC) Iron deficiency anemia, unspecified URINALYSIS REFLEX MICROSCOPIC, IF INDICATED - STANDARD Routine 09/27/2018 1:45 PM PST Other specified hypothyroidism Hyponatremia Essential hypertension Recurrent major depressive episodes, mild (HCC) Iron deficiency anemia, unspecified URIC ACID Routine 09/27/2018 1:45 PM PST Other specified hypothyroidism Hyponatremia Essential hypertension Recurrent major depressive episodes, mild (HCC) Iron deficiency anemia, unspecified SODIUM, URINE RANDOM Routine 09/27/2018 1:45 PM PST Other specified hypothyroidism Hyponatremia Essential hypertension Recurrent major depressive episodes, mild (HCC) Iron deficiency anemia, unspecified PROTEIN, URINE RANDOM Routine 09/27/2018 1:45 PM PST Other specified hypothyroidism Hyponatremia Essential hypertension Recurrent major depressive episodes, mild (HCC) Iron deficiency anemia, unspecified PHOSPHORUS Routine 09/27/2018 1:45 PM PST Other specified hypothyroidism Hyponatremia Essential hypertension Recurrent major depressive episodes, mild (HCC) Iron deficiency anemia, unspecified OSMOLALITY, URINE Routine 09/27/2018 1:4 5 PM PST Other specified hypothyroidism Hyponatremia Essential hypertension Recurrent major depressive episodes, mild (HCC) Iron deficiency anemia, unspecified OSMOLALITY Routine 09/27/2018 1:45 PM PST Other specified hypothyroidism Hyponatremia Essential hypertension Recurrent major depressive episodes, mild (HCC) Iron deficiency anemia, unspecified MAGNESIUM Routine 09/27/2018 1:45 PM PST Other specified hypothyroidism Hyponatremia Essential hypertension Recurrent major depressive episodes, mild (HCC) Iron deficiency anemia, unspecified HEMOGLOBIN A1C Routine 09/27/2018 1:45 PM PST Other specified hypothyroidism Hyponatremia Essential hypertension Recurrent major depressive episodes, mild (HCC) Iron deficiency anemia, unspecified Pre-diabetes CORTISOL, TOTAL (SERUM) Routine 09/27/2018 1:45 PM PST Other specified hypothyroidism Hyponatremia Essential hypertension Recurrent major depressive episodes, mild (HCC) Iron deficiency anemia, unspecified COMPREHENSIVE METABOLIC PANEL Routine 09/27/2018 1:45 PM PST Other specified hypothyroidism Hyponatremia Essential hypertension Recurrent major depressive episodes, mild (HCC) Iron deficiency anemia, unspecified documented in this encounter Results * OSMOLALITY, URINE (09/27/2018 1:45 PM PST) Osmolality, Urine TNP mOsm/kg [facility] Comment: * Test not performed. ?* * No suitable specimen received. * Blood (URINE SPECIMEN) 09/27/2018 1:45 PM PST 09/27/2018 9:52 PM PST Narrative Resulting Agency Comment Performing Organization Information: ? EN ? [facility] ? [address] [place] [address] ? Tab Toochinda James Casarez MD LAB NON-BLOOD [facility] (E) [facility] * PROTEIN, URINE RANDOM (09/27/2018 1:45 PM PST) Creat/DL Urine 51 20 - 275 mg/dL Stat [facility] Protein/Creatin ine Ratio 157 21 - 161 mg/g creat [facility] Total Protein Ur 8 5 - 24 mg/dL [facility] Blood 09/27/2018 1:45 PM PST 09/27/2018 9:52 PM PST Narrative Resulting Agency Comment Performing Organization Information: ? EN ? [facility] ? [address] [place] [address] ? Tab Toochinda James Casarez MD LAB NON-BLOOD Performing Organization Address [facility]/ZIP Co de Phone Number [facility] (E) [facility] * (ABNORMAL) SODIUM, URINE RANDOM (09/27/2018 1:45 PM PST) Sodium, Random Urine 17(L) 28 - 272 mmol/L [facility] Blood (URINE SPECIMEN) 09/27/2018 1:45 PM PST 09/27/2018 9:52 PM PST Narrative Resulting Agency Comment Performing Organization Information: ? EN ? [facility] ? [address] [place] [address] ? Tab Toochinda James Casarez MD LAB NON-BLOOD Performing Organization Address City/[facility]/ZIP Co de Phone Number [facility] (E) [facility] * (ABNORMAL) URINALYSIS REFLEX MICROSCOPIC, IF INDICATED - STANDARD (09/27/2018 1:45 PM PST) Color YELLOW YELLOW [facility] SHELL_[facility]KA[facility] Appearance CLEAR CLEAR Mail[facility] SHELL_[facility] Specific [place] Ur 1.014 1.001 - 1.035 [facility] PH Urine 8.0 5.0 - 8.0 [facility] [place] Gluc Qual NEGATIVE NEGATIVE [facility] Bilirubin Indirect NEGATIVE NEGATIVE [facility] Ketones NEGATIVE NEGATIVE [facility] Blood Urine (part of UA) NEGATIVE NEGATIVE [facility] READINGRFIDeasKAISER [facility] Protein Ur NEGATIVE NEGATIVE [facility] READINGRFIDeasKA[facility] Nitrogen Total Ur POSITIVE(A) NEGATIVE [facility] Leukocyte Jeanne 1+(A) NEGATIVE [facility] ZULLYJOSÉ MIGUEL MCGRAWKAISER PERMANENTE MEDICAL CENTER WBC Ur 6-10(A) < OR = 5 /HPF [facility] ZULLYMail[facility] RBC/HPF NONE SEEN < OR = 2 /HPF [facility] READINGMailbox [facility] SQ Epithelial/LPF NONE SEEN < OR = 5 /HPF [facility] [employer] RacingRFIDeasKAISER PERMANENTE MEDICAL [facility]ENTER Bacteria Ur MANY(A) NONE SEEN /HPF [facility] [employer] RacingRFIDeasKAISER PERMANENT[facility] Hyaline Casts NONE SEEN NONE SEEN /LPF [facility] SHELLRFIDeasKAISER PERMANENT[facility] Comment: ? Your request to have a duplicate copy faxed has been acknowledged. ?Queued to: ??[id number] Blood 09/27/2018 1:45 PM PST 09/27/2018 9:52 PM PST Narrative Resulting Agency Comment Performing Organization Information: ? EN ? [facility] ? [address] [place] [address] ? Tab Nylada James Casarez MD LAB NON-BLOOD [facility] (E) [facility] * CALCIUM, IONIZED SERUM (09/27/2018 1:45 PM PST) Calcium Ionized 5.0 4.8 - 5.6 mg/dL [facility] RacingRFIDeas[facility] Blood (BLOOD) 09/27/2018 1:4 5 PM PST 09/27/2018 9:52 PM PST Narrative Resulting Agency Comment Performing Organization Information: ? EN ? [facility] ? [address] [place] [address] ? Tab Toochinda James Casarez MD LAB BLOOD Performing Organization Address [facility]/ZIP Co de Phone Number [facility] (E) [facility] SHELL_[facility] * VITAMIN D, 25-HYDROXY (09/27/2018 1:45 PM PST) Vitamin D 25 Hydroxy 44 30 - 100 ng/mL [facility] Comment: Vitamin D Status ? 25-OH Vitamin D: Deficiency: ?<20 ng/mL Insufficiency: ? 20 - 29 ng/mL Optimal: ? > or = 30 ng/mL For 25-OH Vitamin D testing on patients on D2-supplementation and patients for whom quantitation of D2 and D3 fractions is required, the QuestAssureD(TM) 25-OH VIT D, (D2,D3), LC/MS/MS is recommended: order code [id number] (patients >2yrs). For more information on this test, go to: http://education.[employer]faq/YTP255 (This link is being provided for informational/educational purposes only.) Blood (BLOOD) 09/27/2018 1:4 5 PM PST 09/27/2018 9:52 PM PST Narrative Resulting Agency Comment Performing Organization Information: ? EN ? [email or web address] ? [address] [place] [address] ? Tab Toochinda James Casarez MD LAB BLOOD Performing Organization Address [facility]/ZIP Co de Phone Number [facility] (E) [facility] * URIC ACID (09/27/2018 1:45 PM PST) Pathologist [facility] Uric Acid 3.1 2.5 - 7.0 mg/dL [facility] Comment: Therapeutic target for gout patients: <6.0 mg/dL ?? Blood (BLOOD) 09/27/2018 1:4 5 PM PST 09/27/2018 9:52 PM PST Narrative Resulting Agency Comment Performing Organization Information: ? EN ? [facility] ? [address] [place] [address] ? Tab Toochinda James Casarez MD LAB BLOOD Performing Organization Address [facility] de Phone Number [facility] (E) [facility] * TSH, 3RD GENERATION W/RFLX TO FT4 (09/27/2018 1:45 PM PST) TSH 3rd Gen 1.84 0.40 - 4.50 mIU/L [facility] Blood 09/27/2018 1:45 PM PST 09/27/2018 9:52 PM PST Narrative Resulting Agency Comment Performing Organization Information: ? EN ? [facility] ? [address] [place] [address] ? Tab Toochinda James Casarez MD LAB BLOOD Performing Organization Address [facility] de Phone Number RFIDeas (E) Stat [facility] * PARATHYROID HORMONE INTACT WITHOUT CA (09/27/2018 1:45 PM PST) Pth Intact 34 14 - 64 pg/mL [facility] Comment: Interpretive Guide ?Intact PTH ? Calcium ? ------- Normal Parathyroid ?Normal ? Normal Hypoparathyroidism ?Low or Low Normal ?Low Hyperparathyroidism ?? Primary ?Normal or High ? High ?? Secondary ?High ? Normal or Low ?? Tertiary ? High ? High Non-Parathyroid ?? Hypercalcemia ?Low or Low Normal ?High ? Your request to have a duplicate copy faxed has been acknowledged. ?Queued to: ??[id number] Blood (BLOOD) 09/27/2018 1:4 5 PM PST 09/27/2018 10:54 PM PST Narrative Resulting Agency Comment Performing Organization Information: ? EN ? [facility] ? [address] [place] [address] ? Tab Toochinda James Casarez MD LAB BLOOD Performing Organization Address [facility] de Phone Number RFIDeas (E) [facility] * PHOSPHORUS (09/27/2018 1:45 PM PST) Pathologist [facility] Phosphorus 4.0 2.1 - 4.3 mg/dL [facility] Blood (BLOOD) 09/27/2018 1:4 5 PM PST 09/27/2018 9:52 PM PST Narrative Resulting Agency Comment Performing Organization Information: ? EN ? [facility] ? [address] [place] [address] ? Tab Toochinda James Casarez MD LAB BLOOD Performing Organization Address [facility] de Phone Number [facility] (E) [facility] * (ABNORMAL) OSMOLALITY (09/27/2018 1:45 PM PST) Osmolality 273(L) 278 - 305 mOsm/kg [facility] Blood (BLOOD) 09/27/2018 1:4 5 PM PST 09/27/2018 9:52 PM PST Narrative Resulting Agency Comment Performing Organization Information: ? EN ? [facility] ? [address] [place] [address] ? Tab Toochinda James Casarez MD LAB BLOOD Performing Organization Address [facility]/ZIP Co de Phone Number [facility] (E) [facility] * MAGNESIUM (09/27/2018 1:45 PM PST) Magnesium 2.1 1.5 - 2.5 mg/dL [facility] Blood (BLOOD) 09/27/2018 1:4 5 PM PST 09/27/2018 9:52 PM PST Narrative Resulting Agency Comment Performing Organization Information: ? EN ? [facility] ? [address] [place] [address] ? Tab Toochinda James Casarez MD LAB BLOOD Performing Organization Address [facility] Co de Phone Number [facility] (E) [facility] SHE[facility] * HEMOGLOBIN A1C (09/27/2018 1:45 PM PST) Hgb A1C 5.2 <5.7 % of total Hgb [facility] [employer] GroupAL[facility] Comment: For the purpose of screening for the presence of diabetes: <5.7% ? Consistent with the absence of diabetes 5.7-6.4% ?Consistent with increased risk for diabetes ?(prediabetes) > or =6.5% ??Consistent with diabetes This assay result is consistent with a decreased risk of diabetes. Currently, no consensus exists regarding use of hemoglobin A1c for diagnosis of diabetes in children. According to [place] Diabetes Association (ADA) guidelines, hemoglobin A1c <7.0% represents optimal control in non- diabetic patients. Different metrics may apply to specific patient populations. Standards of Medical Care in Diabetes(ADA). ?? Blood (BLOOD) 09/27/2018 1:4 5 PM PST 09/27/2018 9:52 PM PST Narrative Resulting Agency Comment Performing Organization Information: ? EN ? [facility] ? [address] [place] [address] ? Tab Toochinda James Casarez MD LAB BLOOD [facility] (E) [facility] * CORTISOL, TOTAL (SERUM) (09/27/2018 1:45 PM PST) Cortisol 7.1 mcg/dL [facility] Comment: Reference Range: For 8 a.m.(7-9 a.m.) Specimen: 4.0-22.0 Reference Range: For 4 p.m.(3-5 p.m.) Specimen: 3.0-17.0 ??* Please interpret above results accordingly * Blood (BLOOD) 09/27/2018 1:4 5 PM PST 09/27/2018 9:52 PM PST Narrative Resulting Agency Comment Performing Organization Information: ? EN ? [facility] ? [address] [place] [address] ? Tab Toodorcasda James Casarez MD LAB BLOOD Performing Organization Address [facility]/State/ZIP Co de Phone Number [facility] (E) [facility] * (ABNORMAL) COMPREHENSIVE METABOLIC PANEL (09/27/2018 1:45 PM PST) Glucose 100(H) 65 - 99 mg/dL [facility] Comment: ? Fasting reference interval For someone without known diabetes, a glucose value between 100 and 125 mg/dL is consistent with prediabetes and should be confirmed with a follow-up test. BUN 13 7 - 25 mg/dL [facility] Creatinine 0.92 0.50 - 0.99 mg/dL [facility] Comment: For patients >49 years of age, the reference limit for Creatinine is approximately 13% higher for people identified as -Portuguese. eGFR 64 > OR = 60 mL/min/1 .73m2 [facility] eGFRAA 75 > OR = 60 mL/min/1 .73m2 [facility] BUN/Creatinine Ratio NOT APPLICABLE 6 - 22 (calc) [facility] NA 133(L) 135 - 146 mmol/L [facility] K 4.5 3.5 - 5.3 mmol/L [facility] CL 98 98 - 110 mmol/L [facility] CO2 27 20 - 32 mmol/L [facility] CA 9.5 8.6 - 10.4 mg/dL [facility] Protein Total 6.0(L) 6.1 - 8.1 g/dL [facility] Albumin 3.9 3.6 - 5.1 g/dL [facility] Globulin 2.1 1.9 - 3.7 g/dL (calc) [facility] A/G Ratio 1.9 1.0 - 2.5 (calc) [facility] Bilirubin, Total 0.2 0.2 - 1.2 mg/dL [facility] Alk Phos 77 33 - 130 U/L [facility] AST (SGOT) 18 10 - 35 U/L [facility] ALT (SGPT) 14 6 - 29 U/L [facility] Blood (BLOOD) 09/27/2018 1:4 5 PM PST 09/27/2018 9:52 PM PST Narrative Resulting Agency Comment Performing Organization Information: ? EN ? [facility] ? [address] [facility] [place] [address] ? Tab Toochinda James Casarez MD LAB BLOOD [facility] (E) [facility] documented in this encounter Visit Diagnoses Diagnosis Other specified hypothyroidism- Primary Hyponatremia Hyposmolality and/or hyponatremia Essential hypertension Unspecified essential hypertension Recurrent major depressive episodes, mild (HCC) Major depressive disorder, recurrent episode, mild Iron deficiency anemia, unspecified Pre-diabetes Other abnormal glucose documented in this encounter Care Teams Lens Mounter Relationship Specialty [place] [address] [facility], [address] [place] [address] PCP - General Internal Medicine 12/02/14 documented as of this encounter
--- OUTSIDE RECORDS SUMMARY | 2024-04-21 18:23 | XMS_ITS | Encounter Summary ---
Author Organization [facility] Address [address] [place] [address] Care Team Providers Care Software Manager Name Role Phone Jes Arriaga MD Primary Care Provider + Encounter Details Date Type Department Care Team (Late st Contact Info) Description 03/11/2018 Telephone [place] [address] Internal Medicine [address] [facility] [address] [place] [address] [place] [address] [address] [employer], [address] [place] [address] Social History Tobacco Use Types [...] Telephone Encounter - Jes Arriaga MD - 03/11/2018 4:43 PM PDT Spoke with Dr Dias [phone] Patient had severe pain at arm where she received PNEUMONIA 23 vaccine today. Able to move fingers but shoulder with dec ROM Pain was so bad that 911 was called At [facility] now Getting pain medication Plan - will follow up with me Isela - please check on patient tomorrow Thank you very much. * Telephone Encounter - Isela Killian, RN - 03/11/2018 2:25 PM PDT Called and spoke to friend Faith She said patient can not move her left arm where she received her vaccine today and that the pain is so bad that they had to Call 911 She handed the phone over to patient's and he asked if Dr. Ramires would call him back around 3:30 today His cell # is [phone] The paramedics were taking her to [facility] Informed Dr. Ramires at 2:[address] Dias at 3:30 today * Telephone Encounter - Portia Gutierres - 03/11/2018 2:03 PM PDT Caller's name: Faith Verma (Friend) What is the best number where we can reach you? [phone] Reason for Message (Why is the patient calling, what do they need): Friend called on patient's behalf and advised patient cannot move left arm where she received Pneumococcal vaccine this morning sheadvised patient has severe left shoulder pain. Please return call When is the action/callback expected or due: 03/11/18 documented in this encounter Plan of Treatment Not on file documented as of this encounter Visit Diagnoses Not on filedocumented in this encounter Care Teams Software Manager Relationship Specialty [place] [address] [address], [address] [place] [address] PCP - General Internal Medicine 12/02/14 documented as of this encounter
--- OUTSIDE RECORDS SUMMARY | 2024-04-21 18:23 | XMS_ITS | Encounter Summary ---
Author Organization [facility] Address [address] [place] [address] Care Team Providers Care Research Physiologist Name Role Phone Jes Arriaga MD Primary Care Provider + Reason for Visit * Reason Onset Date Comments APPOINTMENT 12/18/2016 Encounter Details Date Type Department Care Team (Late st Contact Info) Description 12/18/2016 Telephone [place] [address] Internal Medicine [id number] [address] [place] [address] [facility] [address] [place] [address] APPOINTMENT Social History Tobacco Use Types Packs/Day [...] Telephone Encounter - Jes Arriaga MD - 12/18/2016 5:45 PM PDT Spoke with patient Had been hiking/ eating salty food/ on long plane ride Noticed B pedal edema On Amlodipine Plan - hold Amlodipine Elevate LE Supp hose Increase fluids Low salt diet * Telephone Encounter - Nereida Valladares - 12/18/2016 12:[address] Arriaga please advise * Telephone Encounter - Christel Ott - 12/18/2016 12:36 PM PDT APPOINTMENT REQUEST Caller: Quin Dias Reason for the appointment request: No availability soon. The patient would like the doctor to callher back, please. What do you need to be seen for/symptoms?: follow up on blood pressure Which provider would you like to see?: Jes Arriaga MD Which location (if provider travels):? Was patient triaged?no, declined What date and time does the patient need an appointment? Any time soon. Was an alternate date/time offered? N/A (in December) Her new insurance is Blue Shield O, ID: [id number], phone; [phone], and [place], [place] [id number], phone: [phone] What is the best number where we can reach you today? [phone] (home) documented in this encounter Plan of Treatment Not on file documented as of this encounter Visit Diagnoses Not on filedocumented in this encounter Care Teams Research Physiologist Relationship Specialty [place] [address] [facility], [address] [place] [address] PCP - General Internal Medicine 12/02/14 documented as of this encounter
--- OUTSIDE RECORDS SUMMARY | 2024-04-21 18:23 | XMS_ITS | Encounter Summary ---
Author Organization [facility] Address [address] [place] [address] Care Team Providers Care Television Cable Installer Name Role Phone Jes Arriaga MD Primary Care Provider + Reason for Visit * Reason Comments Pre-op Exam Orthopaedic Specilat y [place] , 09/25/2018, (R) hip replacement, 10/17/2018, Dr. Ammon Reyes Encounter Details Date Type Department Care Team (Late st Contact Info) Description 10/09/2018 9:15 AM PDT Office Visit [place] [address] Internal Medicine [address] [address] [place] [address] [facility], [address] [place] [address] Preop examination (Primary Dx); Right hip pain; Hyponatremia; Iron deficiency anemia, unspecified iron deficiency anemia type; MRSA (methicillin resistant staph aureus) culture positive Social History Tobacco Use Types Packs/Day Years [...] Sign Reading Time Taken Comments Blood Pressure 98/64 10/09/2018 9:27 AM PDT Pulse 68 10/09/2018 9:27 AM PDT Temperature 36.3 ??C (97.4 ??F) 10/09/2018 9:27 AM PD T Respiratory Rate 16 10/09/2018 9:27 AM PDT Oxygen Saturation 100% 10/09/2018 9:27 AM PDT Inhaled Oxygen Concentration - - Weight 49.9 kg (110 lb) 10/09/2018 9:27 AM PDT Height 165.1 cm (5' 5) 10/09/2018 9:27 AM PDT Body Mass Index 18.3 10/09/2018 9:27 AM PDT documented in this encounter Progress Notes * Jes Arriaga MD - 10/09/2018 9:45 AM PDT Pre-Operative Consultation 10/09/2018 9:47 AM PATIENT: Quin Dias SURGEON: Ammon Reyes MD SURGERY: RIGHT HIP REPLACEMENT PCP: Jes Arriaga MD DATE OF SURGERY: 10/17/18 ANESTHESIA: General LOCATION OF SURGERY: [place] Surgery [...] unspecified ??? Essential hypertension ??? Hyponatremia ??? Iron deficiency anemia, unspecified iron deficiency anemia type ??? Protein-calorie malnutrition, unspecified severity (HCC) ??? MRSA (methicillin resistant staph aureus) culture positive Surgical History: Past Surgical History: Procedure Laterality Date ??? NO MAJOR SURGICAL HISTORY SocHX: Social History Social History ??? Marital status: Spouse name: Dr ??? Number of children: N/A ??? Years [...] ROS R hip pain Physical exam: Vitals: 10/09/18 0927 BP: 98/64 Pulse: 68 Temp: 97.4 ??F (36.3 ??C) Resp: 16 Height: 5' 5 (1.651 m) Weight: 110 lb (49.9 kg) SpO2: 100% TempSrc: Oral BP Location: LUE Orthostatic Position: Sitting Cuff Size: Adult arm Exam: Physical Exam RRR S1 S2 CTA B Soft NT ND +BS Dec R hip ROM No edema Labs: See lab results. Last EKG: normal EKG, normal sinus rhythm Assessment/Plan: The patient will be undergoing a moderate risk surgical procedure. Patient has mild anemia - she has undergone a full GI work up and hematology work up as well. She has been cleared for surgery by hematology staff She has been recommended to follow up with hematology staff She has also undergone work up for mild hyponatremia She has undergone rx for MRSA and will repeat culture 10/10/18 If culture is negative patient may proceed with surgery Moderate Risk Surgical Procedures (1%-5%) Intrathoracic (nonmajor) Intraperitoneal (splenectomy, cholecystectomy) Carotid (CEA or SAI) Endovascular aneurysm repair (stents/coil) Head and neck surgery Neurology or orthopedic surgery, major (hip and spine surgery) Urology or gynecologic, major Renal transplantation The patient's ASA Class is 2 - Mild systemic disease, no functional limitations. Using the [place] College of [employer]iology (ACC)/ [place] Heart Association Revised Cardiac Index, the patient is considered a low-risk patient -- Patients whose estimated risk of is less than 1percent are labeled as being low risk and require no additional cardiovascular testing.The patient may proceed with the planned surgical procedure. Nothing by Mouth (NPO) the morning of surgery (ok to hold BP med also) Patient is maximally optimized for surgery. She has undergone rx for MRSA and will repeat culture 10/10/18 If culture is negative patient may proceed with surgery documented in this encounter Nursing Notes * Amirah Ramirez - 10/09/2018 9:25 AM PDT Opthal:2017 Pap: 12/14/2014 WNL Mammogram: scheduled 10/09/2018 PPSV23: 03/11/18 Shingrix, will get at pharmacy Colonoscopy: 03/29/2018 Summary: documented in this encounter Plan of Treatment Not on file documented as of this encounter Visit Diagnoses Diagnosis Preop examination- Primary Preoperative examination, unspecified Right hip pain Pain in joint, pelvic region and thigh Hyponatremia Hyposmolality and/or hyponatremia Iron deficiency anemia, unspecified iron deficiency anemia type MRSA (methicillin resistant staph aureus) culture positive Carrier or suspected carrier of Methicillin resistant Staphylococcus aureus documented in this encounter Care Teams Television Cable Installer Relationship Specialty [place] [address] [facility], [address] [place], [place] [address] PCP - General Internal Medicine 12/02/14 documented as of this encounter
--- OUTSIDE RECORDS SUMMARY | 2024-04-21 18:23 | XMS_ITS | Encounter Summary ---
Author Organization [facility] Address [address] [place] [address] Care Team Providers Care Museum Technician Name Role Phone Jes Arriaga MD Primary Care Provider + Reason for Visit * Reason Comments Consultation anemia Encounter Details Date Type Department Care Team ([facility] st Contact Info) Description 09/18/2018 2:00 PM PST [facility] [place] [address] [facility] [address] [place] [address] [place] [address] [facility], [address] [place] [address] Iron deficiency anemia, unspecified iron deficiency anemia type (Primary Dx) Social History Tobacco Use Types [...] Sign Reading Time Taken Comments Blood Pressure 135/88 09/18/2018 2:05 PM PST Pulse 70 09/18/2018 2:05 PM PST Temperature 36.7 ??C (98 ??F) 09/18/2018 2:05 PM PST Respiratory Rate 16 09/18/2018 2:05 PM PST Oxygen Saturation - - Inhaled Oxygen Concentration - - Weight 51.4 kg (113 lb 6.4 oz) 09/18/2018 2:05 P M PST Height 165.1 cm (5' 5) 09/18/2018 2:05 PM PST Body Mass Index 18.87 09/18/2018 2:05 PM PST documented in this encounter Progress Notes * Rizwana Neal MD - 09/18/2018 1:59 PM PST 09/18/2018 RE: Quin Dias : 1950 REFERRING PHYSICIAN: Dr Arriaga REASON FOR CONSULTATION: Anemia HISTORY OF PRESENT ILLNESS: Quin Dias is a 68 year old female with a past medical history of hypothyroid and HTN. She presents today for evaluation of anemia. 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 She was to have hip surgery, and [...] She denies back pain or bone pain. PAST MEDICAL HISTORY: Past Medical History: Diagnosis Date ??? Hypertension ??? HYPOTHYROIDISM PAST SURGICAL HISTORY: Past Surgical History: Procedure Laterality Date ??? NO MAJOR SURGICAL HISTORY PROBLEM LIST: Active Non-Hospital Problems Diagnosis Date Noted ??? Iron deficiency anemia, unspecified iron deficiency anemia type 01/08/2018 ??? Protein-calorie malnutrition, unspecified severity (HCC) 01/08/2018 ??? Hyponatremia 03/02/2017 ??? Major depressive disorder, recurrent episode, mild (HCC) 12/14/2014 ??? Hypothyroidism, unspecified 12/14/2014 ??? Essential hypertension 12/14/2014 ALLERGIES: No Known Allergies MEDICATIONS: Current Outpatient Prescriptions: FLUoxetine (PROzac) 20 mg [...] No current facility-administered medications for this visit. SOCIAL HISTORY: Social History Social History ??? Marital status: [...] History Narrative ??? No narrative on file FAMILY HISTORY: Family History Problem Relation Age of Onset ??? Heart Father ??? Hemophilia Father ??? Renal Mother kidney failure Review of Systems - 14 point system reviewed, pertinent positives documented in HPI PHYSICAL EXAMINATION: Vitals: 09/18/18 1405 BP: 135/88 Pulse: 70 Temp: 98 ??F (36.7 ??C) Resp: 16 Height: 1.651 m (5' 5) Weight: 51.4 kg (113 lb 6.4 oz) GEN: cooperative HEENT: Normal NEURO: Non-Focal Exam LUNGS: clear to auscultation bilaterally HEART: regular rate and rhythm, S1, S2 normal, no murmur, click, rub or gallop ABD: soft, non-tender. Bowel sounds normal. No masses, no organomegaly EXT: extremities normal, atraumatic, no cyanosis or edema IMPRESSION: Quin Dias is a 68 year old female with a past medical history of hypothyroid and HTN. She ishere for evaluation of anemia. * Anemia - Normocytic - Last Ferritin 110, Iron Sat 9 - On Iron pills, has increased to 3 pills a day since Jul 2018, with Vit C - She has been evaluated for GI bleeding, no evidence of bleed - Discussed workup for MM, MGUS, Nutritional (B12, Copper, Zinc, Iron) - Hemolysis W/u * Hyponatremia: - With no evidence of renal failure - Recommend Nephrology consult PLAN: 1. Anemia W/U: Repeat CBC/Dif, CMP, LDH, Retic, 2. Myeloma/MGUS w/u: SPEP, Free K/L, UPEP 3. Coagulation profile, fibrinogen 4. Celiac disease workup Discussed possible bone marrow biopsy if above is inconclusive and needs further clarification. Sheprefers to defer this for now. Sincerely, Rizwana Neal MD Hematology/Oncology Thank you again for allowing me to participate in your patient's care. Please do not hesitate to call if any questions or new issues arise. documented in this encounter Plan of Treatment Not on file documented as of this encounter Procedures Procedure Name Priority Date/Time Associated Diagnosis Comments PROTEIN ELECTROPHORESIS, SERUM Routine 09/18/2018 3:20 PM PST CELIAC DISEASE COMPREHENSIVE PANEL-QUEST Routine 09/18/2018 3:20 PM PST COPY(IES) SENT TO-QUEST Routine 09/18/19 19 3:20 PM PST FIBRINOGEN ACTIVITY, CLAUSS Routine 09/18/2018 3:20 PM PST KAPPA LIGHT CHAIN, FREE-QUEST Routine 09/18/2018 3:20 PM PST HAPTOGLOBIN SCREEN Routine 09/18/2018 3: 20 PM PST ZINC, SERUM Routine 09/18/2018 3:20 PM PST RETICULOCYTE COUNT Routine 09/18/2018 3: 20 PM PST PROTHROMBIN TIME Routine 09/18/2018 3:20 PM PST LACTATE DEHYDROGENASE (LDH) Routine 09/18/2018 3:20 PM PST COPPER, SERUM Routine 09/18/2018 3:20 PM PST COMPREHENSIVE METABOLIC PANEL Routine 09/18/2018 3:20 PM PST CBC WITH AUTO DIFFERENTIAL, REFLEX MANUAL DIFFERENTIAL IF INDICATED Routine 09/18/2018 3:20 PM PST ACTIVATED PARTIAL THROMBOPLASTIN TIME Routine 09/18/2018 3:20 PM PST documented in this encounter Results * ZINC, SERUM (09/18/2018 3:20 PM PST) Zinc 66 60 - 130 mcg/dL [facility] (E) Comment: This test was developed and its analytical performance characteristics have been determined by [facility]. It has not been cleared or approved by the FDA. This assay has been validated pursuant to the CLIA regulations and is used for clinical purposes. 09/18/2018 3:20 PM PST 09/18/2018 3:27 PM PST Narrative [facility] ([facility]) - 09/20/2018 7:46 PM PST FASTING:YES PATIENT UNABLE TO VOID; ADVISED TO RETURN FOR COLLECTION. FASTING: YES Resulting Agency Comment Performing Organization Information: ? EN ? [facility] ? [address] [place] [address] ? Tab Toochinda Unknown Provider LAB BLOOD [facility] ([facility]) * COPPER, SERUM (09/18/2018 3:20 PM PST) Copper 175 70 - 175 mcg/dL [facility] (E) Comment: This test was developed and its analytical performance characteristics have been determined by [facility]. It has not been cleared or approved by the US Food and Drug Administration. This assay has been validated pursuant to the CLIA regulations and is used for clinical purposes. 09/18/2018 3:20 PM PST 09/18/2018 3:27 PM PST Narrative [facility] ([facility]) - 09/20/2018 7:46 PM PST FASTING:YES PATIENT UNABLE TO VOID; ADVISED TO RETURN FOR COLLECTION. FASTING: YES Resulting Agency Comment Performing Organization Information: ? SLI ? [facility] ? [address] [place] [address] ? Willie Meneses M.D., Ph.D Unknown Provider LAB BLOOD Performing Organization Address [facility] de Phone Number [facility] ([facility]) * (ABNORMAL) KAPPA LIGHT CHAIN, FREE-QUEST (09/18/2018 3:20 PM PST) [place] Free LC 25.8(H) 3.3 - 19.4 mg/L [facility] ([facility]) 09/18/2018 3:20 PM PST 09/18/2018 3:27 PM PST Narrative [facility] ([facility]) - 09/20/2018 7:46 PM PST FASTING:YES PATIENT UNABLE TO VOID; ADVISED TO RETURN FOR COLLECTION. FASTING: YES Resulting Agency Comment Performing Organization Information: ? EN ? [facility] ? [address] [place] [address] ? Tab Toochinda Unknown Provider LAB BLOOD Performing Organization Address [facility] de Phone Number [facility] ([facility]) * HAPTOGLOBIN SCREEN (09/18/2018 3:20 PM PST) Haptoglobin 130 43 - 212 mg/dL [facility] ([facility]) 09/18/2018 3:20 PM PST 09/18/2018 3:27 PM PST Narrative [facility] ([facility]) - 09/20/2018 7:46 PM PST FASTING:YES PATIENT UNABLE TO VOID; ADVISED TO RETURN FOR COLLECTION. FASTING: YES Resulting Agency Comment Performing Organization Information: ? EN ? [facility] ? [address] [place] [address] ? Tab Toodorcasda Unknown Provider LAB BLOOD Performing Organization Address [facility] de Phone Number [facility] ([facility]) * PROTHROMBIN TIME (09/18/2018 3:20 PM PST) INR 1.0 [facility] ([facility]) Comment: Reference Range ? 0.9-1.1 Moderate-intensity Warfarin Therapy 2.0-3.0 Higher-intensity Warfarin Therapy ?? 3.0-4.0 PT 10.3 9.0 - 11.5 sec [facility] ([facility]) Comment: For more information on this test, go to: http://education.[employer]/faq/ONP702 09/18/2018 3:20 PM PST 09/18/2018 3:27 PM PST Narrative [facility] ([facility]) - 09/20/2018 7:46 PM PST FASTING:YES PATIENT UNABLE TO VOID; ADVISED TO RETURN FOR COLLECTION. FASTING: YES Resulting Agency Comment Performing Organization Information: ? EN ? [facility] ? [address] [place] [address] ? Tab Toochinda Unknown Provider LAB BLOOD [facility] ([facility]) * (ABNORMAL) CBC WITH AUTO DIFFERENTIAL, REFLEX MANUAL DIFFERENTIAL IF INDICATED (09/18/2018 3:20 PM PST) WBC 10.4 3.8 - 10.8 Thousand/ uL [facility] ([facility]) RBC 3.83 3.80 - 5.10 Million/u L [facility] ([facility]) HGB 11.8 11.7 - 15.5 g/dL [facility] ([facility]) HCT 34.7(L) 35.0 - 45.0 % [facility] ([facility]) MCV 90.6 80.0 - 100.0 fL [facility] ([facility]) MCH 30.8 27.0 - 33.0 pg [facility] ([facility]) MCHC 34.0 32.0 - 36.0 g/dL [facility] ([facility]) RDW 14.0 11.0 - 15.0 % [facility] ([facility]) Platelet 378 140 - 400 Thousand/ uL [facility] ([facility]) MPV 9.4 7.5 - 12.5 fL [facility] ([facility]) Neutrophil Abs 5,169 1,500 - 7,800 cells/uL [facility] ([facility]) Lymphocyte Abs 2,725 850 - 3,900 cells/uL [facility] ([facility]) Monocyte Abs 957(H) 200 - 950 cells/uL [facility] ([facility]) Eosinophil Abs 1,373(H) 15 - 500 cells/uL [facility] ([facility]) BASO ABS 177 0 - 200 cells/uL [facility] ([facility]) Neutrophils % 49.7 % [facility] ([facility]) Lymphocyte % 26.2 % [facility] ([facility]) Monocytes % 9.2 % [facility] ([facility]) Eosinophil % 13.2 % [facility] ([facility]) Basophil % 1.7 % [facility] ([facility]) 09/18/2018 3:20 PM PST 09/18/2018 3:27 PM PST Narrative [facility] ([facility]) - 09/20/2018 7:46 PM PST FASTING:YES PATIENT UNABLE TO VOID; ADVISED TO RETURN FOR COLLECTION. FASTING: YES Resulting Agency Comment Performing Organization Information: ? EN ? [facility] ? [address] [place] [address] ? Tab Toochinda Unknown Provider LAB BLOOD Performing Organization Address [facility] de Phone Number [facility] ([facility]) * RETICULOCYTE COUNT (09/18/2018 3:20 PM PST) Retic Count 1.3 % [facility] ([facility]) Retic Abs 49,790 20,000 - 80,000 cells/uL [facility] ([facility]) 09/18/2018 3:20 PM PST 09/18/2018 3:27 PM PST Narrative [facility] ([facility]) - 09/20/2018 7:46 PM PST FASTING:YES PATIENT UNABLE TO VOID; ADVISED TO RETURN FOR COLLECTION. FASTING: YES Resulting Agency Comment Performing Organization Information: ? EN ? [facility] ? [address] [place] [address] ? Tab Toochinda Unknown Provider LAB BLOOD Performing Organization Address [facility] de Phone Number [facility] ([facility]) * ACTIVATED PARTIAL THROMBOPLASTIN TIME (09/18/2018 3:20 PM PST) APTT 29 22 - 34 sec [facility] ([facility]) Comment: This test has not been validated for monitoring unfractionated heparin therapy. For testing that is validated for this type of therapy, please refer to the Heparin Anti-Xa assay (test code 99045). For additional information, please refer to http://education.2heures[employer]ant/faq/VPG947 (This link is being provided for informational/educational purposes only.) 09/18/2018 3:20 PM PST 09/18/2018 3:27 PM PST Narrative [facility] ([facility]) - 09/20/2018 7:46 PM PST FASTING:YES PATIENT UNABLE TO VOID; ADVISED TO RETURN FOR COLLECTION. FASTING: YES Resulting Agency Comment Performing Organization Information: ? EN ? [facility] ? [address] [place] [address] ? Tab Toochinda Unknown Provider LAB BLOOD Performing Organization Address [facility] Co de Phone Number [facility] ([facility]) * FIBRINOGEN ACTIVITY, CLAUSS (09/18/2018 3:20 PM PST) Pathologist [facility] Fibrinogen Activity, [place] 266 175 - 425 mg/dL [facility] ([facility]) 09/18/2018 3:20 PM PST 09/18/2018 3:27 PM PST Narrative [facility] ([facility]) - 09/20/2018 7:46 PM PST FASTING:YES PATIENT UNABLE TO VOID; ADVISED TO RETURN FOR COLLECTION. FASTING: YES Resulting Agency Comment Performing Organization Information: ? EN ? [facility] ? [address] [place] [address] ? Tab Toochinda Unknown Provider LAB BLOOD Performing Organization Address City/[facility]/ZIP Co de Phone Number [facility] ([facility]) * CELIAC DISEASE COMPREHENSIVE PANEL-QUEST (09/18/2018 3:20 PM PST) Pathologist [facility] Interpretation/ Result: SEE NOTE [facility] ([facility]) Comment: No serological evidence of celiac disease. tTG IgA may normalize in individuals with celiac disease maintain a gluten-free diet. Consider HLA DQ2 and DQ8 testing to rule out celiac disease. Celiac disease is extremely rare in the absence of DQ2 or DQ8. Tissue Transglut Ab, IgA <1 U/mL [facility] ([facility]) Comment: <4 No Antibody Detected > OR = 4 Antibody Detected IgA 121 81 - 463 mg/dL [facility] ([facility]) 09/18/2018 3:20 PM PST 09/18/2018 3:27 PM PST Narrative [facility] ([facility]) - 09/20/2018 7:46 PM PST FASTING:YES PATIENT UNABLE TO VOID; ADVISED TO RETURN FOR COLLECTION. FASTING: YES Resulting Agency Comment Performing Organization Information: ? EZ ? [facility], ? [address] [facility] [address] ? Anni Perez MD,PhD,EDSON Unknown Provider LAB BLOOD [facility] ([facility]) * (ABNORMAL) COMPREHENSIVE METABOLIC PANEL (09/18/2018 3:20 PM PST) Glucose 93 65 - 99 mg/dL [facility] ([facility]) Comment: ? Fasting reference interval BUN 9 7 - 25 mg/dL [facility] ([facility]) Creatinine 0.88 0.50 - 0.99 mg/dL [facility] ([facility]) Comment: For patients >49 years of age, the reference limit for Creatinine is approximately 13% higher for people identified as -Syrian. eGFR 68 > OR = 60 mL/min/1 .73m2 [facility] ([facility]) eGFRAA 79 > OR = 60 mL/min/1 .73m2 [facility] ([facility]) BUN/Creatinine Ratio NOT APPLICABLE 6 - 22 (calc) [facility] ([facility]) NA 131(L) 135 - 146 mmol/L [facility] ([facility]) K 4.4 3.5 - 5.3 mmol/L [facility] ([facility]) CL 94(L) 98 - 110 mmol/L [facility] ([facility]) CO2 29 20 - 32 mmol/L [facility] ([facility]) CA 10.5(H) 8.6 - 10.4 mg/dL [facility] ([facility]) Protein Total 7.7 6.1 - 8.1 g/dL [facility] ([facility]) Albumin 4.9 3.6 - 5.1 g/dL [facility] ([facility]) Globulin 2.8 1.9 - 3.7 g/dL (calc) [facility] ([facility]) A/G Ratio 1.8 1.0 - 2.5 (calc) [facility] ([facility]) Bilirubin, Total 0.3 0.2 - 1.2 mg/dL [facility] ([facility]) Alk Phos 96 33 - 130 U/L [facility] ([facility]) AST (SGOT) 25 10 - 35 U/L [facility] ([facility]) ALT (SGPT) 18 6 - 29 U/L [facility] ([facility]) 09/18/2018 3:20 PM PST 09/18/2018 3:27 PM PST Narrative [facility] ([facility]) - 09/20/2018 7:46 PM PST FASTING:YES PATIENT UNABLE TO VOID; ADVISED TO RETURN FOR COLLECTION. FASTING: YES Resulting Agency Comment Performing Organization Information: ? EN ? [facility] ? [address] [place] [address] ? Tab Toochinda Unknown Provider LAB BLOOD Performing Organization Address [facility] de Phone Number [facility] ([facility]) * LACTATE DEHYDROGENASE (LDH) (09/18/2018 3:20 PM PST) Pathologist [facility] LDH 236 120 - 250 U/L [facility] ([facility]) 09/18/2018 3:20 PM PST 09/18/2018 3:27 PM PST Narrative [facility] ([facility]) - 09/20/2018 7:46 PM PST FASTING:YES PATIENT UNABLE TO VOID; ADVISED TO RETURN FOR COLLECTION. FASTING: YES Resulting Agency Comment Performing Organization Information: ? EN ? [facility] ? [address] [place] [address] ? Tab Toochinda Unknown Provider LAB BLOOD Performing Organization Address [facility] Co de Phone Number [facility] ([facility]) * (ABNORMAL) PROTEIN ELECTROPHORESIS, SERUM (09/18/2018 3:20 PM PST) Pathologist [facility] Protein Total 7.7 6.1 - 8.1 g/dL [facility] ([facility]) Albumin 4.9(H) 3.8 - 4.8 g/dL [facility] ([facility]) Alpha 1 0.3 0.2 - 0.3 g/dL [facility] ([facility]) Alpha 2 0.8 0.5 - 0.9 g/dL [facility] ([facility]) Beta 1 Globulin 0.4 0.4 - 0.6 g/dL [facility] ([facility]) Beta 2 Globulin 0.3 0.2 - 0.5 g/dL [facility] ([facility]) Gamma 1.1 0.8 - 1.7 g/dL [facility] ([facility]) RODRIGO Interp Serum Single fraction slightly outside referenced interval. This has no known clinical significance. [facility] ([facility]) 09/18/2018 3:20 PM PST 09/18/2018 3:27 PM PST Narrative [facility] ([facility]) - 09/20/2018 7:46 PM PST FASTING:YES PATIENT UNABLE TO VOID; ADVISED TO RETURN FOR COLLECTION. FASTING: YES Resulting Agency Comment Performing Organization Information: ? EN ? [facility] ? [address] [place] [address] ? Tab Toochinda Unknown Provider LAB BLOOD Performing Organization Address City/State/[facility] Co de Phone Number [facility] (E) * COPY(IES) SENT TO-Nveloped (09/18/2018 3:20 PM PST) Copy(ies) Sent To [facility] (E) Comment: ?COPY TO BLOOD & CANCER CARE ?COPY TO [facility] ?[address] ?[place] [address] 09/18/2018 3:20 PM PST 09/18/2018 3:27 PM PST Narrative [facility] ([facility]) - 09/20/2018 7:46 PM PST FASTING:YES PATIENT UNABLE TO VOID; ADVISED TO RETURN FOR COLLECTION. FASTING: YES Unknown Provider LAB AMB REFERENCE ANNETTE Osuna [facility] (E) documented in this encounter Visit Diagnoses Diagnosis Iron deficiency anemia, unspecified iron deficiency anemia type- Primary documented in this encounter Care Teams Museum Technician Relationship Specialty [place] [address] [facility], [address] [place] [address] PCP - General Internal Medicine 12/02/14 documented as of this encounter
--- OUTSIDE RECORDS SUMMARY | 2024-04-21 18:23 | XMS_ITS | Encounter Summary ---
Author Organization [facility] Address [address] [place] [address] Care Team Providers Care Driver Examiner Name Role Phone Jes Arriaga MD Primary Care Provider + Encounter Details Date Type Department Care Team (Late st Contact Info) Description 01/04/2016 Orders Only [facility] [place] [address] Internal Medicine [address] [facility] [address] [place] [address] [place] [address] [facility], [address] [place] [address] Social History Tobacco Use Types [...] Procedure Name Priority Date/Time Associated Diagnosis Comments [facility]-HYDROXYVITAMIN D (D2, D3), LC/MS/MS Routine 01/04/2016 10:53 AM PDT TSH, 3RD GENERATION W/RFLX TO FT4 Routine 01/04/2016 10:53 AM PDT URINALYSIS REFLEX MICROSCOPIC, IF INDICATED - STANDARD Routine 01/04/2016 10:53 AM PDT LIPID PANEL Routine 01/04/2016 10:53 AM PDT HGB A1C+ESTIMATED AVERAGE GLUCOSE Routine 01/04/2016 10:53 AM PDT COMPREHENSIVE METABOLIC PANEL Routine 01/04/2016 10:53 AM PDT CBC WITH AUTO DIFFERENTIAL, REFLEX MANUAL DIFFERENTIAL IF INDICATED Routine 01/04/2016 10:53 AM PDT documented in this encounter Results * URINALYSIS REFLEX MICROSCOPIC, IF INDICATED - STANDARD-[facility] (01/04/2016 10:53 AM PDT) Color YELLOW YELLOW [facility]) Appearance CLEAR CLEAR [facility]) Specific [place] Ur 1.005 1.001 - 1.035 [facility] PH Urine 8.0 5.0 - 8.0 [facility]) Gluc Qual NEGATIVE NEGATIVE [facility]) Bilirubin Indirect NEGATIVE NEGATIVE [facility]) Ketones NEGATIVE NEGATIVE [facility]) Blood Urine (part of UA) NEGATIVE NEGATIVE [facility]) Protein Ur NEGATIVE NEGATIVE [facility]) Nitrogen Total Ur NEGATIVE NEGATIVE [facility]) Leukocyte Jeanne NEGATIVE NEGATIVE [facility]) 01/04/2016 10:5 3 AM PDT 01/04/2016 10:55 AM PDT Narrative [facility] - 01/06/2016 1:36 PM PDT FASTING:YES Resulting Agency Comment Performing Organization Information: ? EN ? [facility] ? [address] [place] [address] ? Jordan Garcia M.D. Jes Arriaga MD LAB NON-BLOOD [facility]) * [facility] 25-HYDROXYVITAMIN D (D2, D3), LC/MS/MS (01/04/2016 10:53 AM PDT) Vitamin D 25 Hydroxy 44 30 - 100 ng/mL [facility] Comment: 25-OHD3 indicates both endogenous production and supplementation. 25-OHD2 is an indicator of exogenous sources, such as diet or supplementation. Therapy is based on measurement of Total 25-OHD, with levels <20 ng/mL indicative of Vitamin D deficiency, while levels between 20 ng/mL and 30 ng/mL suggest insufficiency. Optimal levels are > or = 30 ng/mL. Vitamin D, 25-OH, D3 44 See Below ng/mL [facility]) Comment:Reference Range: Not established Vitamin D, 25-OH, D2 <4 See Below ng/mL [facility]) Comment:Reference Range: Not established 01/04/2016 10:5 3 AM PDT 01/04/2016 10:55 AM PDT Narrative [facility] - 01/06/2016 1:36 PM PDT FASTING:YES Resulting Agency Comment Performing Organization Information: ? SLI ? [facility] ? [address] [place] [address] ? Sumeet Michaels MD,FCAP Jes Arriaga MD LAB BLOOD [facility]) * (ABNORMAL) HGB A1C+ESTIMATED AVERAGE GLUCOSE-[facility] (01/04/2016 10:53 AM PDT) Pathologist [facility] Hgb A1C 6.0(H) <5.7 % of total Hgb [facility]) Comment: According to ADA guidelines, hemoglobin A1c <7.0% represents optimal control in non- diabetic patients. Different metrics may apply to specific patient populations. Standards of Medical Care in Diabetes-2013. Diabetes Care. 2013;36:s11-s66 For the purpose of screening for the presence of diabetes <5.7% ? Consistent with the absence of diabetes 5.7-6.4% ?Consistent with increased risk for diabetes ?(prediabetes) >or=6.5% ?Consistent with diabetes This assay result is consistent with an increased risk of diabetes. Currently, no consensus exists for use of hemoglobin A1c for diagnosis of diabetes for children. Est [address] Gluc 126 (calc) [facility] ([facility]) Est Ave Gluc (mmol/L) 7.0 (calc) [facility]) 01/04/2016 10:5 3 AM PDT 01/04/2016 10:55 AM PDT Narrative [facility] - 01/06/2016 1:36 PM PDT FASTING:YES Resulting Agency Comment Performing Organization Information: ? EN ? [facility] ? [address] [place] [address] ? Jordan Garcia M.D. Jes Arriaga MD LAB BLOOD Performing Organization Address City/[facility]/ZIP Co de Phone Number [facility]) * TSH, 3RD GENERATION W/RFLX TO FT4-[facility] (01/04/2016 10:53 AM PDT) TSH 3rd Gen 1.76 0.40 - 4.50 mIU/L [facility]) 01/04/2016 10:5 3 AM PDT 01/04/2016 10:55 AM PDT Narrative [facility] - 01/06/2016 1:36 PM PDT FASTING:YES Resulting Agency Comment Performing Organization Information: ? EN ? [facility] ? [address] [place] [address] ? Jordan Garcia M.D. Jes Arriaga MD LAB BLOOD [facility] * (ABNORMAL) PRD-CDPEVPFY-UOR (01/04/2016 10:53 AM PDT) WBC 5.7 3.8 - 10.8 Thousand/u L [facility] RBC 3.78(L) 3.80 - 5.10 Million/uL [facility]) HGB 11.5(L) 11.7 - 15.5 g/dL [facility]) HCT 34.6(L) 35.0 - 45.0 % [facility] MCV 91.5 80.0 - 100.0 fL [facility]) MCH 30.3 27.0 - 33.0 pg [facility]) MCHC 33.2 32.0 - 36.0 g/dL [facility]) RDW 14.6 11.0 - 15.0 % [facility] Platelet 361 140 - 400 Thousand/u L [facility]) MPV 7.3(L) 7.5 - 11.5 fL [facility]) Neutrophil Abs 3,551 1,500 - 7,800 cells/uL [facility]) Lymphocyte Abs 1,408 850 - 3,900 cells/uL [facility]) Monocyte Abs 490 200 - 950 cells/uL [facility]) Eosinophil Abs 177 15 - 500 cells/uL [facility]) BASO ABS 74 0 - 200 cells/uL [facility]) Manual Neut % 62.3 % [facility] Manual Lymph % 24.7 % [facility]) Monocytes % 8.6 % [facility]) Eosinophil % 3.1 % [facility] Basophil 1.3 % [facility]) 01/04/2016 10:5 3 AM PDT 01/04/2016 10:55 AM PDT Narrative [facility] - 01/06/2016 1:36 PM PDT FASTING:YES Resulting Agency Comment Performing Organization Information: ? EN ? [facility] ? [address] [place] [address] ? Jordan Garcia M.D. Jes Arriaga MD LAB BLOOD [facility] * (ABNORMAL) COMPREHENSIVE METABOLIC PANEL-[facility] (01/04/2016 10:53 AM PDT) Glucose Fasting 86 65 - 99 mg/dL [facility]) Comment: ? Fasting reference interval BUN 8 7 - 25 mg/dL [facility]) Creatinine 0.75 0.50 - 0.99 mg/dL [facility]) Comment: For patients >49 years of age, the reference limit for Creatinine is approximately 13% higher for people identified as -Bruneian. eGFR 84 > OR = 60 mL/min/1 .73m2 [facility] ([facility]) eGFRAA 98 > OR = 60 mL/min/1 .73m2 [facility]) BUN/Creatinine Ratio NOT APPLICABLE 6 - 22 (calc) [facility] NA 127(L) 135 - 146 mmol/L [facility] K 4.0 3.5 - 5.3 mmol/L [facility] CL 93(L) 98 - 110 mmol/L [facility]) CO2 26 19 - 30 mmol/L [facility]) CA 9.1 8.6 - 10.4 mg/dL [facility]) Protein Total 6.3 6.1 - 8.1 g/dL [facility]) Albumin 4.1 3.6 - 5.1 g/dL [facility]) Globulin 2.2 1.9 - 3.7 g/dL (calc) [facility]) A/G Ratio 1.9 1.0 - 2.5 (calc) [facility]) Bilirubin, Total 0.2 0.2 - 1.2 mg/dL [facility]) Alk Phos 80 33 - 130 U/L [facility]) AST (SGOT) 24 10 - 35 U/L [facility]) ALT (SGPT) 15 6 - 29 U/L [facility]) 01/04/2016 10:5 3 AM PDT 01/04/2016 10:55 AM PDT Narrative [facility] - 01/06/2016 1:36 PM PDT FASTING:YES Resulting Agency Comment Performing Organization Information: ? EN ? [facility] ? [address] [place] [address] ? Jordan Garcia M.D. Jes Arriaga MD LAB BLOOD [facility] * LIPID PANEL-[facility] (01/04/2016 10:53 AM PDT) Cholesterol 145 125 - 200 mg/dL [facility]) HDL Cholesterol 81 > OR = 46 mg/dL [facility]) Triglyceride 71 <150 mg/dL [facility]) LDL Chol Direct 50 <130 mg/dL (calc) [facility] ([facility]) Comment: Desirable range <100 mg/dL for patients with CHD or diabetes and <70 mg/dL for diabetic patients with known heart disease. CHOL/HDL 1.8 < OR = 5.0 (calc) [facility]) Non-HDL Chol Calc 64 mg/dL (calc) [facility] ([facility]) Comment: Target for non-HDL cholesterol is 30 mg/dL higher than LDL cholesterol target. 01/04/2016 10:5 3 AM PDT 01/04/2016 10:55 AM PDT Narrative [facility]) - 01/06/2016 1:36 PM PDT FASTING:YES Resulting Agency Comment Performing Organization Information: ? EN ? [facility] ? [address] [place] [address] ? Jordan Garcia M.D. Jes Arriaga MD LAB BLOOD [facility]) documented in this encounter Visit Diagnoses Not on filedocumented in this encounter Care Teams Driver Examiner Relationship Specialty [place] [address] [facility], [address] [place], [place] [address] PCP - General Internal Medicine 12/02/14 documented as of this encounter
--- OUTSIDE RECORDS SUMMARY | 2024-04-21 18:23 | XMS_ITS | Encounter Summary ---
Author Organization [facility] Address [address] [place] [address] Care Team Providers Care Hair Rooting Machine Operator Name Role Phone Jes Espinosa MD Primary Care Provider + Reason for Visit * Reason Comments Physical Annual Physical Encounter Details Date Type Department Care Team (Late st Contact Info) Description 02/01/2016 10:30 AM PDT Office Visit [place] [address] Internal Medicine [address] [address] [place] [address] [facility] [address] [place] [address] Essential hypertension, hypertension with unspecified goal (Primary Dx); Hypothyroidism, unspecified type; Major depressive disorder, recurrent episode, mild (HCC); Screening for breast cancer Social History Tobacco Use Types Packs/Day Years [...] Sign Reading Time Taken Comments Blood Pressure 132/84 02/01/2016 10:43 AM PDT Pulse 65 02/01/2016 10:43 AM PDT Temperature 36.4 ??C (97.6 ??F) 02/01/2016 10:43 AM P DT Respiratory Rate 16 02/01/2016 10:43 AM PDT Oxygen Saturation 100% 02/01/2016 10:43 AM PDT Inhaled Oxygen Concentration - - Weight 50.4 kg (111 lb 3.2 oz) 02/01/2016 10:43 AM PDT Height 167.6 cm (5' 6) 02/01/2016 10:43 AM PDT Body Mass Index 17.95 02/01/2016 10:43 AM PDT documented in this encounter Patient Instructions * Patient Instructions* Jes Espinosa MD - 02/01/2016 11:11 AM PDT Stop Amlodipine 5mg Start amlodipine 10mg Stop Fluoxetine 20mg Start Fluoxetine 40mg Stop HCTZ Check lab in 2 wks Please call for mammogram [facility] [phone] [address] [facility] [address] [facility] [address] Taylor for appt (GI) See me in 3 mo/prn sooner documented in this encounter Progress Notes * Jes Espinosa MD - 02/01/2016 10:57 AM PDT Quin Dias is a 65 year old female who comes to clinic today for Chief Complaint Patient presents with ??? Physical Annual Physical Doing well hasn't done mammo or colonoscopy yet Lab notable for low sodium Patient Active Problem List Diagnosis ??? Major depressive disorder, recurrent episode, mild (HCC) ??? Hypothyroidism, unspecified ??? Essential hypertension Past Surgical History Procedure Laterality Date ??? No major surgical history Current Outpatient Prescriptions: amLODIPine (NORVASC, AMVAZ) 5 mg Oral Tablet Take 1 Tab by mouth daily. Disp: Rfl: hydroCHLOROthiazide (HYDRODIURIL) 25 mg Oral Tablet Take 1 Tab by mouth daily. Disp: Rfl: FLUoxetine (PROZAC) 20 mg Oral Capsule Take 20 mg by mouth daily. Disp: Rfl: LEVOTHYROXINE SODIUM (SYNTHROID ORAL) take by mouth. Disp: Rfl: VALSARTAN (DIOVAN ORAL) take by mouth. Disp: Rfl: No current facility-administered medications for this visit. The medication list has been reviewed and updated to reflect current medications as of 02/01/2016 No Known Allergies Past Medical History Diagnosis Date ??? HYPOTHYROIDISM ??? Hypertension History Social History ??? Marital Status: Spouse Name: N/A ??? Number of Children: N/A ??? Years of Education: N/A Occupational History ??? Not on file. Social History Main Topics ??? Smoking status: Never Smoker ??? Smokeless tobacco: Not on file ??? Alcohol Use: No ??? Drug Use: No ??? Sexual Activity: Yes Other Topics Concern ??? Not on file Social History Narrative Past Surgical History Procedure Laterality Date ??? No major surgical history Review of Systems Constitutional: Negative. HENT: Negative. Eyes: Negative. Respiratory: Negative. Cardiovascular: Negative. Gastrointestinal: Negative. Genitourinary: Negative. Musculoskeletal: Negative. Skin: Negative. Neurological: Negative. Endo/Heme/Allergies: Negative. Psychiatric/Behavioral: Positive for depression. BP: 132/84 mmHg Pulse: 65 Temp: 97.6 ??F Resp: 16 Height: 5' 6 (167.6 cm) Weight: 111 lb3.2 oz (50.44 kg) Physical Exam Constitutional: She is well-developed, well-nourished, [...] warm and dry. Assessment & Plan: 1. Essential hypertension, hypertension with unspecified goal Stable but noted to have hyponatremia on lab Will DC HCTZ and Increase Norvasc from 5mg to 10mg Check BS - amLODIPine (NORVASC) 10 mg tablet; Take 1 Tab (10 mg) by mouth every day. Dispense: 90 Tab; Refill: 3 - Basic Metabolic Panel; Future 2. Hypothyroidism, unspecified type Stable Continue med 3. Major depressive disorder, recurrent episode, mild (HCC) Not well controlled Increase Fluoxetine to 40mg 02/01/2016. 4. Screening for breast cancer Due - SCREENING MAMMO BILAT DIGI W/CAD; Future Stop Amlodipine 5mg Start amlodipine 10mg Stop Fluoxetine 20mg Start Fluoxetine 40mg Check lab in 2 wks Mammogram Colonoscopy The patient Quin Dias indicates understanding of these issues and agreement with the plan. RTC 3 mo/ prn Pt is aware of the importance of close followup. Pt assures me that plans we discussed today will be carried out. Pt aware that if current condition worsens or persists, pt may see myself or any available MD for evaluation. health maintenance: Nursing Notes: Amirah Ramirez 02/01/2016 10:47 AM Signed Opthal:2014 Pap: 12/14/2014 WNL Colonoscopy: Referral placed 11/2014; has not gone to see Dr. Dewitt. Labs: 01/04/2016 Mammo:2014 BONE DENSITY MEASUREMENTS: IMPRESSION: OSTEOPENIABONE DENSITY MEASUREMENTS: DATE BMD T-SCORE %REF Z-SCORE AGE MATCH BODY PART 01/07/2015 0.691 -1.40 0.0% +0.00 0.0% L femur nec 01/07/2015 0.992 -0.50 0.0% +1.20 0.0% AP L1- IMPRESSION: OSTEOPENIA documented in this encounter Nursing Notes * Amirah Ramirez - 02/01/2016 10:46 AM PDT Opthal:2014 Pap: 12/14/2014 WNL Colonoscopy: Referral placed 11/2014; has not gone to see Dr. Dewitt. Labs: 01/04/2016 Mammo:2014 BONE DENSITY MEASUREMENTS: IMPRESSION: OSTEOPENIABONE DENSITY MEASUREMENTS: DATE BMD T-SCORE %REF Z-SCORE AGE MATCH BODY PART 01/07/2015 0.691 -1.40 0.0% +0.00 0.0% L femur nec 01/07/2015 0.992 -0.50 0.0% +1.20 0.0% AP L1- IMPRESSION: OSTEOPENIA documented in this encounter Miscellaneous Notes * Addendum Note - Jes Espinosa MD - 02/02/2016 4:04 PM PDTAddended by: JES ESPINOSA on: 02/02/2016 04:04 PM Modules accepted: Orders, Medications documented in this encounter Plan of Treatment Not on file documented as of this encounter Visit Diagnoses Diagnosis Essential hypertension, hypertension with unspecified goal- Primary Hypothyroidism, unspecified type Major depressive disorder, recurrent episode, mild (HCC) Major depressive disorder, recurrent episode, mild Screening for breast cancer Breast screening, unspecified documented in this encounter Care Teams Hair Rooting Machine Operator Relationship Specialty [place] [address] [facility], [address] [place] [address] PCP - General Internal Medicine 12/02/14 documented as of this encounter
--- OUTSIDE RECORDS SUMMARY | 2024-04-21 18:23 | XMS_ITS | Encounter Summary ---
Author Organization [facility] Address [address] [place] [address] Care Team Providers Care Messenger Office Name Role Phone Jes Arriaga MD Primary Care Provider + Encounter Details Date Type Department Care Team (Late st Contact Info) Description 09/30/2018 11:[address] [facility] [address] [address] Social History Tobacco Use Types [...] Procedure Name Priority Date/Time Associated Diagnosis Comments PROTEIN,TOTAL,& PROTEIN ELECTROPHORESIS,24HOUR URINE & IMMUNOFIXATION Routine 09/30/2018 11:36 AM PST Absolute anemia documented in this encounter Results * PROTEIN,TOTAL,& PROTEIN ELECTROPHORESIS,24HOUR URINE & IMMUNOFIXATION (09/30/2018 11:36 AM PST) Albumin Urine 100 % [facility] Alpha-1, Urine 0 % [facility] Alpha-2 Urine 0 % [facility] Beta Urine 0 % [facility] Gamma Urine 0 % [facility] Interpretation/Resu lt: SEE NOTE [facility] Comment: Normal pattern. Urine protein electrophoresis evaluates the major protein fractions found in urine. Twenty-four hour urine protein electrophoresis is useful in classifying renal damage and in detecting monoclonal free light chain. RODRIGO Interp SEE NOTE [facility]/ [facility] Comment: ?Reference Range: ?No Monoclonal Proteins ?Detected ?? No monoclonal proteins detected by immunofixation studies. Immunofixation of urine is useful in evaluation of monoclonal free light chains and other monoclonal gammopathies seen in light chain disease, multiple myeloma, Waldenstrom's macroglobulinemia, amyloidosis, and other lymphoproliferative disorders. Increased polyclonal free light chains in urine may be seen in glomerular leak syndromes and in infection or inflammation. Total Vol NOTV/NG mL [facility]/ [facility] Protein/Creatinine Ratio SEE NOTE <115 mg/g creat [facility]/ [facility] Comment: ?? Unable to calculate Ratio. Total Volume not provided. Protein MG/24 HR SEE NOTE <150 mg/24 h [facility]/ [facility] Comment: 24 HR URINE VOLUME WAS NOT PROVIDED. THEREFORE THE RESULTS ARE REPORTED FOLLOWS; AND THE EXPECTED RANGES GIVEN SHOULD NOT BE USED. ?? Micro Total Protein raw result is ??10.0 mg/dL Creat 24Hr Urine SEE NOTE 0.50 - 2.15 g/24 h [facility] Comment: 24 HR URINE VOLUME WAS NOT PROVIDED. THEREFORE THE RESULTS ARE REPORTED FOLLOWS; AND THE EXPECTED RANGES GIVEN SHOULD NOT BE USED. ?? UrineCreatinine=27mg/dL(JqcPtwc=780wv/L) ?A duplicate report has been faxed to the following: ?Faxed to: ??[phone] ??on: ??10/03/18 13:56 Urine 09/30/2018 11:3 6 AM PST 09/30/2018 10:53 PM PST Narrative [facility]) - 10/03/2018 2:20 PM PST URINE VOLUME: NOTV/NG Resulting Agency Comment Performing Organization Information: ? EZ ? [facility], ? [address] [place] [address] ? Anni Perez MD,PhD,[facility]SON Rizwana Neal MD LAB NON-BLOOD [facility]) [facility] documented in this encounter Visit Diagnoses Diagnosis Absolute anemia- Primary Anemia, unspecified documented in this encounter Care Teams Messenger Office Relationship Specialty [place] [address] [facility], [address] [place], [place] [address] PCP - General Internal Medicine 12/02/14 documented as of this encounter
--- OUTSIDE RECORDS SUMMARY | 2024-04-21 18:23 | XMS_ITS | Encounter Summary ---
Author Organization [facility] Address [address] [place] [address] Care Team Providers Care Quail Farmer Name Role Phone Jes Arriaga MD Primary Care Provider + Reason for Visit * Reason Onset Date Comments Medication Refill 02/02/2016 Encounter Details Date Type Department Care Team (Late st Contact Info) Description 02/02/2016 Telephone [place] [address] Internal Medicine [address] [address] [place] [address] [address] Medication Refill Social History Tobacco [...] * Telephone Encounter - Amirah Ramirez - 02/02/2016 4:[address] Arriaga discussed medications with patient * Telephone Encounter - Amirah Ramirez - 02/02/2016 4:17 PM PDT Patient requested to speak with Dr. Arriaga, called transferred to Dr. Arriaga * Telephone Encounter - Ramiro Oscar - 02/02/2016 3:52 PM PDT Caller's name: Quin Dias What is the best number where we can reach you? [phone] (home) Reason for Message (Why is the patient calling, what do they need): wants to discuss blood pressuremedication changes When is the action/callback expected or due: today if possible documented in this encounter Plan of Treatment Not on file documented as of this encounter Visit Diagnoses Not on filedocumented in this encounter Care Teams Quail Farmer Relationship Specialty [place] [address] [facility], [address] [place] [address] PCP - General Internal Medicine 12/02/14 documented as of this encounter
--- OUTSIDE RECORDS SUMMARY | 2024-04-21 18:23 | XMS_ITS | Encounter Summary ---
Author Organization [facility] Address [address] [place] [address] Care Team Providers Care Chucking And Sawing Machine Operator Name Role Phone Jes Arriaga MD Primary Care Provider + Encounter Details Date Type Department Care Team (Latest Contact Info) Description 03/29/2018 3:29 PM PDT - 03/29/2018 11:59 PM PDT Hospital Encounter [facility] [address] [place] [address], [address] [place], [place] [address] Subj: Appointment Scheduled Discharge Disposition: Home Social History Tobacco Use [...] a day. 90 tablet 3 03/11/2018 04/26/2020 albuterol HFA (PROVENTIL HFA, PROAIR HFA, VENTOLIN HFA) 90 mcg/actuation inhaler Inhale 2 puffs every 4 hours as needed for shortness of breath or wheezing. 1 Inhaler 01/08/2018 08/02/2018 amLODIPine (NORVASC) 10 mg tabletIndications:Essen tial hypertension, hypertension with unspecified goal Take 1 Tab (10 mg) by mouth every day. 90 Tab 3 02/01/2016 03/13/2022 LEVOTHYROXINE SODIUM (SYNTHROID ORAL) Take 88 mcg by mouth. 03/08/2022 documented as of this encounter Plan of Treatment Not on file documented as of this encounter Visit Diagnoses Not on filedocumented in this encounter Care Teams Chucking And Sawing Machine Operator Relationship Specialty [place] [address] [facility], [address] [place] [address] PCP - General Internal Medicine 12/02/14 documented as of this encounter
--- OUTSIDE RECORDS SUMMARY | 2024-04-21 18:23 | XMS_ITS | Encounter Summary ---
Author Organization [facility] Address [address] [place] [address] Care Team Providers Care Hospital Administrative Assistant Name Role Phone Jes Arriaga MD Primary Care Provider + Reason for Visit * Reason Onset Date Comments Other 08/06/2018 Encounter Details Date Type Department Care Team (Late st Contact Info) Description 08/06/2018 Telephone [place] [address] Internal Medicine [address] [address] [place] [address] [facility] [address] [place] [address] Other Social History Tobacco Use [...] * Telephone Encounter - Amirah Ramirez - 08/06/2018 1:21 PM PST Called and scheduled patient for preop * Telephone Encounter - Amirah Ramirez - 08/06/2018 10:27 AM PST Patient called left voicemail msg. Patient would like to schedule Preop with Dr. Arriaga, When patient calls back please transfer the call to Amirah * Telephone Encounter - Ofelia Hopkins - 08/06/2018 8:47 AM PST Caller's name: Quin Dias What is the best number where we can reach you? [phone] (home) Reason for Message (Why is the patient calling, what do they need): Patient stated that she is having a surgery on 09/19/2018. She would like to set up a pre-op appointment two weeks prior to her surgery. Patient did not want me to transfer her to the Pre-op team. Please advise. thank you When is the action/callback expected or due:08/06/2018 documented in this encounter Plan of Treatment Not on file documented as of this encounter Visit Diagnoses Not on filedocumented in this encounter Care Teams Hospital Administrative Assistant Relationship Specialty [place] [address] [facility], [address] [place], [place] [address] PCP - General Internal Medicine 12/02/14 documented as of this encounter
--- OUTSIDE RECORDS SUMMARY | 2024-04-21 18:23 | XMS_ITS | Encounter Summary ---
Author Organization [facility] Address [address] [place] [address] Care Team Providers Care Agricultural Service Technician Name Role Phone Jes Espinosa MD Primary Care Provider + Encounter Details Date Type Department Care Team (Late st Contact Info) Description 01/31/2017 11:05 AM PDT Orders Only [facility] [address] [place] [address], [address] [place] [address] Social History Tobacco Use Types Packs/Day Years [...] Progress Notes * Jes Espinosa MD - 02/05/2017 7:25 PM PDT Spoke with patient On antibiotics for PNEUMONIA Discussed abn lab in detail Will do work up for hyponatremia and anemia - initiate now Patient to separate vitamins with levothyroxine - repeat in 6 wks Follow up in clinic documented in this encounter Miscellaneous Notes * Addendum Note - Jes Espinosa MD - 02/05/2017 8:21 AM PDTAddended by: JES ESPINOSA on: 02/05/2017 08:21 AM Modules accepted: Orders * Addendum Note - Jes Espinosa MD - 02/04/2017 6:31 PM PDTAddended by: JES ESPINOSA on: 02/04/2017 06:31 PM Modules accepted: Orders documented in this encounter Plan of Treatment Not on file documented as of this encounter Procedures Procedure Name Priority Date/Time Associated Diagnosis Comments [facility]-HYDROXYVITAMIN D (D2, D3), LC/MS/MS Routine 01/31/2017 11:17 AM PDT Screening for condition HEMOGLOBIN A1C W/MPG Routine 01/31/2017 11:17 AM PDT Screening for condition TSH, 3RD GENERATION W/RFLX TO FT4 Routine 01/31/2017 11:17 AM PDT Screening for condition URINALYSIS WITH REFLEX MICROSCOPIC & CULTURE, IF INDICATED Routine 01/31/2017 11:17 AM PDT Screening for condition T4 FREE Routine 01/31/2017 11:17 AM PDT MANUAL DIFFERENTIAL Routine 01/31/2017 1 1:17 AM PDT LIPID PANEL Routine 01/31/2017 11:17 AM PDT Screening for condition HEPATITIS C AB (HCV) Routine 01/31/2017 11:17 AM PDT Need for hepatitis C screening test COMPREHENSIVE METABOLIC PANEL Routine 01/31/2017 11:17 AM PDT Screening for condition CBC WITH MANUAL DIFFERENTIAL Routine 01/31/2017 11:17 AM PDT Screening for condition documented in this encounter Results * (ABNORMAL) SODIUM, URINE RANDOM (02/19/2017 1:45 PM PDT) Sodium, Random Urine 19(L) 28 - 272 mmol/L [facility] ([facility]) Blood 02/19/2017 1:45 PM PDT 02/19/2017 11:41 PM PDT Narrative Resulting Agency Comment Performing Organization Information: ? EN ? [facility] ? [address] [place] [address] ? Jameson Ortiz MD Jes Espinosa MD LAB NON-BLOOD Performing Organization Address [facility] Co de Phone Number [facility] ([facility]) * OSMOLALITY, URINE (02/19/2017 1:45 PM PDT) Pathologist [facility] Osmolality, Urine 161 50 - 1,200 mOsm/kg [facility] ([facility]) Blood 02/19/2017 1:45 PM PDT 02/19/2017 11:41 PM PDT Narrative Resulting Agency Comment Performing Organization Information: ? EN ? [facility] ? [address] [place] [address] ? Jameson Ortiz MD Jes Espinosa MD LAB NON-BLOOD Performing Organization Address [facility] Co de Phone Number [facility] ([facility]) * (ABNORMAL) BASIC METABOLIC PANEL (02/19/2017 1:45 PM PDT) Glucose Fasting 82 65 - 99 mg/dL [facility] ([facility]) Comment: ? Fasting reference interval BUN 9 7 - 25 mg/dL [facility] ([facility]) Creatinine 0.79 0.50 - 0.99 mg/dL [facility] ([facility]) Comment: For patients >49 years of age, the reference limit for Creatinine is approximately 13% higher for people identified as -Ukrainian. eGFR 79 > OR = 60 mL/min/1 .73m2 [facility] ([facility]) eGFRAA 91 > OR = 60 mL/min/1 .73m2 [facility] ([facility]) BUN/Creatinine Ratio NOT APPLICABLE 6 - 22 (calc) [facility] ([facility]) NA 131(L) 135 - 146 mmol/L [facility] ([facility]) K 4.7 3.5 - 5.3 mmol/L [facility] ([facility]) CL 100 98 - 110 mmol/L [facility] ([facility]) CO2 25 20 - 31 mmol/L [facility] ([facility]) CA 9.2 8.6 - 10.4 mg/dL [facility] ([facility]) Blood (BLOOD) 02/19/2017 1:4 5 PM PDT 02/19/2017 11:41 PM PDT Narrative Resulting Agency Comment Performing Organization Information: ? EN ? [facility] ? [address] [place] [address] ? Jameson Ortiz MD Jes Espinosa MD LAB BLOOD Performing Organization Address [facility] de Phone Number [facility] ([facility]) * VITAMIN B12 (02/19/2017 1:45 PM PDT) Vitamin B12 851 200 - 1,100 pg/mL [facility] ([facility]) Blood (BLOOD) 02/19/2017 1:4 5 PM PDT 02/19/2017 11:41 PM PDT Narrative Resulting Agency Comment Performing Organization Information: ? EN ? [facility] ? [address] [place] [address] ? Jameson Ortiz MD Jes Espinosa MD LAB BLOOD Performing Organization Address [facility] de Phone Number [facility] ([facility]) * METHYLMALONIC ACID (MMA), SERUM QUANTITATIVE (02/19/2017 1:45 PM PDT) Methylmalonic Acid 186 87 - 318 nmol/L [facility] ([facility]) Comment: This test was developed and its analytical performance characteristics have been determined by [facility]. It has not been cleared or approved by FDA. This assay has been validated pursuant to the CLIA regulations and is used for clinical purposes. Blood (BLOOD) 02/19/2017 1:4 5 PM PDT 02/19/2017 11:41 PM PDT Narrative Resulting Agency Comment Performing Organization Information: ? EZ ? [facility], ? [address] [place] [address] ? Willie Meneses MD,PhD Jes Espinosa MD LAB BLOOD Performing Organization Address [facility] de Phone Number [facility] ([facility]) * (ABNORMAL) IRON, TOTAL AND TOTAL IRON BINDING CAPACITY (02/19/2017 1:45 PM PDT) Iron 35(L) 45 - 160 mcg/dL [facility] ([facility]) IBC 337 250 - 450 mcg/dL (calc) [facility] ([facility]) Iron % Sat 10(L) 11 - 50 % (calc) [facility] ([facility]) Blood 02/19/2017 1:45 PM PDT 02/19/2017 11:41 PM PDT Narrative Resulting Agency Comment Performing Organization Information: ? EN ? [facility] ? [address] [place] [address] ? Jameson Ortiz MD Jes Espinosa MD LAB BLOOD Performing Organization Address [facility] de Phone Number [facility]) * FOLATE (02/19/2017 1:45 PM PDT) Folate 17.3 ng/mL [facility] ([facility]) Comment: ? Reference Range ? Low: ? <3.4 ? Borderline: ?3.4-5.4 ? Normal: ?>5.4 Blood (BLOOD) 02/19/2017 1:4 5 PM PDT 02/19/2017 11:41 PM PDT Narrative Resulting Agency Comment Performing Organization Information: ? EN ? [facility] ? [address] [place] [address] ? Jameson Ortiz MD Jes Espinosa MD LAB BLOOD Performing Organization Address [facility]/ZIP Co de Phone Number [facility]) * FERRITIN (02/19/2017 1:45 PM PDT) Ferritin 20 20 - 288 ng/mL [facility] ([facility]) Blood (BLOOD) 02/19/2017 1:4 5 PM PDT 02/19/2017 11:41 PM PDT Narrative Resulting Agency Comment Performing Organization Information: ? EN ? [facility] ? [address] [place] [address] ? Jameson Ortiz MD Jes Espinosa MD LAB BLOOD Performing Organization Address [facility] Co de Phone Number [facility] ([facility]) * T4 FREE-MHS (01/31/2017 11:17 AM PDT) T4 Free 1.0 0.8 - 1.8 ng/dL [facility] ([facility]) 01/31/2017 11:1 7 AM PDT 01/31/2017 9:56 PM PDT Narrative Resulting Agency Comment Performing Organization Information: ? EN ? [facility] ? [address] [place] [address] ? Jameson Ortiz MD Jes Espinosa MD LAB BLOOD Performing Organization Address [facility]/ZIP Co de Phone Number [facility] ([facility]) * (ABNORMAL) MANUAL DIFFERENTIAL - [facility] (01/31/2017 11:17 AM PDT) [facility] Neutrophil Abs 9,804(H) 1,500 - 7,800 cells/uL [facility]) Lymphocyte Abs 1,026 850 - 3,900 cells/uL [facility] ([facility]) Monocyte Abs 456 200 - 950 cells/uL [facility]) Eosinophil Abs 114 15 - 500 cells/uL [facility] ([facility]) BASO ABS 0 0 - 200 cells/uL [facility] ([facility]) Manual Neut % 86.0 % [facility] ([facility]) Manual Lymph % 9.0 % [facility] ([facility]) Monocytes % 4.0 % [facility] ([facility]) Eosinophil % 1.0 % [facility] ([facility]) Basophil 0 % [facility]) CBC Morphology NORMAL [facility] ([facility]) Comment: Macrocytosis 1 + Poikilocytosis 1 + 01/31/2017 11:1 7 AM PDT 01/31/2017 9:56 PM PDT Narrative Resulting Agency Comment Performing Organization Information: ? EN ? [facility] ? [address] [place] [address] ? Tab MD Diana Jes Espinosa MD LAB BLOOD Performing Organization Address [facility]/ZIP Co de Phone Number [facility] ([facility]) * (ABNORMAL) HEPATITIS C AB (HCV) (01/31/2017 11:17 AM PDT) [facility] Hepatitis C Ab REACTIVE(A) NON-REAC TIVE [facility] [...] to the current Treatment Guidelines (J Hepatol, 2073-7910, ). Please correlate these findings with the patient's clinical history and any other diagnostic findings, including any evidence of liver dysfunction. [facility] Comment: [facility] (E) Comment: The analytical performance characteristics of this assay have been determined by [facility]. The modifications have not been cleared or approved by the FDA. This assay has been validated pursuant to the CLIA regulations and is used for clinical purposes. ?? This test was performed using the FELIX(R)AmpliPrep/ FELIX(R)TaqMan(R)HCV Test,v2.0. For more information on this test, go to: http://education.Trampoline/faq/JEA04x6 (This link is being provided for informational/ educational purposes only.) Blood (BLOOD) 01/31/2017 11: 17 AM PDT 01/31/2017 9:56 PM PDT Narrative Resulting Agency Comment Performing Organization Information: ? EN ? [facility] ? [address] [place] [address] ? Tab MD Diana Jes Espinosa MD LAB BLOOD [facility] (E) * [facility] 25-HYDROXYVITAMIN D (D2, D3), LC/MS/MS (01/31/2017 11:17 AM PDT) [facility] Vitamin D 25 Hydroxy 44 30 - [...] [facility] ([facility]) Comment:Reference Range: Not established Blood 01/31/2017 11:1 7 AM PDT 01/31/2017 9:56 PM PDT Narrative Resulting Agency Comment Performing Organization Information: ? SLI ? [facility] ? [address] [place] [address] ? Sumeet Michaels MD,FCAP Jes Espinosa MD LAB BLOOD [facility] ([facility]) * (ABNORMAL) URINALYSIS WITH REFLEX MICROSCOPIC & CULTURE, IF INDICATED (01/31/2017 11:17 AM PDT) Color YELLOW YELLOW [facility] ([facility]) Appearance CLOUDY(A) CLEAR [facility] ([facility]) Specific [place] Ur 1.006 1.001 - 1.035 [facility] ([facility]) PH Urine 7.5 5.0 - 8.0 [facility] ([facility]) Gluc Qual NEGATIVE NEGATIVE [facility]) Bilirubin Indirect NEGATIVE NEGATIVE [facility]) Ketones NEGATIVE NEGATIVE [facility] ([facility]) Blood Urine (part of UA) TRACE(A) NEGATIVE [facility] ([facility]) Protein Ur NEGATIVE NEGATIVE [facility] ([facility]) Nitrite NEGATIVE NEGATIVE [facility] ([facility]) Leukocyte Jeanne 2+(A) NEGATIVE [facility] ([facility]) WBC Ur 0-5 < OR = 5 /HPF [facility] ([facility]) RBC/HPF NONE SEEN < OR = 2 /HPF [facility] ([facility]) SQ Epithelial NONE SEEN < OR = 5 /HPF [facility] ([facility]) Bacteria Ur MANY(A) NONE SEEN /HPF [facility] ([facility]) Hyaline Casts NONE SEEN NONE SEEN /LPF [facility] ([facility]) Reflexive Urine Culture CULTURE INDICATED - RESULTS TO FOLLOW [facility] ([facility]) Culture, Urine (A) [facility] ([facility]) Comment: ??CULTURE, URINE, ROUTINE ?MICRO NUMBER: ?[id number] ??TEST STATUS: ? FINAL ??SPECIMEN SOURCE: ?? URINE ??SPECIMEN QUALITY: ??ADEQUATE ??RESULT: ?Greater than 100,000 CFU/mL of Escherichia coli ?E.coli ?INT ?? HATTIE ?? AMOX/CLAVULANATE ? S ? 4.0 ?? AMPICILLIN ? R ? >=32.0 ?? AMP/SULBACTAM ?I ? 16.0 ?? CEFAZOLIN ?NR ?<=4.0 1 ?? CEFEPIME ? S ? <=1.0 ?? CEFTRIAXONE ?S ? <=1.0 ?? CIPROFLOXACIN ?S ? <=0.25 ?? ERTAPENEM ?S ? <=0.5 ?? GENTAMICIN ? S ? <=1.0 ?? IMIPENEM ? S ? <=0.25 ?? LEVOFLOXACIN ? S ? <=0.12 ?? NITROFURANTOIN ? S ? <=16.0 ?? PIP/TAZOBACTAM ? S ? <=4.0 ?? TOBRAMYCIN ? S ? <=1.0 ?? TRIMETHOPRIM/SULFA ? R ? >=320.0 S=Susceptible ??I=Intermediate ??R=Resistant ??* = Not Tested NR = Not Reported ??NN = See Therapy Comments THERAPY COMMENTS ?Note 1: ?ORAL therapy: A cefazolin HATTIE of < 32 predicts ?susceptibility to the oral agents cefaclor, ?cefdinir, cefpodoxime, cefprozil, cefuroxime, ?cephalexin, and loracarbef when used for therapy ?of uncomplicated UTIs due to E. coli, ?K. pneumoniae, and P. mirabilis. ?PARENTERAL therapy: A cefazolin HATTIE of > 8 ?indicates resistance to parenteral cefazolin. ?An alternate test method must be performed to ?to confirm susceptibility to parenteral cefazolin. Blood 01/31/2017 11:1 7 AM PDT 01/31/2017 9:56 PM PDT Narrative Resulting Agency Comment Performing Organization Information: ? EN ? [facility] ? [address] [place] [address] ? Jameson Ortiz MD Jes Espinosa MD LAB NON-BLOOD [facility] ([facility]) * (ABNORMAL) TSH, 3RD GENERATION W/RFLX TO FT4 (01/31/2017 11:17 AM PDT) TSH 3rd Gen 10.27(H) 0.40 - 4.50 mIU/L [facility] ([facility]) Blood 01/31/2017 11:1 7 AM PDT 01/31/2017 9:56 PM PDT Narrative Resulting Agency Comment Performing Organization Information: ? EN ? [facility] ? [address] [place] [address] ? Jameson Ortiz MD Jes Espinosa MD LAB BLOOD Performing Organization Address [facility] de Phone Number [facility] ([facility]) * (ABNORMAL) LIPID PANEL (01/31/2017 11:17 AM PDT) Cholesterol 118(L) 125 - 200 mg/dL [facility] ([facility]) HDL Cholesterol 64 > OR = 46 mg/dL [facility]) Triglyceride 72 <150 mg/dL [facility] ([facility]) LDL Chol Direct 40 <130 mg/dL (calc) [facility] ([facility]) Comment: Desirable range <100 mg/dL for patients with CHD or diabetes and <70 mg/dL for diabetic patients with known heart disease. CHOL/HDL 1.8 < OR = 5.0 (calc) [facility] ([facility]) Non-HDL Chol Calc 54 mg/dL (calc) [facility] ([facility]) Comment: Target for non-HDL cholesterol is 30 mg/dL higher than LDL cholesterol target. Blood (BLOOD) 01/31/2017 11: 17 AM PDT 01/31/2017 9:56 PM PDT Narrative Resulting Agency Comment Performing Organization Information: ? EN ? [facility] ? [address] [place] [address] ? Jameson Ortiz MD Jes Espinosa MD LAB BLOOD Performing Organization Address [facility] de Phone Number [facility] ([facility]) * HEMOGLOBIN A1C W/MPG (01/31/2017 11:17 AM PDT) Hgb A1C 5.6 <5.7 % of total Hgb [facility] ([facility]) Comment: For the purpose of screening for the presence of diabetes: <5.7% ? Consistent with the absence of diabetes 5.7-6.4% ?Consistent with increased risk for diabetes ?(prediabetes) > or =6.5% ??Consistent with diabetes This assay result is consistent with a decreased risk of diabetes. Currently, no consensus exists regarding use of hemoglobin A1c for diagnosis of diabetes in children. According to [place] Diabetes Association (ADA) guidelines, hemoglobin A1c <7.0% represents optimal control in non- diabetic patients. Different metrics may apply to specific patient populations. Standards of Medical Care in Diabetes(ADA). ?? Mean Blood Gluc 122 mg/dL (calc) [facility] ([facility]) Blood 01/31/2017 11:1 7 AM PDT 01/31/2017 9:56 PM PDT Narrative Resulting Agency Comment Performing Organization Information: ? EN ? [facility] ? [address] [place] [address] ? Tab MD Diana Jes Espinosa MD LAB BLOOD [facility] ([facility]) * (ABNORMAL) COMPREHENSIVE METABOLIC PANEL (01/31/2017 11:17 AM PDT) Glucose Fasting 95 65 - 99 mg/dL [facility] ([facility]) Comment: ? Fasting reference interval BUN 8 7 - 25 mg/dL [facility] ([facility]) Creatinine 0.64 0.50 - 0.99 mg/dL [facility] ([facility]) Comment: For patients >49 years of age, the reference limit for Creatinine is approximately 13% higher for people identified as -Ukrainian. eGFR 94 > OR = 60 mL/min/1 .73m2 [facility] ([facility]) eGFRAA 109 > OR = 60 mL/min/1 .73m2 [facility] ([facility]) BUN/Creatinine Ratio NOT APPLICABLE 6 - 22 (calc) [facility] ([facility]) NA 130(L) 135 - 146 mmol/L [facility] ([facility]) K 4.5 3.5 - 5.3 mmol/L [facility] ([facility]) CL 96(L) 98 - 110 mmol/L [facility] ([facility]) CO2 21 20 - 31 mmol/L [facility] ([facility]) CA 8.8 8.6 - 10.4 mg/dL [facility] ([facility]) Protein Total 6.1 6.1 - 8.1 g/dL [facility] ([facility]) Albumin 3.7 3.6 - 5.1 g/dL [facility] ([facility]) Globulin 2.4 1.9 - 3.7 g/dL (calc) [facility] ([facility]) A/G Ratio 1.5 1.0 - 2.5 (calc) [facility] ([facility]) Bilirubin, Total 0.4 0.2 - 1.2 mg/dL [facility] ([facility]) Alk Phos 84 33 - 130 U/L [facility] ([facility]) AST (SGOT) 17 10 - 35 U/L [facility] ([facility]) ALT (SGPT) 11 6 - 29 U/L [facility] ([facility]) Blood (BLOOD) 01/31/2017 11: 17 AM PDT 01/31/2017 9:56 PM PDT Narrative Resulting Agency Comment Performing Organization Information: ? EN ? [facility] ? [address] [place] [address] ? Tab MD Diana Jes Espinosa MD LAB BLOOD [facility] ([facility]) * (ABNORMAL) CBC WITH MANUAL DIFFERENTIAL (01/31/2017 11:17 AM PDT) WBC 11.4(H) 3.8 - 10.8 Thousand/u L [facility] ([facility]) RBC 3.40(L) 3.80 - 5.10 Million/uL [facility] ([facility]) HGB 10.2(L) 11.7 - 15.5 g/dL [facility] ([facility]) HCT 30.7(L) 35.0 - 45.0 % [facility] ([facility]) MCV 90.3 80.0 - 100.0 fL [facility] ([facility]) MCH 30.0 27.0 - 33.0 pg [facility] ([facility]) MCHC 33.2 32.0 - 36.0 g/dL [facility] ([facility]) RDW 13.3 11.0 - 15.0 % [facility]) Platelet 364 140 - 400 Thousand/u L [facility] ([facility]) MPV 9.4 7.5 - 12.5 fL [facility] ([facility]) Nucleated RBC Abs 0 0 cells/uL [facility] ([facility]) Blood (BLOOD) 01/31/2017 11: 17 AM PDT 01/31/2017 9:56 PM PDT Narrative Resulting Agency Comment Performing Organization Information: ? EN ? [facility] ? [address] [place] [address] ? Tab MD Diana Jes Espinosa MD LAB BLOOD [facility] ([facility]) documented in this encounter Visit Diagnoses Diagnosis Anemia, unspecified type- Primary Screening for condition Screening for unspecified condition Need for hepatitis C screening test Special screening examination for other specified viral diseases Hyponatremia Hyposmolality and/or hyponatremia documented in this encounter Care Teams Agricultural Service Technician Relationship Specialty [place] [address] [facility], [address] [place], [place] [address] PCP - General Internal Medicine 12/02/14 documented as of this encounter
--- OUTSIDE RECORDS SUMMARY | 2024-04-21 18:23 | XMS_ITS | Encounter Summary ---
Author Organization [facility] Address [address] [place] [address] Care Team Providers Care Call Center Manager Name Role Phone Jes Arriaga MD Primary Care Provider + Reason for Visit * Reason Onset Date Comments Results 08/26/2018 Encounter Details Date Type Department Care Team ([facility] st Contact Info) Description 08/26/2018 Telephone [facility], [facility]. [address], [address] [place] [address] [place] [address] [facility], [address] [place] [address] Results Social History Tobacco Use [...] encounter Miscellaneous Notes * Telephone Encounter - Baudilio Rascon MD - 08/26/2018 5:47 PM PST I called the patient and I was able to speak to her and her , Dr. Cain Dias, about the wireless capsule endoscopy result. 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 I was told that the patient had chio sorbet the night before. This would certainly be the most likely reason for the capsule endoscopy finding. To rule out possible nematodes, an ova and parasite stool study was requested. Her will provide her with the order and the result carbon copied to me and her primary care provider. I will let her know if anything needs to be addressed. The patient was informed that apart from the distal small bowel finding, no evidence of obscure GI bleeding was found. She expressed understanding. documented in this encounter Plan of Treatment Not on file documented as of this encounter Visit Diagnoses Not on filedocumented in this encounter Care Teams Call Center Manager Relationship Specialty Start [place] [address] [facility], [address] [place], [place] [address] PCP - General Internal Medicine 12/02/14 documented as of this encounter
--- OUTSIDE RECORDS SUMMARY | 2024-04-21 18:23 | XMS_ITS | Encounter Summary ---
Author Organization [facility] Address [address] [place] [address] Care Team Providers Care Clam Bed Worker Name Role Phone Jes Arriaga MD Primary Care Provider + Reason for Visit * Reason Onset Date Comments Post ER 03/12/2018 called to check on patient after her ER visit to [facility] yesterday Encounter Details Date Type Department Care Team ([facility] st Contact Info) Description 03/12/2018 Telephone [place] [id number] Family Medicine [address] [facility] [address] [place] [address] [place] [address] [facility], [address] [place] [address] Post ER (called to check on patient after her ER visit to [facility] yesterday) Social History Tobacco Use Types Packs/Day Years [...] Miscellaneous Notes * Telephone Encounter - Isela Killian RN - 03/12/2018 10:[address] K, Called and spoke to patient's . He said that she is feeling much better and that she was diagnosed with hemarthrosis. He is going to discuss with some of his ortho. associates and will call us back to make follow up appointmentt with Dr. Ramires Thank you documented in this encounter Plan of Treatment Not on file documented as of this encounter Visit Diagnoses Not on filedocumented in this encounter Care Teams Clam Bed Worker Relationship Specialty [place] [address] [facility], [address] [place] [address] PCP - General Internal Medicine 12/02/14 documented as of this encounter
--- OUTSIDE RECORDS SUMMARY | 2024-04-21 18:23 | XMS_ITS | Encounter Summary ---
Author Organization [facility] Address [address] [place] [address] Care Team Providers Care Half Backer Name Role Phone Jes Espinosa MD Primary Care Provider + Reason for Referral * Consultation (Routine) - Closed Specialty Diagnoses / Procedures Referred By Contac t Referred To Contact Gastroenterology Diagnoses Iron deficiency anemia, unspecified Procedures OFFICE OUTPATIENT NEW 30 MINUTES OFFICE OUTPATIENT NEW 45 [place] [address] [facility], [address] [place] [address] [place] [address] [facility], [address] [place] [address] Referral ID Status Reason Start Date Expiration Date Visits Re quested Visits Authorized [id number] Closed 03/02/2017 09/02/2017 2 2 Scheduling Instructions Internal comments for Log Operations Coordinator: Encounter Details Date Type Department Care Team (Late st Contact Info) Description 02/19/2017 1:35 PM PDT Orders Only [facility] [address] [facility], [address] [place] [id number] Social History Tobacco Use Types Packs/Day Years [...] Addendum Note - Jes Espinosa MD - 03/02/2017 4:39 PM PDTAddended by: JES ESPINOSA on: 03/02/2017 04:39 PM Modules accepted: Orders * Addendum Note - Jes Espinosa MD - 03/02/2017 4:12 PM PDTAddended by: JES ESPINOSA on: 03/02/2017 04:12 PM Modules accepted: Orders documented in this encounter Plan of Treatment Scheduled Referrals Name Type Priority Associated Diagnoses Orde r Schedule [facility] GI NEW PT RFL Referral Routine Iron deficiency anemia, unspecified iron deficiency anemia type Ordered: 03/02/2017 documented as of this encounter Procedures Procedure Name Priority Date/Time Associated Diagnosis Comments IRON, TOTAL AND TOTAL IRON BINDING CAPACITY Routine 02/19/2017 1:45 PM PDT Anemia, unspecified type VITAMIN B12 Routine 02/19/2017 1:45 PM PDT Anemia, unspecified type SODIUM, URINE RANDOM Routine 02/19/2017 1:45 PM PDT Hyponatremia OSMOLALITY, URINE Routine 02/19/2017 1:4 5 PM PDT Hyponatremia METHYLMALONIC ACID (MMA), SERUM QUANTITATIVE Routine 02/19/2017 1:45 PM PDT Anemia, unspecified type FOLATE Routine 02/19/2017 1:45 PM PDT Anemia, unspecified type FERRITIN Routine 02/19/2017 1:45 PM PDT Anemia, unspecified type BASIC METABOLIC PANEL Routine 02/19/2017 1:45 PM PDT Hyponatremia documented in this encounter Results [...] for people identified as -[place]. eGFR 69 > OR = 60 mL/min/1 [...] Performing Organization Information: ? EN ? [facility] ? [address] [place] [address] ? Tab MD Diana Jes Espinosa MD LAB BLOOD [facility] ([facility] * TSH, 3RD GENERATION W/RFLX TO FT4 (03/15/2017 10:11 AM PDT) TSH 3rd Gen 1.94 0.40 - 4.50 mIU/L [facility] Blood 03/15/2017 10:1 1 AM PDT 03/15/2017 10:23 PM PDT Narrative Resulting Agency Comment Performing Organization Information: ? EN ? [facility] ? [address] [place] [address] ? Jameson Ortiz MD Jes Espinosa MD LAB BLOOD Performing Organization Address [facility] de Phone Number [facility] * (ABNORMAL) SODIUM, URINE RANDOM (02/19/2017 1:45 PM PDT) Sodium, Random Urine 19(L) 28 - 272 mmol/L [facility] Blood 02/19/2017 1:45 PM PDT 02/19/2017 11:41 PM PDT Narrative Resulting Agency Comment Performing Organization Information: ? EN ? [facility] ? [address] [place] [address] ? Jameson Ortiz MD Jes Espinosa MD LAB NON-BLOOD Performing Organization Address [facility] de Phone Number [facility] * OSMOLALITY, URINE (02/19/2017 1:45 PM PDT) Osmolality, Urine 161 50 - 1,200 mOsm/kg [facility] Blood 02/19/2017 1:45 PM PDT 02/19/2017 11:41 PM PDT Narrative Resulting Agency Comment Performing Organization Information: ? EN ? [facility] ? [address] [place] [address] ? Jameson Ortiz MD Jes Espinosa MD LAB NON-BLOOD Performing Organization Address [facility] de Phone Number [facility] * [...] for people identified as -[place]. eGFR 79 > OR = 60 mL/min/1 [...] Performing Organization Information: ? EN ? [facility] ? [address] [place] [address] ? Jameson Ortiz MD Jes Espinosa MD LAB BLOOD Performing Organization Address [facility]/ZIP Co de Phone Number [facility] * VITAMIN B12 (02/19/2017 1:45 PM PDT) Vitamin B12 851 200 - 1,100 pg/mL [facility] Blood (BLOOD) 02/19/2017 1:4 5 PM PDT 02/19/2017 11:41 PM PDT Narrative Resulting Agency Comment Performing Organization Information: ? EN ? [facility] ? [address] [place] [address] ? Jameson Ortiz MD Jes Espinosa MD LAB BLOOD Performing Organization Address City/[facility] Co de Phone Number [facility] * METHYLMALONIC ACID (MMA), SERUM QUANTITATIVE (02/19/2017 1:45 PM PDT) [facility] Methylmalonic Acid 186 87 - 318 nmol/L [facility]) Comment: This test was developed and its analytical performance characteristics have been determined by [facility]. It has not been cleared or approved by FDA. This assay has been validated pursuant to the CLIA regulations and is used for clinical purposes. Blood (BLOOD) 02/19/2017 1:4 5 PM PDT 02/19/2017 11:41 PM PDT Narrative Resulting Agency Comment Performing Organization Information: ? EZ ? [facility], ? [address] [place] [address] ? Willie Meneses MD,PhD Jes Espinosa MD LAB BLOOD Performing Organization Address [facility] de Phone Number [facility] * (ABNORMAL) IRON, TOTAL AND TOTAL IRON BINDING CAPACITY (02/19/2017 1:45 PM PDT) [facility] Iron 35(L) 45 - 160 mcg/dL [facility]) IBC 337 250 - 450 mcg/dL (calc) [facility] Iron % Sat 10(L) 11 - 50 % (calc) [facility] Blood 02/19/2017 1:45 PM PDT 02/19/2017 11:41 PM PDT Narrative Resulting Agency Comment Performing Organization Information: ? EN ? [facility] ? [address] [place] [address] ? Jameson Ortiz MD Jes Espinosa MD LAB BLOOD Performing Organization Address [facility]/ZIP Co de Phone Number [facility] * FOLATE (02/19/2017 1:45 PM PDT) Folate 17.3 ng/mL [facility]) Comment: ? Reference Range ? Low: ? <3.4 ? Borderline: ?3.4-5.4 ? Normal: ?>5.4 Blood (BLOOD) 02/19/2017 1:4 5 PM PDT 02/19/2017 11:41 PM PDT Narrative Resulting Agency Comment Performing Organization Information: ? EN ? [facility] ? [address] [place] [address] ? Tab MD Diana Jes Espinosa MD LAB BLOOD Performing Organization Address [facility] de Phone Number [facility] * FERRITIN (02/19/2017 1:45 PM PDT) Ferritin 20 20 - 288 ng/mL [facility]) Blood (BLOOD) 02/19/2017 1:4 5 PM PDT 02/19/2017 11:41 PM PDT Narrative Resulting Agency Comment Performing Organization Information: ? EN ? [facility] ? [address] [place] [address] ? Jameson Ortiz MD Jes Espinosa MD LAB BLOOD Performing Organization Address [facility] de Phone Number [facility]) documented in this encounter Visit Diagnoses Diagnosis Anemia, unspecified type- Primary Hyponatremia Hyposmolality and/or hyponatremia HYPOTHYROIDISM Iron deficiency anemia, unspecified iron deficiency anemia type documented in this encounter Care Teams Half Backer Relationship Specialty [place] [address] [facility], [address] [place] [address] PCP - General Internal Medicine 12/02/14 documented as of this encounter
--- OUTSIDE RECORDS SUMMARY | 2024-04-21 18:24 | XMS_ITS | Encounter Summary ---
Author Organization [facility] Address [address] [place] [address] Care Team Providers Care Bridge Saw Operator Name Role Phone Jes Arriaga MD Primary Care Provider + Reason for Referral * Radiology (Routine) - Closed Specialty Diagnoses / Procedures Referred By Contac t Referred To Contact Radiology Diagnoses Screening for osteoporosis Procedures BONE DENSITY AXIAL DEXA,BONE DENSITY, 1 + SITE, [place] [address] [facility] [address] [place] [address] [place] [address] Referral ID Status Reason Start Date Expiration Date Visits Re quested Visits Authorized [id number] Closed 12/14/2014 03/14/2015 2 2 Reason for Visit * (Routine) - Closed Specialty Diagnoses / Procedures Referred By Contac t Referred To Contact Diagnostic Radiology / Radiology Diagnoses OSTEOPOROSIS Procedures [facility] [place] [address] [facility], [address] [place] [address] [place] [address] Referral ID Status Reason Start Date Expiration Date Visits Re quested Visits Authorized [id number] Closed 01/01/2015 02/25/2015 1 1 Encounter Details Date Type Department Care Team (Late st Contact Info) Description 01/07/2015 11:40 AM PDT - 01/07/2015 11:59 PM PDT Hospital Encounter [facility] at [address], [address] [place] [address] [place] [address] [facility], [address] [place] [address] Dx: Screening for osteoporosis Discharge Disposition: Home Social History Tobacco Use [...] Dispensed Refills Start Date End Date amLODIPine (NORVASC, AMVAZ) 5 mg Oral Tablet Take 1 Tab by mouth daily. 02/01/2016 hydroCHLOROthiazide (HYDRODIURIL) 25 mg Oral Tablet Take 1 Tab by mouth daily. 02/01/2016 FLUoxetine (PROZAC) 20 mg Oral Capsule Take 20 mg by mouth daily. 02/01/2016 LEVOTHYROXINE SODIUM (SYNTHROID ORAL) Take 88 mcg by mouth. 03/08/2022 VALSARTAN (DIOVAN ORAL) take by mouth. documented as of this encounter Plan of Treatment Not on file documented as of this encounter Procedures Procedure Name Priority Date/Time Associated Diagnosis Comments BONE DENSITY AXIAL Routine 01/07/2015 11 :56 AM PDT Screening for osteoporosis documented in this encounter Results * BONE DENSITY AXIAL (01/07/2015 11:56 AM PDT) Anatomical Region Laterality Modality Digital Radiogra phy 01/07/2015 11:4 5 AM PDT Impressions 01/11/2015 3:52 PM PDT IMPRESSION: OSTEOPENIA According to the 1994 World Health Organization (WHO) classification, based on the lowest of the above T-scores, the patient's bone mineral density (BMD) is osteopenia. The diagnosis of osteoporosis in pre-menopausal / menopausal women is somewhat controversial. ??According to the May 2003 Official Positions of the International Society for Clinical (ISCD) Densitometry, the World Health Organization criteria for bone density stratification should no longer be used for the pre-menopausal and menopausal women. ??The above interpretation is based on the current ISCD recommendations. Report Electronically Signed. Dictated by: Hilario Ashby M.D. ?? rwr/:01/11/2015 15:52:40 ?? Grab Hooker: Iqra Kenney [facility] letter sent: Bone Density Letter Narrative 01/11/2015 3:52 PM PDT ??BONE DENSITY EVALUATION: 01/07/2015 CLINICAL DATA: Post menopausal. ?? FINDINGS: On 01/07/2015 we performed bone density scans on your patient, Quin Dias. ?? The current exam was performed using a Hologic unit. ??Any prior scans performed at this site are listed reversed chronologically for comparison by scan region. ?? BONE DENSITY MEASUREMENTS: ?DATE ? BMD ?T-SCORE ?? %REF ?? Z-SCORE AGE MATCH ??BODY PART 01/07/2015 ?0.691 ? -1.40 ? 0.0% ?+0.00 ?0.0% ? L femur neck 01/07/2015 ?0.992 ? -0.50 ? 0.0% ?+1.20 ?0.0% ? AP L1-L4 Procedure Note Hilario Ashby MD - 01/12/2015 BONE DENSITY EVALUATION: 01/07/2015 CLINICAL DATA: Post menopausal. FINDINGS: On 01/07/2015 we performed bone density scans on your patient, Quin Flowers. The current exam was performed using a Hologic unit. Any prior scansperformed at this site are listed reversed chronologically for comparisonby scan region. BONE DENSITY MEASUREMENTS: DATE BMD T-SCORE %REF Z-SCORE AGE MATCH BODY PART 01/07/2015 0.691 -1.40 0.0% +0.00 0.0%L femur neck 01/07/2015 0.992 -0.50 0.0% +1.20 0.0%AP L1-L4 IMPRESSION: OSTEOPENIA According to the 1994 World Health Organization (WHO) classification,based on the lowest of the above T-scores, the patient's bone mineraldensity (BMD) is osteopenia. The diagnosis of osteoporosis in pre-menopausal / menopausal women issomewhat controversial. According to the May 2003 Official Positionsof the International Society for Clinical (ISCD) Densitometry, the WorldHealth Organization criteria for bone density stratification should nolonger be used for the pre-menopausal and menopausal women. The aboveinterpretation is based on the current ISCD recommendations. Report Electronically Signed. Dictated by: Hilario Ashby M.D. rwr/:01/11/2015 15:52:40 Grab Hooker: Iqra Kenney, [facility] letter sent: Bone Density Letter Jes Arriaga MD BD IMG BONE DENS ITY documented in this encounter Visit Diagnoses Diagnosis Screening for osteoporosis Special screening for osteoporosis documented in this encounter Care Teams Bridge Saw Operator Relationship Specialty Start [place] [address] [facility], [address] [place] [id number] PCP - General Internal Medicine 12/02/14 documented as of this encounter
--- OUTSIDE RECORDS SUMMARY | 2024-04-21 18:24 | XMS_ITS | Encounter Summary ---
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 Pt states this has happened to her before in the past. +LOC. arrives in c-spine. denies neck or back pain at arrival. A&Ox4 * Auth/Cert - New Request Specialty Diagnoses / Procedures Referred By Dinorah garcia Referred To Contact Emergency Diagnoses fall [facility] [address] [place] [address] Referral ID Status Reason Start Date Expiration Date V isits Requested Visits Authorized [id number] New Request 1 1 Encounter Details Date Type Department Care Team (Late st Contact Info) Description 06/02/2011 12:40 AM PDT - 06/02/2011 3:03 AM PDT Emergency [facility] [address] [place] [address] Nishant Russ MD [address] [facility] [address] E - 06/02/11 - [id number] Discharge Disposition: Home Social History Tobacco Use [...] Sign Reading Time Taken Comments Blood Pressure 152/98 06/02/2011 2:56 AM PDT Pulse 62 06/02/2011 2:56 AM PDT Temperature 36.2 ??C (97.2 ??F) 06/02/2011 12:46 AM P DT Respiratory Rate 18 06/02/2011 2:56 AM PDT Oxygen Saturation 100% 06/02/2011 2:56 AM PDT Inhaled Oxygen Concentration - - Weight 68 kg (150 lb) 06/02/2011 1:19 AM PDT Height 165.1 cm (5' 5) 06/02/2011 1:19 AM PDT Body Mass Index 24.96 06/02/2011 1:19 AM PDT documented in this encounter Discharge Instructions * Discharge Instructions* Nishant Russ M.D. - 06/02/2011 2:55 AM PDT If your medical problem worsens or new symptoms appear, and you are unable to see your physician, return to [facility][1] ER for further evaluation. Discuss your current diuretic/antihypertensive medication with your doctor. You had mild hyponatremia at 128. No driving or dangerous activity until cleared by your doctor * Attachments The following attachments cannot be sent through Care Everywhere. * HEAD INJURIES, ADULT (MALAY) * SYNCOPE (FAINTING EPISODE) (MALAY) documented in this encounter Medications at Time of Discharge Medication Sig Dispensed Refills Start Date End Date LEVOTHYROXINE SODIUM (SYNTHROID ORAL) Take 88 mcg by mouth. 03/08/2022 VALSARTAN (DIOVAN ORAL) take by mouth. documented as of this encounter ED Notes * Miranda Hayes R.N. - 06/02/2011 3:00 AM PDT Discharge patient home in no acute distress. Vital signs stable. Aftercare instructions given to the patient and verbalize understanding. Patient able to ambulate to the restroom without difficulty. Denies any dizziness, able to ambulate with steady gait. * Miranda Hayes R.N. - 06/02/2011 2:17 AM PDT Patient appears comfortable at this time. Denies any pain and discomfort at this time. Will continue to monitor the patient. * Miranda Hayes R.N. - 06/02/2011 2:07 AM PDT IV line discontinued, got infiltrated. Catheter intact upon removal of the IV. * Nishant Russ M.D. 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 She fell and hit her head on the table and then on the floor. She arrives to the emergency department, awake and alert. She only complains of some mild pain in the back of her head. No neck or back pain. No extremity pain. No chest pain. Patient states that she did have a warning. It felt warm. She s tates that she was a double gloved and in the OR and under the hot lights. She has had vasovagal episodes in the past. No chest pain or palpitations. No seizure activity. No incontinence. She was brought over from the OR on the [facility] with long board and cervical spine immobilization. She denies any numbness or weakness of the extremities Past Medical, Family, Social History Past Medical History Diagnosis Date ??? HYPOTHYROIDISM ??? Hypertension Past Surgical History Procedure Date ??? No major surgical history No family history on file. Social History History Substance Use Topics ??? Smoking status: Never Smoker ??? Smokeless tobacco: Not on file ??? Alcohol Use: No Marital Status: Lives With: (not recorded) Current Living Arrangement: (not recorded) Current/former occupation: (not recorded) Allergies Review of patient's allergies indicates no known allergies. Medications Current outpatient prescriptions Medication ??? LEVOTHYROXINE SODIUM (SYNTHROID ORAL) ??? VALSARTAN (DIOVAN ORAL) Review of Systems Constitutional: Negative for fever and chills. HENT: Negative for ear pain, congestion and rhinorrhea. Eyes: Negative for discharge and redness. Respiratory: Negative for shortness of breath and wheezing. Cardiovascular: Negative for chest pain. Gastrointestinal: Negative for nausea, vomiting, abdominal pain and diarrhea. Genitourinary: Negative for flank pain. Musculoskeletal: Negative for back pain. Skin: Negative for rash. Neurological: Positive for syncope. Negative for dizziness, weakness, numbness and headaches. Hematological: Negative for adenopathy. Psychiatric/Behavioral: The patient is not nervous/anxious. Physical Exam Initial ED Vitals Temp Temp Source Pulse BP Resp Pulse Oximetry Presence of Pain Pain Rating: Rest (Numeric) 06/02/11 0046 06/02/11 0046 06/02/11 0046 06/02/11 0046 06/02/11 0046 06/02/11 0046 06/02/11 0119 06/02/11 0046 97.2 ??F (36.2 ??C) TAT 57 139/74 mmHg 14 100 denies pain/discomfort 0 Nursing note and vitals reviewed. Constitutional: She is oriented to person, place, and time. She appears well- developed and well-nourished. No distress. Awake alert, and talkative HENT: Head: Normocephalic and atraumatic. Right Ear: External ear normal. Left Ear: External ear normal. Nose: Nose normal. Mouth/Throat: Oropharynx is clear and moist. No sign of head trauma. No palpable scalp hematoma or laceration Eyes: Conjunctivae and extraocular motions are normal. Pupils are equal, round, and reactive to light. No scleral icterus. Neck: Normal range of motion. Neck supple. No JVD present. No tracheal deviation present. No thyromegaly present. There is no midline cervical, thoracic, or lumbar vertebral pain or deformity. On examination Cardiovascular: Normal rate, regular rhythm, normal heart sounds and intact distal pulses. No murmur heard. Pulmonary/Chest: Effort normal and breath sounds normal. No stridor. No respiratory distress. She has no wheezes. She has no rales. She exhibits no tenderness. Abdominal: Soft. Bowel sounds are normal. She exhibits no distension and no mass. No tenderness. She has no rebound and no guarding. No CVAT Musculoskeletal: Normal range of motion. She exhibits no edema and no tenderness. Lymphadenopathy: She has no cervical adenopathy. Neurological: She is alert and oriented to person, place, and time. She has normal reflexes. She displays normal reflexes. No cranial nerve deficit. She exhibits normal muscle tone. Coordination normal. Skin: Skin is warm and dry. No rash noted. No pallor. Psychiatric: She has a normal mood and affect. Her behavior is normal. Judgment and thought contentnormal. Pulse Ox Interpretation Initial Pulse Ox and Oxygen Pulse Oximetry Oxygen Flow (L/Min) Oxygen Concentration (%) Mode O2 Device 06/02/11 0046 06/02/11 0046 -- -- -- 06/02/11 0119 100 Room Air room air Sp[facility] ([facility]) SpMetHb ([facility]) Comment -- -- -- Interpretation:Normal ECG Interpretation Initial ECG: Time: 0125 Rate: 57 Rhythm: Sinus Bradycardia Ectopy: None ST Abnormalities: None Conduction Abnormalities: None Interpretation: Non specific Radiology Interpretation Study 1:CT HEAD W/O CONTRAST Interpretation by:Emily Bill Interpretation: No intracranial hemorrhage, mass effect, or edema. No skull fracture Right maxillary sinus polyp or retention cyst. Mucosal thickening right sphenoid and ethmoid sinuses Study 2:CT C-SPINE W/O CONTRAST Interpretation by:Emily Bill Interpretation: No evidence of fracture or malalignment Lab Interpretation Results for orders placed during the hospital encounter of 06/02/11 TROPONIN I-MHS Component Value Range ? ? Troponin I <0.01 (*) 0.01-0.09 (ng/ml) MYOGLOBIN-MHS Component Value Range ??? Myoglobin 27 0-110 (ng/ml) [id number] Component Value Range ??? WBC 5.6 4.3-10.0 (K/UL) ??? RBC 3.65 (*) 3.90-5.40 (M/UL) ??? HGB 11.4 (*) 11.5-16.0 (GM/DL) ??? HCT 32.4 (*) 35.0-47.0 (%) ??? MCV 89 82-100 (FL) ??? MCH 31.2 27.0-36.0 (PG) ??? MCHC 35.1 31.5-36.0 (%) ??? RDW 13.7 11.5-14.5 (%) ??? Platelet 274 150-450 (K/UL) ??? MPV 7.2 (*) 8.2-10 (FL) ??? Diff Type AUTO ??? Neutrophils % 46.6 40-70 (%) ??? Lymphocyte % 40.4 23-44 (%) ??? Monocytes % 8.4 4-12 (%) ??? Eosinophil % 3.3 1-5 (%) ??? Basophil % 1.3 0-2 (%) ??? Neutrophil Abs 2.6 1.9-7.6 (X10(3)/uL) ??? Lymph Abs 2.2 1.2-3.8 (X10(3)uL) ??? [place] Abs 0.5 0.2-1.3 (X10(3)uL) ??? EOS ABS 0.2 0.0-0.5 (X10(3)uL) ??? Basophil Abs 0.1 0.0-0.2 (X10(3)uL) COMPREHENSIVE METABOLIC PANEL-MHS Component Value Range ??? NA 128 (*) 132-146 (MMOL/L) ??? K 3.5 3.5-5.5 (MMOL/L) ??? CL 95 (*) 99-109 (MMOL/L) ??? CO2 24 20-31 (MMOL/L) ??? Anion Gap 9.2 5.0-14.0 (MMOL) ??? Glucose Random 109 (*) 65-99 (MG/DL) ??? BUN 8 (*) 9-23 (MG/DL) ??? Creatinine 0.75 0.5-1.1 (MG/DL) ??? CA 9.3 8.7-10.4 (MG/DL) ??? Protein Total 6.5 5.7-8.2 (GM/DL) ??? Albumin 4.2 3.2-4.8 (GM/DL) ??? Bilirubin, Total 0.3 0.3-1.2 (MG/DL) ??? ALT (SGPT) 22 10-49 (U/L) ??? AST (SGOT) 27 0-33 (U/L) ??? Alk Phos 70 45-129 (U/L) ??? UREA/CREA Ratio 10.7 10.0-22.0 (RATIO) ??? Globulin 2.2 (*) 2.4-4.4 (GM/DL) ??? A/G Ratio 1.9 0.7-2.5 (RATIO) ? ? eGFR >60 >59 ? ? eGFRAA >60 >59 Procedures Discussion Syncope Likely vasovagal, by history in the patient has had this in the past. There is no history to suggest arrhythmia. Rule out hypoglycemia, rule out hypovolemia. No history of alcohol or drug abuse Routine CT scan of the head and cervical spine. Baseline laboratory studies will be obtained. Patient will receive IV fluids. DMV report will be filed. The patient was instructed not to drive until cleared by her physician 2:52 AM The patient remains awake and alert, in no acute distress. Results have been reviewed. We will supplement potassium. Level was in the normal range, but low normal at 3.5. Mild hyponatremia. The patient is on a diuretic. The patient a in emergency Department with no symptoms. Discharged home with her driving Final Impression Recurrent syncope Probable vasovagal episode Mild hyponatremia documented in this encounter Miscellaneous Notes * Eligibility Verification - ONBASE DOCUMENT - 06/02/2011 2:36 AM PDT * Statement of Financial Responsibility - ONBASE DOCUMENT - 06/02/2011 2:36 AM PDT * Smoking Cessation - ONBASE DOCUMENT - 06/02/2011 2:36 AM PDT * Patient Info Sheet - ONBASE DOCUMENT - 06/02/2011 2:36 AM PDT * Car Shunter's License / Photo ID - ONBASE DOCUMENT - 06/02/2011 2:36 AM PDT * Conditions of Admissions - ONBASE DOCUMENT - 06/02/2011 2:36 AM PDT * Conditions of Admissions - ONBASE DOCUMENT - 06/02/2011 2:36 AM PDT * Insurance Card - ONBASE DOCUMENT - 06/02/2011 2:36 AM PDT documented in this encounter Plan of Treatment Not on file documented as of this encounter Procedures Procedure Name Priority Date/Time Associated Diagnosis Comments CT C-SPINE W/O CONTRAST STAT 06/02/2011 1:[address] HEAD W/O CONTRAST STAT 06/02/2011 1:48 AM PDT ECG ROUTINE 15 LEADS (LBM/MCH/OCM) STAT 06/02/2011 1:25 AM PDT TROPONIN I STAT 06/02/2011 1:10 AM PDT MYOGLOBIN STAT 06/02/2011 1:10 AM PDT COMPREHENSIVE METABOLIC PANEL STAT 06/02/2011 1:10 AM PDT CBC WITH AUTO DIFFERENTIAL, REFLEX MANUAL DIFFERENTIAL IF INDICATED STAT 06/02/2011 1:10 AM PDT documented in this encounter Results * CT C-SPINE W/O CONTRAST (06/02/2011 1:49 AM PDT) Anatomical Region Laterality Modality C-SPINE Computed Tomogra phy Impressions 06/02/2011 9:51 AM PDT MULTILEVEL DEGENERATIVE DISC DISEASE AND INCIDENTAL NOTE OF RIGHT MAXILLARY AND SPHENOID ??SINUSITIS; NO ACUTE OSSEOUS INJURY SEEN. ( INITIAL REPORT TO THE EMERGENCY ROOM WAS BY THE OVERNIGHT RADIOLOGIST. ) TR: mm Dictated by: Candido Lambert M.D. Job: ??[id number] Narrative 06/02/2011 9:[address] CERVICAL SPINE - NONCONTRAST: 06/02/2011 TIME OF EXAM: 1:30 a.m. HISTORY: ??Trauma, syncope, head contusion. TECHNIQUE: ??Spiral acquisition was from the basiocciput above through T2 below with axial 3 millimeter primary reformations using osseous and soft tissue level windowing and secondary coronal and sagittal plane reformations. FINDINGS: ??A large right maxillary retention cyst is seen and significant chronic-appearing right sphenoid sinusitis is noted. Multilevel degenerative disc change of mild to moderate degree is seen at C4-C5 , C5-C6 and C6-C7 associated with slight reversal of normal cervical lordosis, the mild kyphosis is centered at C5. No compression fracture or spondylolisthesis is seen. The spinous processes and os dens appear to be intact. The uncovertebral joints bilaterally do demonstrate degenerative changes throughout the mid cervical region, the left more productive than right. There is a very slight levoscoliosis noted. No cervical ribs are seen. No prevertebral or paravertebral soft tissue hematomas are identified. Procedure Note Candido Lambert MD - 06/02/2011 CT CERVICAL SPINE - NONCONTRAST: 06/02/2011 TIME OF EXAM: 1:30 a.m. HISTORY: Trauma, syncope, head contusion. TECHNIQUE: Spiral acquisition was from the basiocciput above through M6chjco with axial 3 millimeter primary reformations using osseous and softtissue level windowing and secondary coronal and sagittal planereformations. FINDINGS: A large right maxillary retention cyst is seen and significantchronic-appearing right sphenoid sinusitis is noted. Multilevel degenerative disc change of mild to moderate degree is seen atC4-C5 , C5-C6 and C6-C7 associated with slight reversal of normal cervicallordosis, the mild kyphosis is centered at C5. No compression fracture or spondylolisthesis is seen. The spinous processes and os dens appear to be intact. The uncovertebral joints bilaterally do demonstrate degenerative changesthroughout the mid cervical region, the left more productive than right.There is a very slight levoscoliosis noted. No cervical ribs are seen. No prevertebral or paravertebral soft tissue hematomas are identified. IMPRESSION: MULTILEVEL DEGENERATIVE DISC DISEASE AND INCIDENTAL NOTE OF RIGHTMAXILLARY AND SPHENOID SINUSITIS; NO ACUTE OSSEOUS INJURY SEEN. ( INITIAL REPORT TO THE EMERGENCY ROOM WAS BY THE OVERNIGHT RADIOLOGIST.) TR: mm Dictated by: Candido Lambert M.D. Job: [id number] Nishant Russ MD CT IMG CT/CAT * CT HEAD W/O CONTRAST (06/02/2011 1:48 AM PDT) Anatomical Region Laterality Modality HEAD Computed Tomogra phy Impressions 06/02/2011 9:51 AM PDT ?? NORMAL COMPUTED TOMOGRAPHY OF THE BRAIN WITHOUT CONTRAST. (INITIAL REPORT TO THE EMERGENCY ROOM WAS BY THE OVERNIGHT RADIOLOGIST.) TR: mm Dictated by: Candido Lambert M.D. Job: ??[id number] Narrative 06/02/2011 9:[address] HEAD - NONCONTRAST: 06/02/2011 TIME OF EXAM: ??1:30 a..m. HISTORY: Trauma, syncope, head contusion. TECHNIQUE: Thin-section tomographic images were acquired through the brain from the foramen magnum to the vertex. ??No intravenous contrast was administered. FINDINGS: There is no evidence of mass lesion, hemorrhage or acute infarct. ?? There is no evidence for abnormal intra-axial or extra-axial fluid collections. ??There is no evidence for focal volume loss to suggest encephalomalacia/old infarction. ??The ventricular system is unremarkable without evidence for hydrocephalus. ??Visualized portions of the paranasal sinuses, mastoid air cells and calvarium are normal. A large retention cyst is seen in the right maxillary sinus. Procedure Note Candido Lambert MD - 06/02/2011 CT HEAD - NONCONTRAST: 06/02/2011 TIME OF EXAM: 1:30 a..m. HISTORY: Trauma, syncope, head contusion. TECHNIQUE: Thin-section tomographic images were acquired through the brainfrom the foramen magnum to the vertex. No intravenous contrast wasadministered. FINDINGS: There is no evidence of mass lesion, hemorrhage or acuteinfarct. There is no evidence for abnormal intra-axial or extra-axialfluid collections. There is no evidence for focal volume loss to suggestencephalomalacia/old infarction. The ventricular system is unremarkablewithout evidence for hydrocephalus. Visualized portions of the paranasalsinuses, mastoid air cells and calvarium are normal. A large retention cyst is seen in the right maxillary sinus. IMPRESSION: NORMAL COMPUTED TOMOGRAPHY OF THE BRAIN WITHOUT CONTRAST. (INITIAL REPORT TO THE EMERGENCY ROOM WAS BY THE OVERNIGHT RADIOLOGIST.) TR: mm Dictated by: Candido Lambert M.D. Job: [id number] Nishant Russ MD CT IMG CT/CAT * ECG ROUTINE 15 LEADS (LBM/MCH/OCM) (06/02/2011 1:25 AM PDT) Heart Rate 57 BPM MHS TRACEMASTER RESULTS P [place] 69 degrees MHS TRACEMASTER RESULTS I:40 [place] 16 degrees MHS TRACEMASTER RESULTS T:40 [place] -59 degrees MHS TRACEMASTER RESULTS QRS [place] 0 degrees MHS TRACEMASTER RESULTS ST [place] 134 degrees MHS TRACEMASTER RESULTS T Wave [place] 43 degrees MHS TRACEMASTER RESULTS EKG Impression - OTHERWISE NORMAL ECG - SINUS RHYTHM normal P axis, V-rate 50-99 LOW VOLTAGE IN FRONTAL LEADS all frontal leads <0.5mV MHS TRACEMASTER RESULTS 06/02/2011 1:25 AM PDT Nishant Russ MD CAR NON INVASIVE CAR DIOLOGY MHS TRACEMASTER RESULTS * (ABNORMAL) TROPONIN I-[facility] (06/02/2011 1:10 AM PDT) Pathologist [facility] Troponin I <0.01(L) 0.01 - 0.09 ng/ml [facility] Comment: For evaluation of patients with chest pain: Levels ??0.10-0.77 ng/ml may warrant ?repeat testing and clinical ?follow-up. Levels ??0.78 or above are considered ?indicative of myocardial ?infarction by WHO (World Health ?Organization). Troponin I assay method as of 10/24/06 is the [employer] TnI-Ultra assay. ??This assay meets the definition of a high sensitivity Troponin method as described by the ESC/ACC recommendations for low end precision, and meets WHO recommendations for standardization. Blood (BLOOD) 06/02/2011 1:1 0 AM PDT 06/02/2011 1:35 AM PDT Narrative [facility] - 06/02/2011 2:05 AM PDT Performed at: [facility], [address] [place] [address] ([address] [address] Nishant Russ MD LAB BLOOD [facility] * MYOGLOBIN-MHS (06/02/2011 1:10 AM PDT) Myoglobin 27 0 - 110 ng/ml [facility] Blood (BLOOD) 06/02/2011 1:1 0 AM PDT 06/02/2011 1:35 AM PDT Narrative [facility] - 06/02/2011 2:05 AM PDT Performed at: [facility], [address] [facility] ([address] [address] Nishant Russ MD LAB BLOOD [facility] * (ABNORMAL) [id number] (06/02/2011 1:10 AM PDT) WBC 5.6 4.3 - 10.0 K/UL [facility] RBC 3.65(L) 3.90 - 5.40 M/UL [facility] HGB 11.4(L) 11.5 - 16.0 GM/DL [facility] HCT 32.4(L) 35.0 - 47.0 % [facility] MCV 89 82 - 100 FL [facility] MCH 31.2 27.0 - 36.0 PG [facility] MCHC 35.1 31.5 - 36.0 % [facility] RDW 13.7 11.5 - 14.5 % [facility] Platelet 274 150 - 450 K/UL [facility] MPV 7.2(L) 8.2 - 10 FL [facility] Diff Type AUTO [facility] Neutrophils % 46.6 40 - 70 % [facility] Lymphocyte % 40.4 23 - 44 % [facility] Monocytes % 8.4 4 - 12 % [facility] Eosinophil % 3.3 1 - 5 % [facility] Basophil % 1.3 0 - 2 % [facility] Neutrophil Abs 2.6 1.9 - 7.6 X10(3)/uL [facility] Lymphocyte Abs 2.2 1.2 - 3.8 X10(3)uL [facility] Monocyte Abs 0.5 0.2 - 1.3 X10(3)uL [facility] Eosinophil Abs 0.2 0.0 - 0.5 X10(3)uL [facility] Basophil Abs 0.1 0.0 - 0.2 X10(3)uL [facility] Blood (BLOOD) 06/02/2011 1:1 0 AM PDT 06/02/2011 1:35 AM PDT Narrative [facility] - 06/02/2011 1:51 AM PDT Performed at: [facility], [id number] [place] [address] ([address]), [place] [address] Nishant Russ MD LAB BLOOD [facility] * (ABNORMAL) COMPREHENSIVE METABOLIC PANEL-MHS (06/02/2011 1:10 AM PDT) NA 128(L) 132 - 146 MMOL/L [facility] K 3.5 3.5 - 5.5 MMOL/L [facility] CL 95(L) 99 - 109 MMOL/L [facility] CO2 24 20 - 31 MMOL/L [facility] Anion Gap 9.2 5.0 - 14.0 MMOL [facility] Glucose Random 109(H) 65 - 99 MG/DL [facility] BUN 8(L) 9 - 23 MG/DL [facility] Creatinine 0.75 0.5 - 1.1 MG/DL [facility] CA 9.3 8.7 - 10.4 MG/DL [facility] Protein Total 6.5 5.7 - 8.2 GM/DL [facility] Albumin 4.2 3.2 - 4.8 GM/DL [facility] Bilirubin, Total 0.3 0.3 - 1.2 MG/DL [facility] ALT (SGPT) 22 10 - 49 U/L [facility] AST (SGOT) 27 0 - 33 U/L [facility] Alk Phos 70 45 - 129 U/L [facility] UREA/CREA Ratio 10.7 10.0 - 22.0 RATIO [facility] Globulin 2.2(L) 2.4 - 4.4 GM/DL [facility] A/G Ratio 1.9 0.7 - 2.5 RATIO [facility] eGFR >60 >59 [facility] Comment: eGFR - Estimated GFR for non -[place] Citizen Estimated Glomerular Filtration Rate calculation is from the National Kidney Disease Education Program (NKDEP) and is based upon the IDMS-traceable MDRD Study equation. Results are not to be used for change or adjustment of drug dosages or treatment. ??Calculation assumes a steady state of creatinine balance. Potential inaccuracies occur in acutely ill patients, or with comorbid conditions or medications that interfere with creatinine measurement. Chronic kidney disease is defined as eGFR<60 for >= 3 months (www.nkdep.nih.gov) eGFR ? DESCRIPTION >= 60 ?Normal or mildly decreased 30 - 59 ?Moderately decreased GFR 15 - 29 ?Severely decreased GFR <15 ?Kidney failure eGFRAA >60 >59 [facility] Comment: eGFRAA - Estimated GFR for -[place] Citizen eGFR calculation is based on the IDMS traceable MDRD study equation available at the National Kidney Disease ??Education Program (www.nkdep.nih.gov). Results are not to be used for treatment, changes or adjustments of drug dosages. eGFR ? DESCRIPTION >= 60 ?Normal or mildly decreased 30 - 59 ?Moderately decreased GFR 15 - 29 ?Severely decreased GFR <15 ?Kidney failure Blood (BLOOD) 06/02/2011 1:1 0 AM PDT 06/02/2011 1:35 AM PDT Narrative [facility] - 06/02/2011 2:48 AM PDT Performed at: [facility], [address] [facility] ([address] [address] Nishant Russ MD LAB BLOOD [facility] documented in this encounter Visit Diagnoses Not on filedocumented in this encounter Administered Medications Inactive Administered Medications - up to 3 most recent administrations Medication Order MAR Action Action Date Dose Rate Site normal saline (BOLUS) 0.9% injection 1,000 mL Intravenous, Once, 1 dose, On Sun06/02/11 at 0115 Given 06/02/2011 1:27 AM PDT 1,000 mL potassium chloride (K-DUR, KLOR-CON) tablet 20 mEq Oral, Once, 1 dose, On Sun06/02/11 at 0300 Given 06/02/2011 2:54 AM PDT 20 mEq saline lock flush 3 mL Intravenous, Daily, First dose on Sun06/02/11 at 0900, Until Discontinued, And after each IV medication for IV line patency. For CENTRAL line: Use 10ml for PICC Use 20ml after blood or TPN Given 06/02/2011 1:27 AM PDT 3 mL documented in this encounter Active and Recently Administered Medications Times are shown in PDT. Scheduled Medication Order 05/31/2011 06/01/2011 06/02/2011 normal saline (BOLUS) 0.9% injection 1,000 mL (COMPLETED) Intravenous, Once, 1 dose, On Sun06/02/11 at 0115 0127 (Given - Provid er: Miranda Hayes RAlmaz. - Comment: end time 0227) potassium chloride (K-DUR, KLOR-CON) tablet 20 mEq (COMPLETED) Oral, Once, 1 dose, On Sun06/02/11 at 0300 0254 (Given - Provid er: Miranda Hayes R.N.) saline lock flush 3 mL (CANCELED) Intravenous, Daily, First dose on Sun06/02/11 at 0900, Until Discontinued, And after each IV medication for IV line patency. For CENTRAL line: Use 10ml for PICC Use 20ml after blood or TPN 0127 (Given - Provid er: Miranda Hayes R.N.) documented in this encounter
--- OUTSIDE RECORDS SUMMARY | 2024-04-21 18:24 | XMS_ITS | Encounter Summary ---
Author Organization [facility] Address [address] [place] [address] Care Team Providers Care Critical Care Specialist Name Role Phone Jes Arriaga MD Primary Care Provider + Reason for Visit * Reason Onset Date Comments Orders 12/21/2015 Resend Orders Encounter Details Date Type Department Care Team (Late st Contact Info) Description 12/21/[address] Medicine [address] [address] [place] [address] [facility] [address] [place] [address] Orders (Resend Orders ) Social History Tobacco Use Types Packs/Day [...] * Telephone Encounter - Milady Orourke - 12/21/2015 9:03 AM PDT Called and left message for patient. Turn around time for mailing may take over a week. 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 * Telephone Encounter - Toby Goodwin - 12/21/2015 8:17 AM PDT Patient called today about lab orders, saying she requested to have them mailed to her since she was going to another place to have them done, saw that Milady had mailed them out and left a message for patient letting her know on 12/13, patient stated she never got them and is requesting they be sent again. Patient changed her CPE appointment until 01/09. documented in this encounter Plan of Treatment Not on file documented as of this encounter Visit Diagnoses Not on filedocumented in this encounter Care Teams Critical Care Specialist Relationship Specialty [place] [address] [facility], [address] [place], [place] [address] PCP - General Internal Medicine 12/02/14 documented as of this encounter
--- OUTSIDE RECORDS SUMMARY | 2024-04-21 18:24 | XMS_ITS | Encounter Summary ---
Author Organization [facility] Address [address] [place] [address] Care Team Providers Care National Coverage Specialist Name Role Phone Jes Arriaga MD Primary Care Provider + Reason for Visit * Reason Onset Date Comments Orders 12/14/2015 Encounter Details Date Type Department Care Team (Late st Contact Info) Description 12/14/2015 Telephone [place] [address] Internal Medicine [address] [phone] [place] [address] [facility] [address] [place] [address] Orders Social History Tobacco Use [...] * Telephone Encounter - Milady Orourke - 12/14/2015 4:23 PM PDT Lab req filled out and mailed. Left message for patient informing her. * Telephone Encounter - Jes Arriaga MD - 12/14/2015 3:48 PM PDT Lab ordered Please fill out form and mail to patient Thank you very much. * Telephone Encounter - Milady Orourke - 12/14/2015 2:50 PM PDT Please see message below. If orders are placed I can send a lab requisition to patients home. Or does patient need to be seen first before labs can be ordered? Please advise * Telephone Encounter - Nati Ashford - 12/14/2015 10:54 AM PDT CPE LAB REQUEST Caller's name: Quin Dias Patient requesting labs prior to Physical. Patient wants to get labs done at different lab, Doesn'tknow the name of the center however knows it is a [facility] in [facility]. Patient is asking order be mailed to her. [address] [place] [id number] CPE Physical is scheduled for what day and time: 12/30 @ 11:30 Any Specific labs requested by patient: no What is the best number where we can reach you today? [phone] (home) documented in this encounter Plan of Treatment Not on file documented as of this encounter Results * [facility] 25-HYDROXYVITAMIN D (D2, D3), LC/MS/MS (01/31/2017 11:17 AM PDT) [facility] Vitamin D 25 Hydroxy 44 30 - [...] ? SLI ? [facility] ? [address] [place] [address] ? Sumeet Michaels MD,FCAP Jes Arriaga MD LAB BLOOD [facility] ([facility]) * (ABNORMAL) URINALYSIS WITH REFLEX MICROSCOPIC & CULTURE, IF INDICATED (01/31/2017 11:17 AM PDT) Color YELLOW YELLOW [facility] ([facility]) Appearance CLOUDY(A) CLEAR [facility] ([facility]) Specific [place] Ur 1.006 1.001 - 1.035 [facility] [...] (E) Comment: ??CULTURE, URINE, ROUTINE ?MICRO NUMBER: ?[id number] ??TEST STATUS: ? FINAL ??SPECIMEN SOURCE: ?? [...] Performing Organization Information: ? EN ? [facility] ? [address] [place] [address] ? Jameson Ortiz MD Jes Arriaga MD LAB NON-BLOOD [facility] ([facility]) * (ABNORMAL) TSH, 3RD GENERATION W/RFLX TO FT4 (01/31/2017 11:17 AM PDT) TSH 3rd Gen 10.27(H) 0.40 - 4.50 mIU/L [facility] ([facility]) Blood 01/31/2017 11:1 7 AM PDT 01/31/2017 9:56 PM PDT Narrative Resulting Agency Comment Performing Organization Information: ? EN ? [facility] ? [address] [place] [address] ? Jameson Ortiz MD Jes Arriaga MD LAB BLOOD [facility] ([facility]) * (ABNORMAL) LIPID PANEL [...] Performing Organization Information: ? EN ? [facility] ? [address] [place] [address] ? Jameson Ortiz MD Jes Arriaga MD LAB BLOOD Performing Organization Address [facility] Co de Phone Number [facility] [...] diagnosis of diabetes in children. According to [place] Diabetes Association (ADA) guidelines, hemoglobin A1c <7.0% represents optimal control in non- diabetic patients. Different metrics may apply to specific patient populations. Standards of Medical Care in Diabetes(ADA). ?? Mean Blood Gluc 122 mg/dL (calc) [facility]) Blood 01/31/2017 11:1 7 AM PDT 01/31/2017 9:56 PM PDT Narrative Resulting Agency Comment Performing Organization Information: ? EN ? [facility] ? [address] [place] [address] ? Tab MD Diana Jes Arriaga MD [...] approximately 13% higher for people identified as -Mexican. eGFR 94 > OR = 60 mL/min/1 [...] Performing Organization Information: ? EN ? [facility] ? [address] [place] [address] ? Tab MD Diana Jes Arriaga MD [...] Performing Organization Information: ? EN ? [facility] ? [address] [place] [address] ? Tab MD Diana Jes Arriaga MD LAB BLOOD [facility] ([facility]) documented in this encounter Visit Diagnoses Diagnosis Essential hypertension, hypertension with unspecified goal- Primary Hypothyroidism, unspecified type Screening for condition Screening for unspecified condition documented in this encounter Care Teams National Coverage Specialist Relationship Specialty [place] [address] [facility], [address] [place] [address] PCP - General Internal Medicine 12/02/14 documented as of this encounter
--- OUTSIDE RECORDS SUMMARY | 2024-04-21 18:24 | XMS_ITS | Encounter Summary ---
Author Organization [facility] Address [address] [place] [address] Care Team Providers Care [employer] Solutions Workflow Consultant Name Role Phone Jes Arriaga MD Primary Care Provider + Reason for Referral * Radiology (Routine) - Closed Specialty Diagnoses / Procedures Referred By Contac t Referred To Contact Radiology Diagnoses Screening for osteoporosis Procedures BONE DENSITY AXIAL DEXA,BONE DENSITY, 1 + SITE, [place] [address] [facility], [address] [place] [address] [place] [address] Referral ID Status Reason Start Date Expiration Date Visits Re quested Visits Authorized [id number] Closed 12/14/2014 03/14/2015 2 2 * Consultation (Routine) - Closed Specialty Diagnoses / Procedures Referred By Contac t Referred To Contact Gastroenterology Diagnoses Screening for colon cancer Procedures OFFICE OUTPATIENT VISIT 15 MINUTES OFFICE OUTPATIENT NEW 30 [place] [address] [facility], [address] [place] [address] [place] [address] 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: Reason for Visit * Reason Comments Physical Annual Physical Encounter Details Date Type Department Care Team (Late st Contact Info) Description 12/14/2014 1:30 PM PDT Office Visit [place] [address] Internal Medicine [address] [facility] [address] [place] [address] [place] [address] [facility] [address] [place], [place] [id number] Annual physical exam (Primary Dx); Screening for colon cancer; Screening for cervical cancer; Essential hypertension; Hypothyroidism, unspecified; Major depressive disorder, recurrent episode, mild (HCC); Screening for osteoporosis Social History Tobacco Use Types Packs/Day Years [...] Sign Reading Time Taken Comments Blood Pressure 110/70 12/14/2014 1:43 PM PDT Pulse 72 12/14/2014 1:43 PM PDT Temperature 36.7 ??C (98.1 ??F) 12/14/2014 1:43 PM PD T Respiratory Rate 16 12/14/2014 1:43 PM PDT Oxygen Saturation - - Inhaled Oxygen Concentration - - Weight 53.5 kg (118 lb) 12/14/2014 1:43 PM PDT Height 163.3 cm (5' 4.3) 12/14/2014 1:43 PM PDT Body Mass Index 20.07 12/14/2014 1:43 PM PDT documented in this encounter Patient Instructions * Patient Instructions* Jes Arriaga MD - 12/14/2014 2:04 PM PDT Please do labs fasting Please set up your colonoscopy and DEXA (PPO) Continue medications Sunscreen (On the skin) May help protect your skin from sunburn, skin cancer, and other damage caused by the sun. Brand Name(s):Sport Sunscreen, [employer] Baby Sunscreen SPF 45, [employer] Sunscreen SPF 30, [employer] Sport Sunscreen SPF 48, [employer] Sport Sunscreen SPF 30, [employer] Sunscreen SPF 45 Oil Free Essential Defense, [employer] Sunscreen Sheer, Marina Multi Correxion 4-Zone Daily Moisturizer SPF30, CeraVe Facial Moisturizing Lotion AM, Clean & Clear Advantage 2in1 Acne&Roberto Eraser Kit, Aveeno Daily Moisturizing Lotion With Sunscreen, Aveeno Continuous Protection Sunblock Lotion, Aveeno Active Naturals Positively Ageless Sunblock, Marina Retinol Correxion Deep Wrinkle, Aveeno Ultra-Calming Daily Moisturizer There may be other brand names for this medicine. When This Medicine Should Not Be Used: Talk with your doctor if you have had an allergic reaction to a sunscreen. Even if you have had an allergic reaction to one sunscreen, you still may be able to use another sunscreen that contains different ingredients. How to Use This Medicine: Cream, Stick, Gel/Jelly, Lotion, [place] ?? Most sunscreens are applied about 15 to 30 minutes before you go out into the sun. Sunscreens that contain PABA should be used about 1 to 2 hours before sun exposure. There are many different kinds of sunscreens, so instructions may change with each product. Always read and follow the instructions on the package label. ?? Use the sunscreen on your skin only. Do not get it in your eyes, nose, or mouth. Do not use the spray on your face. A sunscreen stick or lip balm especially made for your face is easy to use. ?? Apply a thick layer of sunscreen to all skin areas exposed to the sun. Reapply the sunscreen about every 2 hours, or after swimming, towel drying, or heavy sweating. ?? If the sunscreen contains alcohol, you should not use it near a fire or if you are smoking. How to Store and Dispose of This Medicine: ?? Store the sunscreen at room temperature away from heat and direct light. Do not freeze. ?? Keep all medicine out of the reach of children. Drugs and Foods to Avoid: Ask your doctor or pharmacist before using any other medicine, including [id number]-aei-hbwmmok medicines, vitamins, and herbal products. ?? Talk with your doctor before using a sunscreen on the same skin areas you are treating with other skin medicines. Warnings While Using This Medicine: ?? You should not use sunscreens on children younger than 6 months of age unless you have first talked with your child's doctor. Children younger than 6 months old may absorb sunscreen through their skin into their bodies. It is best to keep infants younger than 6 months old out of the sun. If thiscannot be avoided, lightweight clothes and a hat may help protect an infant from the sun. ?? Sunscreens work by either absorbing or reflecting the sun's ultraviolet radiation (UVR). UVR causes skin cancer, sunburns, and premature aging of skin (wrinkles and dry, thinning skin). Clouds will filter some UVR, but not all. You will still need to use sunscreen even when it is cloudy. ?? UVR can reflect off of light surfaces such as sand and snow. Wear a sunscreen when are out in the snow to keep from getting a sunburn. ?? Sunscreens are rated by SPFs (sun protection factors). Use a sunscreen with an SPF of at least 15. Children older than 6 months of age should wear a sunscreen of SPF 15 or higher when outdoors. Ifyou need more protection or have fair skin, an SPF of 20 to 30 (or higher) can be used. You can also protect your skin by wearing a hat and lightweight clothes. ?? To prevent skin damage, avoid being in the sun between the hours of 10 AM and 3 PM, when the sun's rays are strongest. ?? Sunscreens that contain PABA may permanently stain your clothing yellow. Possible Side Effects While Using This Medicine: If you notice these less serious side effects, talk with your doctor: ?? Rash If you notice other side effects that you think are caused by this medicine, tell your doctor. Call your doctor for medical advice about side effects. You may report side effects to FDA at 9-718-IVB-2499 Copyright ?? 2010. play140. All rights reserved. Information is for End User's use only andmay not be sold, redistributed or otherwise used for commercial purposes. The above information is an pathology laboratory aides teacher only. It is not intended as medical advice for individual conditions or treatments. Talk to your doctor, nurse or pharmacist before following any medical regimen to see if it is safe and effective for you. documented in this encounter Progress Notes * Jes Arriaga MD - 12/14/2014 1:57 PM PDT Quin Dias is a 64 year old female who comes to clinic today for Chief Complaint Patient presents with ??? Physical Annual Physical Patient Active Problem List Diagnosis ??? Major [...] updated to reflect current medications as of 12/14/2014 No Known Allergies Past Medical History Diagnosis Date ??? HYPOTHYROIDISM ??? Hypertension History Social History ??? Marital Status: Spouse Name: N/A Number of Children: N/A ??? Years of [...] Negative. Neurological: Negative. Endo/Heme/Allergies: Negative. Psychiatric/Behavioral: Negative. BP: 110/70 mmHg Pulse: 72 Temp: 98.1 ??F Resp: 16 Height: 5' 4.3 (163.3 cm) Weight: 118 lb (53.524 kg) Physical Exam Constitutional: She is well-developed, well-nourished, and in no distress. HENT: Head: Normocephalic and atraumatic. Right Ear: External ear normal. Left Ear: External ear normal. Nose: Nose normal. Mouth/Throat: Oropharynx is clear and moist. No oropharyngeal exudate. Eyes: Conjunctivae are normal. Pupils are equal, round, and reactive to light. Neck: Normal range of motion. Neck supple. No tracheal deviation present. No thyromegaly present. Cardiovascular: Normal rate, regular rhythm, normal heart sounds and intact distal pulses. Pulmonary/Chest: Effort normal and breath sounds normal. No respiratory distress. She has no wheezes. Right breast exhibits no inverted nipple, no mass, no nipple discharge, no skin change and no tenderness. Left breast exhibits no inverted nipple, no mass, no nipple discharge, no skin change and no tenderness. Abdominal: Soft. Bowel sounds are normal. She exhibits no distension. There is no tenderness. Genitourinary: Vagina normal, uterus normal and cervix normal. Guaiac negative stool. No vaginal discharge found. Musculoskeletal: Normal range of motion. Neurological: She is alert. Gait normal. Skin: Skin is warm and dry. Assessment & Plan: 1. Annual physical exam Stable - CBC With Manual Differential; Future - Comprehensive Metabolic Panel; Future - Hemoglobin A1C w/MPG; Future - LIPID PANEL; Future - Urinalysis With Reflex Microscopic & Culture, If Indicated; Future - TSH, 3rd Generation w/rflx to FT4; Future 2. Screening for colon cancer Due - MMF GI EST PT RFL 3. Screening for cervical cancer Due Pap 4. Essential hypertension Stable Continue medication 5. Hypothyroidism, unspecified Stable Continue medication 6. Major depressive disorder, recurrent episode, mild (HCC) Stable Continue med All Orders Placed in this Encounter ??? BONE DENSITY AXIAL ??? CBC With Manual Differential ??? Comprehensive Metabolic Panel ??? Hemoglobin A1C w/MPG ??? LIPID PANEL ? ? Urinalysis With Reflex Microscopic & Culture, If Indicated ??? TSH, 3rd Generation w/rflx to FT4 ??? SurePath Pap Rfx HR HPV DNA ??? MMF GI EST PT RFL Referral Priority: Routine Referral Type: Consultation Requested Specialty: Gastroenterology Number of Visits Requested: 1 Expiration Date: 06/14/2015 ??? amLODIPine (NORVASC, AMVAZ) 5 mg Oral Tablet Sig: Take 1 Tab by mouth daily. ??? hydroCHLOROthiazide (HYDRODIURIL) 25 mg Oral Tablet Sig: Take 1 Tab by mouth daily. ??? FLUoxetine (PROZAC) 20 mg Oral Capsule Sig: Take 20 mg by mouth daily. The patient Quin Dias indicates understanding of these issues and agreement with the plan. RTC Post lab Pt is aware of the importance of close followup. Pt assures me that plans we discussed today will be carried out. Pt aware that if current condition worsens or persists, pt may see myself or any available MD for evaluation. health maintenance: Nursing Notes: Amirah Ramirez 12/14/2014 1:53 PM Signed Opthal:2012 Pap: 12/14/2014 Colonoscopy:due Labs: now due Mammo:2013 documented in this encounter Nursing Notes * Amirah Ramirez - 12/14/2014 1:46 PM PDT Opthal:2012 Pap: 12/14/2014 Colonoscopy:due Labs: now due Mammo:2013 documented in this encounter Plan of Treatment Scheduled Referrals Name Type Priority Associated Diagnoses Orde r Schedule MMF GI EST PT RFL Referral Routine Screening for colon cancer Ordered: 12/14/2014 documented as of this encounter Results * BONE DENSITY AXIAL [...] Hilario Ashby M.D. ?? rwr/:01/11/2015 15:52:40 ?? Freight Solicitor: Iqra Kenney [facility] letter sent: Bone Density Letter Narrative 01/11/2015 [...] Dictated by: Hilario Ashby M.D. rwr/:01/11/2015 15:52:40 Freight Solicitor: Iqra Kenney, [facility] letter sent: Bone Density Letter Jes Arriaga MD BD IMG BONE DENS ITY * SUREPATH PAP RFX HR HPV-[facility] (12/14/2014 3:20 PM PDT) Clinical Information: NONE GIVEN [facility]) LMP: NONE GIVEN [facility]) Prev. PAP: NONE GIVEN [facility]) Prev. Bx: NONE GIVEN [facility] PAP Source: NONE GIVEN [facility]) Statement of Adequacy: [facility]) Comment: Satisfactory for evaluation. Endocervical/transformation zone component present. Interpretation/Resu lt: [facility] ([facility]) Comment:Negative for intraep ithelial lesion or malignancy. Farmer Vegetable: [facility]) Comment:ATD, CT(ASCP) Genital 12/14/2014 3:20 PM PDT 12/15/2014 2:10 AM PDT Narrative Resulting Agency Comment Performing Organization Information: ? JN ? [facility] ? [address] [place] [address] ? César Montano MD,PhD Jes Arriaga MD LAB ANATOMIC PAT HOLOGY Performing Organization Address [facility] Co de Phone Number [facility]) * TSH, 3RD GENERATION W/RFLX TO FT4-[facility] (12/14/2014 2:42 PM PDT) TSH 3rd Gen 3.90 0.40 - 4.50 mIU/L [facility]) Blood 12/14/2014 2:42 PM PDT 12/15/2014 3:06 AM PDT Narrative Resulting Agency Comment Performing Organization Information: ? EN ? [facility] ? [address] [place] [address] ? César Montano M.D. Jes Arriaga MD LAB BLOOD Performing Organization Address [facility] de Phone Number [facility] * (ABNORMAL) URINALYSIS WITH REFLEX MICROSCOPIC & CULTURE, IF INDICATED-[facility] (12/14/2014 2:42 PM PDT) Color YELLOW YELLOW [facility]) Appearance CLEAR CLEAR [facility]) Specific [place] Ur 1.005 1.001 - 1.035 [facility] [...] [facility]) Leukocyte Jeanne 1+(A) NEGATIVE [facility]) WBC Ur 6-10(A) < OR = 5 /HPF [facility]) RBC/HPF NONE SEEN < OR = 2 /HPF [facility]) SQ Epithelial NONE SEEN < OR = 5 /HPF [facility] ([facility]) Bacteria Ur NONE SEEN NONE SEEN /HPF [facility]) Hyaline Casts NONE SEEN NONE SEEN /LPF [facility]) Reflexive Urine Culture CULTURE INDICATED - RESULTS TO FOLLOW [facility]) Blood 12/14/2014 2:42 PM PDT 12/15/2014 3:06 AM PDT Narrative Resulting Agency Comment Performing Organization Information: ? EN ? [facility] ? [address] [place] [address] ? César Montano M.D. Jes Arriaga MD LAB NON-BLOOD [facility] * (ABNORMAL) CBC WITH MANUAL DIFFERENTIAL-[facility]/OCM (12/14/2014 2:42 PM PDT) WBC 6.0 3.8 - 10.8 Thousand/ uL [facility] ([facility]) RBC 3.77(L) 3.80 - 5.10 Million/u L [facility]) HGB 11.6(L) 11.7 - 15.5 g/dL [facility] ([facility]) HCT 34.6(L) 35.0 - 45.0 % [facility]) MCV 91.8 80.0 - 100.0 fL [facility]) MCH 30.9 27.0 - 33.0 pg [facility]) MCHC 33.6 32.0 - 36.0 g/dL [facility] ([facility]) RDW 14.6 11.0 - 15.0 % [facility]) Platelet 314 140 - 400 Thousand/ uL [facility]) MPV 7.6 7.5 - 11.5 fL [facility]) Neutrophil Abs 3,120 1,500 - 7,800 cells/uL [facility]) Band Neutrophils Abs 0 0 - 750 cells/uL [facility]) Lymphocyte Abs 2,040 850 - 3,900 cells/uL [facility]) Monocyte Abs 540 200 - 950 cells/uL [facility]) Eosinophil Abs 240 15 - 500 cells/uL [facility]) BASO ABS 60 0 - 200 cells/uL [facility]) Manual Neut % 52 % [facility] Manual Bands % 0 % [facility]) Manual Lymph % 34 % [facility] Monocytes % 9 % [facility] Eosinophil % 4 % [facility]) Basophil 1 % [facility] Slide Review [facility] Comment: The smear has been manually reviewed and the manual differential has been reported. Red cell morphology appears unremarkable Blood (BLOOD) 12/14/2014 2:4 2 PM PDT 12/15/2014 3:06 AM PDT Narrative Resulting Agency Comment Performing Organization Information: ? EN ? [facility] ? [address] [place] [address] ? César Montano M.D. Jes Arriaga MD LAB BLOOD [facility]) documented in this encounter Visit Diagnoses Diagnosis Annual physical exam- Primary Routine general medical examination at a health care facility Screening for colon cancer Special screening for malignant neoplasms, colon Screening for cervical cancer Screening for malignant neoplasm of the cervix Essential hypertension Unspecified essential hypertension Hypothyroidism, unspecified Major depressive disorder, recurrent episode, mild (HCC) Major depressive disorder, recurrent episode, mild Screening for osteoporosis Special screening for osteoporosis Screening for osteoporosis Special screening for osteoporosis documented in this encounter Care Teams Senior Solutions Workflow Consultant Relationship Specialty [place] [address] [facility], [address] [place], [place] [address] PCP - General Internal Medicine 12/02/14 documented as of this encounter
--- OUTSIDE RECORDS SUMMARY | 2024-04-21 18:24 | XMS_ITS | Encounter Summary ---
Author Organization [facility] Address [address] [place] [address] Care Team Providers Care Floor Attendant Name Role Phone Jes Arriaga MD Primary Care Provider + Encounter Details Date Type Department Care Team (Late st Contact Info) Description 12/14/2014 2:45 PM PDT Orders Only [facility] [address] [id number] [facility] [address] [place] [address] Social History Tobacco Use Types [...] Progress Notes * Jes Arriaga MD - 12/15/2014 1:09 PM PDTQuick Note: Awaiting urine culture Will treat if indicated documented in this encounter Miscellaneous Notes * Addendum Note - Luanne Reyes - 12/14/2014 3:20 PM PDTAddended by: LUANNE REYES on: 12/14/2014 03:20 PM Modules accepted: Orders documented in this encounter Plan of Treatment Not on file documented as of this encounter Procedures Procedure Name Priority Date/Time Associated Diagnosis Comments SUREPATH PAP RFX HR HPV - [facility] Routine 12/14/2014 3:20 PM PDT Screening for cervical cancer TSH, 3RD GENERATION W/RFLX TO FT4 Routine 12/14/2014 2:42 PM PDT Annual physical exam URINALYSIS WITH REFLEX MICROSCOPIC & CULTURE, IF INDICATED Routine 12/14/2014 2:42 PM PDT Annual physical exam CULTURE, URINE Routine 12/14/2014 2:42 PM PDT CBC WITH MANUAL DIFFERENTIAL Routine 12/14/2014 2:42 PM PDT Annual physical exam documented in this encounter Results * SUREPATH PAP RFX HR HPV-[facility] (12/14/2014 [...] Comment:Negative for intraep ithelial lesion or malignancy. Home Health Outreach Coordinator: [facility]) Comment:ATD, CT(ASCP) Genital 12/14/2014 3:20 PM PDT 12/15/2014 2:10 AM PDT Narrative Resulting Agency Comment Performing Organization Information: ? JN ? [facility] ? [address] [place] [address] ? César Montano MD,PhD Jes Arriaga MD LAB ANATOMIC PAT HOLOGY [facility]) * CULTURE, URINE-[facility] (12/14/2014 2:42 PM PDT) Culture, Urine [facility]) Comment: ??CULTURE, URINE, ROUTINE ?MICRO NUMBER: ?[id number] ??TEST STATUS: ? FINAL ??SPECIMEN SOURCE: ?? URINE ??SPECIMEN QUALITY: ??ADEQUATE ??RESULT: ?Multiple organisms present, each less than 10,000 ? CFU/mL. These organisms, commonly found on ? external and internal genitalia, are considered ? to be colonizers. No further testing performed. 12/14/2014 2:42 PM PDT 12/15/2014 3:06 AM PDT Narrative Resulting Agency Comment Performing Organization Information: ? EN ? [facility] ? [address] [place] [address] ? César Montano M.D. Jes Arriaga MD LAB MICROBIOLOGY Performing Organization Address [facility] de Phone Number [facility]) * TSH, 3RD GENERATION W/RFLX TO FT4-[facility] (12/14/2014 2:42 PM PDT) TSH 3rd Gen 3.90 0.40 - 4.50 mIU/L [facility]) Blood 12/14/2014 2:42 PM PDT 12/15/2014 3:06 AM PDT Narrative Resulting Agency Comment Performing Organization Information: ? EN ? [facility] ? [address] [place] [address] ? César Montano M.D. Jes Arriaga MD LAB BLOOD Performing Organization Address [facility] de Phone Number [facility] ([facility]) * (ABNORMAL) URINALYSIS WITH REFLEX MICROSCOPIC & CULTURE, IF INDICATED-S (12/14/2014 2:42 PM PDT) Color YELLOW YELLOW [facility]) Appearance CLEAR CLEAR [facility]) Specific [place] [facility] 1.005 1.001 - 1.035 [facility] [...] Performing Organization Information: ? EN ? [facility] ? [address] [place] [address] ? César Montano M.D. Jes Arriaga MD [...] Performing Organization Information: ? EN ? [facility] ? [address] [place] [address] ? César Montano M.D. Jes Arriaga MD LAB BLOOD [facility] ([facility]) documented in this encounter Visit Diagnoses Diagnosis Annual physical exam- Primary Routine general medical examination at a health care facility Screening for cervical cancer Screening for malignant neoplasm of the cervix documented in this encounter Care Teams Floor Attendant Relationship Specialty [place] [address] [place] [address] PCP - General Internal Medicine 12/02/14 documented as of this encounter
== END 2024-04-21 18:01 | disposition home or self-care (01) ==
LOC: ER 18:17
PROVIDERS: Emergency Provider Physician Assistant
DX: S81.812A Laceration without foreign body, left lower leg, initial encounter (principal); W22.8XXA Striking against or struck by other objects, initial encounter; Y93.55 Activity, bike riding
CPT/HCPCS: 12004